=== PATIENT | male | born 1950 | race Caucasian/White ===

== ENCOUNTER 2018-04-23 13:46 | Inpatient (IN) | payer MEDICARE, OTHER ==
[~2018-04-23] VITALS: Ht 175.3 cm; Wt 72.6 kg
[2018-04-23 14:10] VITALS: BP 112/76
--- NOTE | 2018-04-23 14:21 | Emergency Room Report ---
History of Present Illness General Chief Complaint: Generalized Weakness Source: Patient Present Illness HPI Patient is a 68-year-old male who presented after increased difficulty breathing and generalized weakness. Patient gradual onset of symptoms. He reports having prior history of COPD. Patient reports recently stopping smoking. But he states he been smoking up until a few days ago. He reports having increased cough. Reports having increased generalized weakness. He states he has some unknown type of cardiac arrhythmia. He's had previous cardiac catheterization. Allergies: Coded Allergies: AMPICILLIN (Verified Allergy, Unknown, 04/23/18) Uncoded Allergies: PENICILLIN (Allergy, Unknown, 04/23/18) Patient History Past Medical History: COPD Reviewed Nursing Documentation: PMH: Agreed; PSxH: Agreed Nursing Documentation-PMH Past Medical History: No History, Except For Hx Cardiac Problems: Yes - arrhythmia Hx Hypertension: No Hx Pacemaker: No Hx Asthma: Yes Hx COPD: Yes Hx Diabetes: No Hx Cancer: No Hx Gastrointestinal Problems: No Hx Dialysis: No History Of Psychiatric Problem: No Hx Neurological Problems: No Hx Cerebrovascular Accident: No Hx Seizures: No Review of Systems All Other Systems: negative except mentioned in HPI Physical Exam Vital Signs Date Time Temp Pulse Resp B/P (MAP) Pulse Ox O2 Delivery O2 Flow Rate FiO2 04/23/18 13:53 96.0 127 22 133/66 86 Room Air 96.1 Sp02 EP Interpretation: reviewed, normal General Appearance: normal inspection, alert, GCS 15, moderate distress, thin, Chronically Ill Head: atraumatic ENT: normal ENT inspection, hearing grossly normal, normal voice Neck: normal inspection, supple, no bony tend, limited range of motion Respiratory: respiratory distress, accessory muscle use, wheezing Cardiovascular #1: no edema, irregularly irregular Gastrointestinal: normal inspection, normal bowel sounds, non tender, soft, no guarding, no hernia Genitourinary: no CVA tenderness Musculoskeletal: normal inspection, back normal, normal range of motion Neurologic: normal inspection, alert, oriented x3, responsive, speech normal Psychiatric: normal inspection, judgement/insight normal, mood/affect normal Skin: normal inspection, normal color, no rash Medical Decision Making Diagnostic Impression: Primary Impression: Episode of generalized weakness Additional Impressions: COPD (chronic obstructive pulmonary disease) CHF (congestive heart failure) Atrial fibrillation ER Course Patient is a for generalized weakness and shortness of breath. Differential included but was not limited to anemia, pneumonia, pneumothorax, myocardial infarction, pericardial effusion, congestive heart failure, acidosis. Because of complexity of patient's case laboratory testing and imaging studies were ordered.Patient was given IV Lasix as well as oral antibiotics the patient was given breathing treatments as well as IV magnesium. Patient was discussed with Dr. Jarrett Fitch for Dr. Tavares for inpatient management Labs Test 04/23/18 14:22 04/23/18 16:00 04/23/18 19:45 White Blood Count 4.9 K/UL (4.8-10.8) Red Blood Count 5.33 M/UL (4.70-6.10) Hemoglobin 14.7 G/DL (14.2-18.0) Hematocrit 44.2 % (42.0-52.0) Mean Corpuscular Volume 83 FL (80-99) Mean Corpuscular Hemoglobin 27.5 PG (27.0-31.0) Mean Corpuscular Hemoglobin Concent 33.2 G/DL (32.0-36.0) Red Cell Distribution Width 11.8 % (11.6-14.8) Platelet Count 101 K/UL (150-450) Mean Platelet Volume 8.9 FL (6.5-10.1) Neutrophils (%) (Auto) 81.2 % (45.0-75.0) Lymphocytes (%) (Auto) 9.4 % (20.0-45.0) Monocytes (%) (Auto) 8.7 % (1.0-10.0) Eosinophils (%) (Auto) 0.0 % (0.0-3.0) Basophils (%) (Auto) 0.7 % (0.0-2.0) Prothrombin Time 11.0 SEC (9.30-11.50) Prothromb Time International Ratio 1.0 (0.9-1.1) Activated Partial Thromboplast Time 32 SEC (23-33) Sodium Level 136 MMOL/L (136-145) Potassium Level 3.8 MMOL/L (3.5-5.1) Chloride Level 97 MMOL/L (98-107) Carbon Dioxide Level 32 MMOL/L (21-32) Anion Gap 7 mmol/L (5-15) Blood Urea Nitrogen 30 mg/dL (7-18) Creatinine 1.3 MG/DL (0.55-1.30) Estimat Glomerular Filtration Rate 55.2 mL/min (>60) Glucose Level 121 MG/DL (74-106) Calcium Level 8.9 MG/DL (8.5-10.1) Total Bilirubin 3.1 MG/DL (0.2-1.0) Direct Bilirubin 2.2 MG/DL (0.0-0.3) Aspartate Amino Transf (AST/SGOT) 68 U/L (15-37) Alanine Aminotransferase (ALT/SGPT) 112 U/L (12-78) Alkaline Phosphatase 179 U/L (46-116) Troponin I 0.035 ng/mL (0.000-0.056) C-Reactive Protein, Quantitative 18.0 mg/dL (0.00-0.90) Pro-B-Type Natriuretic Peptide 2106 pg/mL (0-125) Total Protein 7.2 G/DL (6.4-8.2) Albumin 3.1 G/DL (3.4-5.0) Globulin 4.1 g/dL Albumin/Globulin Ratio 0.8 (1.0-2.7) Thyroid Stimulating Hormone (TSH) 2.071 uiU/mL (0.358-3.740) Urine RBC 0 /HPF (0 - 0) Urine WBC 0-2 /HPF (0 - 0) Urine Squamous Epithelial Cells None /LPF (NONE/OCC) Urine Bacteria None /HPF (NONE) Urine Opiates Screen Negative (NEGATIVE) Urine Barbiturates Screen Negative (NEGATIVE) Phencyclidine (PCP) Screen Negative (NEGATIVE) Urine Amphetamines Screen Negative (NEGATIVE) Urine Benzodiazepines Screen Negative (NEGATIVE) Urine Cocaine Screen Negative (NEGATIVE) Urine Marijuana (THC) Screen Positive (NEGATIVE) Urine Color Pale yellow Urine Appearance Clear Urine pH 6.5 (4.5-8.0) Urine Specific [place] 1.005 (1.005-1.035) Urine Protein Negative (NEGATIVE) Urine Glucose (UA) 2+ (NEGATIVE) Urine Ketones Negative (NEGATIVE) Urine Occult Blood Negative (NEGATIVE) Urine Nitrite Negative (NEGATIVE) Urine Bilirubin Negative (NEGATIVE) Urine Urobilinogen Normal MG/DL (0.0-1.0) Urine Leukocyte Esterase Negative (NEGATIVE) EKG Diagnostic Results Rate: other - atrial fibrillation Last Vital Signs Date Time Temp Pulse Resp B/P (MAP) Pulse Ox O2 Delivery O2 Flow Rate FiO2 04/23/18 13:53 96.0 127 22 133/66 86 Room Air 96.1 Status: unchanged Disposition: ELOPED Condition: Stable Daniel Carvalho MD Apr 23, 2018 14:21
[2018-04-23] MEDS ORDERED: Solu-MEDROL 125mg Inj IVP ONE (14:30)
[2018-04-23] MEDS ORDERED: Albuterol/Ipratropium 3ml neb HHN SCH (14:30)
[2018-04-23 14:39] LABS: BASOPHILS % (AUTO) 0.7 % (0.0-2.0); HEMATOCRIT 44.2 % (42.0-52.0); HEMOGLOBIN 14.7 G/DL (14.2-18.0); LYMPHOCYTES % (AUTO) 9.4 % (20.0-45.0); MEAN CORPUSCULAR VOLUME 83 FL (80-99); MONOCYTES % (AUTO) 8.7 % (1.0-10.0); NEUTROPHILS % (AUTO) 81.2 % (45.0-75.0); PLATELET COUNT 101 K/UL (150-450); RED BLOOD COUNT 5.33 M/UL (4.70-6.10); RED CELL DISTRIBUTION WIDTH 11.8 % (11.6-14.8); WHITE BLOOD COUNT 4.9 K/UL (4.8-10.8)
[2018-04-23 14:50] LABS: ANION GAP 7 mmol/L (5-15); BLOOD UREA NITROGEN 30 mg/dL (7-18); CALCIUM 8.9 MG/DL (8.5-10.1); CARBON DIOXIDE 32 MMOL/L (21-32); CHLORIDE 97 MMOL/L (98-107); CREATININE 1.3 MG/DL (0.55-1.30); POTASSIUM 3.8 MMOL/L (3.5-5.1); SODIUM 136 MMOL/L (136-145)
[2018-04-23 15:11] LABS: ALANINE AMINOTRANSFERASE 112 U/L (12-78); ALBUMIN 3.1 G/DL (3.4-5.0); ALBUMIN/GLOBULIN RATIO 0.8 (1.0-2.7); ALKALINE PHOSPHATASE 179 U/L (46-116); ASPARTATE AMINO TRANSFERASE 68 U/L (15-37); BILIRUBIN,TOTAL 3.1 MG/DL (0.2-1.0)
[2018-04-23 15:16] LABS: BILIRUBIN,DIRECT 2.2 MG/DL (0.0-0.3)
--- NOTE | 2018-04-23 15:28 | Diagnostic Imaging Report ---
Indication: Shortness of breath Technique: One view of the chest Comparison: none Findings: Lungs and pleural spaces are clear. Heart size is normal Impression: No acute process
[2018-04-23] MEDS ORDERED: FUROSEMIDE10 MG/1 M2 PO (15:49)
[2018-04-23] MEDS ORDERED: COREG3.125 MG ORAL (15:49)
[2018-04-23] MEDS ORDERED: CRESTOR10 M2 ORAL (15:49)
[2018-04-23] MEDS ORDERED: Morphine Sulfate 2mg/ml Inj(IV/IM USE ONLY) IVP PRN (16:00)
[2018-04-23] MEDS ORDERED: Morphine Sulfate 4mg/ml Inj (IV USE ONLY) IVP PRN (16:00)
--- NOTE | 2018-04-23 16:15 | History and Physical ---
History of Present Illness General Date patient seen: Apr 23, 2018 Reason for Hospitalization: Generalized Weakness Present Illness HPI 68 yo M w/ Hx MMP including COPD, CHF who presents to the ED w/ 1 mo of worsening Generalized weakness and one week of increased shortness of breath and KABA. Pt has been living in a board and [facility] and reports limited access to healthy food. Food provided at the facility is not c/w recommendations he has been given for a cardiac/low na diet. Over the past 2 days he has had little po intake due to anorexia and general malaise. At baseline he is able to walk for > 1 block on flat ground, but now is limited to 20-30 feet. He also reports Orthopnea. Pt felt like today his overall health had signifigantly declined prompting him to present to the ED. In the ED pt was found to be in decompensated CHF w/ elevated BNP and COPD exacerbation w/ exp wheeze. He was started on lasix IV, Steroids and nebs with some improvement in sob. Social Hx: Lives in board and care Denies ETOH use Active smoker, 1 PPD, > 40 pack yr Hx (has not smoked in 3 days) Allergies: Coded Allergies: AMPICILLIN (Verified Allergy, Unknown, 04/23/18) Uncoded Allergies: PENICILLIN (Allergy, Unknown, 04/23/18) Medication History Scheduled Carvedilol (Coreg), 12.5 MG ORAL EVERY 12 HOURS, (Reported) Furosemide (Furosemide), 40 MG PO DAILY, (Reported) Rosuvastatin Calcium* (Crestor*), 5 MG ORAL DAILY, (Reported) Patient History Healthcare decision maker N Resuscitation status Advanced Directive on File Past Medical/Surgical History Past Medical/Surgical History: (1) COPD (chronic obstructive pulmonary disease) (2) Atrial fibrillation (3) CHF (congestive heart failure) (4) Episode of generalized weakness Review of Systems Constitutional: Reports: malaise, weakness; Denies: no symptoms, see HPI, chills, sweats, fever, other Eye: Denies: no symptoms, see HPI, eye pain, blurred vision, tearing, double vision, nose pain, nose congestion, acuity changes, discharge, other Respiratory: Reports: see HPI, cough, orthopnea, shortness of breath, wheezing , sputum; Denies: no symptoms, stridor, KABA, other Cardiovascular: Reports: see HPI, PND; Denies: no symptoms, chest pain, edema, palpitations, syncope, other Gastrointestinal: Reports: nausea; Denies: no symptoms, see HPI, abdominal pain , constipation, diarrhea, vomiting, melena, hematemesis, other Genitourinary: Denies: no symptoms, see HPI, discharge, dysuria, frequency, hematuria, pain, retention, incontinence, urgency, vag bleed/dc, other Musculoskeletal: Denies: no symptoms, see HPI, back pain, gout, joint pain, joint swelling, muscle pain, muscle stiffness, other Skin: Denies: no symptoms, see HPI, rash, change in color, change in hair/nails , dryness, lesions, other Psychiatric: Denies: no symptoms, see HPI, prior hx, anxiety, depressed feelings, emotional problems, SI, HI, hallucinations, other Neurological: Denies: no symptoms, see HPI, headache, numbness, paresthesia, seizure, tingling, tremors, focal weakness, syncope, dizziness, other Endocrine: Denies: no symptoms, see HPI, excessive sweating, flushing, intolerance to temperature, increased thirst, increased urine, unexplained weight loss, other Hematologic/Lymphatic: Denies: no symptoms, see HPI, anemia, blood clots, easy bleeding, easy bruising, swollen glands, diathesis, other Physical Exam General Appearance: thin HEENT: normocephalic, atraumatic, anicteric, mucous membranes moist, PERRL Neck: non-tender, supple Respiratory/Chest: chest wall non-tender, lungs clear, no respiratory distress , no accessory muscle use, expiratory wheezing Cardiovascular/Chest: normal rate, regular rhythm, regularly irregular, no gallop/murmur, JVD Abdomen: normal bowel sounds, non tender, soft, no organomegaly, no mass Extremities: normal range of motion, normal inspection, normal capillary refill 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, no motor/sensory deficits, abnormal gait , alert, oriented x 3, normal mood/affect Last 24 Hour Vital Signs Date Time Temp Pulse Resp B/P (MAP) Pulse Ox O2 Delivery O2 Flow Rate FiO2 04/23/18 14:10 96.1 89 29 112/76 97 Room Air 96.1 04/23/18 13:53 96.0 127 22 133/66 86 Room Air 96.1 Laboratory Tests Test 04/23/18 14:22 White Blood Count 4.9 K/UL (4.8-10.8) Red Blood Count 5.33 M/UL (4.70-6.10) Hemoglobin 14.7 G/DL (14.2-18.0) Hematocrit 44.2 % (42.0-52.0) Mean Corpuscular Volume 83 FL (80-99) Mean Corpuscular Hemoglobin 27.5 PG (27.0-31.0) Mean Corpuscular Hemoglobin Concent 33.2 G/DL (32.0-36.0) Red Cell Distribution Width 11.8 % (11.6-14.8) Platelet Count 101 K/UL (150-450) L Mean Platelet Volume 8.9 FL (6.5-10.1) Neutrophils (%) (Auto) 81.2 % (45.0-75.0) H Lymphocytes (%) (Auto) 9.4 % (20.0-45.0) L Monocytes (%) (Auto) 8.7 % (1.0-10.0) Eosinophils (%) (Auto) 0.0 % (0.0-3.0) Basophils (%) (Auto) 0.7 % (0.0-2.0) Prothrombin Time 11.0 SEC (9.30-11.50) Prothromb Time International Ratio 1.0 (0.9-1.1) Activated Partial Thromboplast Time 32 SEC (23-33) Sodium Level 136 MMOL/L (136-145) Potassium Level 3.8 MMOL/L (3.5-5.1) Chloride Level 97 MMOL/L (98-107) L Carbon Dioxide Level 32 MMOL/L (21-32) Anion Gap 7 mmol/L (5-15) Blood Urea Nitrogen 30 mg/dL (7-18) H Creatinine 1.3 MG/DL (0.55-1.30) Estimat Glomerular Filtration Rate 55.2 mL/min (>60) Glucose Level 121 MG/DL (74-106) H Calcium Level 8.9 MG/DL (8.5-10.1) Total Bilirubin 3.1 MG/DL (0.2-1.0) H Direct Bilirubin 2.2 MG/DL (0.0-0.3) H Aspartate Amino Transf (AST/SGOT) 68 U/L (15-37) H Alanine Aminotransferase (ALT/SGPT) 112 U/L (12-78) H Alkaline Phosphatase 179 U/L (46-116) H Troponin I 0.035 ng/mL (0.000-0.056) C-Reactive Protein, Quantitative 18.0 mg/dL (0.00-0.90) H Pro-B-Type Natriuretic Peptide 2106 pg/mL (0-125) H Total Protein 7.2 G/DL (6.4-8.2) Albumin 3.1 G/DL (3.4-5.0) L Globulin 4.1 g/dL Albumin/Globulin Ratio 0.8 (1.0-2.7) L Thyroid Stimulating Hormone (TSH) 2.071 uiU/mL (0.358-3.740) Height (Feet): 5 Height (Inches): 9.00 Weight (Pounds): 160 Medications Current Medications Medications (Trade) Dose Ordered Sig/Nova Route PRN Reason Start Time Stop Time Status Last Admin Dose Admin Albuterol/ Ipratropium (Albuterol/ Ipratropium) 3 ml Q15M HHN 04/23/18 14:30 04/28/18 14:29 04/23/18 14:41 Assessment/Plan Assessment/Plan #Acute decompensated CHF #COPD exacerbation #Transaminitis (? hepatic congestion) #HTN #HLD - place in observation - cardiology consult - athletic monitor - trend tn/ekg - lasix 40 IV BID, goal neg 1L / 24 hrs - strict i/o's - CHEM BID - replace lytes as needed - UA - asa, coreg, statin - abd us - Pulm consult - nebs q4h atc - prednisone 40 po daily x 5 days - defer abx at this time - repeat CXR in am - supplemental 02 - supportive care - dvt ppx: HSQ BID - full code anticipate pt will require 1-2 days in house anticipate dc home w/ HH vs SNF once medically stable I spent 68 min on this case, 48 min was dedicated to counseling and care coordination time of note may not reflect time of clinical encounter Ab Fitch MD Apr 23, 2018 16:15
[2018-04-23 16:18] LABS: APPEARANCE,URINE CLEAR; BILIRUBIN, URINE NEGATIVE (NEGATIVE); GLUCOSE, URINE (UA) NEGATIVE (NEGATIVE); KETONES,URINE NEGATIVE (NEGATIVE); LEUKOCYTE ESTERASE ,URINE NEGATIVE (NEGATIVE); NITRITE,URINE NEGATIVE (NEGATIVE); PH,URINE 6.5 (4.5-8.0); PROTEIN,URINE NEGATIVE (NEGATIVE); UROBILINOGEN,URINE 4 MG/DL (0.0-1.0)
[2018-04-23 16:22] LABS: COLOR,URINE YELLOW
[2018-04-23] MEDS: Albuterol/Ipratropium 3ml neb HHN SCH ×2 (17:42→20:00)
--- NOTE | 2018-04-23 18:41 | Pulmonology Progress Note ---
Assessment/Plan Assessment/Plan HPI HPI Patient is a 68-year-old male who presented after increased difficulty breathing and generalized weakness. Patient gradual onset of symptoms. He reports having prior history of COPD. Patient reports recently stopping smoking. But he states he been smoking up until a few days ago. He reports having increased cough. Reports having increased generalized weakness. He states he has some unknown type of cardiac arrhythmia. He's had previous cardiac catheterization. Allergies: Coded Allergies: AMPICILLIN (Verified Allergy, Unknown, 04/23/18) Uncoded Allergies: PENICILLIN (Allergy, Unknown, 04/23/18) Patient History Past Medical History: COPD Reviewed Nursing Documentation: PMH: Agreed; PSxH: Agreed Nursing Documentation-PMH Past Medical History: No History, Except For Hx Cardiac Problems: Yes - arrhythmia Hx Hypertension: No Hx Pacemaker: No Hx Asthma: Yes Hx COPD: Yes Hx Diabetes: No Hx Cancer: No Hx Gastrointestinal Problems: No Hx Dialysis: No History Of Psychiatric Problem: No Hx Neurological Problems: No Hx Cerebrovascular Accident: No Hx Seizures: No Review of Systems All Other Systems: negative except mentioned in HPI Physical Exam Vital Signs Date Time Temp Pulse Resp B/P (MAP) Pulse Ox O2 Delivery O2 Flow Rate FiO2 04/23/18 13:53 96.0 127 22 133/66 86 Room Air 96.1 Sp02 EP Interpretation: reviewed, normal General Appearance: normal inspection, alert, GCS 15, moderate distress, thin, Chronically Ill Head: atraumatic ENT: normal ENT inspection, hearing grossly normal, normal voice Neck: normal inspection, supple, no bony tend, limited range of motion Respiratory: respiratory distress, accessory muscle use, wheezing Cardiovascular #1: no edema, irregularly irregular Gastrointestinal: normal inspection, normal bowel sounds, non tender, soft, no guarding, no hernia Genitourinary: no CVA tenderness Musculoskeletal: normal inspection, back normal, normal range of motion Neurologic: normal inspection, alert, oriented x3, responsive, speech normal Psychiatric: normal inspection, judgement/insight normal, mood/affect normal Skin: normal inspection, normal color, no rash Medical Decision Making ER Course Patient is a for generalized weakness and shortness of breath. Differential included but was not limited to anemia, pneumonia, pneumothorax, myocardial infarction, pericardial effusion, congestive heart failure, acidosis. Because of complexity of patient's case laboratory testing and imaging studies were ordered. Last Vital Signs Date Time Temp Pulse Resp B/P (MAP) Pulse Ox O2 Delivery O2 Flow Rate FiO2 04/23/18 13:53 96.0 127 22 133/66 86 Room Air 96.1 Assessment/Plan #Acute decompensated CHF #COPD exacerbation #Possible Viral URI #Transaminitis (? 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 - nebs q4h atc - prednisone 40 po daily x 5 days - supplemental 02 sats 90-94% - supportive care - dvt ppx: SQ Heparin 5000 BID - full code I spent 75 min on this case, 43 min was dedicated to counseling and care coordination Subjective ROS Limited/Unobtainable: No Respiratory: Reports: shortness of breath Allergies: Coded Allergies: AMPICILLIN (Verified Allergy, Unknown, 04/23/18) Uncoded Allergies: PENICILLIN (Allergy, Unknown, 04/23/18) Objective Last 24 Hour Vital Signs Date Time Temp Pulse Resp B/P (MAP) Pulse Ox O2 Delivery O2 Flow Rate FiO2 04/23/18 17:57 96.1 04/23/18 16:35 96.1 79 21 112/65 96 Room Air 96.1 04/23/18 14:51 86 20 98 Room Air 04/23/18 14:41 84 22 92 Room Air 04/23/18 14:40 84 22 Room Air 04/23/18 14:10 96.1 89 29 112/76 97 Room Air 96.1 04/23/18 13:53 96.0 127 22 133/66 86 Room Air 96.1 Laboratory Tests 04/23/18 14:22: White Blood Count 4.9, Red Blood Count 5.33, Hemoglobin 14.7, Hematocrit 44.2, Mean Corpuscular Volume 83, Mean Corpuscular Hemoglobin 27.5, Mean Corpuscular Hemoglobin Concent 33.2, Red Cell Distribution Width 11.8, Platelet Count 101L, Mean Platelet Volume 8.9, Neutrophils (%) (Auto) 81.2H, Lymphocytes (%) (Auto) 9.4L, Monocytes (%) (Auto) 8.7, Eosinophils (%) (Auto) 0.0, Basophils (%) (Auto ) 0.7, Prothrombin Time 11.0, Prothromb Time International Ratio 1.0, Activated Partial Thromboplast Time 32, Sodium Level 136, Potassium Level 3.8, Chloride Level 97L, Carbon Dioxide Level 32, Anion Gap 7, Blood Urea Nitrogen 30H, Creatinine 1.3, Estimat Glomerular Filtration Rate 55.2, Glucose Level 121H, Calcium Level 8.9, Total Bilirubin 3.1H, Direct Bilirubin 2.2H, Aspartate Amino Transf (AST/SGOT) 68H, Alanine Aminotransferase (ALT/SGPT) 112H, Alkaline Phosphatase 179H, Troponin I 0.035, C-Reactive Protein, Quantitative 18.0H, Pro- B-Type Natriuretic Peptide 2106H, Total Protein 7.2, Albumin 3.1L, Globulin 4.1 , Albumin/Globulin Ratio 0.8L, Thyroid Stimulating Hormone (TSH) 2.071 04/23/18 16:00: Urine Color Yellow, Urine Appearance Clear, Urine pH 6.5, Urine Specific [place] 1.010, Urine Protein Negative, Urine Glucose (UA) Negative, Urine Ketones Negative, Urine Occult Blood Negative, Urine Nitrite Negative, Urine Bilirubin Negative, Urine Urobilinogen 4H, Urine Leukocyte Esterase Negative, Urine RBC 0, Urine WBC 0-2, Urine Squamous Epithelial Cells None, Urine Bacteria None, Urine Opiates Screen Negative, Urine Barbiturates Screen Negative , Phencyclidine (PCP) Screen Negative, Urine Amphetamines Screen Negative, Urine Benzodiazepines Screen Negative, Urine Cocaine Screen Negative, Urine Marijuana (THC) Screen PositiveH Current Medications Medications (Trade) Dose Ordered Sig/Nova Route PRN Reason Start Time Stop Time Status Last Admin Dose Admin Acetaminophen (Tylenol) 650 mg Q4H PRN ORAL Mild Pain (Pain Scale 1-3) 04/23/18 16:00 05/23/18 15:59 04/23/18 17:57 Acetaminophen (Tylenol) 650 mg Q4H PRN ORAL fever 04/23/18 16:00 05/23/18 15:59 Albuterol/ Ipratropium (Albuterol/ Ipratropium) 3 ml Q4HRT HHN 04/23/18 16:15 04/28/18 16:14 Aspirin (ASA) 81 mg DAILY ORAL 04/24/18 09:00 05/24/18 08:59 Atorvastatin Calcium (Lipitor) 80 mg BEDTIME ORAL 04/23/18 21:00 05/23/18 20:59 Carvedilol (Coreg) 12.5 mg EVERY 12 HOURS ORAL 04/23/18 21:00 05/23/18 20:59 Dextrose (Dextrose 50%) 25 ml STAT PRN IV Hypoglycemia 04/23/18 16:00 05/23/18 15:59 Dextrose (Dextrose 50%) 50 ml STAT PRN IV Hypoglycemia 04/23/18 16:00 05/23/18 15:59 Docusate Sodium (Colace) 100 mg EVERY 12 HOURS ORAL 04/23/18 21:00 05/23/18 20:59 Famotidine (Pepcid) 20 mg BID ORAL 04/23/18 18:00 05/23/18 17:59 04/23/18 17:49 Heparin Sodium (Porcine) (Heparin 5000 units/ml) 5,000 units EVERY 12 HOURS SUBQ 04/23/18 21:00 05/23/18 20:59 Morphine Sulfate (Morphine Sulfate) 2 mg Q4H PRN IVP Moderate Pain (Pain Scale 4-6) 04/23/18 16:00 04/30/18 15:59 Morphine Sulfate (Morphine Sulfate) 4 mg Q4H PRN IVP Severe Pain (Pain Scale 7-10) 04/23/18 16:00 04/30/18 15:59 Ondansetron HCl (Zofran) 4 mg Q6H PRN IVP Nausea & Vomiting 04/23/18 16:00 05/23/18 15:59 Prednisone (predniSONE) 40 mg DAILY ORAL 04/24/18 09:00 04/28/18 09:01 Estuardo Pratt MD Apr 23, 2018 18:41
[2018-04-23 20:00] VITALS: BP 99/57
[2018-04-23 20:46] LABS: APPEARANCE,URINE CLEAR; BILIRUBIN, URINE NEGATIVE (NEGATIVE); COLOR,URINE PALE YELLOW; GLUCOSE, URINE (UA) 2+ (NEGATIVE); KETONES,URINE NEGATIVE (NEGATIVE); LEUKOCYTE ESTERASE ,URINE NEGATIVE (NEGATIVE); NITRITE,URINE NEGATIVE (NEGATIVE); PH,URINE 6.5 (4.5-8.0); PROTEIN,URINE NEGATIVE (NEGATIVE); UROBILINOGEN,URINE NORMAL MG/DL (0.0-1.0)
[2018-04-23] MEDS: Atorvastatin 80mg tab ORAL SCH (20:52)
[2018-04-23] MEDS: Docusate 100mg cap ORAL SCH (20:52)
[2018-04-23] MEDS ORDERED: Carvedilol 12.5mg tab ORAL SCH (21:00)
[2018-04-23] MEDS: Heparin 5000 units/ml inj SUBQ SCH (21:00)
[2018-04-23] MEDS ORDERED: Sodium Chloride 500ML 500 ML IV ONE (21:30)
[2018-04-23] MEDS: Solu-MEDROL 40mg Inj IVP SCH (21:33)
[2018-04-24] MEDS: Albuterol/Ipratropium 3ml neb HHN SCH ×7 (00:07→22:56)
[2018-04-24 00:08] VITALS: BP 126/56
[2018-04-24 04:00] VITALS: BP 121/52
[2018-04-24] MEDS: Solu-MEDROL 40mg Inj IVP SCH ×3 (06:38→21:38)
[2018-04-24 06:50] LABS: HEMATOCRIT 40.9 % (42.0-52.0); HEMOGLOBIN 14.3 G/DL (14.2-18.0); MEAN CORPUSCULAR VOLUME 83 FL (80-99); PLATELET COUNT 89 K/UL (150-450); RED BLOOD COUNT 4.95 M/UL (4.70-6.10); RED CELL DISTRIBUTION WIDTH 11.7 % (11.6-14.8)
[2018-04-24 07:46] LABS: ALANINE AMINOTRANSFERASE 90 U/L (12-78); ALBUMIN 2.8 G/DL (3.4-5.0); ALBUMIN/GLOBULIN RATIO 0.7 (1.0-2.7); ALKALINE PHOSPHATASE 164 U/L (46-116); ANION GAP 9 mmol/L (5-15); ASPARTATE AMINO TRANSFERASE 46 U/L (15-37); BILIRUBIN,TOTAL 1.9 MG/DL (0.2-1.0); BLOOD UREA NITROGEN 39 mg/dL (7-18); CARBON DIOXIDE 30 MMOL/L (21-32); CHLORIDE 98 MMOL/L (98-107); CREATININE 1.2 MG/DL (0.55-1.30); POTASSIUM 3.7 MMOL/L (3.5-5.1); SODIUM 137 MMOL/L (136-145)
[2018-04-24 07:51] LABS: BILIRUBIN,DIRECT 1.3 MG/DL (0.0-0.3)
[2018-04-24] MEDS: Aspirin Baby 81mg ORAL SCH (07:51)
[2018-04-24] MEDS: Heparin 5000 units/ml inj SUBQ SCH (07:51)
[2018-04-24 08:00] VITALS: BP 125/55
[2018-04-24] MEDS: Docusate 100mg cap ORAL SCH ×2 (08:02→20:44)
--- NOTE | 2018-04-24 10:52 | Diagnostic Imaging Report ---
EXAM: US Abdomen Complete CLINICAL HISTORY: COPD TECHNIQUE: Real-time ultrasound of the abdomen (complete) with image documentation. COMPARISON: No relevant prior studies available. FINDINGS: Liver: No discrete mass demonstrated. Heterogeneous echo texture. Gallbladder: Cholelithiasis and gallbladder sludge. No gallbladder wall thickening. Negative sonographic Espinosa sign. Common bile duct: Mildly distended common bile duct measuring 8.2 mm. Pancreas: Pancreas is obscured. Kidneys: No hydronephrosis. Spleen: No splenomegaly. Aorta: Unremarkable. Inferior vena cava: Unremarkable. IMPRESSION: 1. Cholelithiasis and gallbladder sludge. 2. Mildly distended common bile duct measuring 8.2 mm.
--- NOTE | 2018-04-24 11:08 | Cardiology Progress Note ---
Assessment/Plan Assessment/Plan perm afib kam with hs of bifasicualr block hs of cm with subsequent resolution copd abn lft new thrombocytopna new cad s/p pci chronic chf MR chf sx seem to be mild he has noted to have resolution of his cm in 02/2018[facility] will confirm with echo if ef has indeed improved then he will nto be a candidate of icd implantation his kam is nto severe however he may have tachy kam and may need back up pacing in form of a lead less pacemaker implantation if indeed he has sig MR should be considered for zeke clip as well awiat echo woudl consider switch to po lasix with in the next 24 hours he dislike his persent facility which is one of the main reasons he came to er thank you [id number] Objective Last 24 Hour Vital Signs Date Time Temp Pulse Resp B/P (MAP) Pulse Ox O2 Delivery O2 Flow Rate FiO2 04/24/18 10:46 95 18 98 Room Air 21 04/24/18 08:59 Room Air 04/24/18 08:00 97.8 54 18 125/55 (78) 97 97.8 04/24/18 07:59 Room Air 04/24/18 07:59 Room Air 04/24/18 04:00 52 04/24/18 04:00 97.6 54 18 121/52 (75) 98 97.6 04/24/18 03:39 54 16 99 Room Air 04/24/18 03:29 52 16 98 Room Air 21 04/24/18 00:08 97.0 54 18 126/56 (79) 97 97.0 04/24/18 00:00 49 18 98 Room Air 04/24/18 00:00 43 04/23/18 23:49 47 18 97 Room Air 21 04/23/18 21:00 54 99/57 04/23/18 21:00 Room Air 04/23/18 20:10 61 18 99 Room Air 04/23/18 20:00 63 18 97 Room Air 21 04/23/18 20:00 96.3 54 18 99/57 (71) 97 96.3 04/23/18 20:00 55 04/23/18 18:56 96.1 04/23/18 17:57 96.1 04/23/18 17:00 Room Air 04/23/18 16:50 85 04/23/18 16:35 96.1 79 21 112/65 96 Room Air 96.1 04/23/18 14:51 86 20 98 Room Air 04/23/18 14:41 84 22 92 Room Air 04/23/18 14:40 84 22 Room Air 04/23/18 14:10 96.1 89 29 112/76 97 Room Air 96.1 04/23/18 13:53 96.0 127 22 133/66 86 Room Air 96.1 Intake and Output 04/23/18 04/24/18 19:00 07:00 Intake Total 440 ml 150 ml Balance 440 ml 150 ml Intake Oral 440 ml 150 ml # Voids 2 Laboratory Tests Test 04/23/18 14:22 04/23/18 16:00 04/23/18 19:45 04/23/18 22:36 White Blood Count 4.9 K/UL (4.8-10.8) Red Blood Count 5.33 M/UL (4.70-6.10) Hemoglobin 14.7 G/DL (14.2-18.0) Hematocrit 44.2 % (42.0-52.0) Mean Corpuscular Volume 83 FL (80-99) Mean Corpuscular Hemoglobin 27.5 PG (27.0-31.0) Mean Corpuscular Hemoglobin Concent 33.2 G/DL (32.0-36.0) Red Cell Distribution Width 11.8 % (11.6-14.8) Platelet Count 101 K/UL (150-450) L Mean Platelet Volume 8.9 FL (6.5-10.1) Neutrophils (%) (Auto) 81.2 % (45.0-75.0) H Lymphocytes (%) (Auto) 9.4 % (20.0-45.0) L Monocytes (%) (Auto) 8.7 % (1.0-10.0) Eosinophils (%) (Auto) 0.0 % (0.0-3.0) Basophils (%) (Auto) 0.7 % (0.0-2.0) Prothrombin Time 11.0 SEC (9.30-11.50) Prothromb Time International Ratio 1.0 (0.9-1.1) Activated Partial Thromboplast Time 32 SEC (23-33) Sodium Level 136 MMOL/L (136-145) Potassium Level 3.8 MMOL/L (3.5-5.1) Chloride Level 97 MMOL/L (98-107) L Carbon Dioxide Level 32 MMOL/L (21-32) Anion Gap 7 mmol/L (5-15) Blood Urea Nitrogen 30 mg/dL (7-18) H Creatinine 1.3 MG/DL (0.55-1.30) Estimat Glomerular Filtration Rate 55.2 mL/min (>60) Glucose Level 121 MG/DL (74-106) H Calcium Level 8.9 MG/DL (8.5-10.1) Total Bilirubin 3.1 MG/DL (0.2-1.0) H Direct Bilirubin 2.2 MG/DL (0.0-0.3) H Aspartate Amino Transf (AST/SGOT) 68 U/L (15-37) H Alanine Aminotransferase (ALT/SGPT) 112 U/L (12-78) H Alkaline Phosphatase 179 U/L (46-116) H Troponin I 0.035 ng/mL (0.000-0.056) 0.013 ng/mL (0.000-0.056) C-Reactive Protein, Quantitative 18.0 mg/dL (0.00-0.90) H Pro-B-Type Natriuretic Peptide 2106 pg/mL (0-125) H Total Protein 7.2 G/DL (6.4-8.2) Albumin 3.1 G/DL (3.4-5.0) L Globulin 4.1 g/dL Albumin/Globulin Ratio 0.8 (1.0-2.7) L Thyroid Stimulating Hormone (TSH) 2.071 uiU/mL (0.358-3.740) Urine Color Yellow Pale yellow Urine Appearance Clear Clear Urine pH 6.5 (4.5-8.0) 6.5 (4.5-8.0) Urine Specific [place] 1.010 (1.005-1.035) 1.005 (1.005-1.035) Urine Protein Negative (NEGATIVE) Negative (NEGATIVE) Urine Glucose (UA) Negative (NEGATIVE) 2+ (NEGATIVE) H Urine Ketones Negative (NEGATIVE) Negative (NEGATIVE) Urine Occult Blood Negative (NEGATIVE) Negative (NEGATIVE) Urine Nitrite Negative (NEGATIVE) Negative (NEGATIVE) Urine Bilirubin Negative (NEGATIVE) Negative (NEGATIVE) Urine Urobilinogen 4 MG/DL (0.0-1.0) H Normal MG/DL (0.0-1.0) Urine Leukocyte Esterase Negative (NEGATIVE) Negative (NEGATIVE) Urine RBC 0 /HPF (0 - 0) Urine WBC 0-2 /HPF (0 - 0) Urine Squamous Epithelial Cells None /LPF (NONE/OCC) Urine Bacteria None /HPF (NONE) Urine Opiates Screen Negative (NEGATIVE) Urine Barbiturates Screen Negative (NEGATIVE) Phencyclidine (PCP) Screen Negative (NEGATIVE) Urine Amphetamines Screen Negative (NEGATIVE) Urine Benzodiazepines Screen Negative (NEGATIVE) Urine Cocaine Screen Negative (NEGATIVE) Urine Marijuana (THC) Screen Positive (NEGATIVE) H Test 04/24/18 06:10 White Blood Count 3.0 K/UL (4.8-10.8) L Red Blood Count 4.95 M/UL (4.70-6.10) Hemoglobin 14.3 G/DL (14.2-18.0) Hematocrit 40.9 % (42.0-52.0) L Mean Corpuscular Volume 83 FL (80-99) Mean Corpuscular Hemoglobin 28.9 PG (27.0-31.0) Mean Corpuscular Hemoglobin Concent 34.9 G/DL (32.0-36.0) Red Cell Distribution Width 11.7 % (11.6-14.8) Platelet Count 89 K/UL (150-450) L Mean Platelet Volume 9.3 FL (6.5-10.1) Neutrophils (%) (Auto) % (45.0-75.0) Lymphocytes (%) (Auto) % (20.0-45.0) Monocytes (%) (Auto) % (1.0-10.0) Eosinophils (%) (Auto) % (0.0-3.0) Basophils (%) (Auto) % (0.0-2.0) Differential Total Cells Counted 100 Neutrophils % (Manual) 76 % (45-75) H Lymphocytes % (Manual) 15 % (20-45) L Monocytes % (Manual) 9 % (1-10) Eosinophils % (Manual) 0 % (0-3) Basophils % (Manual) 0 % (0-2) Band Neutrophils 0 % (0-8) Platelet Estimate Decreased L Platelet Morphology Normal Red Blood Cell Morphology Normal Sodium Level 137 MMOL/L (136-145) Potassium Level 3.7 MMOL/L (3.5-5.1) Chloride Level 98 MMOL/L (98-107) Carbon Dioxide Level 30 MMOL/L (21-32) Anion Gap 9 mmol/L (5-15) Blood Urea Nitrogen 39 mg/dL (7-18) H Creatinine 1.2 MG/DL (0.55-1.30) Estimat Glomerular Filtration Rate > 60 mL/min (>60) Glucose Level 271 MG/DL (74-106) #H Calcium Level 9.0 MG/DL (8.5-10.1) Total Bilirubin 1.9 MG/DL (0.2-1.0) H Direct Bilirubin 1.3 MG/DL (0.0-0.3) H Aspartate Amino Transf (AST/SGOT) 46 U/L (15-37) H Alanine Aminotransferase (ALT/SGPT) 90 U/L (12-78) H Alkaline Phosphatase 164 U/L (46-116) H Troponin I 0.000 ng/mL (0.000-0.056) Total Protein 7.0 G/DL (6.4-8.2) Albumin 2.8 G/DL (3.4-5.0) L Globulin 4.2 g/dL Albumin/Globulin Ratio 0.7 (1.0-2.7) L Luis Alfredo Gonzalez MD Apr 24, 2018 11:08
[2018-04-24 11:37] VITALS: BP 121/57
--- NOTE | 2018-04-24 13:26 | General Progress Note ---
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 - diuresis per cards - strict i/o's - trend chem - replace lytes as needed - UA non infectious - apixaban BID - plavix, coreg, statin - Pulm consult - doxy BID - nebs q4h atc - steroids per pulm - supplemental 02 - trend LFTs - GI consult - trend CBC (plt) - supportive care - dvt ppx: HSQ BID - full code anticipate pt will require 2-3 days in house anticipate dc home w/ HH vs SNF once medically stable I spent 41 min on this case, 25 min was dedicated to counseling and care coordination time of note may not reflect time of clinical encounter Subjective Date patient seen: Apr 24, 2018 Allergies: Coded Allergies: AMPICILLIN (Verified Allergy, Unknown, 04/23/18) Uncoded Allergies: PENICILLIN (Allergy, Unknown, 04/23/18) All Systems: reviewed and negative except above - sob, general malaise Subjective no acute events afeb and hds evaluated by cards and pulm serial tn neg LFTs improved ABD us done Objective Last 24 Hour Vital Signs Date Time Temp Pulse Resp B/P (MAP) Pulse Ox O2 Delivery O2 Flow Rate FiO2 04/24/18 11:37 96.3 86 19 121/57 (78) 99 96.3 04/24/18 10:56 59 18 99 Room Air 04/24/18 10:46 95 18 98 Room Air 21 04/24/18 08:59 Room Air 04/24/18 08:00 97.8 54 18 125/55 (78) 97 97.8 04/24/18 07:59 Room Air 04/24/18 07:59 Room Air 04/24/18 04:00 52 04/24/18 04:00 97.6 54 18 121/52 (75) 98 97.6 04/24/18 03:39 54 16 99 Room Air 04/24/18 03:29 52 16 98 Room Air 21 04/24/18 00:08 97.0 54 18 126/56 (79) 97 97.0 8/4/18 00:00 49 18 98 Room Air 04/24/18 00:00 43 04/23/18 23:49 47 18 97 Room Air 21 04/23/18 21:00 54 99/57 04/23/18 21:00 Room Air 04/23/18 20:10 61 18 99 Room Air 04/23/18 20:00 63 18 97 Room Air 21 04/23/18 20:00 96.3 54 18 99/57 (71) 97 96.3 04/23/18 20:00 55 04/23/18 18:56 96.1 04/23/18 17:57 96.1 04/23/18 17:00 Room Air 04/23/18 16:50 85 04/23/18 16:35 96.1 79 21 112/65 96 Room Air 96.1 04/23/18 14:51 86 20 98 Room Air 04/23/18 14:41 84 22 92 Room Air 04/23/18 14:40 84 22 Room Air 04/23/18 14:10 96.1 89 29 112/76 97 Room Air 96.1 04/23/18 13:53 96.0 127 22 133/66 86 Room Air 96.1 Intake and Output 04/23/18 04/24/18 19:00 07:00 Intake Total 440 ml 150 ml Balance 440 ml 150 ml Intake Oral 440 ml 150 ml # Voids 2 Laboratory Tests 04/23/18 14:22: White Blood Count 4.9, Red Blood Count 5.33, Hemoglobin 14.7, Hematocrit 44.2, Mean Corpuscular Volume 83, Mean Corpuscular Hemoglobin 27.5, Mean Corpuscular Hemoglobin Concent 33.2, Red Cell Distribution Width 11.8, Platelet Count 101L, Mean Platelet Volume 8.9, Neutrophils (%) (Auto) 81.2H, Lymphocytes (%) (Auto) 9.4L, Monocytes (%) (Auto) 8.7, Eosinophils (%) (Auto) 0.0, Basophils (%) (Auto ) 0.7, Prothrombin Time 11.0, Prothromb Time International Ratio 1.0, Activated Partial Thromboplast Time 32, Sodium Level 136, Potassium Level 3.8, Chloride Level 97L, Carbon Dioxide Level 32, Anion Gap 7, Blood Urea Nitrogen 30H, Creatinine 1.3, Estimat Glomerular Filtration Rate 55.2, Glucose Level 121H, Calcium Level 8.9, Total Bilirubin 3.1H, Direct Bilirubin 2.2H, Aspartate Amino Transf (AST/SGOT) 68H, Alanine Aminotransferase (ALT/SGPT) 112H, Alkaline Phosphatase 179H, Troponin I 0.035, C-Reactive Protein, Quantitative 18.0H, Pro- B-Type Natriuretic Peptide 2106H, Total Protein 7.2, Albumin 3.1L, Globulin 4.1 , Albumin/Globulin Ratio 0.8L, Thyroid Stimulating Hormone (TSH) 2.071 04/23/18 16:00: Urine Color Yellow, Urine Appearance Clear, Urine pH 6.5, Urine Specific [place] 1.010, Urine Protein Negative, Urine Glucose (UA) Negative, Urine Ketones Negative, Urine Occult Blood Negative, Urine Nitrite Negative, Urine Bilirubin Negative, Urine Urobilinogen 4H, Urine Leukocyte Esterase Negative, Urine RBC 0, Urine WBC 0-2, Urine Squamous Epithelial Cells None, Urine Bacteria None, Urine Opiates Screen Negative, Urine Barbiturates Screen Negative , Phencyclidine (PCP) Screen Negative, Urine Amphetamines Screen Negative, Urine Benzodiazepines Screen Negative, Urine Cocaine Screen Negative, Urine Marijuana (THC) Screen PositiveH 04/23/18 19:45: Urine Color Pale yellow, Urine Appearance Clear, Urine pH 6.5, Urine Specific [place] 1.005, Urine Protein Negative, Urine Glucose (UA) 2+H, Urine Ketones Negative, Urine Occult Blood Negative, Urine Nitrite Negative, Urine Bilirubin Negative, Urine Urobilinogen Normal, Urine Leukocyte Esterase Negative 04/23/18 22:36: Troponin I 0.013 04/24/18 06:10: White Blood Count 3.0L, Red Blood Count 4.95, Hemoglobin 14.3, Hematocrit 40.9L , Mean Corpuscular Volume 83, Mean Corpuscular Hemoglobin 28.9, Mean Corpuscular Hemoglobin Concent 34.9, Red Cell Distribution Width 11.7, Platelet Count 89L, Mean Platelet Volume 9.3, Neutrophils (%) (Auto) , Lymphocytes (%) ( Auto) , Monocytes (%) (Auto) , Eosinophils (%) (Auto) , Basophils (%) (Auto) , Differential Total Cells Counted 100, Neutrophils % (Manual) 76H, Lymphocytes % (Manual) 15L, Monocytes % (Manual) 9, Eosinophils % (Manual) 0, Basophils % ( Manual) 0, Band Neutrophils 0, Platelet Estimate DecreasedL, Platelet Morphology Normal, Red Blood Cell Morphology Normal, Sodium Level 137, Potassium Level 3.7, Chloride Level 98, Carbon Dioxide Level 30, Anion Gap 9, Blood Urea Nitrogen 39H, Creatinine 1.2, Estimat Glomerular Filtration Rate > 60 , Glucose Level 271#H, Calcium Level 9.0, Total Bilirubin 1.9H, Direct Bilirubin 1.3H, Aspartate Amino Transf (AST/SGOT) 46H, Alanine Aminotransferase (ALT/SGPT) 90H, Alkaline Phosphatase 164H, Troponin I 0.000, Total Protein 7.0, Albumin 2.8L, Globulin 4.2, Albumin/Globulin Ratio 0.7L Height (Feet): 5 Height (Inches): 9.00 Weight (Pounds): 160 General Appearance: WD/WN, no apparent distress, alert EENT: PERRL/EOMI Neck: non-tender, supple Cardiovascular: normal peripheral pulses, normal rate, regularly irregular, no gallop/murmur, JVD Respiratory/Chest: lungs clear, normal breath sounds, no respiratory distress, no accessory muscle use Abdomen: non tender, soft 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
--- NOTE | 2018-04-24 15:23 | Pulmonology Progress Note ---
Assessment/Plan Assessment/Plan HPI HPI Patient is a 68-year-old male who presented after increased difficulty breathing and generalized weakness. Patient gradual onset of symptoms. He reports having prior history of COPD. Patient reports recently stopping smoking. But he states he been smoking up until a few days ago. He reports having increased cough. Reports having increased generalized weakness. He states he has some unknown type of cardiac arrhythmia. He's had previous cardiac catheterization. Allergies: Coded Allergies: AMPICILLIN (Verified Allergy, Unknown, 04/23/18) Uncoded Allergies: PENICILLIN (Allergy, Unknown, 04/23/18) Patient History Past Medical History: COPD Reviewed Nursing Documentation: PMH: Agreed; PSxH: Agreed Nursing Documentation-PMH Past Medical History: No History, Except For Hx Cardiac Problems: Yes - arrhythmia Hx Hypertension: No Hx Pacemaker: No Hx Asthma: Yes Hx COPD: Yes Hx Diabetes: No Hx Cancer: No Hx Gastrointestinal Problems: No Hx Dialysis: No History Of Psychiatric Problem: No Hx Neurological Problems: No Hx Cerebrovascular Accident: No Hx Seizures: No Review of Systems All Other Systems: negative except mentioned in HPI Physical Exam Vital Signs Date Time Temp Pulse Resp B/P (MAP) Pulse Ox O2 Delivery O2 Flow Rate FiO2 04/23/18 13:53 96.0 127 22 133/66 86 Room Air 96.1 Sp02 EP Interpretation: reviewed, normal General Appearance: normal inspection, alert, GCS 15, moderate distress, thin, Chronically Ill Head: atraumatic ENT: normal ENT inspection, hearing grossly normal, normal voice Neck: normal inspection, supple, no bony tend, limited range of motion Respiratory: respiratory distress, accessory muscle use, wheezing Cardiovascular #1: no edema, irregularly irregular Gastrointestinal: normal inspection, normal bowel sounds, non tender, soft, no guarding, no hernia Genitourinary: no CVA tenderness Musculoskeletal: normal inspection, back normal, normal range of motion Neurologic: normal inspection, alert, oriented x3, responsive, speech normal Psychiatric: normal inspection, judgement/insight normal, mood/affect normal Skin: normal inspection, normal color, no rash Medical Decision Making ER Course Patient is a for generalized weakness and shortness of breath. Differential included but was not limited to anemia, pneumonia, pneumothorax, myocardial infarction, pericardial effusion, congestive heart failure, acidosis. Because of complexity of patient's case laboratory testing and imaging studies were ordered. Last Vital Signs Date Time Temp Pulse Resp B/P (MAP) Pulse Ox O2 Delivery O2 Flow Rate FiO2 04/23/18 13:53 96.0 127 22 133/66 86 Room Air 96.1 Assessment/Plan #Acute decompensated CHF #COPD exacerbation #Possible Viral URI #Transaminitis (? hepatic congestion) #HTN #HLD - diuresis PRN - monitor labs - [employer] meds - nebs q4h atc -Continue current steroids - supplemental 02 sats 90-94% - supportive care - dvt ppx: SQ Heparin 5000 BID - full code I spent 45 min on this case, 23 min was dedicated to counseling and care coordination Subjective ROS Limited/Unobtainable: No Allergies: Coded Allergies: AMPICILLIN (Verified Allergy, Unknown, 04/23/18) Uncoded Allergies: PENICILLIN (Allergy, Unknown, 04/23/18) Objective Last 24 Hour Vital Signs Date Time Temp Pulse Resp B/P (MAP) Pulse Ox O2 Delivery O2 Flow Rate FiO2 04/24/18 15:21 56 18 100 Room Air 04/24/18 15:09 58 18 98 Room Air 04/24/18 12:00 65 04/24/18 11:37 96.3 86 19 121/57 (78) 99 96.3 04/24/18 10:56 59 18 99 Room Air 04/24/18 10:46 95 18 98 Room Air 04/24/18 08:59 Room Air 04/24/18 08:00 97.8 54 18 125/55 (78) 97 97.8 04/24/18 08:00 51 04/24/18 07:59 Room Air 04/24/18 07:59 Room Air 04/24/18 04:00 52 04/24/18 04:00 97.6 54 18 121/52 (75) 98 97.6 04/24/18 03:39 54 16 99 Room Air 04/24/18 03:29 52 16 98 Room Air 04/24/18 00:08 97.0 54 18 126/56 (79) 97 97.0 04/24/18 00:00 49 18 98 Room Air 04/24/18 00:00 43 04/23/18 23:49 47 18 97 Room Air 21 04/23/18 21:00 54 99/57 04/23/18 21:00 Room Air 04/23/18 20:10 61 18 99 Room Air 04/23/18 20:00 63 18 97 Room Air 21 04/23/18 20:00 96.3 54 18 99/57 (71) 97 96.3 04/23/18 20:00 55 04/23/18 18:56 96.1 04/23/18 17:57 96.1 04/23/18 17:00 Room Air 04/23/18 16:50 85 04/23/18 16:35 96.1 79 21 112/65 96 Room Air 96.1 Intake and Output 04/23/18 04/24/18 19:00 07:00 Intake Total 440 ml 150 ml Balance 440 ml 150 ml Intake Oral 440 ml 150 ml # Voids 2 Laboratory Tests 04/23/18 16:00: Urine Color Yellow, Urine Appearance Clear, Urine pH 6.5, Urine Specific [place] 1.010, Urine Protein Negative, Urine Glucose (UA) Negative, Urine Ketones Negative, Urine Occult Blood Negative, Urine Nitrite Negative, Urine Bilirubin Negative, Urine Urobilinogen 4H, Urine Leukocyte Esterase Negative, Urine RBC 0, Urine WBC 0-2, Urine Squamous Epithelial Cells None, Urine Bacteria None, Urine Opiates Screen Negative, Urine Barbiturates Screen Negative , Phencyclidine (PCP) Screen Negative, Urine Amphetamines Screen Negative, Urine Benzodiazepines Screen Negative, Urine Cocaine Screen Negative, Urine Marijuana (THC) Screen PositiveH 04/23/18 19:45: Urine Color Pale yellow, Urine Appearance Clear, Urine pH 6.5, Urine Specific [place] 1.005, Urine Protein Negative, Urine Glucose (UA) 2+H, Urine Ketones Negative, Urine Occult Blood Negative, Urine Nitrite Negative, Urine Bilirubin Negative, Urine Urobilinogen Normal, Urine Leukocyte Esterase Negative 04/23/18 22:36: Troponin I 0.013 04/24/18 06:10: Troponin I 0.000, White Blood Count 3.0L, Red Blood Count 4.95, Hemoglobin 14.3 , Hematocrit 40.9L, Mean Corpuscular Volume 83, Mean Corpuscular Hemoglobin 28.9 , Mean Corpuscular Hemoglobin Concent 34.9, Red Cell Distribution Width 11.7, Platelet Count 89L, Mean Platelet Volume 9.3, Neutrophils (%) (Auto) , Lymphocytes (%) (Auto) , Monocytes (%) (Auto) , Eosinophils (%) (Auto) , Basophils (%) (Auto) , Differential Total Cells Counted 100, Neutrophils % ( Manual) 76H, Lymphocytes % (Manual) 15L, Monocytes % (Manual) 9, Eosinophils % ( Manual) 0, Basophils % (Manual) 0, Band Neutrophils 0, Platelet Estimate DecreasedL, Platelet Morphology Normal, Red Blood Cell Morphology Normal, Sodium Level 137, Potassium Level 3.7, Chloride Level 98, Carbon Dioxide Level 30, Anion Gap 9, Blood Urea Nitrogen 39H, Creatinine 1.2, Estimat Glomerular Filtration Rate > 60, Glucose Level 271#H, Calcium Level 9.0, Total Bilirubin 1.9H, Direct Bilirubin 1.3H, Aspartate Amino Transf (AST/SGOT) 46H, Alanine Aminotransferase (ALT/SGPT) 90H, Alkaline Phosphatase 164H, Total Protein 7.0, Albumin 2.8L, Globulin 4.2, Albumin/Globulin Ratio 0.7L Current Medications Medications (Trade) Dose Ordered Sig/Nova Route PRN Reason Start Time Stop Time Status Last Admin Dose Admin Acetaminophen (Tylenol) 650 mg Q4H PRN ORAL Mild Pain (Pain Scale 1-3) 04/23/18 16:00 05/23/18 15:59 04/23/18 17:57 Acetaminophen (Tylenol) 650 mg Q4H PRN ORAL fever 04/23/18 16:00 05/23/18 15:59 Albuterol/ Ipratropium (Albuterol/ Ipratropium) 3 ml Q4HRT HHN 04/23/18 16:15 04/28/18 16:14 04/24/18 15:09 Apixaban (Eliquis) 5 mg BID ORAL 04/24/18 18:00 05/24/18 17:59 Aspirin (ASA) 81 mg DAILY ORAL 04/24/18 09:00 05/24/18 08:59 Atorvastatin Calcium (Lipitor) 80 mg BEDTIME ORAL 04/23/18 21:00 05/23/18 20:59 04/23/18 20:52 Clopidogrel Bisulfate (Plavix) 75 mg DAILY ORAL 04/25/18 09:00 05/25/18 08:59 Dextrose (Dextrose 50%) 25 ml STAT PRN IV Hypoglycemia 04/23/18 16:00 05/23/18 15:59 Dextrose (Dextrose 50%) 50 ml STAT PRN IV Hypoglycemia 04/23/18 16:00 05/23/18 15:59 Docusate Sodium (Colace) 100 mg EVERY 12 HOURS ORAL 04/23/18 21:00 05/23/18 20:59 04/24/18 08:02 Doxycycline Monohydrate (Vibramycin) 100 mg EVERY 12 HOURS ORAL 04/23/18 21:00 04/30/18 20:59 04/24/18 08:03 Famotidine (Pepcid) 20 mg BID ORAL 04/23/18 18:00 05/23/18 17:59 04/24/18 08:02 Furosemide (Lasix) 40 mg DAILY ORAL 04/25/18 09:00 05/25/18 08:59 Methylprednisolone Sodium Succinate (Solu-MEDROL) 40 mg EVERY 8 HOURS IVP 04/23/18 22:00 05/23/18 21:59 04/24/18 14:21 Morphine Sulfate (Morphine Sulfate) 2 mg Q4H PRN IVP Moderate Pain (Pain Scale 4-6) 04/23/18 16:00 04/30/18 15:59 Morphine Sulfate (Morphine Sulfate) 4 mg Q4H PRN IVP Severe Pain (Pain Scale 7-10) 04/23/18 16:00 04/30/18 15:59 Ondansetron HCl (Zofran) 4 mg Q6H PRN IVP Nausea & Vomiting 04/23/18 16:00 05/23/18 15:59 Estuardo Pratt MD Apr 24, 2018 15:23
[2018-04-24 16:00] VITALS: BP 131/78
--- NOTE | 2018-04-24 16:15 | Diagnostic Imaging Report ---
EXAM: XR Chest, 2 Views CLINICAL HISTORY: SOB TECHNIQUE: Frontal and lateral views of the chest. COMPARISON: Chest x-ray 04-23-18 FINDINGS: Lungs: Hyperinflated lungs of COPD.. Lungs are clear. Pleural space: Unremarkable. No pneumothorax. Heart: Unremarkable. No cardiomegaly. Mediastinum: Unremarkable. Bones/joints: Degenerative changes of the spine. IMPRESSION: 1. Hyperinflated lungs of COPD. 2. No acute process.
[2018-04-24] MEDS: Eliquis 2.5mg tablet ORAL SCH (17:38)
[2018-04-24] MEDS ORDERED: Eliquis 2.5mg tablet ORAL SCH (18:00)
--- NOTE | 2018-04-24 19:15 | Consultation ---
DATE OF CONSULTATION: 04/24/2018 CARDIOLOGY CONSULTATION CONSULTING PHYSICIAN: Luis Alfredo Gonzalez M.D. REFERRING PHYSICIAN: Dr. Ab Fitch. REASON FOR REFERRAL: Congestive heart failure and bradycardia. HISTORY OF PRESENT ILLNESS: This is an elderly gentleman, who is usually followed at [facility] whose records I have had a chance to review. The patient's usual potato loader, Dr. Rey, recommended previously for the patient to undergo electrophysiology evaluation for possibly an intracardiac defibrillator implantation. The patient has not really gotten to that stage. Apparently at his board and care facility, the food that they serve him is he describes as terrible and he has had problem with that. He finally decided to come to the hospital because he was feeling ill. He really has a hard time indicating that the symptom that he has been having specifically being admitted to the hospital is that he does have some chronic shortness of breath, nothing acute. He feels that since he stopped smoking, the shortness of breath has gotten better. He uses one pillow at night. He has no PND episodes. He does limit his activity. When he does limit his activity, he denies having had any pain in the chest with tightness, heaviness, or discomfort in the chest nor having shortness of breath that limits his activities. PAST MEDICAL HISTORY: Extensive. He has as mentioned history of atrial fibrillation, chronic compensated congestive heart failure with ejection fraction of 15% that reportedly improved to subsequently 60%. He has history of [id number] myocardial infarction, history of coronary artery disease, status post PCI to LAD and right coronary artery in November 2017, hypertension systemic as well as pulmonary hypertension, history of right ventricular systolic dysfunction, [id number] mitral regurgitation, and tobacco use disorder as well as COPD, history of syncope and fatty liver. Reported history of HCV as well. Macular degeneration. ALLERGIES: He does have allergies to penicillin. SOCIAL HISTORY: He smoked until recently and denies alcohol or drugs according to his records. REVIEW OF SYSTEMS: GASTROINTESTINAL: He has had some problems with color in the stools, otherwise no black or tarry stools. GENITOURINARY: He denies. PULMONARY: He does have some coughing symptoms and some wheezing. CONSTITUTIONAL: He feels cold at times, but no fevers and no night sweats. NEUROLOGIC: He has some macular degeneration. PHYSICAL EXAMINATION: GENERAL: Shows to be an elderly gentleman, who is really lying down at approximately 10 degrees of head-of-bed elevation in right lateral decubitus position. He does not appear to be in any kind of respiratory distress. NECK: Supple. LUNGS: There are some decreased breath sounds, but no wheezes and no crackles noted. CARDIAC: Distant heart sounds, somewhat irregular. No heaves or thrills noted. ABDOMEN: Soft and nontender. Positive bowel sounds. EXTREMITIES: There is no clubbing or cyanosis nor is there any edema. NEUROLOGICAL: He is awake, alert, responsive, and in no apparent respiratory distress. LABORATORY AND DIAGNOSTIC DATA: White count is down to 3 with hemoglobin 14.3 and platelet count of 89,000 down from 101,000. Sodium 137, potassium 3.7, chloride 98, bicarbonate 30, BUN of 39, creatinine 1.2, and glucose of 271 with bilirubin of 1.9, alkaline phosphatase of 164 with AST and ALT in the 40s and 90s respectively. All troponins 0.035, 0.013, and 0.00. Subsequently, C-reactive protein was 18 with proBNP of 2100 only with albumin of 2.8. TSH of 2.071. Coags, INR 1.0 and PTT of 32. Urinalysis appears fairly unremarkable and tox screen performed at time of admission, positive for marijuana. A chest x-ray was performed in the emergency room and indicates no acute processes. Her [facility] data was reviewed. Creatinine between 1 to 1.3, most recently in March. Three sets of cardiac enzymes at that time were negative in March as well and his platelet count was 167,000 at that time. An echocardiogram was performed on March 08 that showed ejection fraction to be 60%, hypokinesis of the basal inferior wall with otherwise normal function. It is to be noted that ejection fraction has significantly improved from 20% previously down up to about 60%. The patient's electrocardiogram on telemetry data shows atrial fibrillation with rapid ventricular response with some episodes of bradycardia in the middle of the night, right bundle-branch conduction defect was noted on his EKG with secondary T-wave abnormalities. ASSESSMENT AND PLAN: 1. Permanent atrial fibrillation. 2. Bradycardia. 3. Coronary artery disease, status post multiple PCIs, last one in November 2017. 4. History of cardiomyopathy that subsequently seems to have resolved. 5. COPD. 6. History of tobacco use disorder. 7. Thrombocytopenia. 8. Abnormal liver function tests. 9. Right bundle-branch block and left anterior fascicular block, chronic. 10. Chronic CHF. 11. Mitral regurgitation noted on echocardiogram. Dr. Fitch, this patient was seen in cardiac consultation. His CHF symptoms seem to be mild at the present time. He was noted to have resolution of his cardiomyopathy back in February 2018 at [facility]. I will confirm that with an echocardiogram repeated. If his ejection fraction is indeed improving, he will not be a candidate for ICD implantation. His bradycardia is not severe, however, he may have a component of tachybradycardia and may need to have some pacemaker to allow him to take medications for the tachycardic episodes. If indeed, he has significant mitral regurgitation on his echocardiogram, he should be considered for placement of a mitral clip to help with his CHF symptoms. Await echocardiogram. We will consider switching to p.o. Lasix within the next 24 hours. In addition, it should be noted that he dislikes the present facility in which he is staying at and that was one of the main reasons that he came to the emergency room as well. Dr. Fitch, thank you for allowing me to participate in the care of this patient. Luis Alfredo Gonzalez M.D. : Danitza JOB#: [id number] CC:
[2018-04-24 20:00] VITALS: BP 155/75
[2018-04-24] MEDS: Atorvastatin 80mg tab ORAL SCH (20:44)
[2018-04-25] VITALS: BP 132/79
[2018-04-25] MEDS: Zolpidem 5mg tab ORAL PRN (02:10)
[2018-04-25] MEDS: Albuterol/Ipratropium 3ml neb HHN SCH ×6 (03:01→23:36)
[2018-04-25 04:00] VITALS: BP 128/53
[2018-04-25] MEDS: Solu-MEDROL 40mg Inj IVP SCH ×2 (06:11→14:17)
[2018-04-25 07:13] LABS: HEMATOCRIT 38.8 % (42.0-52.0); HEMOGLOBIN 13.2 G/DL (14.2-18.0); MEAN CORPUSCULAR VOLUME 83 FL (80-99); PLATELET COUNT 119 K/UL (150-450); RED BLOOD COUNT 4.69 M/UL (4.70-6.10); RED CELL DISTRIBUTION WIDTH 11.8 % (11.6-14.8); WHITE BLOOD COUNT 10.9 K/UL (4.8-10.8)
[2018-04-25 07:27] LABS: ALANINE AMINOTRANSFERASE 95 U/L (12-78); ALBUMIN 3.3 G/DL (3.4-5.0); ALBUMIN/GLOBULIN RATIO 0.8 (1.0-2.7); ALKALINE PHOSPHATASE 161 U/L (46-116); ANION GAP 6 mmol/L (5-15); ASPARTATE AMINO TRANSFERASE 43 U/L (15-37); BILIRUBIN,TOTAL 1.3 MG/DL (0.2-1.0); BLOOD UREA NITROGEN 39 mg/dL (7-18); CALCIUM 9.4 MG/DL (8.5-10.1); CARBON DIOXIDE 34 MMOL/L (21-32); CHLORIDE 97 MMOL/L (98-107); CREATININE 1.3 MG/DL (0.55-1.30); POTASSIUM 3.6 MMOL/L (3.5-5.1); SODIUM 137 MMOL/L (136-145)
[2018-04-25 07:31] LABS: BILIRUBIN,DIRECT 0.9 MG/DL (0.0-0.3)
[2018-04-25 08:00] VITALS: BP 144/71
[2018-04-25] MEDS: Docusate 100mg cap ORAL SCH ×2 (08:54→20:42)
[2018-04-25] MEDS: Aspirin Baby 81mg ORAL SCH (08:55)
[2018-04-25] MEDS: Eliquis 2.5mg tablet ORAL SCH ×2 (08:55→17:02)
[2018-04-25] MEDS ORDERED: Furosemide 40mg tab ORAL SCH (09:00)
[2018-04-25 12:00] VITALS: BP 91/65
--- NOTE | 2018-04-25 13:26 | Cardiology Report ---
APPROVED REPORT EXAM: Two-dimensional and M-mode echocardiogram with Doppler and color Doppler. INDICATION Cardiomyopathy M-Mode DIMENSIONS IVSd1.1 (0.7-1.1cm)Left Atrium (MM)3.5 (1.6-4.0cm) LVDd4.2 (3.5-5.6cm)Aortic Root2.5 (2.0-3.7cm) PWd1.2 (0.7-1.1cm)Aortic Cusp Exc.1.6 (1.5-2.0cm) LVDs1.6 (2.5-4.0cm) PWs1.7 cm Normal left ventricular chamber size, systolic function and wall motion. Left ventricular ejection fraction estimated to be 60-65 %. Borderline left ventricular hypertrophy. Anterior Echo-free space, may be due to pericardial fat or effusion. All other cardiac chamber sizes are within normal limits. Mild focal aortic valve sclerosis with adequate cusp excursion. Mildly thickened mitral valve leaflets with normal excursion. Mild mitral annulus and aortic root calcification. Normal pulmonic valve structure. Normal tricuspid valve structure. IVC is normal in size with physiological collapse. A color flow and spectral Doppler study was performed and revealed: No aortic insufficiency. Mild mitral regurgitation. Left ventricular diastolic function could not be determined due to A-Fib. Trace tricuspid regurgitation. Tricuspid systolic velocities suggests peak right ventricular systolic pressure of 11 mmHg. No pulmonic regurgitation present.
--- NOTE | 2018-04-25 13:30 | Cardiology Progress Note ---
Assessment/Plan Assessment/Plan perm afib kam with hs of bifasicualr block hs of cm with subsequent resolution copd abn lft new thrombocytopna new cad s/p pci chronic chf MR chf sx seem to be mild he has noted to have resolution of his cm in 02/2018at [facility] confirmed on echo here to day off bb but now heart rate mildy increasedsd tele reviewed will restirt coreg but at 1/2 prioor dsoe if remain sig tacy or wooten may need pacing MR not confirmed on echo today swtich to low dose po laix he dislike his persent facility which is one of the main reasons he came to er Subjective Cardiovascular: Reports: lightheadedness; Denies: chest pain, palpitations Respiratory: Denies: shortness of breath Gastrointestinal/Abdominal: Denies: abdominal pain Genitourinary: Denies: burning Objective Last 24 Hour Vital Signs Date Time Temp Pulse Resp B/P (MAP) Pulse Ox O2 Delivery O2 Flow Rate FiO2 04/25/18 11:14 68 18 98 Room Air 04/25/18 11:05 80 18 99 Room Air 04/25/18 09:14 Room Air 04/25/18 08:00 75 04/25/18 08:00 97.3 88 18 144/71 (95) 99 97.3 04/25/18 07:56 67 18 98 Room Air 04/25/18 07:49 74 18 99 Room Air 04/25/18 04:00 97.7 98 18 128/53 (78) 98 97.7 04/25/18 04:00 87 04/25/18 03:08 64 18 100 Room Air 04/25/18 03:01 71 18 98 Room Air 04/25/18 00:00 97.0 91 20 132/79 (96) 98 97.0 04/25/18 00:00 91 04/24/18 23:06 59 18 100 Room Air 04/24/18 22:56 64 18 98 Room Air 04/24/18 21:00 Room Air 04/24/18 20:02 61 18 100 Room Air 04/24/18 20:00 77 04/24/18 20:00 95.7 71 20 155/75 (101) 99 95.7 04/24/18 19:46 55 18 97 Room Air 04/24/18 16:00 77 04/24/18 16:00 96.1 87 19 131/78 (95) 97 96.1 04/24/18 15:21 56 18 100 Room Air 21 04/24/18 15:09 58 18 98 Room Air 21 General Appearance: no apparent distress, alert Cardiovascular: irregularly irregular Respiratory/Chest: lungs clear Abdomen: normal bowel sounds, non tender, soft Extremities: no swelling Intake and Output 04/24/18 04/25/18 19:00 07:00 Intake Total 580 ml Balance 580 ml Intake Oral 580 ml # Voids 3 4 # Bowel Movements 1 Laboratory Tests Test 04/25/18 06:00 White Blood Count 10.9 K/UL (4.8-10.8) #H Red Blood Count 4.69 M/UL (4.70-6.10) L Hemoglobin 13.2 G/DL (14.2-18.0) L Hematocrit 38.8 % (42.0-52.0) L Mean Corpuscular Volume 83 FL (80-99) Mean Corpuscular Hemoglobin 28.2 PG (27.0-31.0) Mean Corpuscular Hemoglobin Concent 34.1 G/DL (32.0-36.0) Red Cell Distribution Width 11.8 % (11.6-14.8) Platelet Count 119 K/UL (150-450) L Mean Platelet Volume 10.0 FL (6.5-10.1) Neutrophils (%) (Auto) % (45.0-75.0) Lymphocytes (%) (Auto) % (20.0-45.0) Monocytes (%) (Auto) % (1.0-10.0) Eosinophils (%) (Auto) % (0.0-3.0) Basophils (%) (Auto) % (0.0-2.0) Differential Total Cells Counted 100 Neutrophils % (Manual) 91 % (45-75) H Lymphocytes % (Manual) 6 % (20-45) L Monocytes % (Manual) 3 % (1-10) Eosinophils % (Manual) 0 % (0-3) Basophils % (Manual) 0 % (0-2) Band Neutrophils 0 % (0-8) Platelet Estimate Decreased L Platelet Morphology Normal Red Blood Cell Morphology Normal Sodium Level 137 MMOL/L (136-145) Potassium Level 3.6 MMOL/L (3.5-5.1) Chloride Level 97 MMOL/L (98-107) L Carbon Dioxide Level 34 MMOL/L (21-32) H Anion Gap 6 mmol/L (5-15) Blood Urea Nitrogen 39 mg/dL (7-18) H Creatinine 1.3 MG/DL (0.55-1.30) Estimat Glomerular Filtration Rate 55.2 mL/min (>60) Glucose Level 242 MG/DL (74-106) H Calcium Level 9.4 MG/DL (8.5-10.1) Total Bilirubin 1.3 MG/DL (0.2-1.0) H Direct Bilirubin 0.9 MG/DL (0.0-0.3) H Aspartate Amino Transf (AST/SGOT) 43 U/L (15-37) H Alanine Aminotransferase (ALT/SGPT) 95 U/L (12-78) H Alkaline Phosphatase 161 U/L (46-116) H Total Protein 7.2 G/DL (6.4-8.2) Albumin 3.3 G/DL (3.4-5.0) L Globulin 3.9 g/dL Albumin/Globulin Ratio 0.8 (1.0-2.7) L Luis Alfredo Gonzalez MD Apr 25, 2018 13:30
--- NOTE | 2018-04-25 14:20 | Cardiology Report ---
APPROVED REPORT EKG Measurement Heart [id number] Atrial fibrillation with slow ventricular response Right bundle branch block Abnormal ECG
--- NOTE | 2018-04-25 15:25 | General Progress Note ---
Assessment/Plan Assessment/Plan #Acute decompensated CHF - improved on tx #COPD exacerbation - improved on tx #Leukocytosis - suspect volume contraction #Transaminitis - improved, distended CBD on abd us #Thrombocytopenia - new, no cirrhosis on US #A fib #HTN #HLD - cardiology consult, appreciate recs - wirer - serial tn neg - diuresis per cards, now po lasix - strict i/o's - trend chem - replace lytes as needed - UA non infectious - apixaban BID - plavix, coreg, statin - Pulm consult, appreciate recs - doxy BID - nebs q4h atc - steroids per pulm - supplemental 02 - trend LFTs - GI consult, awaiting eval - gen surg consult - trend CBC - supportive care - dvt ppx: HSQ BID - full code anticipate pt will require 2-3 days in house anticipate dc home w/ HH vs SNF once medically stable I spent 41 min on this case, 25 min was dedicated to counseling and care coordination time of note may not reflect time of clinical encounter Subjective Date patient seen: Apr 25, 2018 Constitutional: Reports: weakness Respiratory: Reports: shortness of breath Allergies: Coded Allergies: AMPICILLIN (Verified Allergy, Unknown, 04/23/18) Uncoded Allergies: PENICILLIN (Allergy, Unknown, 04/23/18) All Systems: reviewed and negative except above Subjective no acute events afeb SBP 90 Lasix now PO New leukocytosis, however all lines inc, ? contraction w/ overdiuresis US w/ stones and dilated CBD Objective Last 24 Hour Vital Signs Date Time Temp Pulse Resp B/P (MAP) Pulse Ox O2 Delivery O2 Flow Rate FiO2 04/25/18 15:04 65 16 98 Room Air 21 04/25/18 14:57 82 18 98 Room Air 21 04/25/18 13:55 83 68 70 04/25/18 12:00 97.2 83 18 91/65 (74) 98 97.2 04/25/18 11:14 68 18 98 Room Air 21 04/25/18 11:05 80 18 99 Room Air 21 04/25/18 09:14 Room Air 04/25/18 08:00 75 04/25/18 08:00 97.3 88 18 144/71 (95) 99 97.3 04/25/18 07:56 67 18 98 Room Air 21 8/5/18 07:49 74 18 99 Room Air 21 04/25/18 04:00 97.7 98 18 128/53 (78) 98 97.7 04/25/18 04:00 87 04/25/18 03:08 64 18 100 Room Air 21 04/25/18 03:01 71 18 98 Room Air 21 04/25/18 00:00 97.0 91 20 132/79 (96) 98 97.0 04/25/18 00:00 91 04/24/18 23:06 59 18 100 Room Air 21 04/24/18 22:56 64 18 98 Room Air 21 04/24/18 21:00 Room Air 04/24/18 20:02 61 18 100 Room Air 21 04/24/18 20:00 77 04/24/18 20:00 95.7 71 20 155/75 (101) 99 95.7 04/24/18 19:46 55 18 97 Room Air 21 04/24/18 16:00 77 04/24/18 16:00 96.1 87 19 131/78 (95) 97 96.1 04/24/18 15:21 56 18 100 Room Air 21 Intake and Output 04/24/18 04/25/18 19:00 07:00 Intake Total 580 ml Balance 580 ml Intake Oral 580 ml # Voids 3 4 # Bowel Movements 1 Laboratory Tests 04/25/18 06:00: White Blood Count 10.9#H, Red Blood Count 4.69L, Hemoglobin 13.2L, Hematocrit 38.8L, Mean Corpuscular Volume 83, Mean Corpuscular Hemoglobin 28.2, Mean Corpuscular Hemoglobin Concent 34.1, Red Cell Distribution Width 11.8, Platelet Count 119L, Mean Platelet Volume 10.0, Neutrophils (%) (Auto) , Lymphocytes (%) (Auto) , Monocytes (%) (Auto) , Eosinophils (%) (Auto) , Basophils (%) (Auto) , Differential Total Cells Counted 100, Neutrophils % (Manual) 91H, Lymphocytes % (Manual) 6L, Monocytes % (Manual) 3, Eosinophils % (Manual) 0, Basophils % ( Manual) 0, Band Neutrophils 0, Platelet Estimate DecreasedL, Platelet Morphology Normal, Red Blood Cell Morphology Normal, Sodium Level 137, Potassium Level 3.6, Chloride Level 97L, Carbon Dioxide Level 34H, Anion Gap 6, Blood Urea Nitrogen 39H, Creatinine 1.3, Estimat Glomerular Filtration Rate 55.2 , Glucose Level 242H, Calcium Level 9.4, Total Bilirubin 1.3H, Direct Bilirubin 0.9H, Aspartate Amino Transf (AST/SGOT) 43H, Alanine Aminotransferase (ALT/SGPT ) 95H, Alkaline Phosphatase 161H, Total Protein 7.2, Albumin 3.3L, Globulin 3.9 , Albumin/Globulin Ratio 0.8L Height (Feet): 5 Height (Inches): 9.00 Weight (Pounds): 160 Objective General Appearance: WD/WN, no apparent distress, alert EENT: PERRL/EOMI Neck: non-tender, supple Cardiovascular: normal peripheral pulses, normal rate, regularly irregular, no gallop/murmur, JVD Respiratory/Chest: lungs clear, normal breath sounds, no respiratory distress, no accessory muscle use Abdomen: non tender, soft 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
[2018-04-25 16:00] VITALS: BP 152/76
[2018-04-25 20:00] VITALS: BP 142/77
[2018-04-25] MEDS ORDERED: Miralax 17gm pkt ORAL PRN (20:30)
[2018-04-25] MEDS: Atorvastatin 80mg tab ORAL SCH (20:42)
[2018-04-26] VITALS: BP 123/56
[2018-04-26] MEDS: Zolpidem 5mg tab ORAL PRN (00:14)
[2018-04-26] MEDS: Albuterol/Ipratropium 3ml neb HHN SCH ×5 (03:28→20:18)
[2018-04-26 04:00] VITALS: BP 152/88
[2018-04-26 07:26] LABS: HEMATOCRIT 32.3 % (42.0-52.0); HEMOGLOBIN 11.1 G/DL (14.2-18.0); MEAN CORPUSCULAR VOLUME 83 FL (80-99); PLATELET COUNT 86 K/UL (150-450); RED BLOOD COUNT 3.91 M/UL (4.70-6.10); RED CELL DISTRIBUTION WIDTH 11.9 % (11.6-14.8); WHITE BLOOD COUNT 7.5 K/UL (4.8-10.8)
[2018-04-26 07:49] LABS: ALANINE AMINOTRANSFERASE 76 U/L (12-78); ALBUMIN 2.7 G/DL (3.4-5.0); ALBUMIN/GLOBULIN RATIO 0.8 (1.0-2.7); ALKALINE PHOSPHATASE 124 U/L (46-116); ANION GAP 4 mmol/L (5-15); ASPARTATE AMINO TRANSFERASE 32 U/L (15-37); BILIRUBIN,TOTAL 0.8 MG/DL (0.2-1.0); BLOOD UREA NITROGEN 33 mg/dL (7-18); CALCIUM 8.8 MG/DL (8.5-10.1); CARBON DIOXIDE 33 MMOL/L (21-32); CHLORIDE 102 MMOL/L (98-107); POTASSIUM 3.5 MMOL/L (3.5-5.1); SODIUM 139 MMOL/L (136-145)
[2018-04-26 08:00] VITALS: BP 148/68
[2018-04-26] MEDS: Eliquis 2.5mg tablet ORAL SCH ×2 (09:08→17:35)
[2018-04-26] MEDS: Aspirin Baby 81mg ORAL SCH (09:08)
[2018-04-26] MEDS: Docusate 100mg cap ORAL SCH ×2 (09:09→20:28)
[2018-04-26 12:00] VITALS: BP 143/56
--- NOTE | 2018-04-26 15:12 | Pulmonology Progress Note ---
Assessment/Plan Assessment/Plan HPI HPI Patient is a 68-year-old male who presented after increased difficulty breathing and generalized weakness. Patient gradual onset of symptoms. He reports having prior history of COPD. Patient reports recently stopping smoking. But he states he been smoking up until a few days ago. He reports having increased cough. No new complaints. He states he has some unknown type of cardiac arrhythmia. He's had previous cardiac catheterization. Allergies: Coded Allergies: AMPICILLIN (Verified Allergy, Unknown, 04/23/18) Uncoded Allergies: PENICILLIN (Allergy, Unknown, 04/23/18) Patient History Past Medical History: COPD Reviewed Nursing Documentation: PMH: Agreed; PSxH: Agreed Nursing Documentation-PMH Past Medical History: No History, Except For Hx Cardiac Problems: Yes - arrhythmia Hx Hypertension: No Hx Pacemaker: No Hx Asthma: Yes Hx COPD: Yes Hx Diabetes: No Hx Cancer: No Hx Gastrointestinal Problems: No Hx Dialysis: No History Of Psychiatric Problem: No Hx Neurological Problems: No Hx Cerebrovascular Accident: No Hx Seizures: No Review of Systems All Other Systems: negative except mentioned in HPI Physical Exam Vital Signs Date Time Temp Pulse Resp B/P (MAP) Pulse Ox O2 Delivery O2 Flow Rate FiO2 04/23/18 13:53 96.0 127 22 133/66 86 Room Air 96.1 Sp02 EP Interpretation: reviewed, normal General Appearance: normal inspection, alert, GCS 15, moderate distress, thin, Chronically Ill Head: atraumatic ENT: normal ENT inspection, hearing grossly normal, normal voice Neck: normal inspection, supple, no bony tend, limited range of motion Respiratory: respiratory distress, accessory muscle use, wheezing Cardiovascular #1: no edema, irregularly irregular Gastrointestinal: normal inspection, normal bowel sounds, non tender, soft, no guarding, no hernia Genitourinary: no CVA tenderness Musculoskeletal: normal inspection, back normal, normal range of motion Neurologic: normal inspection, alert, oriented x3, responsive, speech normal Psychiatric: normal inspection, judgement/insight normal, mood/affect normal Skin: normal inspection, normal color, no rash Medical Decision Making ER Course Patient is a for generalized weakness and shortness of breath. Differential included but was not limited to anemia, pneumonia, pneumothorax, myocardial infarction, pericardial effusion, congestive heart failure, acidosis. Because of complexity of patient's case laboratory testing and imaging studies were ordered. Last Vital Signs Date Time Temp Pulse Resp B/P (MAP) Pulse Ox O2 Delivery O2 Flow Rate FiO2 04/23/18 13:53 96.0 127 22 133/66 86 Room Air 96.1 Assessment/Plan #Acute decompensated CHF #COPD exacerbation #Possible Viral URI #Transaminitis (? 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 - nebs q4h atc -Continue current steroids - supplemental 02 sats 90-94% - supportive care - dvt ppx: SQ Heparin 5000 BID - full code I spent 45 min on this case, 23 min was dedicated to counseling and care coordination Subjective ROS Limited/Unobtainable: No Allergies: Coded Allergies: AMPICILLIN (Verified Allergy, Unknown, 04/23/18) Uncoded Allergies: PENICILLIN (Allergy, Unknown, 04/23/18) Objective Last 24 Hour Vital Signs Date Time Temp Pulse Resp B/P (MAP) Pulse Ox O2 Delivery O2 Flow Rate FiO2 04/26/18 15:03 72 16 98 Room Air 21 04/26/18 12:00 97.3 63 20 143/56 (85) 100 97.3 04/26/18 12:00 64 04/26/18 11:20 89 16 98 Room Air 21 04/26/18 11:15 87 16 99 Room Air 21 04/26/18 11:05 89 16 98 Room Air 21 04/26/18 09:00 Room Air 04/26/18 09:00 62 65 53 04/26/18 08:32 68 18 100 Room Air 21 04/26/18 08:21 69 16 98 Room Air 21 04/26/18 08:00 96.3 63 20 148/68 (94) 99 96.3 04/26/18 08:00 45 04/26/18 04:00 65 04/26/18 04:00 97.0 68 20 152/88 (109) 100 97.0 04/26/18 03:37 64 18 99 Room Air 04/26/18 03:28 60 18 98 Room Air 04/26/18 00:00 97.5 68 20 123/56 (78) 98 97.5 04/26/18 00:00 78 04/25/18 23:45 68 18 99 Room Air 04/25/18 23:37 60 18 99 Room Air 21 04/25/18 21:00 Room Air 04/25/18 20:00 80 04/25/18 20:00 97.0 71 20 142/77 (98) 98 97.0 04/25/18 19:42 69 18 99 Room Air 21 04/25/18 19:33 61 18 98 Room Air 21 04/25/18 16:00 97.3 78 22 152/76 (101) 94 97.3 04/25/18 16:00 71 Intake and Output 04/25/18 04/26/18 19:00 07:00 Intake Total 300 ml 240 ml Balance 300 ml 240 ml Intake Oral 300 ml 240 ml # Voids 2 Laboratory Tests 04/26/18 06:40: White Blood Count 7.5, Red Blood Count 3.91L, Hemoglobin 11.1L, Hematocrit 32.3L , Mean Corpuscular Volume 83, Mean Corpuscular Hemoglobin 28.3, Mean Corpuscular Hemoglobin Concent 34.2, Red Cell Distribution Width 11.9, Platelet Count 86L, Mean Platelet Volume 9.9, Neutrophils (%) (Auto) , Lymphocytes (%) ( Auto) , Monocytes (%) (Auto) , Eosinophils (%) (Auto) , Basophils (%) (Auto) , Differential Total Cells Counted 100, Neutrophils % (Manual) 84H, Lymphocytes % (Manual) 12L, Monocytes % (Manual) 4, Eosinophils % (Manual) 0, Basophils % ( Manual) 0, Band Neutrophils 0, Platelet Estimate DecreasedL, Platelet Morphology Normal, Hypochromasia 1+, Anisocytosis 1+, Sodium Level 139, Potassium Level 3.5, Chloride Level 102, Carbon Dioxide Level 33H, Anion Gap 4L , Blood Urea Nitrogen 33H, Creatinine 1.0, Estimat Glomerular Filtration Rate > 60, Glucose Level 176H, Calcium Level 8.8, Total Bilirubin 0.8, Aspartate Amino Transf (AST/SGOT) 32, Alanine Aminotransferase (ALT/SGPT) 76, Alkaline Phosphatase 124H, Total Protein 5.9L, Albumin 2.7L, Globulin 3.2, Albumin/ Globulin Ratio 0.8L Current Medications Medications (Trade) Dose Ordered Sig/Nova Route PRN Reason Start Time Stop Time Status Last Admin Dose Admin Acetaminophen (Tylenol) 650 mg Q4H PRN ORAL Mild Pain (Pain Scale 1-3) 04/23/18 16:00 05/23/18 15:59 04/23/18 17:57 Acetaminophen (Tylenol) 650 mg Q4H PRN ORAL fever 04/23/18 16:00 05/23/18 15:59 Albuterol/ Ipratropium (Albuterol/ Ipratropium) 3 ml Q4HRT HHN 04/23/18 16:15 04/28/18 16:14 04/26/18 15:03 Apixaban (Eliquis) 5 mg BID ORAL 04/24/18 18:00 05/24/18 17:59 04/26/18 09:08 Aspirin (ASA) 81 mg DAILY ORAL 04/26/18 09:00 05/24/18 08:59 04/26/18 09:08 Atorvastatin Calcium (Lipitor) 80 mg BEDTIME ORAL 04/23/18 21:00 05/23/18 20:59 04/25/18 20:42 Clopidogrel Bisulfate (Plavix) 75 mg DAILY ORAL 04/26/18 09:00 05/25/18 08:59 04/26/18 09:08 Dextrose (Dextrose 50%) 25 ml STAT PRN IV Hypoglycemia 04/23/18 16:00 05/23/18 15:59 Dextrose (Dextrose 50%) 50 ml STAT PRN IV Hypoglycemia 04/23/18 16:00 05/23/18 15:59 Docusate Sodium (Colace) 100 mg EVERY 12 HOURS ORAL 04/23/18 21:00 05/23/18 20:59 04/26/18 09:09 Doxycycline Monohydrate (Vibramycin) 100 mg EVERY 12 HOURS ORAL 04/23/18 21:00 04/30/18 20:59 04/26/18 09:08 Famotidine (Pepcid) 20 mg BID ORAL 04/23/18 18:00 05/23/18 17:59 04/26/18 09:08 Morphine Sulfate (Morphine Sulfate) 2 mg Q4H PRN IVP Moderate Pain (Pain Scale 4-6) 04/23/18 16:00 04/30/18 15:59 Morphine Sulfate (Morphine Sulfate) 4 mg Q4H PRN IVP Severe Pain (Pain Scale 7-10) 04/23/18 16:00 04/30/18 15:59 Ondansetron HCl (Zofran) 4 mg Q6H PRN IVP Nausea & Vomiting 04/23/18 16:00 05/23/18 15:59 Polyethylene Glycol (Miralax) 17 gm Q12H PRN ORAL Constipation 04/25/18 20:30 05/25/18 20:29 04/25/18 20:42 Prednisone (predniSONE) 40 mg DAILY ORAL 04/26/18 09:00 05/26/18 08:59 04/26/18 09:08 Zolpidem Tartrate (Ambien) 5 mg HSPRN PRN ORAL Insomnia 04/25/18 02:00 05/02/18 01:59 04/26/18 00:14 Estuardo Pratt MD Apr 26, 2018 15:12
--- NOTE | 2018-04-26 15:49 | Pulmonology Progress Note ---
Assessment/Plan Assessment/Plan [facility] HPI DOS 04/25/2018 Patient is a 68-year-old male who presented after increased difficulty breathing and generalized weakness. Patient gradual onset of symptoms. He reports having prior history of COPD. Patient reports recently stopping smoking. But he states he been smoking up until a few days ago. He reports having increased cough. No new complaints. He states he has some unknown type of cardiac arrhythmia. He's had previous cardiac catheterization. Allergies: Coded Allergies: AMPICILLIN (Verified Allergy, Unknown, 04/23/18) Uncoded Allergies: PENICILLIN (Allergy, Unknown, 04/23/18) Patient History Past Medical History: COPD Reviewed Nursing Documentation: PMH: Agreed; PSxH: Agreed Nursing Documentation-PMH Past Medical History: No History, Except For Hx Cardiac Problems: Yes - arrhythmia Hx Hypertension: No Hx Pacemaker: No Hx Asthma: Yes Hx COPD: Yes Hx Diabetes: No Hx Cancer: No Hx Gastrointestinal Problems: No Hx Dialysis: No History Of Psychiatric Problem: No Hx Neurological Problems: No Hx Cerebrovascular Accident: No Hx Seizures: No Review of Systems All Other Systems: negative except mentioned in HPI Physical Exam Vital Signs Date Time Temp Pulse Resp B/P (MAP) Pulse Ox O2 Delivery O2 Flow Rate FiO2 04/23/18 13:53 96.0 127 22 133/66 86 Room Air 96.1 Sp02 EP Interpretation: reviewed, normal General Appearance: normal inspection, alert, GCS 15, moderate distress, thin, Chronically Ill Head: atraumatic ENT: normal ENT inspection, hearing grossly normal, normal voice Neck: normal inspection, supple, no bony tend, limited range of motion Respiratory: respiratory distress, accessory muscle use, wheezing Cardiovascular #1: no edema, irregularly irregular Gastrointestinal: normal inspection, normal bowel sounds, non tender, soft, no guarding, no hernia Genitourinary: no CVA tenderness Musculoskeletal: normal inspection, back normal, normal range of motion Neurologic: normal inspection, alert, oriented x3, responsive, speech normal Psychiatric: normal inspection, judgement/insight normal, mood/affect normal Skin: normal inspection, normal color, no rash Medical Decision Making ER Course Patient is a for generalized weakness and shortness of breath. Differential included but was not limited to anemia, pneumonia, pneumothorax, myocardial infarction, pericardial effusion, congestive heart failure, acidosis. Because of complexity of patient's case laboratory testing and imaging studies were ordered. Last Vital Signs Date Time Temp Pulse Resp B/P (MAP) Pulse Ox O2 Delivery O2 Flow Rate FiO2 04/23/18 13:53 96.0 127 22 133/66 86 Room Air 96.1 Assessment/Plan #Acute decompensated CHF #COPD exacerbation #Possible Viral URI #Transaminitis (? hepatic congestion) #HTN #HLD - diuresis PRN -Wean steroids - monitor labs - [facility]FOUNDER meds - nebs q4h atc -Continue current steroids - supplemental 02 sats 90-94% - supportive care - dvt ppx: SQ Heparin 5000 BID - full code NOTE DOS 04/25/2018 I spent 45 min on this case, 23 min was dedicated to counseling and care coordination Subjective Allergies: Coded Allergies: AMPICILLIN (Verified Allergy, Unknown, 04/23/18) Uncoded Allergies: PENICILLIN (Allergy, Unknown, 04/23/18) Objective Last 24 Hour Vital Signs Date Time Temp Pulse Resp B/P (MAP) Pulse Ox O2 Delivery O2 Flow Rate FiO2 04/26/18 15:03 72 16 98 Room Air 04/26/18 12:00 97.3 63 20 143/56 (85) 100 97.3 04/26/18 12:00 64 04/26/18 11:20 89 16 98 Room Air 21 04/26/18 11:15 87 16 99 Room Air 21 04/26/18 11:05 89 16 98 Room Air 21 04/26/18 09:00 Room Air 04/26/18 09:00 62 65 53 04/26/18 08:32 68 18 100 Room Air 04/26/18 08:21 69 16 98 Room Air 21 04/26/18 08:00 96.3 63 20 148/68 (94) 99 96.3 04/26/18 08:00 45 04/26/18 04:00 65 04/26/18 04:00 97.0 68 20 152/88 (109) 100 97.0 04/26/18 03:37 64 18 99 Room Air 04/26/18 03:28 60 18 98 Room Air 04/26/18 00:00 97.5 68 20 123/56 (78) 98 97.5 04/26/18 00:00 78 04/25/18 23:45 68 18 99 Room Air 04/25/18 23:37 60 18 99 Room Air 04/25/18 21:00 Room Air 04/25/18 20:00 80 04/25/18 20:00 97.0 71 20 142/77 (98) 98 97.0 04/25/18 19:42 69 18 99 Room Air 21 04/25/18 19:33 61 18 98 Room Air 21 04/25/18 16:00 97.3 78 22 152/76 (101) 94 97.3 04/25/18 16:00 71 Intake and Output 04/25/18 04/26/18 19:00 07:00 Intake Total 300 ml 240 ml Balance 300 ml 240 ml Intake Oral 300 ml 240 ml # Voids 2 Laboratory Tests 04/26/18 06:40: White Blood Count 7.5, Red Blood Count 3.91L, Hemoglobin 11.1L, Hematocrit 32.3L , Mean Corpuscular Volume 83, Mean Corpuscular Hemoglobin 28.3, Mean Corpuscular Hemoglobin Concent 34.2, Red Cell Distribution Width 11.9, Platelet Count 86L, Mean Platelet Volume 9.9, Neutrophils (%) (Auto) , Lymphocytes (%) ( Auto) , Monocytes (%) (Auto) , Eosinophils (%) (Auto) , Basophils (%) (Auto) , Differential Total Cells Counted 100, Neutrophils % (Manual) 84H, Lymphocytes % (Manual) 12L, Monocytes % (Manual) 4, Eosinophils % (Manual) 0, Basophils % ( Manual) 0, Band Neutrophils 0, Platelet Estimate DecreasedL, Platelet Morphology Normal, Hypochromasia 1+, Anisocytosis 1+, Sodium Level 139, Potassium Level 3.5, Chloride Level 102, Carbon Dioxide Level 33H, Anion Gap 4L , Blood Urea Nitrogen 33H, Creatinine 1.0, Estimat Glomerular Filtration Rate > 60, Glucose Level 176H, Calcium Level 8.8, Total Bilirubin 0.8, Aspartate Amino Transf (AST/SGOT) 32, Alanine Aminotransferase (ALT/SGPT) 76, Alkaline Phosphatase 124H, Total Protein 5.9L, Albumin 2.7L, Globulin 3.2, Albumin/ Globulin Ratio 0.8L Current Medications Medications (Trade) Dose Ordered Sig/Nova Route PRN Reason Start Time Stop Time Status Last Admin Dose Admin Acetaminophen (Tylenol) 650 mg Q4H PRN ORAL Mild Pain (Pain Scale 1-3) 04/23/18 16:00 05/23/18 15:59 04/23/18 17:57 Acetaminophen (Tylenol) 650 mg Q4H PRN ORAL fever 04/23/18 16:00 05/23/18 15:59 Albuterol/ Ipratropium (Albuterol/ Ipratropium) 3 ml Q4HRT HHN 04/23/18 16:15 04/28/18 16:14 04/26/18 15:03 Apixaban (Eliquis) 5 mg BID ORAL 04/24/18 18:00 05/24/18 17:59 04/26/18 09:08 Aspirin (ASA) 81 mg DAILY ORAL 04/26/18 09:00 05/24/18 08:59 04/26/18 09:08 Atorvastatin Calcium (Lipitor) 80 mg BEDTIME ORAL 04/23/18 21:00 05/23/18 20:59 04/25/18 20:42 Clopidogrel Bisulfate (Plavix) 75 mg DAILY ORAL 04/26/18 09:00 05/25/18 08:59 04/26/18 09:08 Dextrose (Dextrose 50%) 25 ml STAT PRN IV Hypoglycemia 04/23/18 16:00 05/23/18 15:59 Dextrose (Dextrose 50%) 50 ml STAT PRN IV Hypoglycemia 04/23/18 16:00 05/23/18 15:59 Docusate Sodium (Colace) 100 mg EVERY 12 HOURS ORAL 04/23/18 21:00 05/23/18 20:59 04/26/18 09:09 Doxycycline Monohydrate (Vibramycin) 100 mg EVERY 12 HOURS ORAL 04/23/18 21:00 04/30/18 20:59 04/26/18 09:08 Famotidine (Pepcid) 20 mg BID ORAL 04/23/18 18:00 05/23/18 17:59 04/26/18 09:08 Morphine Sulfate (Morphine Sulfate) 2 mg Q4H PRN IVP Moderate Pain (Pain Scale 4-6) 04/23/18 16:00 04/30/18 15:59 Morphine Sulfate (Morphine Sulfate) 4 mg Q4H PRN IVP Severe Pain (Pain Scale 7-10) 04/23/18 16:00 04/30/18 15:59 Ondansetron HCl (Zofran) 4 mg Q6H PRN IVP Nausea & Vomiting 04/23/18 16:00 05/23/18 15:59 Polyethylene Glycol (Miralax) 17 gm Q12H PRN ORAL Constipation 04/25/18 20:30 05/25/18 20:29 04/25/18 20:42 Prednisone (predniSONE) 40 mg DAILY ORAL 04/26/18 09:00 05/26/18 08:59 04/26/18 09:08 Zolpidem Tartrate (Ambien) 5 mg HSPRN PRN ORAL Insomnia 04/25/18 02:00 05/02/18 01:59 04/26/18 00:14 Estuardo Pratt MD Apr 26, 2018 15:49
[2018-04-26 16:00] VITALS: BP 129/85
[2018-04-26 20:00] VITALS: BP 120/80
[2018-04-26 20:21] LABS: FERRITIN 316 NG/ML (8-388)
--- NOTE | 2018-04-26 20:21 | Consultation ---
History of Present Illness General Chief Complaint: Generalized Weakness Present Illness HPI 68 year old male with multiple medical comorbidities including COPD and CHF, who presented to the ED with complaints of worsening generalized weakness and one week of increased shortness of breath. Pt has been living in a board and care facility and reports limited access to healthy food. recently has had little po intake due to anorexia and general malaise. At baseline he is able to walk for > 1 block on flat ground, but now is limited to 20-30 feet. He also reports Orthopnea. As he was declining he came to ED for evaluation. Upon admission and work up noted to have elevated LFT's, T bili elevation with elevated Direct bilirubin >2:1 ratio with possible biliary obstruction. Surgery called to evaluate for possible cholecystitis, choledocholithiasis. Patient seen, chart reviewed, patient examined. On exam patient states he has RUQ tenderness but believes it is related to his constipation. states he has been having pain in RUQ for a few days. mild nausea intermittent. no emesis currently. Allergies: Coded Allergies: AMPICILLIN (Verified Allergy, Unknown, 04/23/18) Uncoded Allergies: PENICILLIN (Allergy, Unknown, 04/23/18) Medication History Scheduled Carvedilol (Coreg), 12.5 MG ORAL EVERY 12 HOURS, (Reported) Furosemide (Furosemide), 40 MG PO DAILY, (Reported) Rosuvastatin Calcium* (Crestor*), 5 MG ORAL DAILY, (Reported) Patient History History Provided By: Patient, Medical Record, PMD Healthcare decision maker PATIENT Resuscitation status Advanced Directive on File Past Medical/Surgical History Past Medical/Surgical History: (1) Cholecystitis (2) Choledocholithiasis (3) COPD (chronic obstructive pulmonary disease) (4) Atrial fibrillation (5) CHF (congestive heart failure) (6) Episode of generalized weakness Review of Systems Constitutional: Reports: malaise, weakness Eye: Denies: no symptoms, see HPI, eye pain, blurred vision, tearing, double vision, nose pain, nose congestion, acuity changes, discharge, other ENT: Denies: no symptoms, see HPI, ear pain, ear discharge, nose pain, nose congestion, throat pain, throat swelling, mouth pain, hearing loss, nasal discharge, other Respiratory: Reports: orthopnea, shortness of breath Cardiovascular: Reports: edema Gastrointestinal: Reports: abdominal pain, constipation, nausea Genitourinary: Denies: no symptoms, see HPI, discharge, dysuria, frequency, hematuria, pain, retention, incontinence, urgency, vag bleed/dc, other Musculoskeletal: Reports: back pain Skin: Denies: no symptoms, see HPI, rash, change in color, change in hair/nails , dryness, lesions, other Psychiatric: Denies: no symptoms, see HPI, prior hx, anxiety, depressed feelings, emotional problems, SI, HI, hallucinations, other Neurological: Reports: headache Endocrine: Denies: no symptoms, see HPI, excessive sweating, flushing, intolerance to temperature, increased thirst, increased urine, unexplained weight loss, other Hematologic/Lymphatic: Denies: no symptoms, see HPI, anemia, blood clots, easy bleeding, easy bruising, swollen glands, diathesis, other Physical Exam General Appearance: no apparent distress, alert Lines, tubes and drains: peripheral HEENT: normocephalic, atraumatic, mucous membranes moist Neck: normal alignment Respiratory/Chest: normal breath sounds, no respiratory distress, no accessory muscle use Cardiovascular/Chest: normal rate, regular rhythm Abdomen: soft, no organomegaly, no mass, guarding, rebound, tender - RUQ, other - +[place] Extremities: non-tender, normal inspection, trace edema Skin Exam: warm/dry 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, responsive Last 24 Hour Vital Signs Date Time Temp Pulse Resp B/P (MAP) Pulse Ox O2 Delivery O2 Flow Rate FiO2 04/26/18 16:00 97.0 89 20 129/85 (100) 100 97.0 04/26/18 16:00 86 04/26/18 15:17 86 16 99 Room Air 04/26/18 15:03 72 16 98 Room Air 04/26/18 12:00 97.3 63 20 143/56 (85) 100 97.3 04/26/18 12:00 64 04/26/18 11:20 89 16 98 Room Air 04/26/18 11:15 87 16 99 Room Air 04/26/18 11:05 89 16 98 Room Air 04/26/18 09:00 Room Air 04/26/18 09:00 62 65 53 04/26/18 08:32 68 18 100 Room Air 04/26/18 08:21 69 16 98 Room Air 04/26/18 08:00 96.3 63 20 148/68 (94) 99 96.3 04/26/18 08:00 45 04/26/18 04:00 65 04/26/18 04:00 97.0 68 20 152/88 (109) 100 97.0 04/26/18 03:37 64 18 99 Room Air 21 04/26/18 03:28 60 18 98 Room Air 21 04/26/18 00:00 97.5 68 20 123/56 (78) 98 97.5 04/26/18 00:00 78 04/25/18 23:45 68 18 99 Room Air 21 04/25/18 23:37 60 18 99 Room Air 21 04/25/18 21:00 Room Air Intake and Output 04/25/18 04/26/18 19:00 07:00 Intake Total 300 ml 240 ml Balance 300 ml 240 ml Intake Oral 300 ml 240 ml # Voids 2 Laboratory Tests Test 04/26/18 06:40 04/26/18 19:18 04/26/18 19:35 White Blood Count 7.5 K/UL (4.8-10.8) Red Blood Count 3.91 M/UL (4.70-6.10) L Hemoglobin 11.1 G/DL (14.2-18.0) L Hematocrit 32.3 % (42.0-52.0) L Mean Corpuscular Volume 83 FL (80-99) Mean Corpuscular Hemoglobin 28.3 PG (27.0-31.0) Mean Corpuscular Hemoglobin Concent 34.2 G/DL (32.0-36.0) Red Cell Distribution Width 11.9 % (11.6-14.8) Platelet Count 86 K/UL (150-450) L Mean Platelet Volume 9.9 FL (6.5-10.1) Neutrophils (%) (Auto) % (45.0-75.0) Lymphocytes (%) (Auto) % (20.0-45.0) Monocytes (%) (Auto) % (1.0-10.0) Eosinophils (%) (Auto) % (0.0-3.0) Basophils (%) (Auto) % (0.0-2.0) Differential Total Cells Counted 100 Neutrophils % (Manual) 84 % (45-75) H Lymphocytes % (Manual) 12 % (20-45) L Monocytes % (Manual) 4 % (1-10) Eosinophils % (Manual) 0 % (0-3) Basophils % (Manual) 0 % (0-2) Band Neutrophils 0 % (0-8) Platelet Estimate Decreased L Platelet Morphology Normal Hypochromasia 1+ Anisocytosis 1+ Sodium Level 139 MMOL/L (136-145) Potassium Level 3.5 MMOL/L (3.5-5.1) Chloride Level 102 MMOL/L (98-107) Carbon Dioxide Level 33 MMOL/L (21-32) H Anion Gap 4 mmol/L (5-15) L Blood Urea Nitrogen 33 mg/dL (7-18) H Creatinine 1.0 MG/DL (0.55-1.30) Estimat Glomerular Filtration Rate > 60 mL/min (>60) Glucose Level 176 MG/DL (74-106) H Calcium Level 8.8 MG/DL (8.5-10.1) Total Bilirubin 0.8 MG/DL (0.2-1.0) Aspartate Amino Transf (AST/SGOT) 32 U/L (15-37) Alanine Aminotransferase (ALT/SGPT) 76 U/L (12-78) Alkaline Phosphatase 124 U/L (46-116) H Total Protein 5.9 G/DL (6.4-8.2) L Albumin 2.7 G/DL (3.4-5.0) L Globulin 3.2 g/dL Albumin/Globulin Ratio 0.8 (1.0-2.7) L Reticulocyte Count Pending Fibrinogen Pending Iron Level Pending Unsaturated Iron Binding Pending Ferritin Pending Folate Pending Thyroid Stimulating Hormone (TSH) Pending Hepatitis A IgM Antibody Pending Hepatitis B Surface Antigen Pending Hepatitis B Core IgM Antibody Pending Hepatitis C Antibody Pending HIV (1&2) Antibody Rapid Pending Height (Feet): 5 Height (Inches): 9.00 Weight (Pounds): 160 Medications Current Medications Medications (Trade) Dose Ordered Sig/Nova Route PRN Reason Start Time Stop Time Status Last Admin Dose Admin Acetaminophen (Tylenol) 650 mg Q4H PRN ORAL Mild Pain (Pain Scale 1-3) 04/23/18 16:00 05/23/18 15:59 04/23/18 17:57 Acetaminophen (Tylenol) 650 mg Q4H PRN ORAL fever 04/23/18 16:00 05/23/18 15:59 Albuterol/ Ipratropium (Albuterol/ Ipratropium) 3 ml Q4HRT HHN 04/23/18 16:15 04/28/18 16:14 04/26/18 15:03 Apixaban (Eliquis) 5 mg BID ORAL 04/24/18 18:00 05/24/18 17:59 04/26/18 17:35 Aspirin (ASA) 81 mg DAILY ORAL 04/26/18 09:00 05/24/18 08:59 04/26/18 09:08 Atorvastatin Calcium (Lipitor) 80 mg BEDTIME ORAL 04/23/18 21:00 05/23/18 20:59 04/25/18 20:42 Carvedilol (Coreg) 6.25 mg EVERY 12 HOURS ORAL 04/26/18 21:00 05/26/18 20:59 Clopidogrel Bisulfate (Plavix) 75 mg DAILY ORAL 04/26/18 09:00 05/25/18 08:59 04/26/18 09:08 Dextrose (Dextrose 50%) 25 ml STAT PRN IV Hypoglycemia 04/23/18 16:00 05/23/18 15:59 Dextrose (Dextrose 50%) 50 ml STAT PRN IV Hypoglycemia 04/23/18 16:00 05/23/18 15:59 Docusate Sodium (Colace) 100 mg EVERY 12 HOURS ORAL 04/23/18 21:00 05/23/18 20:59 04/26/18 09:09 Doxycycline Monohydrate (Vibramycin) 100 mg EVERY 12 HOURS ORAL 04/23/18 21:00 04/30/18 20:59 04/26/18 09:08 Famotidine (Pepcid) 20 mg BID ORAL 04/23/18 18:00 05/23/18 17:59 04/26/18 17:35 Morphine Sulfate (Morphine Sulfate) 2 mg Q4H PRN IVP Moderate Pain (Pain Scale 4-6) 04/23/18 16:00 04/30/18 15:59 Morphine Sulfate (Morphine Sulfate) 4 mg Q4H PRN IVP Severe Pain (Pain Scale 7-10) 04/23/18 16:00 04/30/18 15:59 Ondansetron HCl (Zofran) 4 mg Q6H PRN IVP Nausea & Vomiting 04/23/18 16:00 05/23/18 15:59 Polyethylene Glycol (Miralax) 17 gm Q12H PRN ORAL Constipation 04/25/18 20:30 05/25/18 20:29 04/25/18 20:42 Prednisone (predniSONE) 30 mg DAILY ORAL 04/27/18 09:00 05/27/18 08:59 Zolpidem Tartrate (Ambien) 5 mg HSPRN PRN ORAL Insomnia 04/25/18 02:00 05/02/18 01:59 04/26/18 00:14 Assessment/Plan Problem List: (1) Choledocholithiasis Assessment & Plan: ultrasound with stones and mildly dilated CBD. LFT's, alk phos, bili elevated but trending down now. MRCP ordered but patient unable to tolerate MRI machine will order HIDA scan trend labs will follow with recs. thank you for this consultation. ICD Codes: K80.50 - Calculus of bile duct without cholangitis or cholecystitis without obstruction SNOMED: 374565245 (2) Cholecystitis ICD Codes: K81.9 - Cholecystitis, unspecified SNOMED: 70421952 Cristobal Shepherd Apr 26, 2018 20:21
[2018-04-26 20:24] LABS: % IRON SATURATION 28 % (15-50); IRON 58 ug/dL (50-175); TOTAL IRON BINDING CAPACITY 206 ug/dL (250-450)
[2018-04-26] MEDS: Atorvastatin 80mg tab ORAL SCH (20:28)
[2018-04-26] MEDS: Carvedilol 6.25mg Tab ORAL SCH (20:32)
--- NOTE | 2018-04-26 20:52 | Cardiology Progress Note ---
Assessment/Plan Assessment/Plan perm afib kam with hs of bifasicualr block hs of cm with subsequent resolution copd abn lft new thrombocytopna new cad s/p pci chronic chf MR chf sx seem to be mild he has noted to have resolution of his cm in 02/2018at [facility] confirmed on echo here to day off bb but now heart rate mildy increasedsd tele reviewed MR not confirmed on echo today swtich to low dose po laix he dislike his persent facility which is one of the main reasons he came to er coreg stat 6.25 bid to see if able to control heart rate mid level Subjective Cardiovascular: Denies: chest pain, lightheadedness, palpitations Respiratory: Denies: shortness of breath Gastrointestinal/Abdominal: Denies: abdominal pain Genitourinary: Denies: burning Objective Last 24 Hour Vital Signs Date Time Temp Pulse Resp B/P (MAP) Pulse Ox O2 Delivery O2 Flow Rate FiO2 04/26/18 20:32 78 120/80 04/26/18 20:00 76 04/26/18 18:40 88 16 99 Room Air 04/26/18 18:30 83 16 98 Room Air 04/26/18 16:00 97.0 89 20 129/85 (100) 100 97.0 04/26/18 16:00 86 04/26/18 15:17 86 16 99 Room Air 04/26/18 15:03 72 16 98 Room Air 04/26/18 12:00 97.3 63 20 143/56 (85) 100 97.3 04/26/18 12:00 64 04/26/18 11:20 89 16 98 Room Air 04/26/18 11:15 87 16 99 Room Air 21 04/26/18 11:05 89 16 98 Room Air 04/26/18 09:00 Room Air 04/26/18 09:00 62 65 53 04/26/18 08:32 68 18 100 Room Air 04/26/18 08:21 69 16 98 Room Air 21 04/26/18 08:00 96.3 63 20 148/68 (94) 99 96.3 04/26/18 08:00 45 04/26/18 04:00 65 04/26/18 04:00 97.0 68 20 152/88 (109) 100 97.0 8/6/18 03:37 64 18 99 Room Air 21 04/26/18 03:28 60 18 98 Room Air 21 04/26/18 00:00 97.5 68 20 123/56 (78) 98 97.5 04/26/18 00:00 78 04/25/18 23:45 68 18 99 Room Air 21 04/25/18 23:37 60 18 99 Room Air 21 04/25/18 21:00 Room Air General Appearance: alert Neck: supple Cardiovascular: irregularly irregular Respiratory/Chest: decreased breath sounds Abdomen: normal bowel sounds, non tender, soft Extremities: no swelling Intake and Output 04/25/18 04/26/18 19:00 07:00 Intake Total 300 ml 240 ml Balance 300 ml 240 ml Intake Oral 300 ml 240 ml # Voids 2 Laboratory Tests Test 04/26/18 06:40 04/26/18 19:18 04/26/18 19:35 White Blood Count 7.5 K/UL (4.8-10.8) Red Blood Count 3.91 M/UL (4.70-6.10) L Hemoglobin 11.1 G/DL (14.2-18.0) L Hematocrit 32.3 % (42.0-52.0) L Mean Corpuscular Volume 83 FL (80-99) Mean Corpuscular Hemoglobin 28.3 PG (27.0-31.0) Mean Corpuscular Hemoglobin Concent 34.2 G/DL (32.0-36.0) Red Cell Distribution Width 11.9 % (11.6-14.8) Platelet Count 86 K/UL (150-450) L Mean Platelet Volume 9.9 FL (6.5-10.1) Neutrophils (%) (Auto) % (45.0-75.0) Lymphocytes (%) (Auto) % (20.0-45.0) Monocytes (%) (Auto) % (1.0-10.0) Eosinophils (%) (Auto) % (0.0-3.0) Basophils (%) (Auto) % (0.0-2.0) Differential Total Cells Counted 100 Neutrophils % (Manual) 84 % (45-75) H Lymphocytes % (Manual) 12 % (20-45) L Monocytes % (Manual) 4 % (1-10) Eosinophils % (Manual) 0 % (0-3) Basophils % (Manual) 0 % (0-2) Band Neutrophils 0 % (0-8) Platelet Estimate Decreased L Platelet Morphology Normal Hypochromasia 1+ Anisocytosis 1+ Sodium Level 139 MMOL/L (136-145) Potassium Level 3.5 MMOL/L (3.5-5.1) Chloride Level 102 MMOL/L (98-107) Carbon Dioxide Level 33 MMOL/L (21-32) H Anion Gap 4 mmol/L (5-15) L Blood Urea Nitrogen 33 mg/dL (7-18) H Creatinine 1.0 MG/DL (0.55-1.30) Estimat Glomerular Filtration Rate > 60 mL/min (>60) Glucose Level 176 MG/DL (74-106) H Calcium Level 8.8 MG/DL (8.5-10.1) Total Bilirubin 0.8 MG/DL (0.2-1.0) Aspartate Amino Transf (AST/SGOT) 32 U/L (15-37) Alanine Aminotransferase (ALT/SGPT) 76 U/L (12-78) Alkaline Phosphatase 124 U/L (46-116) H Total Protein 5.9 G/DL (6.4-8.2) L Albumin 2.7 G/DL (3.4-5.0) L Globulin 3.2 g/dL Albumin/Globulin Ratio 0.8 (1.0-2.7) L Reticulocyte Count Pending Fibrinogen 288 mg/dL (200-400) Iron Level 58 ug/dL (50-175) Total Iron Binding Capacity 206 ug/dL (250-450) L Percent Iron Saturation 28 % (15-50) Unsaturated Iron Binding 148 ug/dL (112-346) Ferritin 316 NG/ML (8-388) Folate 18.6 NG/ML (8.6-58.9) Thyroid Stimulating Hormone (TSH) 0.546 uiU/mL (0.358-3.740) Hepatitis A IgM Antibody Pending Hepatitis B Surface Antigen Pending Hepatitis B Core IgM Antibody Pending Hepatitis C Antibody Pending HIV (1&2) Antibody Rapid Negative (NEGATIVE) Luis Alfredo Gonzalez MD Apr 26, 2018 20:52
--- NOTE | 2018-04-26 21:01 | General Progress Note ---
Assessment/Plan Status: progressing Assessment/Plan #Acute decompensated CHF - improved on tx #COPD exacerbation - improved on tx #Leukocytosis - suspect volume contraction #Transaminitis - improved, distended CBD on abd us #Thrombocytopenia - new, no cirrhosis on US #A fib #HTN #HLD - cardiology consulted, appreciate recs - telemetry monitoring reviewed by me - serial tn neg - diuresis per cards, now on po lasix - strict i/o's - trend chem - replace lytes as needed - UA non infectious - apixaban BID - plavix, coreg, statin - Pulm consult, appreciate recs - doxy BID - nebs q4h atc - steroids per pulm - supplemental 02 - trend LFTs - GI consulted - gen surg consult - trend CBC - supportive care - dvt ppx: HSQ BID - full code anticipate pt will require 2-3 days in house anticipate dc home w/ HH vs SNF once medically stable I spent 45 min on this case, 25 min was dedicated to counseling and care coordination time of note may not reflect time of clinical encounter Subjective Date patient seen: Apr 26, 2018 Time patient seen: 12:45 ROS Limited/Unobtainable: No Constitutional: Reports: malaise HEENT: Reports: no symptoms Cardiovascular: Reports: no symptoms Respiratory: Reports: cough, shortness of breath, wheezing Gastrointestinal/Abdominal: Reports: no symptoms Genitourinary: Reports: no symptoms Neurologic/Psychiatric: Reports: no symptoms Endocrine: Reports: no symptoms Hematologic/Lymphatic: Reports: no symptoms Allergies: Coded Allergies: AMPICILLIN (Verified Allergy, Unknown, 04/23/18) Uncoded Allergies: PENICILLIN (Allergy, Unknown, 04/23/18) Subjective No acute events overnight Patient feels improved dyspnea today No chest pain Objective Last 24 Hour Vital Signs Date Time Temp Pulse Resp B/P (MAP) Pulse Ox O2 Delivery O2 Flow Rate FiO2 04/26/18 20:32 78 120/80 04/26/18 20:00 76 04/26/18 18:40 88 16 99 Room Air 21 04/26/18 18:30 83 16 98 Room Air 21 04/26/18 16:00 97.0 89 20 129/85 (100) 100 97.0 04/26/18 16:00 86 04/26/18 15:17 86 16 99 Room Air 21 04/26/18 15:03 72 16 98 Room Air 21 04/26/18 12:00 97.3 63 20 143/56 (85) 100 97.3 04/26/18 12:00 64 04/26/18 11:20 89 16 98 Room Air 21 04/26/18 11:15 87 16 99 Room Air 21 04/26/18 11:05 89 16 98 Room Air 21 04/26/18 09:00 Room Air 04/26/18 09:00 62 65 53 04/26/18 08:32 68 18 100 Room Air 21 04/26/18 08:21 69 16 98 Room Air 21 04/26/18 08:00 96.3 63 20 148/68 (94) 99 96.3 04/26/18 08:00 45 04/26/18 04:00 65 04/26/18 04:00 97.0 68 20 152/88 (109) 100 97.0 04/26/18 03:37 64 18 99 Room Air 04/26/18 03:28 60 18 98 Room Air 04/26/18 00:00 97.5 68 20 123/56 (78) 98 97.5 04/26/18 00:00 78 04/25/18 23:45 68 18 99 Room Air 04/25/18 23:37 60 18 99 Room Air 04/25/18 21:00 Room Air Intake and Output 04/25/18 04/26/18 19:00 07:00 Intake Total 300 ml 240 ml Balance 300 ml 240 ml Intake Oral 300 ml 240 ml # Voids 2 Laboratory Tests 04/26/18 06:40: White Blood Count 7.5, Red Blood Count 3.91L, Hemoglobin 11.1L, Hematocrit 32.3L , Mean Corpuscular Volume 83, Mean Corpuscular Hemoglobin 28.3, Mean Corpuscular Hemoglobin Concent 34.2, Red Cell Distribution Width 11.9, Platelet Count 86L, Mean Platelet Volume 9.9, Neutrophils (%) (Auto) , Lymphocytes (%) ( Auto) , Monocytes (%) (Auto) , Eosinophils (%) (Auto) , Basophils (%) (Auto) , Differential Total Cells Counted 100, Neutrophils % (Manual) 84H, Lymphocytes % (Manual) 12L, Monocytes % (Manual) 4, Eosinophils % (Manual) 0, Basophils % ( Manual) 0, Band Neutrophils 0, Platelet Estimate DecreasedL, Platelet Morphology Normal, Hypochromasia 1+, Anisocytosis 1+, Sodium Level 139, Potassium Level 3.5, Chloride Level 102, Carbon Dioxide Level 33H, Anion Gap 4L , Blood Urea Nitrogen 33H, Creatinine 1.0, Estimat Glomerular Filtration Rate > 60, Glucose Level 176H, Calcium Level 8.8, Total Bilirubin 0.8, Aspartate Amino Transf (AST/SGOT) 32, Alanine Aminotransferase (ALT/SGPT) 76, Alkaline Phosphatase 124H, Total Protein 5.9L, Albumin 2.7L, Globulin 3.2, Albumin/ Globulin Ratio 0.8L 04/26/18 19:18: Reticulocyte Count [Pending] 04/26/18 19:35: Fibrinogen 288, Iron Level 58, Total Iron Binding Capacity 206L, Percent Iron Saturation 28, Unsaturated Iron Binding 148, Ferritin 316, Folate 18.6, Thyroid Stimulating Hormone (TSH) 0.546, Hepatitis A IgM Antibody [Pending], Hepatitis B Surface Antigen [Pending], Hepatitis B Core IgM Antibody [Pending], Hepatitis C Antibody [Pending], HIV (1&2) Antibody Rapid Negative Height (Feet): 5 Height (Inches): 9.00 Weight (Pounds): 160 General Appearance: no apparent distress EENT: PERRL/EOMI, TMs normal, pharynx normal, pale conjunctivae Neck: non-tender, supple Cardiovascular: irregularly irregular Respiratory/Chest: decreased breath sounds, expiratory wheezing Abdomen: normal bowel sounds, soft Pelvis: normal external exam Extremities: normal range of motion, non-tender Edema: no edema noted Arm (L), no edema noted Arm (R), no edema noted Leg (L), no edema noted Leg (R) 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 Apr 26, 2018 21:01
[2018-04-27] VITALS: BP 103/65
[2018-04-27] MEDS: Albuterol/Ipratropium 3ml neb HHN SCH ×5 (00:27→19:00)
[2018-04-27 04:00] VITALS: BP 125/60
--- NOTE | 2018-04-27 04:15 | Consultation ---
DATE OF CONSULTATION: 04/26/2018 HEMATOLOGY/ONCOLOGY CONSULTATION CONSULTING PHYSICIAN: Maykel Coronel M.D. REQUESTING PHYSICIAN: Chico Hewitt M.D. REASON FOR CONSULTATION: Evaluation of pancytopenia. IDENTIFYING DATA: Dear Dr. Hewitt and Shira Donna, Thank you for this consultation. The patient is a pleasant 68-year-old male. He has a past medical history, which is significant for bradycardia, history of CHF, history of non-STEMI, and atrial fibrillation, at this time presents to the hospital. He has been seen by Cardiology, presents with CHF exacerbation. He is a [facility] patient. He has been admitted under the care of Dr. Hewitt, seen by Dr. Fitch, presents with generalized weakness, shortness of breath, increased orthopnea, noted to have pancytopenia. Hematology/Oncology Service was consulted for further evaluation and treatment. PAST MEDICAL HISTORY: CHF and COPD. ALLERGIES: Ampicillin. MEDICATIONS: Coreg, Lasix, Crestor. SOCIAL HISTORY: Lives in [facility] and [facility]. He is an active smoker. REVIEW OF SYSTEMS: Otherwise negative besides as noted in the history of present illness. The patient does have PND, cough, orthopnea, and weakness. PHYSICAL EXAMINATION: VITAL SIGNS: Reviewed. GENERAL: No acute distress. PULMONARY: Decreased breath sounds. CARDIOVASCULAR: Regular rate and rhythm. No M/G/R. ABDOMEN: Soft, nontender, and nondistended. EXTREMITIES: No cyanosis, swelling, or edema. LABORATORY AND DIAGNOSTIC DATA: WBC of 3, hemoglobin 11, and platelet count 86,000. ASSESSMENT AND RECOMMENDATIONS: 1. Pancytopenia, potentially secondary to liver disease, bilirubin elevated on admission. The patient had transaminitis on admission as well. MCV is elevated. At this time, obtain hepatitis panel and HIV. Ultrasound of the abdomen reviewed. No evidence of cirrhosis. We will continue to closely monitor. Hemoglobin goal is above 7. Monitor platelet count closely. 2. Anemia of chronic disease. Obtain iron panel, folic acid, fibrinogen, uric acid, TSH, and reticulocyte count. 3. Anemia due to underlying congestive heart failure, decompensated state. 4. Chronic obstructive pulmonary disease exacerbation. 5. Possible viral urinary tract infection. 6. Transaminitis, hepatic congestion questionable. 7. Deep venous thrombosis prophylaxis, heparin subcutaneous. I appreciate the consultation. Maykel Coronel M.D. DR: FELICIA JOB#: [id number] CC:
[2018-04-27] MEDS: Eliquis 2.5mg tablet ORAL SCH ×2 (08:09→17:09)
[2018-04-27] MEDS: Aspirin Baby 81mg ORAL SCH (08:09)
[2018-04-27] MEDS: Docusate 100mg cap ORAL SCH (08:09)
[2018-04-27] MEDS: Carvedilol 6.25mg Tab ORAL SCH (08:10)
[2018-04-27 08:25] VITALS: BP 130/60
--- NOTE | 2018-04-27 08:44 | Physician Query ---
--------- THIS DOCUMENT IS A PERMANENT PART OF THE MEDICAL RECORD --------- PLEASE COMPLETE THE DOCUMENT BEFORE SIGNING Dear Dr. Fitch Date: 03/2018 Waste Treatment Operator/CDS Name: Carmen Soto Waste Treatment Operator / CDS Phone # [phone] Exercise your independent professional judgment when responding to query. Question asked do not imply a particular answer is desired/expected Clinical Documentation States: "Acute decompensated CHF" documented in H&P and progress notes. Clinical Findings Show: BNP: 2106 Diuretic: IV Furosemide Echocardiogram: EF - 60-65%, Diastolic dysfunction could not be determined A- Fib. Other Meds: Aspirin, Carvidelol Can you Please Clarify the type of CHF: Type [] Systolic [x] Diastolic [] Systolic & Diastolic (Combined) [] Other: [] Clinically undeterminable Please also document in your Progress Notes and/or Discharge Summary and indicate if the condition was present on admission. RAULD
[2018-04-27] MEDS ORDERED: 1/2 NS 1000ml IV ONE (11:09)
--- NOTE | 2018-04-27 11:26 | General Surgery Progress Note ---
General Surgery-Progress Note Subjective Additional Comments abdominal pain improved. labs okay. was unable to tolerate MRI Objective Last 24 Hour Vital Signs Date Time Temp Pulse Resp B/P (MAP) Pulse Ox O2 Delivery O2 Flow Rate FiO2 04/27/18 11:17 61 15 94 Room Air 21 04/27/18 09:21 65 04/27/18 09:16 68 04/27/18 09:11 60 04/27/18 08:45 Room Air 04/27/18 08:25 97.3 75 18 130/60 (83) 96 97.3 04/27/18 08:10 79 130/66 04/27/18 07:55 57 04/27/18 07:40 62 17 98 Room Air 04/27/18 07:27 58 16 95 Room Air 04/27/18 04:00 66 04/27/18 04:00 97.0 75 18 125/60 (81) 96 97.0 04/27/18 03:01 Room Air 04/27/18 02:59 Room Air 04/27/18 00:00 97.8 84 18 103/65 (78) 96 97.8 04/27/18 00:00 81 04/26/18 23:20 82 16 99 Room Air 04/26/18 23:15 79 16 97 Room Air 21 04/26/18 21:00 Room Air 04/26/18 20:32 78 120/80 04/26/18 20:00 97.2 76 20 120/80 (93) 98 97.2 04/26/18 20:00 76 04/26/18 18:40 88 16 99 Room Air 04/26/18 18:30 83 16 98 Room Air 04/26/18 16:00 97.0 89 20 129/85 (100) 100 97.0 04/26/18 16:00 86 04/26/18 15:17 86 16 99 Room Air 04/26/18 15:03 72 16 98 Room Air 04/26/18 12:00 97.3 63 20 143/56 (85) 100 97.3 04/26/18 12:00 64 I&O Intake and Output 04/26/18 04/27/18 19:00 07:00 Intake Total 500 ml 870 ml Output Total 1000 ml Balance 500 ml -130 ml Intake Oral 500 ml 360 ml IV Total 510 ml Output Urine Total 1000 ml # Voids 5 # Bowel Movements 1 Drains: none Cardiovascular: RSR Respiratory: clear Abdomen: soft, flat, non-tender, present bowel sounds Extremities: no cyanosis Laboratory Tests Test 04/26/18 19:35 04/27/18 06:40 Reticulocyte Count 0.6 % (0.0-2.0) Fibrinogen 288 mg/dL (200-400) Iron Level 58 ug/dL (50-175) Total Iron Binding Capacity 206 ug/dL (250-450) L Percent Iron Saturation 28 % (15-50) Unsaturated Iron Binding 148 ug/dL (112-346) Ferritin 316 NG/ML (8-388) Folate 18.6 NG/ML (8.6-58.9) Thyroid Stimulating Hormone (TSH) 0.546 uiU/mL (0.358-3.740) Hepatitis A IgM Antibody Negative (Negative) Hepatitis B Surface Antigen Negative (Negative) Hepatitis B Core IgM Antibody Negative (Negative) Hepatitis C Antibody >11.0 s/co ratio HIV (1&2) Antibody Rapid Negative (NEGATIVE) Lipase 165 U/L (73-393) Plan Problems: (1) Choledocholithiasis Assessment & Plan: ultrasound with stones and mildly dilated CBD. LFT's, alk phos, bili elevated but trending down now. MRCP ordered but patient unable to tolerate MRI machine pending HIDA scan trend labs will follow with recs. thank you for this consultation. (2) Cholecystitis Cristobal Shepherd Apr 27, 2018 11:26
[2018-04-27 12:00] VITALS: BP 120/50
--- NOTE | 2018-04-27 13:43 | Cardiology Progress Note ---
Assessment/Plan Assessment/Plan perm afib kam with hs of bifasicualr block hs of cm with subsequent resolution copd abn lft new thrombocytopna new cad s/p pci chronic chf MR chf sx seem to be mild he has noted to have resolution of his cm in 02/2018at [facility] confirmed on echo here to day off bb but now heart rate mildy increasedsd tele reviewed MR not confirmed on echo today swtich to low dose po lasix he dislike his persent facility which is one of the main reasons he came to er coreg stat 6.25 bid seems better hr control no sig pauses or kam likely ok to dc form cv point of view needs outpt cardiology fu Subjective Cardiovascular: Denies: chest pain, irregular heart rate, lightheadedness Respiratory: Denies: shortness of breath Gastrointestinal/Abdominal: Denies: abdominal pain Genitourinary: Denies: burning Objective Last 24 Hour Vital Signs Date Time Temp Pulse Resp B/P (MAP) Pulse Ox O2 Delivery O2 Flow Rate FiO2 04/27/18 11:34 71 04/27/18 11:30 64 16 97 Room Air 04/27/18 11:17 61 15 94 Room Air 04/27/18 09:21 65 04/27/18 09:16 68 04/27/18 09:11 60 04/27/18 08:45 Room Air 04/27/18 08:25 97.3 75 18 130/60 (83) 96 97.3 04/27/18 08:10 79 130/66 04/27/18 07:55 57 04/27/18 07:40 62 17 98 Room Air 04/27/18 07:27 58 16 95 Room Air 04/27/18 04:00 66 04/27/18 04:00 97.0 75 18 125/60 (81) 96 97.0 04/27/18 03:01 Room Air 04/27/18 02:59 Room Air 04/27/18 00:00 97.8 84 18 103/65 (78) 96 97.8 04/27/18 00:00 81 04/26/18 23:20 82 16 99 Room Air 04/26/18 23:15 79 16 97 Room Air 04/26/18 21:00 Room Air 04/26/18 20:32 78 120/80 04/26/18 20:00 97.2 76 20 120/80 (93) 98 97.2 04/26/18 20:00 76 04/26/18 18:40 88 16 99 Room Air 21 04/26/18 18:30 83 16 98 Room Air 21 04/26/18 16:00 97.0 89 20 129/85 (100) 100 97.0 04/26/18 16:00 86 04/26/18 15:17 86 16 99 Room Air 21 04/26/18 15:03 72 16 98 Room Air 21 General Appearance: no apparent distress, alert Neck: supple Cardiovascular: irregularly irregular Respiratory/Chest: decreased breath sounds Abdomen: normal bowel sounds, non tender, soft Extremities: no swelling Intake and Output 04/26/18 04/27/18 19:00 07:00 Intake Total 500 ml 870 ml Output Total 1000 ml Balance 500 ml -130 ml Intake Oral 500 ml 360 ml IV Total 510 ml Output Urine Total 1000 ml # Voids 5 # Bowel Movements 1 Laboratory Tests Test 04/26/18 19:35 04/27/18 06:40 Reticulocyte Count 0.6 % (0.0-2.0) Fibrinogen 288 mg/dL (200-400) Iron Level 58 ug/dL (50-175) Total Iron Binding Capacity 206 ug/dL (250-450) L Percent Iron Saturation 28 % (15-50) Unsaturated Iron Binding 148 ug/dL (112-346) Ferritin 316 NG/ML (8-388) Folate 18.6 NG/ML (8.6-58.9) Thyroid Stimulating Hormone (TSH) 0.546 uiU/mL (0.358-3.740) Hepatitis A IgM Antibody Negative (Negative) Hepatitis B Surface Antigen Negative (Negative) Hepatitis B Core IgM Antibody Negative (Negative) Hepatitis C Antibody >11.0 s/co ratio HIV (1&2) Antibody Rapid Negative (NEGATIVE) Lipase 165 U/L (73-393) Luis Alfredo Gonzalez MD Apr 27, 2018 13:43
[2018-04-27] MEDS ORDERED: ASPIRIN EC81 MG ORAL (14:00)
[2018-04-27] MEDS ORDERED: ELIQUIS5 MG PO (14:01)
[2018-04-27] MEDS ORDERED: PLAVIX75 MG ORAL (14:01)
[2018-04-27] MEDS ORDERED: ATORVASTATIN CA40 MG ORAL (14:01)
[2018-04-27] MEDS ORDERED: ACETAMINOPHEN325 M1 ORAL (14:01)
[2018-04-27] MEDS ORDERED: VIBRAMYCIN100 MG ORAL (14:02)
[2018-04-27] MEDS ORDERED: DOCUSATE SODIU100 MG ORAL (14:02)
[2018-04-27] MEDS ORDERED: DUONEB 0.5-3(2.53 ML HHN (14:02)
[2018-04-27] MEDS ORDERED: FAMOTIDINE20 MG ORAL (14:03)
[2018-04-27] MEDS ORDERED: AMBIEN5 MG ORAL (14:03)
[2018-04-27] MEDS ORDERED: MIRALAX17 G2 ORAL (14:03)
[2018-04-27] MEDS ORDERED: PREDNISONE10 MG ORAL ×2 (14:04→14:08)
--- NOTE | 2018-04-27 14:04 | Discharge Summary ---
Discharge Summary Hospital Course Date of Admission Apr 23, 2018 at 14:35 Date of Discharge 04/27/2018 Admitting Diagnosis GENERALIZED WEAKNESS HPI Casey Lazo is a 68 year old male who was admitted on Apr 23, 2018 at 14:35 for Generalized Weakness He has a history of multiple medical problems including COPD, CHF who presented to the ED w/ 1 mo of worsening Generalized weakness and one week of increased shortness of breath and KABA. Pt had been living in a board and care and reports limited access to healthy food. Food provided at the facility is not c/w recommendations he has been given for a cardiac/low na diet. Over the 2 days prior to admission he had little po intake due to anorexia and general malaise. At baseline he is able to walk for > 1 block on flat ground, but was limited to 20-30 feet. He also reported Orthopnea. Pt felt his overall health had significantly declined prompting him to present to the ED. In the ED pt was found to be in decompensated CHF w/ elevated BNP and COPD exacerbation w/ expiratory wheeze. He was started on lasix IV, Steroids and nebs with some improvement in sob. Consultations Pulmonary Cardiology Gastroenterology Psychiatry Procedures Echocardiogram [facility] Hospital Course Patient admitted and found to have pneumonia on CXR requiring IV antibiotics He improved with steroids, nebs and O2 support He was continued on IV diuresis and was able to be discharged to SNF in stable codition Discharge Medications Continued Medications: Acetaminophen* (Acetaminophen 325MG Tablet*) 325 Mg Tablet 650 MG ORAL Q4H PRN for Mild Pain/Temp > 100.5, TAB (This prescription has been renewed) Apixaban (Eliquis) 5 Mg Tablet 5 MG PO TWICE A DAY, TAB (This prescription has been renewed) Aspirin Ec* (Aspirin Ec*) 81 Mg Tablet.dr 81 MG ORAL DAILY, TAB (This prescription has been renewed) Atorvastatin Calcium* (Atorvastatin Calcium*) 40 Mg Tablet 80 MG ORAL BEDTIME, TAB (This prescription has been renewed) Carvedilol (Coreg) 3.125 Mg Tablet 12.5 MG ORAL EVERY 12 HOURS, TAB (This prescription has been renewed) Clopidogrel Bisulfate* (Plavix*) 75 Mg Tablet 75 MG ORAL DAILY, TAB (This prescription has been renewed) Docusate Sodium* (Docusate Sodium*) 100 Mg Capsule 100 MG ORAL Q12HR, CAP (This prescription has been renewed) Doxycycline Hyclate* (Vibramycin*) 100 Mg Capsule 100 MG ORAL EVERY 12 HOURS PRN for x3 days for 3 Days, #3 CAP 0 Refills (This prescription has been renewed) Famotidine (Famotidine) 20 Mg Tablet 20 MG ORAL TWICE A DAY, #60 TAB 0 Refills (This prescription has been renewed) Furosemide (Furosemide) 10 Mg/1 Ml Solution 40 MG PO DAILY (This prescription has been renewed) Ipratropium/Albuterol Sulfate (DuoNeb 0.5-3(2.5)mg/3ml) 3 Ml Ampul.neb 3 ML HHN Q4HR, EA (This prescription has been renewed) Polyethylene Glycol 3350* (Miralax*) 17 Gm Powd.pack 17 GM ORAL Q12HR PRN for Constipation, PACKET (This prescription has been renewed) Prednisone* (Prednisone*) 10 Mg Tablet 30 MG ORAL DAILY, #10 TAB 0 Refills (This prescription has been renewed) Prednisone* (Prednisone*) 10 Mg Tablet 30 MG ORAL DAILY for x1 day for 1 Day, TAB 0 Refills (This prescription has been renewed) Zolpidem Tartrate* (Ambien*) 5 Mg Tablet 5 MG ORAL BEDTIME PRN for Insomnia, TAB (This prescription has been renewed) Discontinued Medications: Rosuvastatin Calcium* (Crestor*) 10 Mg Tablet 5 MG ORAL DAILY, TAB Discharge Condition Upon Discharge: improving, stable Discharge Disposition Patient was discharged to SNF Discharge Diagnoses: (1) Pneumonia (2) COPD (chronic obstructive pulmonary disease) (3) Episode of generalized weakness (4) Choledocholithiasis (5) Acute systolic CHF (congestive heart failure) Jason Monte M.D. Apr 27, 2018 14:04
--- NOTE | 2018-04-27 14:56 | General Progress Note ---
Assessment/Plan Status: stable Assessment/Plan 1. Pancytopenia, potentially secondary to liver disease, bilirubin elevated on admission. The patient had transaminitis on admission as well. MCV is elevated. --> Hepatitis A and B are negative, Hep-C is positive, HIV negative. --> Ultrasound of the abdomen reviewed. No evidence of cirrhosis. --> We will continue to closely monitor. --> Monitor platelet count closely. 2. Anemia of chronic disease. Anemia panel has been reviewed. Will trend CBC daily. --> Hemoglobin goal is above 7. 3. Anemia due to underlying congestive heart failure, decompensated state. 4. Chronic obstructive pulmonary disease exacerbation. 5. Possible viral urinary tract infection. 6. Transaminitis, hepatic congestion questionable. 7. Deep venous thrombosis prophylaxis, heparin subcutaneous. The time the note was entered does not necessarily correspond to the time the patient was seen. Subjective Date patient seen: Apr 27, 2018 ROS Limited/Unobtainable: Yes Allergies: Coded Allergies: AMPICILLIN (Verified Allergy, Unknown, 04/23/18) Uncoded Allergies: PENICILLIN (Allergy, Unknown, 04/23/18) All Systems: reviewed and negative except above Subjective Pt awake and alert. No acute events. HIDA scan pending. DC planning. Objective Last 24 Hour Vital Signs Date Time Temp Pulse Resp B/P (MAP) Pulse Ox O2 Delivery O2 Flow Rate FiO2 04/27/18 11:34 71 04/27/18 11:30 64 16 97 Room Air 04/27/18 11:17 61 15 94 Room Air 04/27/18 09:21 65 04/27/18 09:16 68 04/27/18 09:11 60 04/27/18 08:45 Room Air 04/27/18 08:25 97.3 75 18 130/60 (83) 96 97.3 04/27/18 08:10 79 130/66 04/27/18 07:55 57 04/27/18 07:40 62 17 98 Room Air 04/27/18 07:27 58 16 95 Room Air 04/27/18 04:00 66 04/27/18 04:00 97.0 75 18 125/60 (81) 96 97.0 04/27/18 03:01 Room Air 04/27/18 02:59 Room Air 04/27/18 00:00 97.8 84 18 103/65 (78) 96 97.8 04/27/18 00:00 81 04/26/18 23:20 82 16 99 Room Air 21 04/26/18 23:15 79 16 97 Room Air 21 04/26/18 21:00 Room Air 04/26/18 20:32 78 120/80 04/26/18 20:00 97.2 76 20 120/80 (93) 98 97.2 04/26/18 20:00 76 04/26/18 18:40 88 16 99 Room Air 21 04/26/18 18:30 83 16 98 Room Air 21 04/26/18 16:00 97.0 89 20 129/85 (100) 100 97.0 04/26/18 16:00 86 04/26/18 15:17 86 16 99 Room Air 21 04/26/18 15:03 72 16 98 Room Air 21 Intake and Output 04/26/18 04/27/18 19:00 07:00 Intake Total 500 ml 870 ml Output Total 1000 ml Balance 500 ml -130 ml Intake Oral 500 ml 360 ml IV Total 510 ml Output Urine Total 1000 ml # Voids 5 # Bowel Movements 1 Laboratory Tests 04/26/18 19:35: Reticulocyte Count 0.6, Fibrinogen 288, Iron Level 58, Total Iron Binding Capacity 206L, Percent Iron Saturation 28, Unsaturated Iron Binding 148, Ferritin 316, Folate 18.6, Thyroid Stimulating Hormone (TSH) 0.546, Hepatitis A IgM Antibody Negative, Hepatitis B Surface Antigen Negative, Hepatitis B Core IgM Antibody Negative, Hepatitis C Antibody >11.0H, HIV (1&2) Antibody Rapid Negative 04/27/18 06:40: Lipase 165 Height (Feet): 5 Height (Inches): 9.00 Weight (Pounds): 160 General Appearance: no apparent distress, alert EENT: PERRL/EOMI Neck: normal alignment Cardiovascular: normal peripheral pulses Respiratory/Chest: normal breath sounds, no respiratory distress Abdomen: soft Maykel Coronel MD Apr 27, 2018 14:56
--- NOTE | 2018-04-27 15:01 | Consultation ---
History of Present Illness General Date patient seen: Apr 26, 2018 Chief Complaint: Generalized Weakness Present Illness HPI 68 year old male with multiple medical comorbidities including COPD and CHF, who presented to the ED with complaints of worsening generalized weakness and one week of increased shortness of breath. The pt has hx of insomnia and anxiety. the pt was given Ambien. the pt pw anxiety and worried about his medical condition. Allergies: Coded Allergies: AMPICILLIN (Verified Allergy, Unknown, 04/23/18) Uncoded Allergies: PENICILLIN (Allergy, Unknown, 04/23/18) Medication History Scheduled Apixaban (Eliquis), 5 MG PO TWICE A DAY, (Reported) Aspirin Ec* (Aspirin Ec*), 81 MG ORAL DAILY, (Reported) Atorvastatin Calcium* (Atorvastatin Calcium*), 80 MG ORAL BEDTIME, (Reported) Carvedilol (Coreg), 12.5 MG ORAL EVERY 12 HOURS, (Reported) Clopidogrel Bisulfate* (Plavix*), 75 MG ORAL DAILY, (Reported) Docusate Sodium* (Docusate Sodium*), 100 MG ORAL Q12HR, (Reported) Famotidine (Famotidine), 20 MG ORAL TWICE A DAY, (Reported) Furosemide (Furosemide), 40 MG PO DAILY, (Reported) Ipratropium/Albuterol Sulfate (DuoNeb 0.5-3(2.5)mg/3ml), 3 ML HHN Q4HR, ( Reported) Prednisone* (Prednisone*), 30 MG ORAL DAILY, (Reported) Prednisone* (Prednisone*), 30 MG ORAL DAILY, (Reported) Scheduled PRN Acetaminophen* (Acetaminophen 325MG Tablet*), 650 MG ORAL Q4H PRN for Mild Pain/ Temp > 100.5, (Reported) Doxycycline Hyclate* (Vibramycin*), 100 MG ORAL EVERY 12 HOURS PRN for x3 days, (Reported) Polyethylene Glycol 3350* (Miralax*), 17 GM ORAL Q12HR PRN for Constipation, ( Reported) Zolpidem Tartrate* (Ambien*), 5 MG ORAL BEDTIME PRN for Insomnia, (Reported) Discontinued Medications Rosuvastatin Calcium* (Crestor*), 5 MG ORAL DAILY, (Reported) Discontinued Reason: Therapy completed Patient History Limited by: medical condition History Provided By: Patient, Medical Record, PMD Healthcare decision maker PATIENT Resuscitation status Advanced Directive on File Past Medical/Surgical History Past Medical/Surgical History: (1) COPD (chronic obstructive pulmonary disease) (2) Atrial fibrillation (3) CHF (congestive heart failure) (4) Episode of generalized weakness (5) Choledocholithiasis (6) Cholecystitis Review of Systems Psychiatric: Reports: prior hx, anxiety, emotional problems Physical Exam General Appearance: no apparent distress, alert Neurologic: oriented x 3, responsive, depressed affect Last 24 Hour Vital Signs Date Time Temp Pulse Resp B/P (MAP) Pulse Ox O2 Delivery O2 Flow Rate FiO2 04/27/18 11:34 71 04/27/18 11:30 64 16 97 Room Air 04/27/18 11:17 61 15 94 Room Air 04/27/18 09:21 65 04/27/18 09:16 68 04/27/18 09:11 60 04/27/18 08:45 Room Air 04/27/18 08:25 97.3 75 18 130/60 (83) 96 97.3 04/27/18 08:10 79 130/66 04/27/18 07:55 57 04/27/18 07:40 62 17 98 Room Air 04/27/18 07:27 58 16 95 Room Air 04/27/18 04:00 66 04/27/18 04:00 97.0 75 18 125/60 (81) 96 97.0 04/27/18 03:01 Room Air 04/27/18 02:59 Room Air 04/27/18 00:00 97.8 84 18 103/65 (78) 96 97.8 04/27/18 00:00 81 04/26/18 23:20 82 16 99 Room Air 04/26/18 23:15 79 16 97 Room Air 04/26/18 21:00 Room Air 04/26/18 20:32 78 120/80 04/26/18 20:00 97.2 76 20 120/80 (93) 98 97.2 04/26/18 20:00 76 04/26/18 18:40 88 16 99 Room Air 04/26/18 18:30 83 16 98 Room Air 04/26/18 16:00 97.0 89 20 129/85 (100) 100 97.0 04/26/18 16:00 86 04/26/18 15:17 86 16 99 Room Air 21 04/26/18 15:03 72 16 98 Room Air 21 Intake and Output 04/26/18 04/27/18 19:00 07:00 Intake Total 500 ml 870 ml Output Total 1000 ml Balance 500 ml -130 ml Intake Oral 500 ml 360 ml IV Total 510 ml Output Urine Total 1000 ml # Voids 5 # Bowel Movements 1 Laboratory Tests Test 04/26/18 19:35 04/27/18 06:40 Reticulocyte Count 0.6 % (0.0-2.0) Fibrinogen 288 mg/dL (200-400) Iron Level 58 ug/dL (50-175) Total Iron Binding Capacity 206 ug/dL (250-450) L Percent Iron Saturation 28 % (15-50) Unsaturated Iron Binding 148 ug/dL (112-346) Ferritin 316 NG/ML (8-388) Folate 18.6 NG/ML (8.6-58.9) Thyroid Stimulating Hormone (TSH) 0.546 uiU/mL (0.358-3.740) Hepatitis A IgM Antibody Negative (Negative) Hepatitis B Surface Antigen Negative (Negative) Hepatitis B Core IgM Antibody Negative (Negative) Hepatitis C Antibody >11.0 s/co ratio HIV (1&2) Antibody Rapid Negative (NEGATIVE) Lipase 165 U/L (73-393) Height (Feet): 5 Height (Inches): 9.00 Weight (Pounds): 160 Medications Current Medications Medications (Trade) Dose Ordered Sig/Nova Route PRN Reason Start Time Stop Time Status Last Admin Dose Admin Acetaminophen (Tylenol) 650 mg Q4H PRN ORAL Mild Pain (Pain Scale 1-3) 04/23/18 16:00 05/23/18 15:59 04/23/18 17:57 Acetaminophen (Tylenol) 650 mg Q4H PRN ORAL fever 04/23/18 16:00 05/23/18 15:59 Albuterol/ Ipratropium (Albuterol/ Ipratropium) 3 ml Q4HRT HHN 04/23/18 16:15 04/28/18 16:14 04/27/18 11:17 Apixaban (Eliquis) 5 mg BID ORAL 04/24/18 18:00 05/24/18 17:59 04/27/18 08:09 Aspirin (ASA) 81 mg DAILY ORAL 04/26/18 09:00 05/24/18 08:59 04/27/18 08:09 Atorvastatin Calcium (Lipitor) 80 mg BEDTIME ORAL 04/23/18 21:00 05/23/18 20:59 04/26/18 20:28 Carvedilol (Coreg) 6.25 mg EVERY 12 HOURS ORAL 04/26/18 21:00 05/26/18 20:59 04/27/18 08:10 Clopidogrel Bisulfate (Plavix) 75 mg DAILY ORAL 04/26/18 09:00 05/25/18 08:59 04/27/18 08:09 Dextrose (Dextrose 50%) 25 ml STAT PRN IV Hypoglycemia 04/23/18 16:00 05/23/18 15:59 Dextrose (Dextrose 50%) 50 ml STAT PRN IV Hypoglycemia 04/23/18 16:00 05/23/18 15:59 Docusate Sodium (Colace) 100 mg EVERY 12 HOURS ORAL 04/23/18 21:00 05/23/18 20:59 04/27/18 08:09 Doxycycline Monohydrate (Vibramycin) 100 mg EVERY 12 HOURS ORAL 04/23/18 21:00 04/30/18 20:59 04/27/18 08:10 Famotidine (Pepcid) 20 mg BID ORAL 04/23/18 18:00 05/23/18 17:59 04/27/18 08:09 Morphine Sulfate (Morphine Sulfate) 2 mg Q4H PRN IVP Moderate Pain (Pain Scale 4-6) 04/23/18 16:00 04/30/18 15:59 Morphine Sulfate (Morphine Sulfate) 4 mg Q4H PRN IVP Severe Pain (Pain Scale 7-10) 04/23/18 16:00 04/30/18 15:59 Ondansetron HCl (Zofran) 4 mg Q6H PRN IVP Nausea & Vomiting 04/23/18 16:00 05/23/18 15:59 Polyethylene Glycol (Miralax) 17 gm Q12H PRN ORAL Constipation 04/25/18 20:30 05/25/18 20:29 04/25/18 20:42 Prednisone (predniSONE) 30 mg DAILY ORAL 04/27/18 09:00 05/27/18 08:59 04/27/18 08:13 Sodium Chloride 1,000 ml @ 50 mls/hr Q20H IV 04/26/18 20:30 05/26/18 20:29 04/26/18 20:48 Zolpidem Tartrate (Ambien) 5 mg HSPRN PRN ORAL Insomnia 04/25/18 02:00 05/02/18 01:59 04/26/18 00:14 Assessment/Plan Status: stable Assessment/Plan Anxiety d/o cognitive impairment -Ambien prn -Ativan prn -Provided ro/Payal Lopez MD Apr 27, 2018 15:01
[2018-04-27 16:00] VITALS: BP 114/59
--- NOTE | 2018-04-27 17:17 | Diagnostic Imaging Report ---
Indication: Abdominal Pain Technique: 5.4 mCi of technetium 99 m-Choletec was injected intravenously. Planar imaging of the abdomen was then performed every 3 minutes up to 60 minutes. Oblique views were also obtained. Findings: There is prompt uptake within the liver with subsequent washout of radiotracer from the liver on subsequent imaging. There is excretion into the biliary ducts. Gallbladder activity is present by 30 minutes indicating patency of the cystic duct. Some bowel activity is noted although less than expected. The common bile duct appears mildly dilated. IMPRESSION: * No evidence of acute cholecystitis. Gallbladder activity is noted indicating patency of the cystic duct. * Some radiotracer noted in the small bowel however less than expected. There is apparent mild dilatation of the common bile duct. Potential considerations include a degree distal common bile duct obstruction or sphincter of Oddi dysfunction. Correlate clinically. Consider ERCP or MRCP.
== END 2018-04-27 19:30 | DRG 291 ==
LOC: EMR 14:30 → 2E 14:35 → EDBEDREQ 14:58
DX: I11.0 Hypertensive heart disease with heart failure (principal); J18.9 Pneumonia, unspecified organism; J44.1 Chronic obstructive pulmonary disease with (acute) exacerbation; I45.2 Bifascicular block; K80.40 Calculus of bile duct with cholecystitis, unspecified, without obstruction; D61.818 Other pancytopenia; I50.33 Acute on chronic diastolic (congestive) heart failure; E78.5 Hyperlipidemia, unspecified; I25.2 Old myocardial infarction; I25.10 Atherosclerotic heart disease of native coronary artery without angina pectoris; Z95.5 Presence of coronary angioplasty implant and graft; I27.20 Pulmonary hypertension, unspecified; I34.0 Nonrheumatic mitral (valve) insufficiency; Z88.0 Allergy status to penicillin; F17.200 Nicotine dependence, unspecified, uncomplicated; H35.30 Unspecified macular degeneration; I48.2 Chronic atrial fibrillation; D69.6 Thrombocytopenia, unspecified; D63.8 Anemia in other chronic diseases classified elsewhere; R00.1 Bradycardia, unspecified; K80.50 Calculus of bile duct without cholangitis or cholecystitis without obstruction; Z79.01 Long term (current) use of anticoagulants; Z79.82 Long term (current) use of aspirin
CPT/HCPCS: 36415; 71045; 71046; 76700; 78266; 80053; 80307; 81001; 81003; 82248; 82728; 82746; 83540; 83550; 83690; 83880; 84443; 84484; 85007; 85025; 85044; 85384; 85610; 85730; 86140; 86703; 86705; 86709; 86803; 86850; 86900; 86901; 87340; 93005; 93306; 94640; 94664; J7620

== ENCOUNTER 2018-05-17 03:18 | Emergency (ER) | payer MEDICARE, OTHER ==
[~2018-05-17] VITALS: Ht 175.3 cm; Wt 64.4 kg
[~2018-05-17 03:18] MED LIST: ACETAMINOPHEN325 M1 ORAL; AMBIEN5 MG ORAL; ASPIRIN EC81 MG ORAL; ATORVASTATIN CA40 MG ORAL; COREG3.125 MG ORAL; CRESTOR10 M2 ORAL; DOCUSATE SODIU100 MG ORAL; DUONEB 0.5-3(2.53 ML HHN; ELIQUIS5 MG PO; FAMOTIDINE20 MG ORAL; FUROSEMIDE10 MG/1 M2 PO; MIRALAX17 G2 ORAL; PLAVIX75 MG ORAL; PREDNISONE10 MG ORAL; VIBRAMYCIN100 MG ORAL
[2018-05-17] MEDS ORDERED: COREG12.5 MG ORAL (03:27)
[2018-05-17 03:29] VITALS: BP 128/74
[2018-05-17] MEDS ORDERED: Morphine Sulfate 4mg/ml Inj (IV USE ONLY) IVP ONE (03:30)
[2018-05-17] MEDS ORDERED: Isovue-300 100ml vial INJ PRN (03:30)
[2018-05-17] MEDS ORDERED: Ketorolac 30mg Inj IV ONE (03:30)
--- NOTE | 2018-05-17 03:36 | Emergency Room Report ---
History of Present Illness General Chief Complaint: Abdominal Pain Source: Patient, Medical Record, EMS Present Illness HPI Patient presents with 2-1/2 days of intermittent right lower quadrant and flank pain. He says it woke him up from sleep that when it first happened. It was severe at that time. It went away on its own. The next day it returned. He feels like someone stabbing a knife in his lower abdomen. He status the pain is 6/10 at this time. He denies any change in his bowels, dysuria, hematuria. He's had no nausea or vomiting. No RUQ or back pain. No dysuria or hematuria. No prior h/o stones. The patient was admitted April 23 for pneumonia and weaknes. He states he stopped smoking at that time. He denies having productive cough at this time. He's been able [facility] and feels stronger. Discharge dx 04/27: (1) Pneumonia (2) COPD (chronic obstructive pulmonary disease) (3) Episode of generalized weakness (4) Choledocholithiasis (5) Acute systolic CHF (congestive heart failure) HIDA scan done 04/27: IMPRESSION: * No evidence of acute cholecystitis. Gallbladder activity is noted indicating patency of the cystic duct. * Some radiotracer noted in the small bowel however less than expected. There is apparent mild dilatation of the common bile duct. Potential considerations include a degree distal common bile duct obstruction or sphincter of Oddi dysfunction. Correlate clinically. Consider ERCP or MRCP. Allergies: Coded Allergies: AMPICILLIN (Verified Allergy, Unknown, 04/23/18) Uncoded Allergies: PENICILLIN (Allergy, Unknown, 04/23/18) Patient History Past Medical History: see triage record Social History: Denies: smoking - former Social History Narrative SNF Born [place] - worked for [employer] and played with [employer] Reviewed Nursing Documentation: PMH: Agreed; PSxH: Agreed Nursing Documentation-PMH Hx Cardiac Problems: Yes - arrhythmia Hx Hypertension: No Hx Pacemaker: No Hx Asthma: Yes Hx COPD: Yes Hx Diabetes: No Hx Cancer: No Hx Gastrointestinal Problems: No Hx Dialysis: No Hx Neurological Problems: No Hx Cerebrovascular Accident: No Hx Seizures: No Physical Exam Vital Signs Date Time Temp Pulse Resp B/P (MAP) Pulse Ox O2 Delivery O2 Flow Rate FiO2 05/17/18 03:16 95.0 80 12 128/74 98 Room Air 95.0 Gastrointestinal: normal inspection, normal bowel sounds, no mass, no rebound, tenderness - RLQ with gurading, rest of abdomen is soft Musculoskeletal: other - Dupuytren's contractures both hands Medical Decision Making Diagnostic Impression: Primary Impression: Abdominal pain Qualified Codes: R10.31 - Right lower quadrant pain Additional Impression: COPD (chronic obstructive pulmonary disease) Qualified Codes: J43.9 - Emphysema, unspecified ER Course Patient presents with 2-3 days of right lower quadrant pain. Differential includes appendicitis, diverticulitis, renal stone, constipation, UTI, cholecystitis amongst others. Duration of symptoms is against appendicitis. However this needs to be excluded. Evaluation will be with labs, EKG, chest x- ray and CT the abdomen. Laboratory tests will be performed. The patient will receive IV hydration and analgesia. Pain pattern and location against gall bladder as cause. EKG no injury. CXR COPD. Labs with normal CBC, CMP, lipase. Pain pattern not consistent with CT findings (no RUQ pain). No evidence of cholecystitis clinically. Patient sleeping in ED. Pain resolved. Discussed outpatient observation. No evidence of surgical pathology. Discussed with Dr. Valdes who agrees. (Review of chart after discharge: I was not told that urine was not obtained. If persists, UA needs to be checked.) Laboratory Tests Test 05/17/18 03:35 White Blood Count 7.2 K/UL (4.8-10.8) Red Blood Count 5.08 M/UL (4.70-6.10) Hemoglobin 14.3 G/DL (14.2-18.0) Hematocrit 42.8 % (42.0-52.0) Mean Corpuscular Volume 84 FL (80-99) Mean Corpuscular Hemoglobin 28.2 PG (27.0-31.0) Mean Corpuscular Hemoglobin Concent 33.5 G/DL (32.0-36.0) Red Cell Distribution Width 12.9 % (11.6-14.8) Platelet Count 167 K/UL (150-450) Mean Platelet Volume 7.0 FL (6.5-10.1) Neutrophils (%) (Auto) 78.1 % (45.0-75.0) H Lymphocytes (%) (Auto) 10.2 % (20.0-45.0) L Monocytes (%) (Auto) 9.7 % (1.0-10.0) Eosinophils (%) (Auto) 1.3 % (0.0-3.0) Basophils (%) (Auto) 0.7 % (0.0-2.0) Prothrombin Time 10.2 SEC (9.30-11.50) Prothrombin Time INR 1.0 (0.9-1.1) PTT 32 SEC (23-33) Sodium Level 140 MMOL/L (136-145) Potassium Level 4.0 MMOL/L (3.5-5.1) Chloride Level 102 MMOL/L (98-107) Carbon Dioxide Level 34 MMOL/L (21-32) H Anion Gap 4 mmol/L (5-15) L Blood Urea Nitrogen 17 mg/dL (7-18) Creatinine 0.9 MG/DL (0.55-1.30) Estimate Glomerular Filtration Rate > 60 mL/min (>60) Glucose Level 163 MG/DL (74-106) H Calcium Level 9.6 MG/DL (8.5-10.1) Total Bilirubin 0.9 MG/DL (0.2-1.0) Aspartate Amino Transferase (AST) 38 U/L (15-37) H Alanine Aminotransferase (ALT) 65 U/L (12-78) Alkaline Phosphatase 122 U/L (46-116) H Total Creatine Kinase 39 U/L (26-308) Troponin I 0.000 ng/mL (0.000-0.056) Total Protein 7.6 G/DL (6.4-8.2) Albumin 3.5 G/DL (3.4-5.0) Globulin 4.1 g/dL Albumin/Globulin Ratio 0.9 (1.0-2.7) L Lipase 96 U/L (73-393) EKG Diagnostic Results Rate: normal Rhythm: NSR - with PACs read as a fib Rhythm Strip Diag. Results EP Interpretation: yes Rhythm: no PVC's, no ectopy, other - NSR with PACs Chest X-Ray Diagnostic Results Chest X-Ray Diagnostic Results : Chest X-Ray Ordered: Yes # of Views/Limited/Complete: 1 View Indication: Other Interpretation: no consolidation, no effusion, no pneumothorax, other - copd Impression: Other Electronically Signed by: Estuardo Nowak MD CT/MRI/US Diagnostic Results CT/MRI/US Diagnostic Results : Imaging Test Ordered: abd/pelvis Impression IMPRESSION: Choledocholithiasis with mild biliary ductal dilatation. Evaluation with ERCP is recommended. Cholelithiasis with mild ill-defined gallbladder wall and enhancement suggestive of cholecystitis. Please correlate clinically. Other incidental findings as above Last Vital Signs Date Time Temp Pulse Resp B/P (MAP) Pulse Ox O2 Delivery O2 Flow Rate FiO2 05/17/18 09:15 97.0 76 18 112/72 99 Room Air 97.0 Status: improved Disposition: XFER SNF Condition: Improved Scripts Tramadol Hcl* (ULTRAM*) 50 Mg Tablet 50 MG ORAL Q6H PRN for For Pain, #14 TAB 0 Refills Prov: Estuardo Nowak M.D. 05/17/18 Estuardo Nowak M.D. May 17, 2018 03:36
[2018-05-17 03:48] LABS: BASOPHILS % (AUTO) 0.7 % (0.0-2.0); EOSINOPHILS % (AUTO) 1.3 % (0.0-3.0); HEMATOCRIT 42.8 % (42.0-52.0); HEMOGLOBIN 14.3 G/DL (14.2-18.0); LYMPHOCYTES % (AUTO) 10.2 % (20.0-45.0); MEAN CORPUSCULAR VOLUME 84 FL (80-99); MONOCYTES % (AUTO) 9.7 % (1.0-10.0); NEUTROPHILS % (AUTO) 78.1 % (45.0-75.0); PLATELET COUNT 167 K/UL (150-450); RED BLOOD COUNT 5.08 M/UL (4.70-6.10); RED CELL DISTRIBUTION WIDTH 12.9 % (11.6-14.8); WHITE BLOOD COUNT 7.2 K/UL (4.8-10.8)
[2018-05-17 04:04] LABS: ALANINE AMINOTRANSFERASE 65 U/L (12-78); ALBUMIN 3.5 G/DL (3.4-5.0); ALBUMIN/GLOBULIN RATIO 0.9 (1.0-2.7); ALKALINE PHOSPHATASE 122 U/L (46-116); ANION GAP 4 mmol/L (5-15); ASPARTATE AMINO TRANSFERASE 38 U/L (15-37); BILIRUBIN,TOTAL 0.9 MG/DL (0.2-1.0); BLOOD UREA NITROGEN 17 mg/dL (7-18); CALCIUM 9.6 MG/DL (8.5-10.1); CARBON DIOXIDE 34 MMOL/L (21-32); CHLORIDE 102 MMOL/L (98-107); CREATINE KINASE 39 U/L (26-308); CREATININE 0.9 MG/DL (0.55-1.30); SODIUM 140 MMOL/L (136-145)
[2018-05-17 06:37] VITALS: BP 106/67
[2018-05-17] MEDS ORDERED: TRAMADOL HCL50 MG ORAL (07:33)
[2018-05-17 08:55] VITALS: BP 112/72
--- NOTE | 2018-05-17 09:11 | Diagnostic Imaging Report ---
Indication: Abdominal pain Technique: Continuous helical transaxial imaging of the abdomen and pelvis was obtained from the lung bases to the pubic symphysis during intravenous contrast administration. Coronal 2-D reformats were also obtained. Study obtained in a Siemens sensation [address] Automatic Exposure Control was utilized. Total Dose length Product (DLP): 589.[address] Dose Index Volume (CTDIvol): 11.8 mGy Comparison: None Findings: The lung bases are clear. Small hiatal hernia is present. There are multiple gallstones gallbladder wall thickening and wall ill-definition. Cholecystitis suspected. The CBD is dilated and there is evidence of choledocholithiasis in the distal part of the CBD. Aorta iliac calcifications are present. Appendix is retrocecal and appears normal. There is no free fluid. No evidence of bowel obstruction. No hydronephrosis seen. Left renal hypodensity, nonspecific, but probably cystic. The sacroiliac joints are fused. IMPRESSION: Choledocholithiasis with mild biliary ductal dilatation. Evaluation with ERCP is recommended. Cholelithiasis with mild ill-defined gallbladder wall and enhancement suggestive of cholecystitis. Please correlate clinically. Other incidental findings as above [facility] has communicated the preliminary results to the Emergency Department. Their findings are largely concordant with this report. The CT scanner at [facility] is accredited by the [employer] and the scans are performed using dose optimization techniques as appropriate to a performed exam including Automatic Exposure control.
[2018-05-17 09:15] VITALS: BP 112/72
--- NOTE | 2018-05-17 11:05 | Diagnostic Imaging Report ---
Indication: Dyspnea Comparison: 04/24/2018 A single view chest radiograph was obtained. Findings: Cardiomediastinal appearance is within normal limits for age. Pulmonary vascularity is appropriate. The diaphragmatic contour is smooth and costophrenic angles are sharp. No pleural effusions are identified. The bones are osteopenic. Impression: No acute findings
== END 2018-05-17 09:17 ==
LOC: EDBD 03:18 → EMR 03:29
DX: K80.50 Calculus of bile duct without cholangitis or cholecystitis without obstruction (principal); R10.31 Right lower quadrant pain; J44.9 Chronic obstructive pulmonary disease, unspecified; Z88.0 Allergy status to penicillin; Z88.1 Allergy status to other antibiotic agents
CPT/HCPCS: 71045; 74177; 80053; 82550; 83690; 84484; 85025; 85610; 85730; 93005; 96361; 96374; 96375; 99285; J1885; J2270; J2405; Q9967

== ENCOUNTER 2018-05-19 13:27 | Inpatient (IN) | payer MEDICARE, OTHER ==
[~2018-05-19] VITALS: Ht 175.3 cm; Wt 67.8 kg
[~2018-05-19 13:27] MED LIST changes: +COREG12.5 MG ORAL; +TRAMADOL HCL50 MG ORAL
[2018-05-19 13:30] VITALS: BP 110/70
--- NOTE | 2018-05-19 14:10 | Emergency Room Report ---
History of Present Illness General Chief Complaint: Abdominal Pain Source: Patient, EMS Present Illness HPI Patient presents to the emergency room with abdominal pain. His evaluated by me several days ago with different abdominal pain. He had right lower quadrant intermittent pain with no right upper quadrant pain. Right now the pain is moved up into the right upper quadrant. A CT scan revealed that he had choledocholithiasis without cholecystitis. His other labs at that time were normal including white count and LFTs and lipase. He denies vomiting or diarrhea at this time. The pain is at times severe and is still intermittent but has a constant component. It radiates slightly to his back. No chest pain, dyspnea, wheezing, rashes, headache, joint pain, back pain, dysuria, hematuria. He has been gaining weight at the SNF. Recent admission and discharge dx: (1) Pneumonia (2) COPD (chronic obstructive pulmonary disease) (3) Episode of generalized weakness (4) Choledocholithiasis (5) Acute systolic CHF (congestive heart failure) HIDA scan done 04/27: IMPRESSION: * No evidence of acute cholecystitis. Gallbladder activity is noted indicating patency of the cystic duct. * Some radiotracer noted in the small bowel however less than expected. There is apparent mild dilatation of the common bile duct. Potential considerations include a degree distal common bile duct obstruction or sphincter of Oddi dysfunction. Correlate clinically. Consider ERCP or MRCP. 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 Reviewed Nursing Documentation: PMH: Agreed; PSxH: Agreed Nursing Documentation-PMH Hx Hypertension: Yes Hx Pacemaker: No Hx Asthma: Yes Hx COPD: Yes Hx Diabetes: No Hx Cancer: No Hx Gastrointestinal Problems: No Hx Dialysis: No Hx Neurological Problems: No Hx Cerebrovascular Accident: No Hx Seizures: No Review of Systems All Other Systems: negative except mentioned in HPI Physical Exam Vital Signs Date Time Temp Pulse Resp B/P (MAP) Pulse Ox O2 Delivery O2 Flow Rate FiO2 05/19/18 13:21 97.4 86 110/70 96 Room Air 97.3 05/19/18 13:30 16 Sp02 EP Interpretation: reviewed, normal General Appearance: well appearing, no apparent distress, GCS 15, non-toxic Head: normocephalic Eyes: bilateral eye normal inspection, bilateral eye PERRL ENT: moist mucus membranes Neck: supple Respiratory: lungs clear, normal breath sounds Cardiovascular #1: tachycardia, irregularly irregular Cardiovascular #2: 2+ radial (R) Gastrointestinal: normal inspection, normal bowel sounds, no mass, non- distended, no rebound, guarding - RUQ, tenderness Musculoskeletal: back normal, gait/station normal, normal range of motion, other - Depuytren's contractures bilat 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, oriented x3, grossly normal Psychiatric: mood/affect normal Skin: normal inspection, warm/dry Medical Decision Making Diagnostic Impression: Primary Impression: Cholecystitis Additional Impressions: Acute renal failure Qualified Codes: N17.9 - Acute kidney failure, unspecified Atrial fibrillation with RVR Choledocholithiasis ER Course Patient presents now with different pain than when he presented 2 days ago. Now in the right upper quadrant. Based on the CT cholecystitis is high on the list. He will be evaluated with labs and ultrasound. Patient will be treated with mild IV hydration and analgesia. Other possibilities are PUD, pyelo, stone amongst others. EKG shows atrial fibrillation with rapid ventricular response. Ultrasound shows gallstones and also some thickening of the gallbladder wall. Labs significant for mildly elevated white count. LFTs are elevated. He also has elevated BUN/creatinine from prior (received IV contrast). Bili 2.8. Patient is given diltiazem to control his rate and also increased fluids. In addition antibiotics are ordered. Dr. Hewitt was contacted (requested Dr. Monte) as well as Dr. Shepherd. Rate better with fluids and post diltiazem. Patient improved with treatment. Consider ERCP. Condition is serious and needing admission to telemetry due to rapid a fib. Laboratory Tests Test 05/19/18 14:30 White Blood Count 11.1 K/UL (4.8-10.8) H Red Blood Count 4.76 M/UL (4.70-6.10) Hemoglobin 13.2 G/DL (14.2-18.0) L Hematocrit 40.1 % (42.0-52.0) L Mean Corpuscular Volume 84 FL (80-99) Mean Corpuscular Hemoglobin 27.7 PG (27.0-31.0) Mean Corpuscular Hemoglobin Concent 32.9 G/DL (32.0-36.0) Red Cell Distribution Width 12.4 % (11.6-14.8) Platelet Count 149 K/UL (150-450) L Mean Platelet Volume 8.1 FL (6.5-10.1) Neutrophils (%) (Auto) 82.6 % (45.0-75.0) H Lymphocytes (%) (Auto) 5.7 % (20.0-45.0) L Monocytes (%) (Auto) 11.1 % (1.0-10.0) H Eosinophils (%) (Auto) 0.0 % (0.0-3.0) Basophils (%) (Auto) 0.6 % (0.0-2.0) Prothrombin Time 12.6 SEC (9.30-11.50) H Prothrombin Time INR 1.2 (0.9-1.1) H PTT 39 SEC (23-33) H Sodium Level 131 MMOL/L (136-145) L Potassium Level 5.1 MMOL/L (3.5-5.1) Chloride Level 95 MMOL/L (98-107) L Carbon Dioxide Level 30 MMOL/L (21-32) Anion Gap 6 mmol/L (5-15) Blood Urea Nitrogen 36 mg/dL (7-18) H Creatinine 2.0 MG/DL (0.55-1.30) H Estimate Glomerular Filtration Rate 33.6 mL/min (>60) Glucose Level 185 MG/DL (74-106) H Calcium Level 9.2 MG/DL (8.5-10.1) Total Bilirubin 2.8 MG/DL (0.2-1.0) H Direct Bilirubin 1.4 MG/DL (0.0-0.3) H Aspartate Amino Transferase (AST) 37 U/L (15-37) Alanine Aminotransferase (ALT) 68 U/L (12-78) Alkaline Phosphatase 165 U/L (46-116) H Total Creatine Kinase 20 U/L (26-308) L Troponin I 0.000 ng/mL (0.000-0.056) Total Protein 7.0 G/DL (6.4-8.2) Albumin 2.7 G/DL (3.4-5.0) L Globulin 4.3 g/dL Albumin/Globulin Ratio 0.6 (1.0-2.7) L Lipase 65 U/L (73-393) L EKG Diagnostic Results Rate: tachycardiac Rhythm: other - a fib ST Segments: no acute changes Rhythm Strip Diag. Results EP Interpretation: yes Rhythm: no PVC's, no ectopy, other - a fib with RVR Chest X-Ray Diagnostic Results Chest X-Ray Diagnostic Results : Chest X-Ray Ordered: Yes # of Views/Limited/Complete: 1 View Indication: Other EP Interpretation: Yes Interpretation: no consolidation, no effusion, no pneumothorax, other - COPD Impression: Other CT/MRI/US Diagnostic Results CT/MRI/US Diagnostic Results : Imaging Test Ordered: US abd Impression gall stones with duct dilatation and some wall thickening Last Vital Signs Date Time Temp Pulse Resp B/P (MAP) Pulse Ox O2 Delivery O2 Flow Rate FiO2 05/20/18 00:00 99.0 97 18 107/56 (73) 93 99.0 05/19/18 22:15 Room Air Status: improved Disposition: ADMITTED INPATIENT Condition: Serious Estuardo Nowak M.D. May 19, 2018 14:10
[2018-05-19] MEDS ORDERED: Morphine Sulfate 4mg/ml Inj (IV USE ONLY) IVP ONE (14:15)
[2018-05-19 14:55] LABS: BASOPHILS % (AUTO) 0.6 % (0.0-2.0); HEMATOCRIT 40.1 % (42.0-52.0); HEMOGLOBIN 13.2 G/DL (14.2-18.0); LYMPHOCYTES % (AUTO) 5.7 % (20.0-45.0); MEAN CORPUSCULAR VOLUME 84 FL (80-99); MONOCYTES % (AUTO) 11.1 % (1.0-10.0); NEUTROPHILS % (AUTO) 82.6 % (45.0-75.0); PLATELET COUNT 149 K/UL (150-450); RED BLOOD COUNT 4.76 M/UL (4.70-6.10); RED CELL DISTRIBUTION WIDTH 12.4 % (11.6-14.8); WHITE BLOOD COUNT 11.1 K/UL (4.8-10.8)
[2018-05-19 15:00] VITALS: BP 98/56
[2018-05-19 15:06] LABS: ANION GAP 6 mmol/L (5-15); BLOOD UREA NITROGEN 36 mg/dL (7-18); CALCIUM 9.2 MG/DL (8.5-10.1); CARBON DIOXIDE 30 MMOL/L (21-32); CHLORIDE 95 MMOL/L (98-107); POTASSIUM 5.1 MMOL/L (3.5-5.1); SODIUM 131 MMOL/L (136-145)
[2018-05-19 15:07] LABS: INR 1.2 (0.9-1.1)
--- NOTE | 2018-05-19 15:15 | Diagnostic Imaging Report ---
Indication: Chest pain Comparison: 05/17/2018 A single view chest radiograph was obtained. Findings: Cardiomediastinal appearance is within normal limits for age. Pulmonary vascularity is appropriate. The diaphragmatic contour is smooth and costophrenic angles are sharp. No pleural effusions are identified. The bones are unremarkable. Impression: No acute findings
[2018-05-19 15:16] LABS: ALANINE AMINOTRANSFERASE 68 U/L (12-78); ALBUMIN 2.7 G/DL (3.4-5.0); ALBUMIN/GLOBULIN RATIO 0.6 (1.0-2.7); ALKALINE PHOSPHATASE 165 U/L (46-116); ASPARTATE AMINO TRANSFERASE 37 U/L (15-37); BILIRUBIN,TOTAL 2.8 MG/DL (0.2-1.0); CREATINE KINASE 20 U/L (26-308)
[2018-05-19 15:17] LABS: BILIRUBIN,DIRECT 1.4 MG/DL (0.0-0.3)
[2018-05-19] MEDS ORDERED: dilTIAZem HCl 25mg/5ml Inj IVP ONE (15:30)
[2018-05-19] MEDS ORDERED: Cefepime HCl 1 GM in D5W 55 ML IVPB ONE (15:30)
--- NOTE | 2018-05-19 15:54 | Diagnostic Imaging Report ---
Indication:Abdominal pain Technique: Grayscale and duplex Doppler imaging of the abdomen performed. Comparison: None Findings: There are gallstones present. Thickening of the gallbladder wall and positive sonographic Espinosa's sign per technologist suggestive of acute cholecystitis. Please correlate clinically. CBD is dilated measuring approximately [address] demonstrated CBD stones which are not appreciated on the current exam. Pancreas and aorta are obscured not well seen. There is no hydronephrosis. The liver is unremarkable. The spleen is enlarged measuring 13 to 14 cm. There is no ascites. The main portal vein is patent by Doppler examination. There is a small cyst noted in the right kidney. IMPRESSION: Suspected acute cholecystitis as discussed above. Correlate clinically. Biliary ductal dilatation with known recent demonstration of choledocholithiasis. ERCP recommended. Right renal cyst Splenomegaly
[2018-05-19 17:20] VITALS: BP 94/73
[2018-05-19 18:10] VITALS: BP 108/61
[2018-05-19 20:00] VITALS: BP 109/67
[2018-05-19] MEDS: Carvedilol 12.5mg tab ORAL SCH (20:54)
[2018-05-19] MEDS: Docusate 100mg cap ORAL SCH (20:57)
[2018-05-19] MEDS: Atorvastatin 20mg tab ORAL SCH (20:58)
[2018-05-19] MEDS ORDERED: Carvedilol 12.5mg tab ORAL SCH (21:00)
[2018-05-19] MEDS ORDERED: Zolpidem 5mg tab ORAL PRN (22:45)
--- NOTE | 2018-05-19 23:18 | History and Physical ---
History of Present Illness General Date patient seen: May 19, 2018 Time patient seen: 23:30 Reason for Hospitalization: Abdominal Pain Present Illness HPI 68 yo man well-known to me from recent admission to [facility] 04/23 to 04/27 for CHF excacerbation returns c/o RUQ abdominal pain. He was seen in the ED 2 times this week for abdominal pain- today it was noted that the character and location of his pain had changed and further workup revealed acute cholecystitis. He was started on IV antibiotics and admitted. He was also noted to be in atrial fibrillation with RVR and diltiazem given (has chonric afib) with good results Currently he complains of RUQ pain, improved with pain meds No nausea, chest pain or dyspnea Past Medical/Surgical History: (1) COPD (chronic obstructive pulmonary disease) (2) Atrial fibrillation (3) CHF (congestive heart failure) FHx: Reviewed; not pertinenet for this encounter SHx: No tobacco/EtOH Allergies: Coded Allergies: AMPICILLIN (Verified Allergy, Unknown, 04/23/18) Uncoded Allergies: PENICILLIN (Allergy, Unknown, 04/23/18) Medication History Scheduled Apixaban (Eliquis), 5 MG PO TWICE A DAY, (Reported) Aspirin Ec* (Aspirin Ec*), 81 MG ORAL DAILY, (Reported) Atorvastatin Calcium* (Atorvastatin Calcium*), 40 MG ORAL BEDTIME, (Reported) Carvedilol (Coreg), 12.5 MG ORAL EVERY 12 HOURS, (Reported) Carvedilol (Coreg), 12.5 MG ORAL EVERY 12 HOURS, (Reported) Clopidogrel Bisulfate* (Plavix*), 75 MG ORAL DAILY, (Reported) Docusate Sodium* (Docusate Sodium*), 100 MG ORAL Q12HR, (Reported) Famotidine (Famotidine), 20 MG ORAL TWICE A DAY, (Reported) Furosemide (Furosemide), 40 MG PO DAILY, (Reported) Ipratropium/Albuterol Sulfate (DuoNeb 0.5-3(2.5)mg/3ml), 3 ML HHN Q4HR, ( Reported) Prednisone* (Prednisone*), 30 MG ORAL DAILY, (Reported) Prednisone* (Prednisone*), 30 MG ORAL DAILY, (Reported) Scheduled PRN Acetaminophen* (Acetaminophen 325MG Tablet*), 650 MG ORAL Q4H PRN for Mild Pain/ Temp > 100.5, (Reported) Doxycycline Hyclate* (Vibramycin*), 100 MG ORAL EVERY 12 HOURS PRN for x3 days, (Reported) Polyethylene Glycol 3350* (Miralax*), 17 GM ORAL Q12HR PRN for Constipation, ( Reported) Tramadol Hcl* (Ultram*), 50 MG ORAL Q6H PRN for For Pain Zolpidem Tartrate* (Ambien*), 5 MG ORAL BEDTIME PRN for Insomnia, (Reported) Patient History History Provided By: Patient, Medical Record Healthcare decision maker N Resuscitation status Full Code Advanced Directive on File Review of Systems Constitutional: Reports: weakness Eye: Reports: no symptoms ENT: Reports: no symptoms Respiratory: Reports: no symptoms Cardiovascular: Reports: palpitations Gastrointestinal: Reports: abdominal pain, nausea Genitourinary: Reports: no symptoms Musculoskeletal: Reports: no symptoms Skin: Reports: no symptoms Psychiatric: Reports: no symptoms Neurological: Reports: no symptoms Endocrine: Reports: no symptoms Hematologic/Lymphatic: Reports: no symptoms All Other Systems: negative except mentioned in HPI Physical Exam General Appearance: alert, mild distress, thin Lines, tubes and drains: peripheral HEENT: normocephalic, atraumatic, anicteric, EOMI, supple Neck: non-tender, supple Respiratory/Chest: chest wall non-tender, no respiratory distress, decreased breath sounds Breasts: no masses Cardiovascular/Chest: normal rate, regularly irregular Abdomen: normal bowel sounds, decreased bowel sounds, tender Skin Exam: normal pigmentation, warm/dry 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 normal Lymphatic: anterior cervical Musculoskeletal: atrophy Last 24 Hour Vital Signs Date Time Temp Pulse Resp B/P (MAP) Pulse Ox O2 Delivery O2 Flow Rate FiO2 05/19/18 22:15 Room Air 05/19/18 20:54 97 109/67 05/19/18 20:00 98.1 97 18 109/67 (81) 93 98.1 05/19/18 20:00 92 05/19/18 18:10 97.0 91 20 108/61 (77) 94 97.0 05/19/18 18:06 97.8 97 21 94/73 96 Room Air 97.8 05/19/18 17:20 97.8 97 21 94/73 96 Room Air 97.8 05/19/18 15:26 135 110/70 8/29/18 15:08 97.8 05/19/18 15:00 98.3 123 22 98/56 98 Room Air 98.3 05/19/18 14:38 97.3 05/19/18 13:30 97.3 86 16 110/70 96 Room Air 97.3 05/19/18 13:21 97.4 86 110/70 96 Room Air 97.3 Laboratory Tests Test 05/19/18 14:30 White Blood Count 11.1 K/UL (4.8-10.8) H Red Blood Count 4.76 M/UL (4.70-6.10) Hemoglobin 13.2 G/DL (14.2-18.0) L Hematocrit 40.1 % (42.0-52.0) L Mean Corpuscular Volume 84 FL (80-99) Mean Corpuscular Hemoglobin 27.7 PG (27.0-31.0) Mean Corpuscular Hemoglobin Concent 32.9 G/DL (32.0-36.0) Red Cell Distribution Width 12.4 % (11.6-14.8) Platelet Count 149 K/UL (150-450) L Mean Platelet Volume 8.1 FL (6.5-10.1) Neutrophils (%) (Auto) 82.6 % (45.0-75.0) H Lymphocytes (%) (Auto) 5.7 % (20.0-45.0) L Monocytes (%) (Auto) 11.1 % (1.0-10.0) H Eosinophils (%) (Auto) 0.0 % (0.0-3.0) Basophils (%) (Auto) 0.6 % (0.0-2.0) Prothrombin Time 12.6 SEC (9.30-11.50) H Prothromb Time International Ratio 1.2 (0.9-1.1) H Activated Partial Thromboplast Time 39 SEC (23-33) H Sodium Level 131 MMOL/L (136-145) L Potassium Level 5.1 MMOL/L (3.5-5.1) Chloride Level 95 MMOL/L (98-107) L Carbon Dioxide Level 30 MMOL/L (21-32) Anion Gap 6 mmol/L (5-15) Blood Urea Nitrogen 36 mg/dL (7-18) H Creatinine 2.0 MG/DL (0.55-1.30) H Estimat Glomerular Filtration Rate 33.6 mL/min (>60) Glucose Level 185 MG/DL (74-106) H Calcium Level 9.2 MG/DL (8.5-10.1) Total Bilirubin 2.8 MG/DL (0.2-1.0) H Direct Bilirubin 1.4 MG/DL (0.0-0.3) H Aspartate Amino Transf (AST/SGOT) 37 U/L (15-37) Alanine Aminotransferase (ALT/SGPT) 68 U/L (12-78) Alkaline Phosphatase 165 U/L (46-116) H Total Creatine Kinase 20 U/L (26-308) L Troponin I 0.000 ng/mL (0.000-0.056) Total Protein 7.0 G/DL (6.4-8.2) Albumin 2.7 G/DL (3.4-5.0) L Globulin 4.3 g/dL Albumin/Globulin Ratio 0.6 (1.0-2.7) L Lipase 65 U/L (73-393) L Height (Feet): 5 Height (Inches): 9.00 Weight (Pounds): 150 Medications Current Medications Medications (Trade) Dose Ordered Sig/Nova Route PRN Reason Start Time Stop Time Status Last Admin Dose Admin Apixaban (Eliquis) 5 mg Q12HR ORAL 05/20/18 09:00 06/19/18 08:59 Atorvastatin Calcium (Lipitor) 40 mg BEDTIME ORAL 05/19/18 21:00 06/18/18 20:59 05/19/18 20:58 Carvedilol (Coreg) 12.5 mg EVERY 12 HOURS ORAL 05/19/18 21:00 06/18/18 20:59 Ciprofloxacin 200 ml @ 200 mls/hr Q12HR IV 05/19/18 21:00 05/26/18 20:59 05/19/18 20:58 Docusate Sodium (Colace) 100 mg Q12HR ORAL 05/19/18 21:00 06/18/18 20:59 05/19/18 20:57 Famotidine (Pepcid) 20 mg TWICE A DAY ORAL 05/20/18 09:00 06/19/18 08:59 Hydralazine HCl (Apresoline) 10 mg Q6H PRN IV For High Blood Pressure 05/19/18 20:00 06/18/18 19:59 Metronidazole 100 ml @ 100 mls/hr Q8HR IVPB 05/19/18 22:00 05/26/18 21:59 05/19/18 22:36 Morphine Sulfate (Morphine Sulfate) 2 mg Q4H PRN IVP Moderate Pain (Pain Scale 4-6) 05/19/18 20:00 05/26/18 19:59 Morphine Sulfate (Morphine Sulfate) 4 mg Q4H PRN IVP Severe Pain (Pain Scale 7-10) 05/19/18 20:00 05/26/18 19:59 Sodium Chloride 1,000 ml @ 100 mls/hr Q10H IV 05/19/18 20:18 06/18/18 20:17 05/19/18 20:58 Zolpidem Tartrate (Ambien) 5 mg BEDTIME PRN ORAL Insomnia 05/19/18 22:45 05/26/18 22:44 05/19/18 22:47 Assessment/Plan Status: deteriorating Status Narrative 68 yo man with h/o chronic systolic and diastolic heart failure, atrial fibrillation admitted for RUQ pain and clinical picture and imaging consistent with acute cholecystitis Assessment/Plan 1) Acute cholecystitis Choledocholithiasis r/o Sepsis from a biliary source -Surgery consult -elevated bilirubin/transaminitis- will obtain GI consult -continue IV antibiotics- ciprofloxacin, metronidazole -check cultures- blood, urine, lactic acid -NPO for possible procedure 2) Chronic systolic and diastolic heart failure 3) Atrial fibrillation with rapid ventricular response -Telemetry monitorin -continue carvedilol, hydralazine, statin -hold apixaban given surgery 4) MARY -IVF's; likely hypovolemic; doubt sepsis -avoid nephorotoxins/renally dose meds -will follow closely DVT Prophylaxis: SCD's Code Status: Full Hospital Classification declaration: Based on this initial evaluation and depending on the patient's clinical course I anticipate that this patient will require hospitalization for at least 2-3 days Disposition: Once the patient is stable to leave the hospital I anticipate the patient will likely be discharged to the following environment: SNF I spent 70 minutes on this patients car and 36 minutes was dedicated to counseling and care coordination Time of note may not reflect time of encounter Jason Monte MD May 19, 2018 23:18
[2018-05-20] VITALS: BP 107/56
[2018-05-20 04:00] VITALS: BP 103/63
[2018-05-20] MEDS: dilTIAZem HCl 25mg/5ml Inj IV PRN (04:27)
[2018-05-20 06:33] LABS: BASOPHILS % (AUTO) 0.6 % (0.0-2.0); EOSINOPHILS % (AUTO) 0.1 % (0.0-3.0); HEMATOCRIT 32.2 % (42.0-52.0); HEMOGLOBIN 10.8 G/DL (14.2-18.0); LYMPHOCYTES % (AUTO) 8.1 % (20.0-45.0); MEAN CORPUSCULAR VOLUME 84 FL (80-99); MONOCYTES % (AUTO) 14.2 % (1.0-10.0); PLATELET COUNT 117 K/UL (150-450); RED BLOOD COUNT 3.82 M/UL (4.70-6.10); RED CELL DISTRIBUTION WIDTH 12.6 % (11.6-14.8); WHITE BLOOD COUNT 8.2 K/UL (4.8-10.8)
[2018-05-20 07:17] LABS: ALANINE AMINOTRANSFERASE 51 U/L (12-78); ALBUMIN 2.3 G/DL (3.4-5.0); ALBUMIN/GLOBULIN RATIO 0.6 (1.0-2.7); ALKALINE PHOSPHATASE 127 U/L (46-116); ANION GAP 9 mmol/L (5-15); ASPARTATE AMINO TRANSFERASE 29 U/L (15-37); BILIRUBIN,TOTAL 1.6 MG/DL (0.2-1.0); BLOOD UREA NITROGEN 33 mg/dL (7-18); CALCIUM 8.6 MG/DL (8.5-10.1); CARBON DIOXIDE 28 MMOL/L (21-32); CHLORIDE 99 MMOL/L (98-107); CREATININE 1.4 MG/DL (0.55-1.30); POTASSIUM 4.1 MMOL/L (3.5-5.1); SODIUM 135 MMOL/L (136-145)
[2018-05-20 07:20] LABS: BILIRUBIN,DIRECT 0.8 MG/DL (0.0-0.3)
[2018-05-20 08:00] VITALS: BP 107/62
--- NOTE | 2018-05-20 08:05 | General Progress Note ---
Assessment/Plan Assessment/Plan GI Consult Dictated Assessment - cholecystitis - choledocholithiasis - anemia - patient hesitant to accept surgery/lap ame Recommendations - NPO - IVF - Abx - follow LFT - Will schedule for EGD / ERCP - patient agreeable - Rec surgical consult - colonoscopy at later date, if patient agreeable Subjective Allergies: Coded Allergies: AMPICILLIN (Verified Allergy, Unknown, 04/23/18) Uncoded Allergies: PENICILLIN (Allergy, Unknown, 04/23/18) Objective Last 24 Hour Vital Signs Date Time Temp Pulse Resp B/P (MAP) Pulse Ox O2 Delivery O2 Flow Rate FiO2 05/20/18 04:27 133 103/63 05/20/18 04:00 98.4 120 18 103/63 (76) 95 98.4 05/20/18 04:00 118 05/20/18 00:00 99.0 97 18 107/56 (73) 93 99.0 05/20/18 00:00 117 05/19/18 22:15 Room Air 05/19/18 20:54 97 109/67 05/19/18 20:00 98.1 97 18 109/67 (81) 93 98.1 05/19/18 20:00 92 05/19/18 18:10 97.0 91 20 108/61 (77) 94 97.0 05/19/18 18:06 97.8 97 21 94/73 96 Room Air 97.8 05/19/18 17:20 97.8 97 21 94/73 96 Room Air 97.8 05/19/18 15:26 135 110/70 05/19/18 15:08 97.8 05/19/18 15:00 98.3 123 22 98/56 98 Room Air 98.3 05/19/18 14:38 97.3 05/19/18 13:30 97.3 86 16 110/70 96 Room Air 97.3 05/19/18 13:21 97.4 86 110/70 96 Room Air 97.3 Intake and Output 05/19/18 05/20/18 19:00 07:00 Intake Total 2055 ml 30 ml Output Total 0 ml 350 ml Balance 2055 ml -320 ml Intake Oral 30 ml IV Total 2055 ml Output Urine Total 0 ml 350 ml # Voids 3 Laboratory Tests 05/19/18 14:30: White Blood Count 11.1H, Red Blood Count 4.76, Hemoglobin 13.2L, Hematocrit 40.1L, Mean Corpuscular Volume 84, Mean Corpuscular Hemoglobin 27.7, Mean Corpuscular Hemoglobin Concent 32.9, Red Cell Distribution Width 12.4, Platelet Count 149L, Mean Platelet Volume 8.1, Neutrophils (%) (Auto) 82.6H, Lymphocytes (%) (Auto) 5.7L, Monocytes (%) (Auto) 11.1H, Eosinophils (%) (Auto) 0.0, Basophils (%) (Auto) 0.6, Prothrombin Time 12.6H, Prothromb Time International Ratio 1.2H, Activated Partial Thromboplast Time 39H, Sodium Level 131L, Potassium Level 5.1, Chloride Level 95L, Carbon Dioxide Level 30, Anion Gap 6, Blood Urea Nitrogen 36H, Creatinine 2.0H, Estimat Glomerular Filtration Rate 33.6, Glucose Level 185H, Calcium Level 9.2, Total Bilirubin 2.8H, Direct Bilirubin 1.4H, Aspartate Amino Transf (AST/SGOT) 37, Alanine Aminotransferase ( ALT/SGPT) 68, Alkaline Phosphatase 165H, Total Creatine Kinase 20L, Troponin I 0.000, Total Protein 7.0, Albumin 2.7L, Globulin 4.3, Albumin/Globulin Ratio 0.6L, Lipase 65L 05/20/18 05:10: White Blood Count 8.2, Red Blood Count 3.82L, Hemoglobin 10.8L, Hematocrit 32.2L , Mean Corpuscular Volume 84, Mean Corpuscular Hemoglobin 28.2, Mean Corpuscular Hemoglobin Concent 33.4, Red Cell Distribution Width 12.6, Platelet Count 117L, Mean Platelet Volume 7.9, Neutrophils (%) (Auto) 77.0H, Lymphocytes (%) (Auto) 8.1L, Monocytes (%) (Auto) 14.2H, Eosinophils (%) (Auto) 0.1, Basophils (%) (Auto) 0.6, Sodium Level 135L, Potassium Level 4.1, Chloride Level 99, Carbon Dioxide Level 28, Anion Gap 9, Blood Urea Nitrogen 33H, Creatinine 1.4H, Estimat Glomerular Filtration Rate 50.7, Glucose Level 88, Calcium Level 8.6, Total Bilirubin 1.6H, Direct Bilirubin 0.8H, Aspartate Amino Transf (AST/SGOT) 29, Alanine Aminotransferase (ALT/SGPT) 51, Alkaline Phosphatase 127H, Total Protein 6.2L, Albumin 2.3L, Globulin 3.9, Albumin/ Globulin Ratio 0.6L Height (Feet): 5 Height (Inches): 9.00 Weight (Pounds): 150 Alissa Bueno MD May 20, 2018 08:05
[2018-05-20] MEDS ORDERED: Eliquis 2.5mg tablet ORAL SCH (09:00)
[2018-05-20] MEDS: Carvedilol 12.5mg tab ORAL SCH ×2 (09:00→21:26)
[2018-05-20] MEDS: Docusate 100mg cap ORAL SCH ×2 (09:23→21:26)
[2018-05-20] MEDS: Morphine Sulfate 4mg/ml Inj (IV USE ONLY) IVP PRN ×3 (09:23→18:45)
[2018-05-20 12:00] VITALS: BP 95/72
--- NOTE | 2018-05-20 13:05 | Consultation ---
History of Present Illness General Date patient seen: May 20, 2018 Chief Complaint: Abdominal Pain Reason for Consultation: cholecystitis Present Illness HPI 68 year old male with multiple medical comorbidities including COPD and CHF, who presented with abdominal pain. was recently seen for right lower pain and discharged but then returned with right upper quadrant pain. Upon admission and work up noted to have elevated LFT's, T bili elevation with elevated Direct bilirubin with possible biliary obstruction. Surgery called to evaluate for possible cholecystitis, choledocholithiasis. Patient seen, chart reviewed, patient examined. On exam patient states he has RUQ tenderness. states he has been having pain in RUQ for a few days. mild nausea intermittent. no emesis currently. Allergies: Coded Allergies: AMPICILLIN (Verified Allergy, Unknown, 04/23/18) Uncoded Allergies: PENICILLIN (Allergy, Unknown, 04/23/18) Medication History Scheduled Apixaban (Eliquis), 5 MG PO TWICE A DAY, (Reported) Aspirin Ec* (Aspirin Ec*), 81 MG ORAL DAILY, (Reported) Atorvastatin Calcium* (Atorvastatin Calcium*), 40 MG ORAL BEDTIME, (Reported) Carvedilol (Coreg), 12.5 MG ORAL EVERY 12 HOURS, (Reported) Carvedilol (Coreg), 12.5 MG ORAL EVERY 12 HOURS, (Reported) Clopidogrel Bisulfate* (Plavix*), 75 MG ORAL DAILY, (Reported) Docusate Sodium* (Docusate Sodium*), 100 MG ORAL Q12HR, (Reported) Famotidine (Famotidine), 20 MG ORAL TWICE A DAY, (Reported) Furosemide (Furosemide), 40 MG PO DAILY, (Reported) Ipratropium/Albuterol Sulfate (DuoNeb 0.5-3(2.5)mg/3ml), 3 ML HHN Q4HR, ( Reported) Prednisone* (Prednisone*), 30 MG ORAL DAILY, (Reported) Prednisone* (Prednisone*), 30 MG ORAL DAILY, (Reported) Scheduled PRN Acetaminophen* (Acetaminophen 325MG Tablet*), 650 MG ORAL Q4H PRN for Mild Pain/ Temp > 100.5, (Reported) Doxycycline Hyclate* (Vibramycin*), 100 MG ORAL EVERY 12 HOURS PRN for x3 days, (Reported) Polyethylene Glycol 3350* (Miralax*), 17 GM ORAL Q12HR PRN for Constipation, ( Reported) Tramadol Hcl* (Ultram*), 50 MG ORAL Q6H PRN for For Pain Zolpidem Tartrate* (Ambien*), 5 MG ORAL BEDTIME PRN for Insomnia, (Reported) Patient History Limited by: medical condition History Provided By: Patient, Medical Record, PMD Healthcare decision maker N Resuscitation status Full Code Advanced Directive on File Past Medical/Surgical History Past Medical/Surgical History: (1) Episode of generalized weakness (2) Pneumonia (3) Acute systolic CHF (congestive heart failure) (4) COPD (chronic obstructive pulmonary disease) (5) Abdominal pain (6) Choledocholithiasis (7) Acute renal failure (8) Cholecystitis (9) Atrial fibrillation with RVR Review of Systems All Other Systems: negative except mentioned in HPI Physical Exam General Appearance: no apparent distress Lines, tubes and drains: peripheral HEENT: normocephalic, atraumatic, mucous membranes moist Neck: normal inspection Respiratory/Chest: lungs clear, normal breath sounds, no respiratory distress, no accessory muscle use Cardiovascular/Chest: normal peripheral pulses, normal rate Abdomen: normal bowel sounds, soft, no organomegaly, no mass, tender Extremities: normal inspection Skin Exam: normal pigmentation 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, responsive Last 24 Hour Vital Signs Date Time Temp Pulse Resp B/P (MAP) Pulse Ox O2 Delivery O2 Flow Rate FiO2 05/20/18 09:53 98.4 05/20/18 09:23 98.4 05/20/18 09:00 100 107/62 05/20/18 09:00 Room Air 05/20/18 08:00 99.3 127 20 107/62 (77) 95 99.3 05/20/18 04:27 133 103/63 05/20/18 04:00 98.4 120 18 103/63 (76) 95 98.4 05/20/18 04:00 118 05/20/18 00:00 99.0 97 18 107/56 (73) 93 99.0 05/20/18 00:00 117 05/19/18 22:15 Room Air 05/19/18 20:54 97 109/67 05/19/18 20:00 98.1 97 18 109/67 (81) 93 98.1 05/19/18 20:00 92 05/19/18 18:10 97.0 91 20 108/61 (77) 94 97.0 05/19/18 18:06 97.8 97 21 94/73 96 Room Air 97.8 05/19/18 17:20 97.8 97 21 94/73 96 Room Air 97.8 05/19/18 15:26 135 110/70 05/19/18 15:08 97.8 05/19/18 15:00 98.3 123 22 98/56 98 Room Air 98.3 05/19/18 14:38 97.3 05/19/18 13:30 97.3 86 16 110/70 96 Room Air 97.3 05/19/18 13:21 97.4 86 110/70 96 Room Air 97.3 Intake and Output 05/19/18 05/20/18 19:00 07:00 Intake Total 2055 ml 30 ml Output Total 0 ml 350 ml Balance 2055 ml -320 ml Intake Oral 30 ml IV Total 2055 ml Output Urine Total 0 ml 350 ml # Voids 3 Laboratory Tests Test 05/19/18 14:30 05/20/18 05:10 White Blood Count 11.1 K/UL (4.8-10.8) H 8.2 K/UL (4.8-10.8) Red Blood Count 4.76 M/UL (4.70-6.10) 3.82 M/UL (4.70-6.10) L Hemoglobin 13.2 G/DL (14.2-18.0) L 10.8 G/DL (14.2-18.0) L Hematocrit 40.1 % (42.0-52.0) L 32.2 % (42.0-52.0) L Mean Corpuscular Volume 84 FL (80-99) 84 FL (80-99) Mean Corpuscular Hemoglobin 27.7 PG (27.0-31.0) 28.2 PG (27.0-31.0) Mean Corpuscular Hemoglobin Concent 32.9 G/DL (32.0-36.0) 33.4 G/DL (32.0-36.0) Red Cell Distribution Width 12.4 % (11.6-14.8) 12.6 % (11.6-14.8) Platelet Count 149 K/UL (150-450) L 117 K/UL (150-450) L Mean Platelet Volume 8.1 FL (6.5-10.1) 7.9 FL (6.5-10.1) Neutrophils (%) (Auto) 82.6 % (45.0-75.0) H 77.0 % (45.0-75.0) H Lymphocytes (%) (Auto) 5.7 % (20.0-45.0) L 8.1 % (20.0-45.0) L Monocytes (%) (Auto) 11.1 % (1.0-10.0) H 14.2 % (1.0-10.0) H Eosinophils (%) (Auto) 0.0 % (0.0-3.0) 0.1 % (0.0-3.0) Basophils (%) (Auto) 0.6 % (0.0-2.0) 0.6 % (0.0-2.0) Prothrombin Time 12.6 SEC (9.30-11.50) H Prothromb Time International Ratio 1.2 (0.9-1.1) H Activated Partial Thromboplast Time 39 SEC (23-33) H Sodium Level 131 MMOL/L (136-145) L 135 MMOL/L (136-145) L Potassium Level 5.1 MMOL/L (3.5-5.1) 4.1 MMOL/L (3.5-5.1) Chloride Level 95 MMOL/L (98-107) L 99 MMOL/L (98-107) Carbon Dioxide Level 30 MMOL/L (21-32) 28 MMOL/L (21-32) Anion Gap 6 mmol/L (5-15) 9 mmol/L (5-15) Blood Urea Nitrogen 36 mg/dL (7-18) H 33 mg/dL (7-18) H Creatinine 2.0 MG/DL (0.55-1.30) H 1.4 MG/DL (0.55-1.30) H Estimat Glomerular Filtration Rate 33.6 mL/min (>60) 50.7 mL/min (>60) Glucose Level 185 MG/DL (74-106) H 88 MG/DL (74-106) Calcium Level 9.2 MG/DL (8.5-10.1) 8.6 MG/DL (8.5-10.1) Total Bilirubin 2.8 MG/DL (0.2-1.0) H 1.6 MG/DL (0.2-1.0) H Direct Bilirubin 1.4 MG/DL (0.0-0.3) H 0.8 MG/DL (0.0-0.3) H Aspartate Amino Transf (AST/SGOT) 37 U/L (15-37) 29 U/L (15-37) Alanine Aminotransferase (ALT/SGPT) 68 U/L (12-78) 51 U/L (12-78) Alkaline Phosphatase 165 U/L (46-116) H 127 U/L (46-116) H Total Creatine Kinase 20 U/L (26-308) L Troponin I 0.000 ng/mL (0.000-0.056) Total Protein 7.0 G/DL (6.4-8.2) 6.2 G/DL (6.4-8.2) L Albumin 2.7 G/DL (3.4-5.0) L 2.3 G/DL (3.4-5.0) L Globulin 4.3 g/dL 3.9 g/dL Albumin/Globulin Ratio 0.6 (1.0-2.7) L 0.6 (1.0-2.7) L Lipase 65 U/L (73-393) L Ferritin 475 NG/ML (8-388) H Height (Feet): 5 Height (Inches): 9.00 Weight (Pounds): 150 Medications Current Medications Medications (Trade) Dose Ordered Sig/Nova Route PRN Reason Start Time Stop Time Status Last Admin Dose Admin Atorvastatin Calcium (Lipitor) 40 mg BEDTIME ORAL 05/19/18 21:00 06/18/18 20:59 05/19/18 20:58 Carvedilol (Coreg) 12.5 mg EVERY 12 HOURS ORAL 05/19/18 21:00 06/18/18 20:59 Ciprofloxacin 200 ml @ 200 mls/hr Q12HR IV 05/19/18 21:00 05/26/18 20:59 05/20/18 09:23 Diltiazem HCl (Cardizem) 10 mg Q3H PRN IV HR>130 05/20/18 00:45 06/19/18 00:44 05/20/18 04:27 Docusate Sodium (Colace) 100 mg Q12HR ORAL 05/19/18 21:00 06/18/18 20:59 05/20/18 09:23 Famotidine (Pepcid) 20 mg TWICE A DAY ORAL 05/20/18 09:00 06/19/18 08:59 05/20/18 09:23 Hydralazine HCl (Apresoline) 10 mg Q6H PRN IV For High Blood Pressure 05/19/18 20:00 06/18/18 19:59 Metronidazole 100 ml @ 100 mls/hr Q8HR IVPB 05/19/18 22:00 05/26/18 21:59 05/20/18 05:14 Morphine Sulfate (Morphine Sulfate) 2 mg Q4H PRN IVP Moderate Pain (Pain Scale 4-6) 05/19/18 20:00 05/26/18 19:59 Morphine Sulfate (Morphine Sulfate) 4 mg Q4H PRN IVP Severe Pain (Pain Scale 7-10) 05/19/18 20:00 05/26/18 19:59 05/20/18 09:23 Sodium Chloride 1,000 ml @ 100 mls/hr Q10H IV 05/19/18 20:18 06/18/18 20:17 05/20/18 05:15 Zolpidem Tartrate (Ambien) 5 mg BEDTIME PRN ORAL Insomnia 05/19/18 22:45 05/26/18 22:44 05/19/18 22:47 Assessment/Plan Problem List: (1) Choledocholithiasis Assessment & Plan: labs trending down. GI input appreciated defer to GI for ERCP ICD Codes: K80.50 - Calculus of bile duct without cholangitis or cholecystitis without obstruction SNOMED: 700394264 (2) Abdominal pain ICD Codes: R10.9 - Unspecified abdominal pain SNOMED: 97617074 Qualifiers: Qualified Codes: R10.11 - Right upper quadrant pain (3) Cholecystitis Assessment & Plan: will discuss lap ame with patient will need to first clear CBD okay for diet from surgical standpoint defer to GI for ERCP will follow with recs. thank you for this consultation. ICD Codes: K81.9 - Cholecystitis, unspecified SNOMED: 82193541 Status: stable Cristobal Shepherd May 20, 2018 13:05
[2018-05-20 16:00] VITALS: BP 92/53
[2018-05-20 20:00] VITALS: BP 121/72
--- NOTE | 2018-05-20 21:00 | Consultation ---
DATE OF CONSULTATION: 05/20/2018 GASTROLOGY CONSULTATION CHIEF COMPLAINT: I was asked to see this patient by Dr. Chico Hewitt for evaluation of abdominal pain and abnormal liver tests and common bile duct stones. HISTORY OF PRESENT ILLNESS: The patient is a 68-year-old white man from [facility], who comes in to the hospital with right upper quadrant abdominal pain. He is somewhat of a poor historian and does not give much details of his pain. However, the imaging studies with an ultrasound and a CT scan on this admission were positively identified evidence of common bile duct stone, gallstones, and radiographic evidence of likely cholecystitis. The patient complains of severe right upper quadrant abdominal pain and he has been kept NPO. He had other medical problems including atrial fibrillation for which, he is on Eliquis. His last dose of Eliquis was yesterday morning. I explained to him the indications, risks, alternatives, and possible complications of the ERCP examination including the pancreatitis and all questions were answered. He agreed to proceed. I also explained to him that he will need a definitive laparoscopic cholecystectomy to remove the gallbladder, but he states he does not want to have that surgery done. I have advised him to think about that issue and discuss the matter with his surgeon further. I advised him that his imaging evaluation shows cholecystitis and he has severe right upper quadrant abdominal tenderness, which is also consistent with the same. I advised him that without definitive cholecystectomy, his cholecystitis may progress, worsen, and he may become severely ill. PAST MEDICAL HISTORY: History of atrial fibrillation, history of hypercholesterolemia, chronic obstructive pulmonary disease, past history of smoking, and insomnia. MEDICATIONS: See the chart list for details. ALLERGIES: Noted. FAMILY HISTORY: Noncontributory. SOCIAL HISTORY: The patient is single. He has no children. He previously smoked but he quit smoking sometime ago. He does not drink alcohol. REVIEW OF SYSTEMS: Otherwise negative. PHYSICAL EXAMINATION: GENERAL: A well-developed, well-nourished, white man, seen in his room. HEENT: Normocephalic and atraumatic. Sclerae were minimally icteric. Oropharynx clear. NECK: Supple. CHEST: Coarse breath sounds. CARDIOVASCULAR: Revealed a regular rate. ABDOMEN: Soft with right upper quadrant tenderness to palpation. There is some voluntary guarding, but no rebound. EXTREMITIES: Revealed no edema. NEUROLOGIC: Grossly nonfocal. LABORATORY DATA: Noted. ASSESSMENT: This patient presents with choledocholithiasis, which is seen on imaging study then cholecystitis based both on the imaging results as well as the physical examination. The patient was already on antibiotics as an outpatient. The patient should be kept NPO and be placed on broad-spectrum antibiotics. I will arrange for an ERCP examination for tomorrow, which will be 48 hours since the last Eliquis dose. The patient should also be seen by a certified surgical technician and he should undergo a definitive cholecystectomy after the endoscopic retrograde cholangiopancreatography examination is complete. The indications, risks, alternatives, and possible complications of the endoscopic retrograde cholangiopancreatography examination were explained to the patient and informed consent was obtained. RECOMMENDATIONS: 1. Keep the patient NPO. 2. Antibiotics. 3. Follow laboratory parameters and exam. 4. ERCP tomorrow. 5. Surgical consultation for cholecystectomy. Thank you for asking me to participate in the care of this patient. Alissa Bueno M.D. DR: NAVDEEP JOB#: [id number] CC: ADONIS
[2018-05-20] MEDS: Atorvastatin 20mg tab ORAL SCH (21:24)
--- NOTE | 2018-05-20 22:25 | General Progress Note ---
Assessment/Plan Status: not improved, unchanged Status Narrative 68 yo man with h/o chronic systolic and diastolic heart failure, atrial fibrillation admitted for RUQ pain and clinical picture and imaging consistent with acute cholecystitis Assessment/Plan 1) Acute cholecystitis Choledocholithiasis r/o Sepsis from a biliary source -Surgery consulted- recs appreciated -elevated bilirubin/transaminitis- GI consulted- recs appreciated -continue IV antibiotics- ciprofloxacin, metronidazole -check cultures- blood, urine, lactic acid -For EGD/ERCP tomorrow 2) Chronic systolic and diastolic heart failure 3) Atrial fibrillation with rapid ventricular response -Telemetry monitoring -continue carvedilol, hydralazine, statin -hold apixaban given surgery -Cardiology consult 4) MARY- improving near baseline -IVF's; likely hypovolemic; doubt sepsis -avoid nephorotoxins/renally dose meds -will follow closely DVT Prophylaxis: scd's Code status: full Hospital Classification declaration: Based on this initial evaluation, and depending on the patient's clinical course, I anticipate that this patient will require hospitalization for 2-3 days. Disposition: Once the patient is stable to leave the hospital, I anticipate the patient will likely be discharged to the following environment: I spent 45 minutes on this patient's case, and 23 minutes was dedicated to counseling and/or care coordination. Time of note may not reflect time of encounter. Subjective Date patient seen: May 20, 2018 Time patient seen: 14:10 ROS Limited/Unobtainable: No Constitutional: Reports: weakness HEENT: Reports: no symptoms Cardiovascular: Reports: no symptoms Respiratory: Reports: no symptoms Gastrointestinal/Abdominal: Reports: abdominal pain, nausea, poor appetite Genitourinary: Reports: no symptoms Neurologic/Psychiatric: Reports: no symptoms Endocrine: Reports: no symptoms Hematologic/Lymphatic: Reports: no symptoms Allergies: Coded Allergies: AMPICILLIN (Verified Allergy, Unknown, 04/23/18) Uncoded Allergies: PENICILLIN (Allergy, Unknown, 04/23/18) All Systems: reviewed and negative except above Subjective Events of overnight reviewed Chart reviewed HR improved Abdominal pain persists- somewhat controlled with pain meds +nausea no vomiting Objective Last 24 Hour Vital Signs Date Time Temp Pulse Resp B/P (MAP) Pulse Ox O2 Delivery O2 Flow Rate FiO2 05/20/18 21:26 120 121/72 05/20/18 19:15 98.1 05/20/18 18:45 98.1 05/20/18 16:00 98.1 109 18 92/53 (66) 94 98.1 05/20/18 16:00 102 05/20/18 14:51 98.4 05/20/18 12:00 98.4 124 18 95/72 (80) 95 98.4 05/20/18 12:00 121 05/20/18 09:23 98.4 05/20/18 09:00 100 107/62 05/20/18 09:00 Room Air 05/20/18 08:00 99.3 127 20 107/62 (77) 95 99.3 05/20/18 08:00 121 05/20/18 04:27 133 103/63 05/20/18 04:00 98.4 120 18 103/63 (76) 95 98.4 05/20/18 04:00 118 05/20/18 00:00 99.0 97 18 107/56 (73) 93 99.0 05/20/18 00:00 117 Intake and Output 05/19/18 05/20/18 19:00 07:00 Intake Total 2055 ml 30 ml Output Total 0 ml 350 ml Balance 2055 ml -320 ml Intake Oral 30 ml IV Total 2055 ml Output Urine Total 0 ml 350 ml # Voids 3 Laboratory Tests 05/20/18 05:10: White Blood Count 8.2, Red Blood Count 3.82L, Hemoglobin 10.8L, Hematocrit 32.2L , Mean Corpuscular Volume 84, Mean Corpuscular Hemoglobin 28.2, Mean Corpuscular Hemoglobin Concent 33.4, Red Cell Distribution Width 12.6, Platelet Count 117L, Mean Platelet Volume 7.9, Neutrophils (%) (Auto) 77.0H, Lymphocytes (%) (Auto) 8.1L, Monocytes (%) (Auto) 14.2H, Eosinophils (%) (Auto) 0.1, Basophils (%) (Auto) 0.6, Sodium Level 135L, Potassium Level 4.1, Chloride Level 99, Carbon Dioxide Level 28, Anion Gap 9, Blood Urea Nitrogen 33H, Creatinine 1.4H, Estimat Glomerular Filtration Rate 50.7, Glucose Level 88, Calcium Level 8.6, Ferritin 475H, Total Bilirubin 1.6H, Direct Bilirubin 0.8H, Aspartate Amino Transf (AST/SGOT) 29, Alanine Aminotransferase (ALT/SGPT) 51, Alkaline Phosphatase 127H, Total Protein 6.2L, Albumin 2.3L, Globulin 3.9, Albumin/Globulin Ratio 0.6L Height (Feet): 5 Height (Inches): 9.00 Weight (Pounds): 150 General Appearance: alert, mild distress EENT: PERRL/EOMI, normal ENT inspection, TMs normal, scleral icterus Neck: non-tender, supple Cardiovascular: normal peripheral pulses, normal rate, regularly irregular, no JVD Respiratory/Chest: chest wall non-tender, lungs clear Abdomen: non tender, decreased bowel sounds, distended, tender Pelvis: normal external exam Extremities: normal range of motion Edema: no edema noted Arm (L), no edema noted Arm (R) Edema: trace edema 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
[2018-05-20] MEDS: Morphine Sulfate 2mg/ml Inj IVP PRN (23:21)
[2018-05-21] VITALS: BP 106/61
[2018-05-21 04:00] VITALS: BP 134/83
[2018-05-21 08:00] VITALS: BP 112/61
[2018-05-21] MEDS: Docusate 100mg cap ORAL SCH ×2 (08:58→21:20)
[2018-05-21] MEDS: Carvedilol 12.5mg tab ORAL SCH ×2 (08:58→21:21)
--- NOTE | 2018-05-21 09:09 | Consultation ---
Consult Note Consult Note DATE OF CONSULTATION: 05/20/181916 HEMATOLOGY/ONCOLOGY CONSULTATION CONSULTING PHYSICIAN: Maykel Coronel M.D. REQUESTING PHYSICIAN: Chico Hewitt M.D. Mell AC REASON FOR CONSULTATION: Evaluation of pancytopenia. IDENTIFYING DATA: Dear Dr. Hewitt, Thank you for this consultation. The patient is a pleasant 68-year-old male i saw on prior admission. He has a past medical history, which is significant for bradycardia, history of CHF, history of non-STEMI, and atrial fibrillation, at this time presents to the hospital. He has been seen by Cardiology, presents with CHF exacerbation. He is a [facility] patient. He has been admitted under the care of Dr. Hewitt, seen by Dr. Fitch, presents with generalized weakness, shortness of breath, increased orthopnea, noted to have pancytopenia. Hematology/Oncology Service was consulted for further evaluation and treatment. Also noted to have coagulopathy and here for cholecytitis PAST MEDICAL HISTORY: CHF and COPD. ALLERGIES: Ampicillin. MEDICATIONS: Coreg, Lasix, Crestor. SOCIAL HISTORY: Lives in [employer] [facility]. He is an active smoker. REVIEW OF SYSTEMS: Otherwise negative besides as noted in the history of present illness. The patient does have PND, cough, orthopnea,or weakness. PHYSICAL EXAMINATION: VITAL SIGNS: Reviewed. GENERAL: No acute distress. PULMONARY: Decreased breath sounds. CARDIOVASCULAR: Regular rate and rhythm. No M/G/R. ABDOMEN: Soft, nontender, and nondistended. EXTREMITIES: No cyanosis, swelling, or edema. Current Medications Medications (Trade) Dose Ordered Sig/Nova Route PRN Reason Start Time Stop Time Status Last Admin Dose Admin Atorvastatin Calcium (Lipitor) 40 mg BEDTIME ORAL 05/19/18 21:00 06/18/18 20:59 05/20/18 21:24 Carvedilol (Coreg) 12.5 mg EVERY 12 HOURS ORAL 05/19/18 21:00 06/18/18 20:59 05/20/18 21:26 Ciprofloxacin 200 ml @ 200 mls/hr Q12HR IV 05/19/18 21:00 05/26/18 20:59 05/21/18 08:58 Diltiazem HCl (Cardizem) 10 mg Q3H PRN IV HR>130 8/30/18 00:45 06/19/18 00:44 05/20/18 04:27 Docusate Sodium (Colace) 100 mg Q12HR ORAL 05/19/18 21:00 06/18/18 20:59 05/21/18 08:58 Famotidine (Pepcid) 20 mg TWICE A DAY ORAL 05/20/18 09:00 06/19/18 08:59 05/21/18 08:58 Hydralazine HCl (Apresoline) 10 mg Q6H PRN IV For High Blood Pressure 05/19/18 20:00 06/18/18 19:59 Metronidazole 100 ml @ 100 mls/hr Q8HR IVPB 05/19/18 22:00 05/26/18 21:59 05/21/18 05:54 Morphine Sulfate (Morphine Sulfate) 2 mg Q4H PRN IVP Moderate Pain (Pain Scale 4-6) 05/19/18 20:00 05/26/18 19:59 05/20/18 23:21 Morphine Sulfate (Morphine Sulfate) 4 mg Q4H PRN IVP Severe Pain (Pain Scale 7-10) 05/19/18 20:00 05/26/18 19:59 05/20/18 18:45 Sodium Chloride 1,000 ml @ 100 mls/hr Q10H IV 05/19/18 20:18 06/18/18 20:17 05/20/18 17:07 Zolpidem Tartrate (Ambien) 5 mg BEDTIME PRN ORAL Insomnia 05/19/18 22:45 05/26/18 22:44 05/19/18 22:47 Assessment/Plan 1. Pancytopenia, potentially secondary to liver disease, bilirubin elevated on admission. The patient had transaminitis on admission as well. MCV is elevated. --> Hepatitis A and B are negative, Hep-C is positive, HIV negative. --> Ultrasound of the abdomen reviewed. No evidence of cirrhosis. --> We will continue to closely monitor. --> Monitor platelet count closely. --> obtain a bone marrow biopsy if in future counts are worse 2. Anemia of chronic disease. Anemia panel has been reviewed. Will trend CBC daily. --> Hemoglobin goal is above 7. 3. Anemia due to underlying congestive heart failure, decompensated state. 4. Cholecytitits to have ercp performed --> to see surgery as well as gi team 5. Possible viral urinary tract infection. 6. Transaminitis, hepatic congestion questionable. 7. Deep venous thrombosis prophylaxis, heparin subcutaneous. Greatly appreciate consult! The time the note was entered does not necessarily correspond to the time the patient was seen. Maykel Coronel MD May 21, 2018 09:09
[2018-05-21 10:32] LABS: INR 1.1 (0.9-1.1)
--- NOTE | 2018-05-21 11:31 | General Surgery Progress Note ---
General Surgery-Progress Note Subjective Additional Comments no acute events. still with RUQ abdominal pain. no n/v/f/c. Objective Last 24 Hour Vital Signs Date Time Temp Pulse Resp B/P (MAP) Pulse Ox O2 Delivery O2 Flow Rate FiO2 05/21/18 09:00 Room Air 05/21/18 08:58 110 110/60 05/21/18 08:00 98.2 132 18 112/61 (78) 95 98.2 05/21/18 04:00 102 05/21/18 04:00 97.6 115 20 134/83 (100) 93 97.6 05/21/18 00:00 98.2 120 20 106/61 (76) 94 98.2 05/21/18 00:00 165 05/20/18 21:26 120 121/72 05/20/18 21:00 Room Air 05/20/18 20:00 98.4 87 18 121/72 (88) 92 98.4 05/20/18 20:00 115 05/20/18 19:15 98.1 05/20/18 18:45 98.1 05/20/18 16:00 98.1 109 18 92/53 (66) 94 98.1 05/20/18 16:00 102 05/20/18 14:51 98.4 05/20/18 12:00 98.4 124 18 95/72 (80) 95 98.4 05/20/18 12:00 121 I&O Intake and Output 05/20/18 05/21/18 19:00 07:00 Intake Total 100 ml Output Total 400 ml 275 ml Balance -400 ml -175 ml Intake Oral 100 ml Output Urine Total 400 ml 275 ml # Bowel Movements 1 Cardiovascular: RSR Respiratory: clear Abdomen: soft, tenderness, present bowel sounds Extremities: no cyanosis Laboratory Tests Test 05/21/18 09:50 Prothrombin Time 12.0 SEC (9.30-11.50) H Prothromb Time International Ratio 1.1 (0.9-1.1) Sodium Level Pending Potassium Level Pending Chloride Level Pending Carbon Dioxide Level Pending Blood Urea Nitrogen Pending Creatinine Pending Estimat Glomerular Filtration Rate Pending Glucose Level Pending Calcium Level Pending Total Bilirubin Pending Aspartate Amino Transf (AST/SGOT) Pending Alanine Aminotransferase (ALT/SGPT) Pending Alkaline Phosphatase Pending Total Protein Pending Albumin Pending Globulin Pending Plan Problems: (1) Choledocholithiasis Assessment & Plan: labs trending down. GI input appreciated defer to GI for ERCP (2) Abdominal pain (3) Cholecystitis Assessment & Plan: will discuss lap ame with patient will need to first clear CBD okay for diet from surgical standpoint defer to GI for ERCP vs MRCP will follow with recs. thank you for this consultation. Cristobal Shepherd May 21, 2018 11:31
[2018-05-21 11:36] LABS: ALANINE AMINOTRANSFERASE 41 U/L (12-78); ALBUMIN 2.2 G/DL (3.4-5.0); ALBUMIN/GLOBULIN RATIO 0.6 (1.0-2.7); ALKALINE PHOSPHATASE 131 U/L (46-116); ANION GAP 6 mmol/L (5-15); ASPARTATE AMINO TRANSFERASE 33 U/L (15-37); BILIRUBIN,TOTAL 1.1 MG/DL (0.2-1.0); BLOOD UREA NITROGEN 23 mg/dL (7-18); CALCIUM 8.7 MG/DL (8.5-10.1); CARBON DIOXIDE 28 MMOL/L (21-32); CHLORIDE 103 MMOL/L (98-107); CREATININE 0.9 MG/DL (0.55-1.30); POTASSIUM 4.1 MMOL/L (3.5-5.1); SODIUM 136 MMOL/L (136-145)
[2018-05-21 11:38] LABS: BILIRUBIN,DIRECT 0.7 MG/DL (0.0-0.3)
--- NOTE | 2018-05-21 11:39 | General Progress Note ---
Assessment/Plan Problem List: (1) Choledocholithiasis ICD Codes: K80.50 - Calculus of bile duct without cholangitis or cholecystitis without obstruction SNOMED: 605676806 (2) Cholecystitis ICD Codes: K81.9 - Cholecystitis, unspecified SNOMED: 13528701 (3) Atrial fibrillation with RVR ICD Codes: I48.91 - Unspecified atrial fibrillation SNOMED: 135450135544394 (4) COPD (chronic obstructive pulmonary disease) ICD Codes: J44.9 - Chronic obstructive pulmonary disease, unspecified SNOMED: 34844362 (5) Episode of generalized weakness ICD Codes: R53.1 - Weakness SNOMED: 81578249 (6) Abdominal pain ICD Codes: R10.9 - Unspecified abdominal pain SNOMED: 04898680 Qualifiers: Qualified Codes: R10.11 - Right upper quadrant pain Assessment/Plan Needs ERCP scope not available until Thursday patient stable abx advance diet fu labs fu surg recs Subjective ROS Limited/Unobtainable: Yes Allergies: Coded Allergies: AMPICILLIN (Verified Allergy, Unknown, 04/23/18) Uncoded Allergies: PENICILLIN (Allergy, Unknown, 04/23/18) Objective Last 24 Hour Vital Signs Date Time Temp Pulse Resp B/P (MAP) Pulse Ox O2 Delivery O2 Flow Rate FiO2 05/21/18 09:00 Room Air 05/21/18 08:58 110 110/60 05/21/18 08:00 98.2 132 18 112/61 (78) 95 98.2 05/21/18 04:00 102 05/21/18 04:00 97.6 115 20 134/83 (100) 93 97.6 05/21/18 00:00 98.2 120 20 106/61 (76) 94 98.2 05/21/18 00:00 165 05/20/18 21:26 120 121/72 05/20/18 21:00 Room Air 05/20/18 20:00 98.4 87 18 121/72 (88) 92 98.4 05/20/18 20:00 115 05/20/18 19:15 98.1 05/20/18 18:45 98.1 05/20/18 16:00 98.1 109 18 92/53 (66) 94 98.1 05/20/18 16:00 102 8/30/18 14:51 98.4 05/20/18 12:00 98.4 124 18 95/72 (80) 95 98.4 05/20/18 12:00 121 Intake and Output 05/20/18 05/21/18 19:00 07:00 Intake Total 100 ml Output Total 400 ml 275 ml Balance -400 ml -175 ml Intake Oral 100 ml Output Urine Total 400 ml 275 ml # Bowel Movements 1 Laboratory Tests 05/21/18 09:50: Prothrombin Time 12.0H, Prothromb Time International Ratio 1.1, Sodium Level [ Pending], Potassium Level [Pending], Chloride Level [Pending], Carbon Dioxide Level [Pending], Blood Urea Nitrogen [Pending], Creatinine [Pending], Estimat Glomerular Filtration Rate [Pending], Glucose Level [Pending], Calcium Level [ Pending], Total Bilirubin [Pending], Aspartate Amino Transf (AST/SGOT) [Pending] , Alanine Aminotransferase (ALT/SGPT) [Pending], Alkaline Phosphatase [Pending] , Total Protein [Pending], Albumin [Pending], Globulin [Pending] Height (Feet): 5 Height (Inches): 9.00 Weight (Pounds): 150 General Appearance: alert EENT: normal ENT inspection Neck: supple Cardiovascular: normal rate Respiratory/Chest: decreased breath sounds Abdomen: soft, hypoactive bowel sounds, tender Extremities: non-tender Omero Reyna MD May 21, 2018 11:39
[2018-05-21 12:00] VITALS: BP 117/71
[2018-05-21] MEDS ORDERED: dilTIAZem HCl 30mg tab ORAL SCH ×2 (13:19→18:00)
--- NOTE | 2018-05-21 13:23 | Cardiology Progress Note ---
Assessment/Plan Assessment/Plan perm afib now with rvr acute ame kam with hs of bifasicualr block hs of cm with subsequent resolution copd thrombocytopna cad s/p pci lad rca cedrs 11/2017 chronic chf MR not confiormed on echo here 04/2018 no chf sx he has noted to have resolution of his cm in 02/2018[facility] confirmed on echo here sara;marieithis month hr is nwo rapid despite ecoreg 12.5 bid hwe had recieved iv dilt in er to which he reportedly responded MR not confirmed on echo here [facility] in april he had no sx with his tachy will add Cardizem po no sx o acs will repeat trop in light of tachy needs to be on ecotrin and plavix since his stents are almost 6mon ago additionally need anticoagulation for stroke prevention in afib however risk of bleeding with triple therapy will need to be on Ecotrin adn anticoagulation [id number] Objective Last 24 Hour Vital Signs Date Time Temp Pulse Resp B/P (MAP) Pulse Ox O2 Delivery O2 Flow Rate FiO2 05/21/18 09:00 Room Air 05/21/18 08:58 110 110/60 05/21/18 08:00 98.2 132 18 112/61 (78) 95 98.2 05/21/18 04:00 102 05/21/18 04:00 97.6 115 20 134/83 (100) 93 97.6 05/21/18 00:00 98.2 120 20 106/61 (76) 94 98.2 05/21/18 00:00 165 05/20/18 21:26 120 121/72 05/20/18 21:00 Room Air 05/20/18 20:00 98.4 87 18 121/72 (88) 92 98.4 05/20/18 20:00 115 05/20/18 19:15 98.1 05/20/18 18:45 98.1 05/20/18 16:00 98.1 109 18 92/53 (66) 94 98.1 05/20/18 16:00 102 05/20/18 14:51 98.4 Intake and Output 05/20/18 05/21/18 19:00 07:00 Intake Total 100 ml Output Total 400 ml 275 ml Balance -400 ml -175 ml Intake Oral 100 ml Output Urine Total 400 ml 275 ml # Bowel Movements 1 Laboratory Tests Test 05/21/18 09:50 Prothrombin Time 12.0 SEC (9.30-11.50) H Prothromb Time International Ratio 1.1 (0.9-1.1) Sodium Level 136 MMOL/L (136-145) Potassium Level 4.1 MMOL/L (3.5-5.1) Chloride Level 103 MMOL/L (98-107) Carbon Dioxide Level 28 MMOL/L (21-32) Anion Gap 6 mmol/L (5-15) Blood Urea Nitrogen 23 mg/dL (7-18) H Creatinine 0.9 MG/DL (0.55-1.30) Estimat Glomerular Filtration Rate > 60 mL/min (>60) Glucose Level 123 MG/DL (74-106) H Calcium Level 8.7 MG/DL (8.5-10.1) Total Bilirubin 1.1 MG/DL (0.2-1.0) H Direct Bilirubin 0.7 MG/DL (0.0-0.3) H Aspartate Amino Transf (AST/SGOT) 33 U/L (15-37) Alanine Aminotransferase (ALT/SGPT) 41 U/L (12-78) Alkaline Phosphatase 131 U/L (46-116) H Total Protein 5.9 G/DL (6.4-8.2) L Albumin 2.2 G/DL (3.4-5.0) L Globulin 3.7 g/dL Albumin/Globulin Ratio 0.6 (1.0-2.7) L Microbiology Date/Time Source Procedure Growth Status 05/19/18 17:40 Nasal Nares MRSA Culture - Final NO METHICILLIN RESISTANT STAPH AUREUS... Complete 05/19/18 17:40 Rectum VRE Culture - Final NO VANCOMYCIN RESISTANT ENTEROCOCCUS ... Complete 05/19/18 17:40 Rectum - Final NO CARBAPENEM-RESISTANT ENTEROBACTERI... Complete Luis Alfredo Gonzalez MD May 21, 2018 13:23
[2018-05-21] MEDS ORDERED: Heparin 25,000u/D5W 500ml 500 ML IV SCH (14:14)
[2018-05-21] MEDS ORDERED: Heparin 5000 units/ml inj IV SCH (14:14)
--- NOTE | 2018-05-21 14:54 | Anethesia Preoperative Eval ---
Anesthesia Pre-op PMH/ROS General Date of Evaluation: May 21, 2018 Time of Evaluation: 14:28 Anesthesiologist: Suzanne ASA Score: ASA 3 Mallampati Score Class I : Soft palate, uvula, fauces, pillars visible Class II: Soft palate, uvula, fauces visible Class III: Soft palate, base of uvula visible Class IV: Only hard plate visible Mallampati Classification: Class II Surgeon: Joao Diagnosis: Abd Pain Surgical Procedure: Laparoscopic Cholecystectomy Anesthesia History: none Family History: no anesthesia problems Allergies: Coded Allergies: AMPICILLIN (Verified Allergy, Unknown, 04/23/18) Uncoded Allergies: PENICILLIN (Allergy, Unknown, 04/23/18) Medications: see eMAR Past Medical History Cardiovascular: Reports: HTN, arrhythmia - Bradycardia, AFib, other - HL, CHF Pulmonary: Reports: asthma Gastrointestinal/Genitourinary: Reports: GERD Anesthesia Pre-op Phys. Exam Physician Exam Last Vital Signs Date Time Temp Pulse Resp B/P (MAP) Pulse Ox O2 Delivery O2 Flow Rate FiO2 05/21/18 13:29 128 117/71 05/21/18 09:00 Room Air 05/21/18 08:00 98.2 18 95 98.2 Constitutional: NAD Neurologic: CN 2-12 intact Cardiovascular: RRR Respiratory: CTA Gastrointestinal: S/NT/ND Airway Exam Mallampati Score: Class II MO: full ROM: limited Teeth: missing, intact Anesthesia Pre-op A/P Labs Coagulation Test 05/21/18 09:50 05/21/18 09:55 Prothrombin Time 12.0 SEC (9.30-11.50) H Prothromb Time International Ratio 1.1 (0.9-1.1) Activated Partial Thromboplast Time 36 SEC (23-33) H Chemistry Test 05/21/18 09:50 Sodium Level 136 MMOL/L (136-145) Potassium Level 4.1 MMOL/L (3.5-5.1) Chloride Level 103 MMOL/L (98-107) Carbon Dioxide Level 28 MMOL/L (21-32) Anion Gap 6 mmol/L (5-15) Blood Urea Nitrogen 23 mg/dL (7-18) H Creatinine 0.9 MG/DL (0.55-1.30) Estimat Glomerular Filtration Rate > 60 mL/min (>60) Glucose Level 123 MG/DL (74-106) H Calcium Level 8.7 MG/DL (8.5-10.1) Total Bilirubin 1.1 MG/DL (0.2-1.0) H Direct Bilirubin 0.7 MG/DL (0.0-0.3) H Aspartate Amino Transf (AST/SGOT) 33 U/L (15-37) Alanine Aminotransferase (ALT/SGPT) 41 U/L (12-78) Alkaline Phosphatase 131 U/L (46-116) H Total Protein 5.9 G/DL (6.4-8.2) L Albumin 2.2 G/DL (3.4-5.0) L Globulin 3.7 g/dL Albumin/Globulin Ratio 0.6 (1.0-2.7) L Risk Assessment & Plan Assessment: ASA 3 Plan: GA Status Change Before Surgery: No Pre-Antibiotics Drug: Marcus Erickson MD May 21, 2018 14:54
[2018-05-21 16:00] VITALS: BP 129/71
--- NOTE | 2018-05-21 16:24 | General Progress Note ---
Assessment/Plan Status: unchanged Assessment/Plan 1. Pancytopenia, potentially secondary to liver disease, bilirubin elevated on admission. The patient had transaminitis on admission as well. MCV is elevated. --> Hepatitis A and B are negative, Hep-C is positive, HIV negative. --> Ultrasound of the abdomen reviewed. No evidence of cirrhosis. --> We will continue to closely monitor. --> Monitor platelet count closely. --> obtain a bone marrow biopsy if in future counts are worse 2. Anemia of chronic disease. Anemia panel has been reviewed. Will trend CBC daily. --> Hemoglobin goal is above 7. --> Current Hgb at 10.8, stable 3. Anemia due to underlying congestive heart failure, decompensated state. 4. Cholecystitis to have ercp performed 05/21 --> to see surgery as well as gi team 5. Possible viral urinary tract infection. 6. Transaminitis, hepatic congestion questionable. 7. Deep venous thrombosis prophylaxis, heparin subcutaneous. The time the note was entered does not necessarily correspond to the time the patient was seen. Subjective Date patient seen: May 21, 2018 ROS Limited/Unobtainable: Yes Gastrointestinal/Abdominal: Reports: abdominal pain Hematologic/Lymphatic: Reports: anemia Allergies: Coded Allergies: AMPICILLIN (Verified Allergy, Unknown, 04/23/18) Uncoded Allergies: PENICILLIN (Allergy, Unknown, 04/23/18) All Systems: reviewed and negative except above Subjective Pt c/o RUQ abd pain. Scheduled for ECRP today. Objective Last 24 Hour Vital Signs Date Time Temp Pulse Resp B/P (MAP) Pulse Ox O2 Delivery O2 Flow Rate FiO2 05/21/18 13:29 128 117/71 05/21/18 09:00 Room Air 05/21/18 08:58 110 110/60 05/21/18 08:00 98.2 132 18 112/61 (78) 95 98.2 05/21/18 04:00 102 05/21/18 04:00 97.6 115 20 134/83 (100) 93 97.6 05/21/18 00:00 98.2 120 20 106/61 (76) 94 98.2 05/21/18 00:00 165 05/20/18 21:26 120 121/72 05/20/18 21:00 Room Air 05/20/18 20:00 98.4 87 18 121/72 (88) 92 98.4 05/20/18 20:00 115 05/20/18 19:15 98.1 05/20/18 18:45 98.1 Intake and Output 05/20/18 05/21/18 19:00 07:00 Intake Total 100 ml Output Total 400 ml 275 ml Balance -400 ml -175 ml Intake Oral 100 ml Output Urine Total 400 ml 275 ml # Bowel Movements 1 Laboratory Tests 05/21/18 09:50: Prothrombin Time 12.0H, Prothromb Time International Ratio 1.1, Sodium Level 136 , Potassium Level 4.1, Chloride Level 103, Carbon Dioxide Level 28, Anion Gap 6 , Blood Urea Nitrogen 23H, Creatinine 0.9, Estimat Glomerular Filtration Rate > 60, Glucose Level 123H, Calcium Level 8.7, Total Bilirubin 1.1H, Direct Bilirubin 0.7H, Aspartate Amino Transf (AST/SGOT) 33, Alanine Aminotransferase ( ALT/SGPT) 41, Alkaline Phosphatase 131H, Total Protein 5.9L, Albumin 2.2L, Globulin 3.7, Albumin/Globulin Ratio 0.6L 05/21/18 09:55: Activated Partial Thromboplast Time 36H Height (Feet): 5 Height (Inches): 9.00 Weight (Pounds): 150 General Appearance: no apparent distress EENT: PERRL/EOMI Neck: normal alignment Cardiovascular: tachycardia Respiratory/Chest: no respiratory distress Abdomen: tender Maykel Coronel MD May 21, 2018 16:24
--- NOTE | 2018-05-21 19:54 | General Progress Note ---
Assessment/Plan Status: stable, not improved Assessment/Plan 1) Acute cholecystitis Choledocholithiasis r/o Sepsis from a biliary source -Surgery consulted- recs appreciated -elevated bilirubin/transaminitis- GI consulted- recs appreciated -continue IV antibiotics- ciprofloxacin, metronidazole -check cultures- blood, urine, lactic acid- negative to date - EGD/ERCP delayed- will attempt Thursday 2) Chronic systolic and diastolic heart failure 3) Atrial fibrillation with rapid ventricular response 4) CAD s/p PTCA/stent 6 months ago -Telemetry monitoring -continue carvedilol, hydralazine, statin -hold apixaban given surgery -Cardiology consulted- recs appreciated- start diltiazem Start heparin drip, ASA given recent stent and atrial fibrillation 5) MARY- improving near baseline -IVF's; likely hypovolemic; doubt sepsis -avoid nephrotoxins/renally dose meds -will follow closely 5) Pancytopenia -Hematology recs appreciated -monitor for now DVT Prophylaxis: scd's, IV heparin Code status: full Hospital Classification declaration: Based on this initial evaluation, and depending on the patient's clinical course, I anticipate that this patient will require hospitalization for 2-3 days. Disposition: Once the patient is stable to leave the hospital, I anticipate the patient will likely be discharged to the following environment:SNF- comes from [facility] I spent 45 minutes on this patient's case, and 23 minutes was dedicated to counseling and/or care coordination. Time of note may not reflect time of encounter. Subjective Date patient seen: May 21, 2018 Time patient seen: 15:59 ROS Limited/Unobtainable: No Constitutional: Reports: malaise, weakness HEENT: Reports: no symptoms Cardiovascular: Reports: no symptoms Respiratory: Reports: no symptoms Gastrointestinal/Abdominal: Reports: abdominal pain, nausea, poor appetite Genitourinary: Reports: no symptoms Neurologic/Psychiatric: Reports: no symptoms Endocrine: Reports: no symptoms Hematologic/Lymphatic: Reports: no symptoms Allergies: Coded Allergies: AMPICILLIN (Verified Allergy, Unknown, 04/23/18) Uncoded Allergies: PENICILLIN (Allergy, Unknown, 04/23/18) All Systems: reviewed and negative except above Subjective Events of overnight reviewed Chart reviewed HR improving Abdominal pain persists- somewhat controlled with pain meds +nausea no vomiting No ERCP today secondary to equipment unavailability- will attempt for Thursday Patient upset- wants to "go back to [place]" Objective Last 24 Hour Vital Signs Date Time Temp Pulse Resp B/P (MAP) Pulse Ox O2 Delivery O2 Flow Rate FiO2 05/21/18 18:20 98.2 05/21/18 17:21 98.2 05/21/18 17:20 128 117/71 05/21/18 16:00 98.0 86 18 129/71 (90) 96 98.0 05/21/18 16:00 90 05/21/18 13:29 128 117/71 05/21/18 12:00 98.1 128 18 117/71 (86) 95 98.1 05/21/18 12:00 126 05/21/18 09:00 Room Air 05/21/18 08:58 110 110/60 05/21/18 08:00 113 05/21/18 08:00 98.2 132 18 112/61 (78) 95 98.2 05/21/18 04:00 102 05/21/18 04:00 97.6 115 20 134/83 (100) 93 97.6 05/21/18 00:00 98.2 120 20 106/61 (76) 94 98.2 05/21/18 00:00 165 05/20/18 21:26 120 121/72 05/20/18 21:00 Room Air 05/20/18 20:00 98.4 87 18 121/72 (88) 92 98.4 05/20/18 20:00 115 Intake and Output 05/20/18 05/21/18 19:00 07:00 Intake Total 100 ml Output Total 400 ml 275 ml Balance -400 ml -175 ml Intake Oral 100 ml Output Urine Total 400 ml 275 ml # Bowel Movements 1 Laboratory Tests 05/21/18 09:50: Prothrombin Time 12.0H, Prothromb Time International Ratio 1.1, Sodium Level 136 , Potassium Level 4.1, Chloride Level 103, Carbon Dioxide Level 28, Anion Gap 6 , Blood Urea Nitrogen 23H, Creatinine 0.9, Estimat Glomerular Filtration Rate > 60, Glucose Level 123H, Calcium Level 8.7, Total Bilirubin 1.1H, Direct Bilirubin 0.7H, Aspartate Amino Transf (AST/SGOT) 33, Alanine Aminotransferase ( ALT/SGPT) 41, Alkaline Phosphatase 131H, Total Protein 5.9L, Albumin 2.2L, Globulin 3.7, Albumin/Globulin Ratio 0.6L 05/21/18 09:55: Activated Partial Thromboplast Time 36H Height (Feet): 5 Height (Inches): 9.00 Weight (Pounds): 150 General Appearance: no apparent distress, alert EENT: PERRL/EOMI, normal ENT inspection, TMs normal, scleral icterus Neck: non-tender, supple Cardiovascular: normal peripheral pulses, regularly irregular, no JVD Respiratory/Chest: chest wall non-tender, no respiratory distress, decreased breath sounds Abdomen: normal bowel sounds, decreased bowel sounds, tender Pelvis: normal external exam Genitourinary/Rectal: normal genital exam Extremities: normal range of motion, non-tender Edema: no edema noted Arm (L), no edema noted Arm (R) Edema: trace edema Neurologic: training engineer II-XII grossly normal, alert Skin: normal pigmentation, warm/dry Lymphatic: normal anterior cervical (L), normal anterior cervical (R) Jason Monte MD May 21, 2018 19:54
[2018-05-21 20:00] VITALS: BP 128/71
[2018-05-21] MEDS: Atorvastatin 20mg tab ORAL SCH (21:20)
[2018-05-22] VITALS: BP 128/71
--- NOTE | 2018-05-22 00:30 | Consultation ---
DATE OF CONSULTATION: 05/21/2018 NOTE: POOR AUDIO CARDIOLOGY CONSULTATION CONSULTING PHYSICIAN: Luis Alfredo Gonzalez M.D. REFERRING PHYSICIAN: Dr. Monte. REASON FOR REFERRAL: Tachycardia. HISTORY OF PRESENT ILLNESS: This is an elderly gentleman, who is known to me from prior evaluation and hospitalization not too long ago, in fact, he has had an issue with atrial fibrillation that is permanent. The patient was hospitalized here and was subsequently discharged now, admitted because of abdominal pain and been diagnosed with cholecystitis requiring surgery, however, he has had atrial fibrillation with rapid ventricular response. He received some diltiazem with some beta-blockers, which he has received some beta-blockers previously and in the emergency room, he received some diltiazem with good response, but he has got rapid tachycardia. This consultation is requested. The patient requires ERCP Thursday. He does not have any chest pain or shortness of breath. There is no PND or orthopnea. Denies any palpitations. Denies any dizziness or lightheadedness on standing. PAST MEDICAL HISTORY: Positive for most of the issues. He usually gets treated at [facility], but he has apparently had a history of atrial fibrillation, chronic compensated chronic congestive heart failure, previously ejection fraction down to 15%, reportedly improved to 60% even at last hospitalization here. Echocardiogram was repeated and he has had systolic function. He has had history of non-ST elevation myocardial infarction, history of coronary artery disease, status post PCI to the LAD and right coronary artery in November 2017, systemic hypertension, pulmonary hypertension, history of biventricular systolic dysfunction, [id number] mitral regurgitation, although that was not confirmed on his echocardiogram that was done here. He has had history of tobacco use disorder as well as COPD, history of syncope, fatty liver, and also hepatitis C as well as macular degeneration. ALLERGIES: He is allergic to penicillin. SOCIAL HISTORY: He smoked until recently. Denies alcohol or drug use. REVIEW OF SYSTEMS: GASTROINTESTINAL: He had some abdominal pain, although at the present time he denies any. No nausea, vomiting, or diarrhea. He does have some constipation. GENITOURINARY: Negative. PULMONARY: Negative. CONSTITUTIONAL: Negative. NEUROLOGIC: Negative. PHYSICAL EXAMINATION: GENERAL: Shows to be elderly gentleman, in no respiratory distress. He is actually actively sitting up in the bed and eating his lunch. He looks quite normal. NECK: Supple. No jugular venous distention. LUNGS: Clear to auscultation and percussion. CARDIAC: S1 is normal. S2 is normal. Irregularly irregular. Tachycardic. No heaves or thrills noted. ABDOMEN: Soft and nontender. Positive bowel sounds. EXTREMITIES: There is no clubbing, cyanosis, or edema. NEUROLOGICAL: He is awake, alert, responsive, and in no apparent respiratory distress. LABORATORY AND DIAGNOSTIC DATA: White count of 8.2 down from 11.1, hemoglobin 10.8 down from 13.2, and a platelet count of 117,000. His sodium is 136, potassium 4.1, chloride 103, bicarb 28, BUN of 23, creatinine 0.9, down from 2.0, and a glucose of 123. Ferritin 475. Bilirubin of 1.1. Alkaline phosphatase 131 down from 165. First set of cardiac enzymes 2 days ago was negative at 0.00, subsequently that was not repeated. Albumin of 5.9 and globulin is 0.02. Coags, INR is 1.1. A chest x-ray performed in the emergency room shows no acute findings. He did have a CT scan of his chest, abdomen, and pelvis in the emergency room that showed cholelithiasis with mild ductal dilatation. Evaluation with ERCP is recommended. Cholelithiasis with mild ill-defined gallbladder wall and enhancement suggestive of cholecystitis. He has had abdominal ultrasound that showed acute cholecystitis suspected. He had a HIDA scan that was performed back in early April. ASSESSMENT: 1. Permanent atrial fibrillation now with rapid ventricular response. 2. Acute cholecystitis with bradycardia with history of bifascicular block. 3. History of cardiomyopathy with subsequent resolution. 4. Chronic obstructive pulmonary disease. 5. History of thrombocytopenia. 6. Coronary artery disease, status post PCI to the LAD and RCA in November 2017. 7. Chronic congestive heart failure. 8. History of mitral regurgitation, not confirmed on echo here in April 2018. PLAN: Dr. Monte, this patient was seen in cardiac consultation. The patient has no signs of congestive heart failure. No symptoms of coronary syndrome despite having rapid heart rate. He was noted to have resolution of his cardiomyopathy back in February 2018 at [facility]' echo and confirmed on his echocardiogram earlier this month. His heart rate is now rapid despite Coreg at 12.5 b.i.d. He had received some IV diltiazem in the emergency room, to which he did respond. In light of the fact that he is having tachycardia despite the Coreg at a higher dose, I would consider adding Cardizem mg 4 times a day to see if it responds. His cardiac enzymes will be checked as a matter of routine. His aspirin, Plavix, placed approximately six months ago; however, he also needs anticoagulation for stroke prevention and atrial fibrillation. In this situation because of risk of bleeding with triple therapy, double therapy will be recommended with a combination of aspirin and anticoagulation. So, he should be started on that if okay. Luis Alfredo Gonzalez M.D. DR: NELI JOB#: [id number] CC:
[2018-05-22 03:53] LABS: BASOPHILS % (AUTO) 0.5 % (0.0-2.0); EOSINOPHILS % (AUTO) 1.6 % (0.0-3.0); HEMATOCRIT 32.9 % (42.0-52.0); HEMOGLOBIN 11.2 G/DL (14.2-18.0); LYMPHOCYTES % (AUTO) 9.7 % (20.0-45.0); MEAN CORPUSCULAR VOLUME 84 FL (80-99); MONOCYTES % (AUTO) 13.3 % (1.0-10.0); NEUTROPHILS % (AUTO) 74.9 % (45.0-75.0); PLATELET COUNT 169 K/UL (150-450); RED BLOOD COUNT 3.92 M/UL (4.70-6.10); RED CELL DISTRIBUTION WIDTH 12.9 % (11.6-14.8); WHITE BLOOD COUNT 7.1 K/UL (4.8-10.8)
[2018-05-22 04:00] VITALS: BP 148/76
[2018-05-22 04:15] LABS: ALANINE AMINOTRANSFERASE 38 U/L (12-78); ALBUMIN 2.3 G/DL (3.4-5.0); ALBUMIN/GLOBULIN RATIO 0.6 (1.0-2.7); ALKALINE PHOSPHATASE 186 U/L (46-116); ANION GAP 7 mmol/L (5-15); ASPARTATE AMINO TRANSFERASE 37 U/L (15-37); BILIRUBIN,TOTAL 0.8 MG/DL (0.2-1.0); BLOOD UREA NITROGEN 17 mg/dL (7-18); CALCIUM 8.7 MG/DL (8.5-10.1); CARBON DIOXIDE 28 MMOL/L (21-32); CHLORIDE 104 MMOL/L (98-107); CREATININE 0.9 MG/DL (0.55-1.30); POTASSIUM 3.6 MMOL/L (3.5-5.1); SODIUM 138 MMOL/L (136-145)
[2018-05-22] MEDS: Heparin 25,000u/D5W 500ml 500 ML IV SCH ×2 (04:43→11:52)
[2018-05-22] MEDS ORDERED: Heparin 5000 units/ml inj IV ONE (04:45)
--- NOTE | 2018-05-22 07:33 | Physician Query ---
--------- THIS DOCUMENT IS A PERMANENT PART OF THE MEDICAL RECORD --------- PLEASE COMPLETE THE DOCUMENT BEFORE SIGNING Dear Dr. Monte Date: Fellmongery Worker/CDS Name: Carmen Soto Fellmongery Worker / CDS Phone # [phone] Exercise your independent professional judgment when responding to query. Question asked do not imply a particular answer is desired/expected Clinical Documentation States: "Acute Kidney Injury" documented in H&P and progress notes. Clinical Findings Show: Creatinine: 05/19/2018: 2.0 05/20/2018: 1.4 Can you please Clarify the type of renal failure below: [ ] ARF w/ Tubular Necrosis [ ] ARF w/ Cortical Necrosis [ ] ARF w/ Medullary Necrosis [ ] Acute Renal Failure (unspecified) [ ] Other: [ ] Clinically undeterminable Please also document in your Progress Notes and/or Discharge Summary and indicate if the condition was present on admission. Emeli LAMB
[2018-05-22 08:00] VITALS: BP 121/6
[2018-05-22] MEDS: Docusate 100mg cap ORAL SCH ×2 (09:12→21:10)
[2018-05-22] MEDS: dilTIAZem HCl 30mg tab ORAL SCH ×2 (09:12→18:17)
[2018-05-22] MEDS: Carvedilol 12.5mg tab ORAL SCH ×2 (09:13→21:11)
[2018-05-22] MEDS: Aspirin Baby 81mg ORAL SCH (09:13)
[2018-05-22] MEDS: Morphine Sulfate 2mg/ml Inj IVP PRN (09:15)
--- NOTE | 2018-05-22 09:26 | General Progress Note ---
Assessment/Plan Status: stable Assessment/Plan 1) Acute cholecystitis Choledocholithiasis r/o Sepsis from a biliary source -Surgery consulted- recs appreciated -elevated bilirubin/transaminitis- GI consulted- recs appreciated -continue IV antibiotics- ciprofloxacin, metronidazole -check cultures- blood, urine, lactic acid- negative to date -cardiac diet as tolerated -serial abd exams -ERCP planned for Friday 05/25 2) Chronic systolic and diastolic heart failure 3) Atrial fibrillation with rapid ventricular response 4) CAD s/p PTCA/stent 6 months ago -Telemetry monitoring -continue carvedilol, hydralazine, statin -hold apixaban given surgery -Cardiology consulted- recs appreciated- start diltiazem -Heparin drip for Afib -ASA given recent stent 5) MARY- improving near baseline -IVF's; likely hypovolemic; doubt sepsis -avoid nephrotoxins/renally dose meds -will follow closely 5) Pancytopenia -Hematology recs appreciated -monitor for now 6) Agitation, confusion - pt asking to leave AMA, questionable capacity -Psych consulted for assistance DVT Prophylaxis: scd's, IV heparin Code status: full Hospital Classification declaration: Based on this initial evaluation, and depending on the patient's clinical course, I anticipate that this patient will require hospitalization for 2-3 days. Disposition: Once the patient is stable to leave the hospital, I anticipate the patient will likely be discharged to the following environment: SNF- comes from [facility] I spent 40 minutes on this patient's case, and 23 minutes was dedicated to counseling and/or care coordination. Time of note may not reflect time of encounter. Subjective Date patient seen: May 22, 2018 Time patient seen: 09:26 ROS Limited/Unobtainable: No Allergies: Coded Allergies: AMPICILLIN (Verified Allergy, Unknown, 04/23/18) Uncoded Allergies: PENICILLIN (Allergy, Unknown, 04/23/18) Subjective No acute o/n events Awaiting ERCP on Pt states abd pain improved. Tolerating diet. Passing flatus. Pt asking to leave hospital and go back to [place] where he is from Per RN, pt noted to be agitated, some confusion noted Objective Last 24 Hour Vital Signs Date Time Temp Pulse Resp B/P (MAP) Pulse Ox O2 Delivery O2 Flow Rate FiO2 05/22/18 09:15 98.3 05/22/18 09:13 135 148/76 05/22/18 09:12 135 05/22/18 04:00 92 05/22/18 04:00 98.3 96 24 148/76 (100) 96 98.3 05/22/18 00:00 98.0 80 21 128/71 (90) 94 98.0 05/22/18 00:00 86 05/21/18 21:21 87 128/71 05/21/18 21:00 Room Air 05/21/18 20:00 98.1 87 20 128/71 (90) 97 98.1 05/21/18 20:00 84 05/21/18 18:20 98.2 05/21/18 17:21 98.2 05/21/18 17:20 128 117/71 05/21/18 16:00 98.0 86 18 129/71 (90) 96 98.0 05/21/18 16:00 90 05/21/18 13:29 128 117/71 05/21/18 12:00 98.1 128 18 117/71 (86) 95 98.1 05/21/18 12:00 126 Intake and Output 05/21/18 05/22/18 19:00 07:00 Intake Total 240 ml 120 ml Balance 240 ml 120 ml Intake Oral 240 ml 120 ml # Voids 3 5 # Bowel Movements 1 Laboratory Tests 05/21/18 09:50: Prothrombin Time 12.0H, Prothromb Time International Ratio 1.1, Sodium Level 136 , Potassium Level 4.1, Chloride Level 103, Carbon Dioxide Level 28, Anion Gap 6 , Blood Urea Nitrogen 23H, Creatinine 0.9, Estimat Glomerular Filtration Rate > 60, Glucose Level 123H, Calcium Level 8.7, Total Bilirubin 1.1H, Direct Bilirubin 0.7H, Aspartate Amino Transf (AST/SGOT) 33, Alanine Aminotransferase ( ALT/SGPT) 41, Alkaline Phosphatase 131H, Total Protein 5.9L, Albumin 2.2L, Globulin 3.7, Albumin/Globulin Ratio 0.6L 05/21/18 09:55: Activated Partial Thromboplast Time 36H 05/21/18 20:50: Activated Partial Thromboplast Time 37H 05/22/18 03:45: Sodium Level 138, Potassium Level 3.6, Chloride Level 104, Carbon Dioxide Level 28, Anion Gap 7, Blood Urea Nitrogen 17, Creatinine 0.9, Estimat Glomerular Filtration Rate > 60, Glucose Level 124H, Calcium Level 8.7, Total Bilirubin 0.8 , Aspartate Amino Transf (AST/SGOT) 37, Alanine Aminotransferase (ALT/SGPT) 38, Alkaline Phosphatase 186H, Total Protein 6.3L, Albumin 2.3L, Globulin 4.0, Albumin/Globulin Ratio 0.6L, Activated Partial Thromboplast Time 52H, White Blood Count 7.1, Red Blood Count 3.92L, Hemoglobin 11.2L, Hematocrit 32.9L, Mean Corpuscular Volume 84, Mean Corpuscular Hemoglobin 28.5, Mean Corpuscular Hemoglobin Concent 34.0, Red Cell Distribution Width 12.9, Platelet Count 169, Mean Platelet Volume 7.0, Neutrophils (%) (Auto) 74.9, Lymphocytes (%) (Auto) 9.7L, Monocytes (%) (Auto) 13.3H, Eosinophils (%) (Auto) 1.6, Basophils (%) ( Auto) 0.5 Height (Feet): 5 Height (Inches): 9.00 Weight (Pounds): 150 Objective General: alert, cooperative, no distress, appears stated age Head: normocephalic, without obvious abnormality, atraumatic Eyes: conjunctivae/corneas clear. PERRL, EOM's intact Throat: lips, mucosa, and tongue normal. MMM Neck: supple, symmetrical, trachea midline, and no JVD Lungs: clear to auscultation bilaterally Heart: regular rate and rhythm, S1, S2 normal, no murmur, click, rub or gallop Abdomen: soft, non-tender, non-distended, bowel sounds normal; no masses or organomegaly Extremities: extremities normal, atraumatic, no cyanosis or edema Pulses: 2+ and symmetric Skin: skin color, texture, turgor normal; no rashes or lesions Neurologic: grossly normal, no focal deficits Lucio Tristan M.D. May 22, 2018 09:26
--- NOTE | 2018-05-22 11:07 | General Progress Note ---
Assessment/Plan Problem List: (1) Choledocholithiasis ICD Codes: K80.50 - Calculus of bile duct without cholangitis or cholecystitis without obstruction SNOMED: 910315635 (2) Cholecystitis ICD Codes: K81.9 - Cholecystitis, unspecified SNOMED: 15356377 (3) Atrial fibrillation with RVR ICD Codes: I48.91 - Unspecified atrial fibrillation SNOMED: 570465833141972 (4) COPD (chronic obstructive pulmonary disease) ICD Codes: J44.9 - Chronic obstructive pulmonary disease, unspecified SNOMED: 83165868 (5) Episode of generalized weakness ICD Codes: R53.1 - Weakness SNOMED: 02074507 (6) Abdominal pain ICD Codes: R10.9 - Unspecified abdominal pain SNOMED: 28610180 Qualifiers: Qualified Codes: R10.11 - Right upper quadrant pain Assessment/Plan Needs ERCP scope not available until Thursday patient stable abx advance diet>>on cardiac diet fu labs fu surg recs Subjective ROS Limited/Unobtainable: Yes Allergies: Coded Allergies: AMPICILLIN (Verified Allergy, Unknown, 04/23/18) Uncoded Allergies: PENICILLIN (Allergy, Unknown, 04/23/18) Objective Last 24 Hour Vital Signs Date Time Temp Pulse Resp B/P (MAP) Pulse Ox O2 Delivery O2 Flow Rate FiO2 05/22/18 09:45 98.3 05/22/18 09:15 98.3 05/22/18 09:13 135 148/76 05/22/18 09:12 135 05/22/18 08:00 97.6 112 20 121/6 (44) 98 97.6 05/22/18 04:00 92 05/22/18 04:00 98.3 96 24 148/76 (100) 96 98.3 05/22/18 00:00 98.0 80 21 128/71 (90) 94 98.0 05/22/18 00:00 86 05/21/18 21:21 87 128/71 05/21/18 21:00 Room Air 05/21/18 20:00 98.1 87 20 128/71 (90) 97 98.1 05/21/18 20:00 84 05/21/18 18:20 98.2 05/21/18 17:21 98.2 05/21/18 17:20 128 117/71 05/21/18 16:00 98.0 86 18 129/71 (90) 96 98.0 05/21/18 16:00 90 05/21/18 13:29 128 117/71 05/21/18 12:00 98.1 128 18 117/71 (86) 95 98.1 05/21/18 12:00 126 Intake and Output 05/21/18 05/22/18 19:00 07:00 Intake Total 240 ml 120 ml Balance 240 ml 120 ml Intake Oral 240 ml 120 ml # Voids 3 5 # Bowel Movements 1 Laboratory Tests 05/21/18 20:50: Activated Partial Thromboplast Time 37H 05/22/18 03:45: Activated Partial Thromboplast Time 52H, White Blood Count 7.1, Red Blood Count 3.92L, Hemoglobin 11.2L, Hematocrit 32.9L, Mean Corpuscular Volume 84, Mean Corpuscular Hemoglobin 28.5, Mean Corpuscular Hemoglobin Concent 34.0, Red Cell Distribution Width 12.9, Platelet Count 169, Mean Platelet Volume 7.0, Neutrophils (%) (Auto) 74.9, Lymphocytes (%) (Auto) 9.7L, Monocytes (%) (Auto) 13.3H, Eosinophils (%) (Auto) 1.6, Basophils (%) (Auto) 0.5, Sodium Level 138, Potassium Level 3.6, Chloride Level 104, Carbon Dioxide Level 28, Anion Gap 7, Blood Urea Nitrogen 17, Creatinine 0.9, Estimat Glomerular Filtration Rate > 60 , Glucose Level 124H, Calcium Level 8.7, Total Bilirubin 0.8, Aspartate Amino Transf (AST/SGOT) 37, Alanine Aminotransferase (ALT/SGPT) 38, Alkaline Phosphatase 186H, Total Protein 6.3L, Albumin 2.3L, Globulin 4.0, Albumin/ Globulin Ratio 0.6L 05/22/18 10:45: Activated Partial Thromboplast Time [Pending] Height (Feet): 5 Height (Inches): 9.00 Weight (Pounds): 150 General Appearance: no apparent distress EENT: normal ENT inspection Neck: supple Cardiovascular: normal rate Respiratory/Chest: decreased breath sounds Abdomen: normal bowel sounds, non tender, soft Extremities: non-tender Omero Reyna MD May 22, 2018 11:06
[2018-05-22] MEDS ORDERED: Heparin 5000 units/ml inj IV SCH (11:30)
[2018-05-22 12:00] VITALS: BP 120/63
--- NOTE | 2018-05-22 15:36 | Cardiology Progress Note ---
Assessment/Plan Assessment/Plan atrial fibrillation, rate is better controlled and at rest it is 70. He is on IV Heparin, k was replaced and we need to follow results the patient is agitated and wants to go home d/w nurse and nurse in [facility] will call PCP Subjective Subjective The patient is sitting on his bed, reports feeling OK and wants to go home Objective Last 24 Hour Vital Signs Date Time Temp Pulse Resp B/P (MAP) Pulse Ox O2 Delivery O2 Flow Rate FiO2 05/22/18 12:00 96 05/22/18 12:00 97.6 105 22 120/63 (82) 98 97.6 05/22/18 09:45 98.3 05/22/18 09:15 98.3 05/22/18 09:13 135 148/76 05/22/18 09:12 135 05/22/18 09:00 Room Air 05/22/18 08:00 97.6 112 20 121/6 (44) 98 97.6 05/22/18 08:00 142 05/22/18 04:00 92 05/22/18 04:00 98.3 96 24 148/76 (100) 96 98.3 05/22/18 00:00 98.0 80 21 128/71 (90) 94 98.0 05/22/18 00:00 86 05/21/18 21:21 87 128/71 05/21/18 21:00 Room Air 05/21/18 20:00 98.1 87 20 128/71 (90) 97 98.1 05/21/18 20:00 84 05/21/18 18:20 98.2 05/21/18 17:21 98.2 05/21/18 17:20 128 117/71 05/21/18 16:00 98.0 86 18 129/71 (90) 96 98.0 05/21/18 16:00 90 General Appearance: agitated EENT: PERRL/EOMI Neck: non-tender Rhythm: Afib Cardiovascular: tachycardia Respiratory/Chest: crackles/rales Abdomen: normal bowel sounds Extremities: trace edema Neurologic: abnormal CN Intake and Output 05/21/18 05/22/18 19:00 07:00 Intake Total 240 ml 120 ml Balance 240 ml 120 ml Intake Oral 240 ml 120 ml # Voids 3 5 # Bowel Movements 1 Laboratory Tests Test 05/21/18 20:50 9/1/18 03:45 05/22/18 10:45 Activated Partial Thromboplast Time 37 SEC (23-33) H 52 SEC (23-33) H 51 SEC (23-33) H White Blood Count 7.1 K/UL (4.8-10.8) Red Blood Count 3.92 M/UL (4.70-6.10) L Hemoglobin 11.2 G/DL (14.2-18.0) L Hematocrit 32.9 % (42.0-52.0) L Mean Corpuscular Volume 84 FL (80-99) Mean Corpuscular Hemoglobin 28.5 PG (27.0-31.0) Mean Corpuscular Hemoglobin Concent 34.0 G/DL (32.0-36.0) Red Cell Distribution Width 12.9 % (11.6-14.8) Platelet Count 169 K/UL (150-450) Mean Platelet Volume 7.0 FL (6.5-10.1) Neutrophils (%) (Auto) 74.9 % (45.0-75.0) Lymphocytes (%) (Auto) 9.7 % (20.0-45.0) L Monocytes (%) (Auto) 13.3 % (1.0-10.0) H Eosinophils (%) (Auto) 1.6 % (0.0-3.0) Basophils (%) (Auto) 0.5 % (0.0-2.0) Sodium Level 138 MMOL/L (136-145) Potassium Level 3.6 MMOL/L (3.5-5.1) Chloride Level 104 MMOL/L (98-107) Carbon Dioxide Level 28 MMOL/L (21-32) Anion Gap 7 mmol/L (5-15) Blood Urea Nitrogen 17 mg/dL (7-18) Creatinine 0.9 MG/DL (0.55-1.30) Estimat Glomerular Filtration Rate > 60 mL/min (>60) Glucose Level 124 MG/DL (74-106) H Calcium Level 8.7 MG/DL (8.5-10.1) Total Bilirubin 0.8 MG/DL (0.2-1.0) Aspartate Amino Transf (AST/SGOT) 37 U/L (15-37) Alanine Aminotransferase (ALT/SGPT) 38 U/L (12-78) Alkaline Phosphatase 186 U/L (46-116) H Total Protein 6.3 G/DL (6.4-8.2) L Albumin 2.3 G/DL (3.4-5.0) L Globulin 4.0 g/dL Albumin/Globulin Ratio 0.6 (1.0-2.7) L Microbiology Date/Time Source Procedure Growth Status 05/19/18 17:40 Nasal Nares MRSA Culture - Final NO METHICILLIN RESISTANT STAPH AUREUS... Complete 05/19/18 17:40 Rectum VRE Culture - Final NO VANCOMYCIN RESISTANT ENTEROCOCCUS ... Complete 05/19/18 17:40 Rectum - Final NO CARBAPENEM-RESISTANT ENTEROBACTERI... Complete Johanne Richards MD May 22, 2018 15:36
[2018-05-22 16:17] VITALS: BP 120/63
--- NOTE | 2018-05-22 16:49 | General Surgery Progress Note ---
General Surgery-Progress Note Subjective Symptoms: improved, tolerating diet, passing flatus Additional Comments a bit agitated today. sitting up in bed Objective Last 24 Hour Vital Signs Date Time Temp Pulse Resp B/P (MAP) Pulse Ox O2 Delivery O2 Flow Rate FiO2 05/22/18 16:17 97.6 105 22 120/63 (82) 98 97.6 05/22/18 12:00 96 05/22/18 12:00 97.6 105 22 120/63 (82) 98 97.6 05/22/18 09:45 98.3 05/22/18 09:15 98.3 05/22/18 09:13 135 148/76 05/22/18 09:12 135 05/22/18 09:00 Room Air 05/22/18 08:00 97.6 112 20 121/6 (44) 98 97.6 05/22/18 08:00 142 05/22/18 04:00 92 05/22/18 04:00 98.3 96 24 148/76 (100) 96 98.3 05/22/18 00:00 98.0 80 21 128/71 (90) 94 98.0 05/22/18 00:00 86 05/21/18 21:21 87 128/71 05/21/18 21:00 Room Air 05/21/18 20:00 98.1 87 20 128/71 (90) 97 98.1 05/21/18 20:00 84 05/21/18 18:20 98.2 05/21/18 17:21 98.2 05/21/18 17:20 128 117/71 I&O Intake and Output 05/21/18 05/22/18 19:00 07:00 Intake Total 240 ml 120 ml Balance 240 ml 120 ml Intake Oral 240 ml 120 ml # Voids 3 5 # Bowel Movements 1 Cardiovascular: RSR Respiratory: clear Abdomen: soft, tenderness, present bowel sounds Extremities: no cyanosis Laboratory Tests Test 05/21/18 20:50 05/22/18 03:45 05/22/18 10:45 Activated Partial Thromboplast Time 37 SEC (23-33) H 52 SEC (23-33) H 51 SEC (23-33) H White Blood Count 7.1 K/UL (4.8-10.8) Red Blood Count 3.92 M/UL (4.70-6.10) L Hemoglobin 11.2 G/DL (14.2-18.0) L Hematocrit 32.9 % (42.0-52.0) L Mean Corpuscular Volume 84 FL (80-99) Mean Corpuscular Hemoglobin 28.5 PG (27.0-31.0) Mean Corpuscular Hemoglobin Concent 34.0 G/DL (32.0-36.0) Red Cell Distribution Width 12.9 % (11.6-14.8) Platelet Count 169 K/UL (150-450) Mean Platelet Volume 7.0 FL (6.5-10.1) Neutrophils (%) (Auto) 74.9 % (45.0-75.0) Lymphocytes (%) (Auto) 9.7 % (20.0-45.0) L Monocytes (%) (Auto) 13.3 % (1.0-10.0) H Eosinophils (%) (Auto) 1.6 % (0.0-3.0) Basophils (%) (Auto) 0.5 % (0.0-2.0) Sodium Level 138 MMOL/L (136-145) Potassium Level 3.6 MMOL/L (3.5-5.1) Chloride Level 104 MMOL/L (98-107) Carbon Dioxide Level 28 MMOL/L (21-32) Anion Gap 7 mmol/L (5-15) Blood Urea Nitrogen 17 mg/dL (7-18) Creatinine 0.9 MG/DL (0.55-1.30) Estimat Glomerular Filtration Rate > 60 mL/min (>60) Glucose Level 124 MG/DL (74-106) H Calcium Level 8.7 MG/DL (8.5-10.1) Total Bilirubin 0.8 MG/DL (0.2-1.0) Aspartate Amino Transf (AST/SGOT) 37 U/L (15-37) Alanine Aminotransferase (ALT/SGPT) 38 U/L (12-78) Alkaline Phosphatase 186 U/L (46-116) H Total Protein 6.3 G/DL (6.4-8.2) L Albumin 2.3 G/DL (3.4-5.0) L Globulin 4.0 g/dL Albumin/Globulin Ratio 0.6 (1.0-2.7) L Plan Problems: (1) Choledocholithiasis Assessment & Plan: labs trending down. GI input appreciated defer to GI for ERCP (2) Abdominal pain (3) Cholecystitis Assessment & Plan: will discuss lap ame with patient will need to first clear CBD okay for diet from surgical standpoint defer to GI for ERCP vs MRCP ERCP Thursday possible cholecystectomy after will follow with recs. thank you for this consultation. Cristobal Shepherd May 22, 2018 16:49
[2018-05-22] MEDS: LORazepam Inj 2mg/ml 1ml IV PRN ×2 (17:17→23:36)
--- NOTE | 2018-05-22 17:43 | General Progress Note ---
Assessment/Plan Status: stable Assessment/Plan 1. Pancytopenia, potentially secondary to liver disease, bilirubin elevated on admission. The patient had transaminitis on admission as well. MCV is elevated. --> Hepatitis A and B are negative, Hep-C is positive, HIV negative. --> Ultrasound of the abdomen reviewed. No evidence of cirrhosis. --> We will continue to closely monitor. --> Monitor platelet count closely. --> obtain a bone marrow biopsy if in future counts are worse 2. Anemia of chronic disease. Anemia panel has been reviewed. Will trend CBC daily. --> Hemoglobin goal is above 7. --> Current Hgb at 11.2, stable 3. Anemia due to underlying congestive heart failure, decompensated state. 4. Cholecystitis to have ercp performed 05/21 --> to see surgery as well as gi team 5. Possible viral urinary tract infection. 6. Transaminitis, hepatic congestion questionable. 7. Deep venous thrombosis prophylaxis, heparin subcutaneous. The time the note was entered does not necessarily correspond to the time the patient was seen. Subjective Date patient seen: May 22, 2018 ROS Limited/Unobtainable: Yes Hematologic/Lymphatic: Reports: anemia Allergies: Coded Allergies: AMPICILLIN (Verified Allergy, Unknown, 04/23/18) Uncoded Allergies: PENICILLIN (Allergy, Unknown, 04/23/18) All Systems: reviewed and negative except above Subjective Pt agitated and wants to go home. No acute events. Objective Last 24 Hour Vital Signs Date Time Temp Pulse Resp B/P (MAP) Pulse Ox O2 Delivery O2 Flow Rate FiO2 05/22/18 16:17 97.6 105 22 120/63 (82) 98 97.6 05/22/18 16:00 92 05/22/18 12:00 96 05/22/18 12:00 97.6 105 22 120/63 (82) 98 97.6 05/22/18 09:45 98.3 05/22/18 09:15 98.3 05/22/18 09:13 135 148/76 05/22/18 09:12 135 05/22/18 09:00 Room Air 05/22/18 08:00 97.6 112 20 121/6 (44) 98 97.6 05/22/18 08:00 142 05/22/18 04:00 92 05/22/18 04:00 98.3 96 24 148/76 (100) 96 98.3 05/22/18 00:00 98.0 80 21 128/71 (90) 94 98.0 05/22/18 00:00 86 05/21/18 21:21 87 128/71 05/21/18 21:00 Room Air 05/21/18 20:00 98.1 87 20 128/71 (90) 97 98.1 05/21/18 20:00 84 05/21/18 18:20 98.2 Intake and Output 05/21/18 05/22/18 19:00 07:00 Intake Total 240 ml 120 ml Balance 240 ml 120 ml Intake Oral 240 ml 120 ml # Voids 3 5 # Bowel Movements 1 Laboratory Tests 05/21/18 20:50: Activated Partial Thromboplast Time 37H 05/22/18 03:45: Activated Partial Thromboplast Time 52H, White Blood Count 7.1, Red Blood Count 3.92L, Hemoglobin 11.2L, Hematocrit 32.9L, Mean Corpuscular Volume 84, Mean Corpuscular Hemoglobin 28.5, Mean Corpuscular Hemoglobin Concent 34.0, Red Cell Distribution Width 12.9, Platelet Count 169, Mean Platelet Volume 7.0, Neutrophils (%) (Auto) 74.9, Lymphocytes (%) (Auto) 9.7L, Monocytes (%) (Auto) 13.3H, Eosinophils (%) (Auto) 1.6, Basophils (%) (Auto) 0.5, Sodium Level 138, Potassium Level 3.6, Chloride Level 104, Carbon Dioxide Level 28, Anion Gap 7, Blood Urea Nitrogen 17, Creatinine 0.9, Estimat Glomerular Filtration Rate > 60 , Glucose Level 124H, Calcium Level 8.7, Total Bilirubin 0.8, Aspartate Amino Transf (AST/SGOT) 37, Alanine Aminotransferase (ALT/SGPT) 38, Alkaline Phosphatase 186H, Total Protein 6.3L, Albumin 2.3L, Globulin 4.0, Albumin/ Globulin Ratio 0.6L 05/22/18 10:45: Activated Partial Thromboplast Time 51H Height (Feet): 5 Height (Inches): 9.00 Weight (Pounds): 150 General Appearance: no apparent distress, alert EENT: PERRL/EOMI Neck: normal alignment Cardiovascular: tachycardia Respiratory/Chest: no respiratory distress Abdomen: soft Maykel Coronel MD May 22, 2018 17:43
[2018-05-22 20:00] VITALS: BP 138/89
[2018-05-22] MEDS: Atorvastatin 20mg tab ORAL SCH (21:10)
--- NOTE | 2018-05-22 23:37 | Consultation ---
History of Present Illness General Date patient seen: May 22, 2018 Chief Complaint: Abdominal Pain Reason for Consultation: cholecystitis Present Illness HPI 68 year old male with multiple medical comorbidities including COPD and CHF, who presented with abdominal pain. the pt has been agitated and yelling and is unable to be engaged and answer the questions appropriately Allergies: Coded Allergies: AMPICILLIN (Verified Allergy, Unknown, 04/23/18) Uncoded Allergies: PENICILLIN (Allergy, Unknown, 04/23/18) Medication History Scheduled Apixaban (Eliquis), 5 MG PO TWICE A DAY, (Reported) Aspirin Ec* (Aspirin Ec*), 81 MG ORAL DAILY, (Reported) Atorvastatin Calcium* (Atorvastatin Calcium*), 40 MG ORAL BEDTIME, (Reported) Carvedilol (Coreg), 12.5 MG ORAL EVERY 12 HOURS, (Reported) Carvedilol (Coreg), 12.5 MG ORAL EVERY 12 HOURS, (Reported) Clopidogrel Bisulfate* (Plavix*), 75 MG ORAL DAILY, (Reported) Docusate Sodium* (Docusate Sodium*), 100 MG ORAL Q12HR, (Reported) Famotidine (Famotidine), 20 MG ORAL TWICE A DAY, (Reported) Furosemide (Furosemide), 40 MG PO DAILY, (Reported) Ipratropium/Albuterol Sulfate (DuoNeb 0.5-3(2.5)mg/3ml), 3 ML HHN Q4HR, ( Reported) Prednisone* (Prednisone*), 30 MG ORAL DAILY, (Reported) Prednisone* (Prednisone*), 30 MG ORAL DAILY, (Reported) Scheduled PRN Acetaminophen* (Acetaminophen 325MG Tablet*), 650 MG ORAL Q4H PRN for Mild Pain/ Temp > 100.5, (Reported) Doxycycline Hyclate* (Vibramycin*), 100 MG ORAL EVERY 12 HOURS PRN for x3 days, (Reported) Polyethylene Glycol 3350* (Miralax*), 17 GM ORAL Q12HR PRN for Constipation, ( Reported) Tramadol Hcl* (Ultram*), 50 MG ORAL Q6H PRN for For Pain Zolpidem Tartrate* (Ambien*), 5 MG ORAL BEDTIME PRN for Insomnia, (Reported) Patient History Limited by: medical condition History Provided By: Patient, Medical Record, PMD Healthcare decision maker N Resuscitation status Full Code Advanced Directive on File Past Medical/Surgical History Past Medical/Surgical History: (1) Choledocholithiasis (2) Acute renal failure (3) Cholecystitis (4) Atrial fibrillation with RVR (5) COPD (chronic obstructive pulmonary disease) (6) Pneumonia (7) Episode of generalized weakness (8) Acute systolic CHF (congestive heart failure) (9) Abdominal pain Review of Systems Psychiatric: Reports: prior hx, anxiety, depressed feelings, emotional problems , hallucinations Physical Exam General Appearance: no apparent distress, alert, agitated Last 24 Hour Vital Signs Date Time Temp Pulse Resp B/P (MAP) Pulse Ox O2 Delivery O2 Flow Rate FiO2 05/22/18 21:11 94 138/89 05/22/18 21:00 Room Air 05/22/18 20:00 97.7 103 26 138/89 (105) 96 97.7 05/22/18 20:00 118 05/22/18 18:17 105 120/63 05/22/18 16:17 97.6 105 22 120/63 (82) 98 97.6 05/22/18 16:00 92 05/22/18 12:00 96 05/22/18 12:00 97.6 105 22 120/63 (82) 98 97.6 05/22/18 09:45 98.3 05/22/18 09:15 98.3 05/22/18 09:13 135 148/76 05/22/18 09:12 135 05/22/18 09:00 Room Air 05/22/18 08:00 97.6 112 20 121/6 (44) 98 97.6 05/22/18 08:00 142 05/22/18 04:00 92 05/22/18 04:00 98.3 96 24 148/76 (100) 96 98.3 05/22/18 00:00 98.0 80 21 128/71 (90) 94 98.0 05/22/18 00:00 86 Intake and Output 05/21/18 05/22/18 19:00 07:00 Intake Total 240 ml 120 ml Balance 240 ml 120 ml Intake Oral 240 ml 120 ml # Voids 3 5 # Bowel Movements 1 Laboratory Tests Test 05/22/18 03:45 05/22/18 10:45 05/22/18 18:05 White Blood Count 7.1 K/UL (4.8-10.8) Red Blood Count 3.92 M/UL (4.70-6.10) L Hemoglobin 11.2 G/DL (14.2-18.0) L Hematocrit 32.9 % (42.0-52.0) L Mean Corpuscular Volume 84 FL (80-99) Mean Corpuscular Hemoglobin 28.5 PG (27.0-31.0) Mean Corpuscular Hemoglobin Concent 34.0 G/DL (32.0-36.0) Red Cell Distribution Width 12.9 % (11.6-14.8) Platelet Count 169 K/UL (150-450) Mean Platelet Volume 7.0 FL (6.5-10.1) Neutrophils (%) (Auto) 74.9 % (45.0-75.0) Lymphocytes (%) (Auto) 9.7 % (20.0-45.0) L Monocytes (%) (Auto) 13.3 % (1.0-10.0) H Eosinophils (%) (Auto) 1.6 % (0.0-3.0) Basophils (%) (Auto) 0.5 % (0.0-2.0) Activated Partial Thromboplast Time 52 SEC (23-33) H 51 SEC (23-33) H 68 SEC (23-33) H Sodium Level 138 MMOL/L (136-145) Potassium Level 3.6 MMOL/L (3.5-5.1) Chloride Level 104 MMOL/L (98-107) Carbon Dioxide Level 28 MMOL/L (21-32) Anion Gap 7 mmol/L (5-15) Blood Urea Nitrogen 17 mg/dL (7-18) Creatinine 0.9 MG/DL (0.55-1.30) Estimat Glomerular Filtration Rate > 60 mL/min (>60) Glucose Level 124 MG/DL (74-106) H Calcium Level 8.7 MG/DL (8.5-10.1) Total Bilirubin 0.8 MG/DL (0.2-1.0) Aspartate Amino Transf (AST/SGOT) 37 U/L (15-37) Alanine Aminotransferase (ALT/SGPT) 38 U/L (12-78) Alkaline Phosphatase 186 U/L (46-116) H Total Protein 6.3 G/DL (6.4-8.2) L Albumin 2.3 G/DL (3.4-5.0) L Globulin 4.0 g/dL Albumin/Globulin Ratio 0.6 (1.0-2.7) L Height (Feet): 5 Height (Inches): 9.00 Weight (Pounds): 150 Medications Current Medications Medications (Trade) Dose Ordered Sig/Nova Route PRN Reason Start Time Stop Time Status Last Admin Dose Admin Acetaminophen (Tylenol) 650 mg Q6H PRN ORAL Mild Pain/Temp > 100.5 05/21/18 15:15 06/20/18 15:14 05/22/18 22:51 Aspirin (ASA) 81 mg DAILY ORAL 05/22/18 09:00 06/21/18 08:59 05/22/18 09:13 Atorvastatin Calcium (Lipitor) 40 mg BEDTIME ORAL 05/19/18 21:00 06/18/18 20:59 05/22/18 21:10 Carvedilol (Coreg) 12.5 mg EVERY 12 HOURS ORAL 05/19/18 21:00 06/18/18 20:59 05/22/18 21:11 Ciprofloxacin 200 ml @ 200 mls/hr Q12HR IV 05/19/18 21:00 05/26/18 20:59 05/22/18 21:11 Diltiazem HCl (Cardizem) 10 mg Q3H PRN IV HR>130 05/20/18 00:45 06/19/18 00:44 05/20/18 04:27 Diltiazem HCl (Cardizem) 30 mg BID ORAL 05/22/18 09:00 06/21/18 08:59 05/22/18 18:17 Docusate Sodium (Colace) 100 mg Q12HR ORAL 05/19/18 21:00 06/18/18 20:59 05/22/18 21:10 Famotidine (Pepcid) 20 mg TWICE A DAY ORAL 05/20/18 09:00 06/19/18 08:59 05/22/18 18:17 Heparin Sodium/ Dextrose 500 ml @ 29.937 mls/ hr adjust per protocol IV 05/22/18 04:30 06/20/18 14:13 05/22/18 11:52 Hydralazine HCl (Apresoline) 10 mg Q6H PRN IV For High Blood Pressure 05/19/18 20:00 06/18/18 19:59 Lorazepam (Ativan 2mg/ml 1ml) 0.5 mg Q6H PRN IV For Anxiety 05/22/18 11:15 05/29/18 11:14 05/22/18 17:17 Metronidazole 100 ml @ 100 mls/hr Q8HR IVPB 05/19/18 22:00 05/26/18 21:59 05/22/18 22:45 Morphine Sulfate (Morphine Sulfate) 2 mg Q4H PRN IVP Moderate Pain (Pain Scale 4-6) 05/19/18 20:00 05/26/18 19:59 05/22/18 09:15 Morphine Sulfate (Morphine Sulfate) 4 mg Q4H PRN IVP Severe Pain (Pain Scale 7-10) 05/19/18 20:00 05/26/18 19:59 05/20/18 18:45 Sodium Chloride 1,000 ml @ 100 mls/hr Q10H IV 05/19/18 20:18 06/18/18 20:17 05/22/18 18:31 Zolpidem Tartrate (Ambien) 5 mg BEDTIME PRN ORAL Insomnia 05/19/18 22:45 05/26/18 22:44 05/19/18 22:47 Assessment/Plan Status: stable, progressing Assessment/Plan encephalopathy due to [facility] [place] the pt was given seroquel the pt was given a shot. Payal Streeter MD May 22, 2018 23:37
[2018-05-23] VITALS: BP 135/69
[2018-05-23 04:00] VITALS: BP 124/67
[2018-05-23 05:09] LABS: BASOPHILS % (AUTO) 0.8 % (0.0-2.0); EOSINOPHILS % (AUTO) 3.5 % (0.0-3.0); HEMATOCRIT 30.2 % (42.0-52.0); HEMOGLOBIN 10.3 G/DL (14.2-18.0); LYMPHOCYTES % (AUTO) 12.7 % (20.0-45.0); MEAN CORPUSCULAR VOLUME 84 FL (80-99); PLATELET COUNT 155 K/UL (150-450); RED BLOOD COUNT 3.58 M/UL (4.70-6.10); WHITE BLOOD COUNT 6.2 K/UL (4.8-10.8)
[2018-05-23 05:32] LABS: ALANINE AMINOTRANSFERASE 32 U/L (12-78); ALBUMIN 2.3 G/DL (3.4-5.0); ALBUMIN/GLOBULIN RATIO 0.6 (1.0-2.7); ALKALINE PHOSPHATASE 187 U/L (46-116); ANION GAP 7 mmol/L (5-15); ASPARTATE AMINO TRANSFERASE 32 U/L (15-37); BILIRUBIN,TOTAL 0.5 MG/DL (0.2-1.0); BLOOD UREA NITROGEN 12 mg/dL (7-18); CALCIUM 8.6 MG/DL (8.5-10.1); CARBON DIOXIDE 27 MMOL/L (21-32); CHLORIDE 107 MMOL/L (98-107); CREATININE 0.8 MG/DL (0.55-1.30); POTASSIUM 3.4 MMOL/L (3.5-5.1); SODIUM 141 MMOL/L (136-145)
[2018-05-23] MEDS: LORazepam Inj 2mg/ml 1ml IV PRN ×3 (07:08→20:44)
[2018-05-23 08:12] VITALS: BP 112/65
--- NOTE | 2018-05-23 08:33 | General Progress Note ---
Assessment/Plan Problem List: (1) Choledocholithiasis ICD Codes: K80.50 - Calculus of bile duct without cholangitis or cholecystitis without obstruction SNOMED: 605896914 (2) Cholecystitis ICD Codes: K81.9 - Cholecystitis, unspecified SNOMED: 07764213 (3) Atrial fibrillation with RVR ICD Codes: I48.91 - Unspecified atrial fibrillation SNOMED: 394040083928290 (4) COPD (chronic obstructive pulmonary disease) ICD Codes: J44.9 - Chronic obstructive pulmonary disease, unspecified SNOMED: 77391917 (5) Episode of generalized weakness ICD Codes: R53.1 - Weakness SNOMED: 13132152 (6) Abdominal pain ICD Codes: R10.9 - Unspecified abdominal pain SNOMED: 76080323 Qualifiers: Qualified Codes: R10.11 - Right upper quadrant pain Assessment/Plan Needs ERCP scope not available until Thursday patient stable abx advance diet>>on cardiac diet fu labs fu surg recs Subjective ROS Limited/Unobtainable: Yes Allergies: Coded Allergies: AMPICILLIN (Verified Allergy, Unknown, 04/23/18) Uncoded Allergies: PENICILLIN (Allergy, Unknown, 04/23/18) Objective Last 24 Hour Vital Signs Date Time Temp Pulse Resp B/P (MAP) Pulse Ox O2 Delivery O2 Flow Rate FiO2 05/23/18 08:12 97.9 89 20 112/65 (81) 96 97.9 05/23/18 04:00 97.0 99 20 124/67 (86) 94 97.0 05/23/18 04:00 89 05/23/18 00:00 90 05/23/18 00:00 97.9 92 24 135/69 (91) 94 97.9 05/22/18 21:11 94 138/89 05/22/18 21:00 Room Air 05/22/18 20:00 97.7 103 26 138/89 (105) 96 97.7 05/22/18 20:00 118 05/22/18 18:17 105 120/63 05/22/18 16:17 97.6 105 22 120/63 (82) 98 97.6 05/22/18 16:00 92 05/22/18 12:00 96 05/22/18 12:00 97.6 105 22 120/63 (82) 98 97.6 05/22/18 09:45 98.3 05/22/18 09:15 98.3 05/22/18 09:13 135 148/76 05/22/18 09:12 135 05/22/18 09:00 Room Air Intake and Output 05/22/18 05/23/18 19:00 07:00 Intake Total 960 ml 100 ml Output Total 400 ml Balance 960 ml -300 ml Intake Oral 960 ml 100 ml Output Urine Total 400 ml # Voids 6 # Bowel Movements 1 Laboratory Tests 05/22/18 10:45: Activated Partial Thromboplast Time 51H 05/22/18 18:05: Activated Partial Thromboplast Time 68H 05/23/18 04:45: Activated Partial Thromboplast Time 69H, White Blood Count 6.2, Red Blood Count 3.58L, Hemoglobin 10.3L, Hematocrit 30.2L, Mean Corpuscular Volume 84, Mean Corpuscular Hemoglobin 28.9, Mean Corpuscular Hemoglobin Concent 34.3, Red Cell Distribution Width 13.0, Platelet Count 155, Mean Platelet Volume 6.5, Neutrophils (%) (Auto) 68.0, Lymphocytes (%) (Auto) 12.7L, Monocytes (%) (Auto) 15.0H, Eosinophils (%) (Auto) 3.5H, Basophils (%) (Auto) 0.8, Sodium Level 141, Potassium Level 3.4L, Chloride Level 107, Carbon Dioxide Level 27, Anion Gap 7, Blood Urea Nitrogen 12, Creatinine 0.8, Estimat Glomerular Filtration Rate > 60 , Glucose Level 139H, Calcium Level 8.6, Total Bilirubin 0.5, Aspartate Amino Transf (AST/SGOT) 32, Alanine Aminotransferase (ALT/SGPT) 32, Alkaline Phosphatase 187H, Total Protein 6.1L, Albumin 2.3L, Globulin 3.8, Albumin/ Globulin Ratio 0.6L Height (Feet): 5 Height (Inches): 9.00 Weight (Pounds): 150 General Appearance: alert EENT: normal ENT inspection Neck: supple Cardiovascular: normal rate Respiratory/Chest: decreased breath sounds Abdomen: normal bowel sounds, non tender, soft Extremities: non-tender Omero Reyna MD May 23, 2018 08:33
[2018-05-23] MEDS ORDERED: Tubing IV Secondary IV ONE (08:46)
[2018-05-23] MEDS: Aspirin Baby 81mg ORAL SCH ×2 (08:56→09:00)
[2018-05-23] MEDS: Docusate 100mg cap ORAL SCH ×3 (08:56→20:44)
[2018-05-23] MEDS: dilTIAZem HCl 30mg tab ORAL SCH ×3 (08:57→16:43)
[2018-05-23] MEDS: Carvedilol 12.5mg tab ORAL SCH ×3 (08:57→20:45)
[2018-05-23] MEDS: Heparin 25,000u/D5W 500ml 500 ML IV SCH (09:36)
--- NOTE | 2018-05-23 10:58 | Cardiology Progress Note ---
Assessment/Plan Assessment/Plan atrial fibrillation, rate is better controlled and at rest it is 70. He is on IV Heparin, noted K level, will give more potassium Subjective Subjective the patient is resting comfortably, sleepy, denies palpitations or dyspnea Objective Last 24 Hour Vital Signs Date Time Temp Pulse Resp B/P (MAP) Pulse Ox O2 Delivery O2 Flow Rate FiO2 05/23/18 09:17 Room Air 05/23/18 08:12 97.9 89 20 112/65 (81) 96 97.9 05/23/18 04:00 97.0 99 20 124/67 (86) 94 97.0 05/23/18 04:00 89 05/23/18 00:00 90 05/23/18 00:00 97.9 92 24 135/69 (91) 94 97.9 05/22/18 21:11 94 138/89 05/22/18 21:00 Room Air 05/22/18 20:00 97.7 103 26 138/89 (105) 96 97.7 05/22/18 20:00 118 05/22/18 18:17 105 120/63 05/22/18 16:17 97.6 105 22 120/63 (82) 98 97.6 05/22/18 16:00 92 05/22/18 12:00 96 05/22/18 12:00 97.6 105 22 120/63 (82) 98 97.6 General Appearance: cachetic EENT: PERRL/EOMI Neck: no JVD Rhythm: Afib Cardiovascular: tachycardia, systolic murmur Respiratory/Chest: no respiratory distress Abdomen: non tender Extremities: trace edema Intake and Output 05/22/18 05/23/18 19:00 07:00 Intake Total 960 ml 129.937 ml Output Total 400 ml Balance 960 ml -270.063 ml Intake Oral 960 ml 100 ml IV Total 29.937 ml Output Urine Total 400 ml # Voids 6 # Bowel Movements 1 Laboratory Tests Test 05/22/18 18:05 05/23/18 04:45 Activated Partial Thromboplast Time 68 SEC (23-33) H 69 SEC (23-33) H White Blood Count 6.2 K/UL (4.8-10.8) Red Blood Count 3.58 M/UL (4.70-6.10) L Hemoglobin 10.3 G/DL (14.2-18.0) L Hematocrit 30.2 % (42.0-52.0) L Mean Corpuscular Volume 84 FL (80-99) Mean Corpuscular Hemoglobin 28.9 PG (27.0-31.0) Mean Corpuscular Hemoglobin Concent 34.3 G/DL (32.0-36.0) Red Cell Distribution Width 13.0 % (11.6-14.8) Platelet Count 155 K/UL (150-450) Mean Platelet Volume 6.5 FL (6.5-10.1) Neutrophils (%) (Auto) 68.0 % (45.0-75.0) Lymphocytes (%) (Auto) 12.7 % (20.0-45.0) L Monocytes (%) (Auto) 15.0 % (1.0-10.0) H Eosinophils (%) (Auto) 3.5 % (0.0-3.0) H Basophils (%) (Auto) 0.8 % (0.0-2.0) Sodium Level 141 MMOL/L (136-145) Potassium Level 3.4 MMOL/L (3.5-5.1) L Chloride Level 107 MMOL/L (98-107) Carbon Dioxide Level 27 MMOL/L (21-32) Anion Gap 7 mmol/L (5-15) Blood Urea Nitrogen 12 mg/dL (7-18) Creatinine 0.8 MG/DL (0.55-1.30) Estimat Glomerular Filtration Rate > 60 mL/min (>60) Glucose Level 139 MG/DL (74-106) H Calcium Level 8.6 MG/DL (8.5-10.1) Total Bilirubin 0.5 MG/DL (0.2-1.0) Aspartate Amino Transf (AST/SGOT) 32 U/L (15-37) Alanine Aminotransferase (ALT/SGPT) 32 U/L (12-78) Alkaline Phosphatase 187 U/L (46-116) H Total Protein 6.1 G/DL (6.4-8.2) L Albumin 2.3 G/DL (3.4-5.0) L Globulin 3.8 g/dL Albumin/Globulin Ratio 0.6 (1.0-2.7) L Johanne Richards MD May 23, 2018 10:58
[2018-05-23 12:00] VITALS: BP 115/64
--- NOTE | 2018-05-23 13:53 | General Progress Note ---
Assessment/Plan Status: stable Assessment/Plan 1. Pancytopenia, potentially secondary to liver disease, bilirubin elevated on admission. The patient had transaminitis on admission as well. MCV is elevated. --> Hepatitis A and B are negative, Hep-C is positive, HIV negative. --> Ultrasound of the abdomen reviewed. No evidence of cirrhosis. --> We will continue to closely monitor. --> Monitor platelet count closely. --> obtain a bone marrow biopsy if in future counts are worse 2. Anemia of chronic disease. Anemia panel has been reviewed. Will trend CBC daily. --> Hemoglobin goal is above 7. --> Current Hgb at 10.3, stable 3. Anemia due to underlying congestive heart failure, decompensated state. 4. Cholecystitis. ERCP planned for 05/25 --> to see surgery as well as gi team 5. Possible viral urinary tract infection. 6. Transaminitis, hepatic congestion questionable. 7. Deep venous thrombosis prophylaxis, heparin subcutaneous. The time the note was entered does not necessarily correspond to the time the patient was seen. Subjective Date patient seen: May 23, 2018 ROS Limited/Unobtainable: Yes Hematologic/Lymphatic: Reports: anemia Allergies: Coded Allergies: AMPICILLIN (Verified Allergy, Unknown, 04/23/18) Uncoded Allergies: PENICILLIN (Allergy, Unknown, 04/23/18) All Systems: reviewed and negative except above Subjective Pt awake and agitated. No acute events. Possible ERCP for Thursday. Objective Last 24 Hour Vital Signs Date Time Temp Pulse Resp B/P (MAP) Pulse Ox O2 Delivery O2 Flow Rate FiO2 05/23/18 12:00 98.1 100 24 115/64 (81) 96 98.1 05/23/18 09:17 Room Air 05/23/18 08:12 97.9 89 20 112/65 (81) 96 97.9 05/23/18 04:00 97.0 99 20 124/67 (86) 94 97.0 05/23/18 04:00 89 05/23/18 00:00 90 05/23/18 00:00 97.9 92 24 135/69 (91) 94 97.9 05/22/18 21:11 94 138/89 05/22/18 21:00 Room Air 05/22/18 20:00 97.7 103 26 138/89 (105) 96 97.7 05/22/18 20:00 118 05/22/18 18:17 105 120/63 05/22/18 16:17 97.6 105 22 120/63 (82) 98 97.6 05/22/18 16:00 92 Intake and Output 05/22/18 05/23/18 19:00 07:00 Intake Total 960 ml 129.937 ml Output Total 400 ml Balance 960 ml -270.063 ml Intake Oral 960 ml 100 ml IV Total 29.937 ml Output Urine Total 400 ml # Voids 6 # Bowel Movements 1 Laboratory Tests 05/22/18 18:05: Activated Partial Thromboplast Time 68H 05/23/18 04:45: Activated Partial Thromboplast Time 69H, White Blood Count 6.2, Red Blood Count 3.58L, Hemoglobin 10.3L, Hematocrit 30.2L, Mean Corpuscular Volume 84, Mean Corpuscular Hemoglobin 28.9, Mean Corpuscular Hemoglobin Concent 34.3, Red Cell Distribution Width 13.0, Platelet Count 155, Mean Platelet Volume 6.5, Neutrophils (%) (Auto) 68.0, Lymphocytes (%) (Auto) 12.7L, Monocytes (%) (Auto) 15.0H, Eosinophils (%) (Auto) 3.5H, Basophils (%) (Auto) 0.8, Sodium Level 141, Potassium Level 3.4L, Chloride Level 107, Carbon Dioxide Level 27, Anion Gap 7, Blood Urea Nitrogen 12, Creatinine 0.8, Estimat Glomerular Filtration Rate > 60 , Glucose Level 139H, Calcium Level 8.6, Total Bilirubin 0.5, Aspartate Amino Transf (AST/SGOT) 32, Alanine Aminotransferase (ALT/SGPT) 32, Alkaline Phosphatase 187H, Total Protein 6.1L, Albumin 2.3L, Globulin 3.8, Albumin/ Globulin Ratio 0.6L Height (Feet): 5 Height (Inches): 9.00 Weight (Pounds): 150 General Appearance: no apparent distress EENT: PERRL/EOMI Neck: normal alignment Cardiovascular: tachycardia Respiratory/Chest: no respiratory distress Abdomen: soft Maykel Coronel MD May 23, 2018 13:53
--- NOTE | 2018-05-23 14:10 | General Progress Note ---
Assessment/Plan Status: stable Assessment/Plan 1) Acute cholecystitis Choledocholithiasis r/o Sepsis from a biliary source -Surgery consulted- recs appreciated -elevated bilirubin/transaminitis- GI consulted- recs appreciated -continue IV antibiotics- ciprofloxacin, metronidazole -check cultures- blood, urine, lactic acid- negative to date -cardiac diet as tolerated -serial abd exams -ERCP planned for Friday 05/25 2) Chronic systolic and diastolic heart failure 3) Atrial fibrillation with rapid ventricular response 4) CAD s/p PTCA/stent 6 months ago -Telemetry monitoring -continue carvedilol, hydralazine, statin -hold apixaban given surgery -Cardiology consulted- recs appreciated- start diltiazem -Heparin drip for Afib -ASA given recent stent 5) MARY- improving near baseline -IVF's; likely hypovolemic; doubt sepsis -avoid nephrotoxins/renally dose meds -will follow closely 5) Pancytopenia -Hematology recs appreciated -monitor for now 6) Agitation, confusion - pt asking to leave AMA, questionable capacity -Psych consulted for assistance DVT Prophylaxis: scd's, IV heparin Code status: full Hospital Classification declaration: Based on this initial evaluation, and depending on the patient's clinical course, I anticipate that this patient will require hospitalization for 2-3 days. Disposition: Once the patient is stable to leave the hospital, I anticipate the patient will likely be discharged to the following environment: SNF- comes from [facility] I spent 40 minutes on this patient's case, and 23 minutes was dedicated to counseling and/or care coordination. Time of note may not reflect time of encounter. Subjective Date patient seen: May 23, 2018 Time patient seen: 14:09 ROS Limited/Unobtainable: Yes Constitutional: Reports: no symptoms HEENT: Reports: no symptoms Cardiovascular: Reports: no symptoms Respiratory: Reports: no symptoms Gastrointestinal/Abdominal: Reports: no symptoms Genitourinary: Reports: no symptoms Neurologic/Psychiatric: Reports: no symptoms Endocrine: Reports: no symptoms Hematologic/Lymphatic: Reports: no symptoms Allergies: Coded Allergies: AMPICILLIN (Verified Allergy, Unknown, 04/23/18) Uncoded Allergies: PENICILLIN (Allergy, Unknown, 04/23/18) All Systems: reviewed and negative except above Subjective No acute o/n events Awaiting ERCP on Pt states abd pain improved. Tolerating diet. Passing flatus. Pt asking to leave hospital and go back to [place] where he is from Per RN, pt noted to be agitated, some confusion noted, refusing meds Objective Last 24 Hour Vital Signs Date Time Temp Pulse Resp B/P (MAP) Pulse Ox O2 Delivery O2 Flow Rate FiO2 05/23/18 12:00 98.1 100 24 115/64 (81) 96 98.1 05/23/18 09:17 Room Air 05/23/18 08:12 97.9 89 20 112/65 (81) 96 97.9 05/23/18 04:00 97.0 99 20 124/67 (86) 94 97.0 05/23/18 04:00 89 05/23/18 00:00 90 05/23/18 00:00 97.9 92 24 135/69 (91) 94 97.9 05/22/18 21:11 94 138/89 05/22/18 21:00 Room Air 05/22/18 20:00 97.7 103 26 138/89 (105) 96 97.7 05/22/18 20:00 118 05/22/18 18:17 105 120/63 05/22/18 16:17 97.6 105 22 120/63 (82) 98 97.6 05/22/18 16:00 92 Intake and Output 05/22/18 05/23/18 19:00 07:00 Intake Total 960 ml 129.937 ml Output Total 400 ml Balance 960 ml -270.063 ml Intake Oral 960 ml 100 ml IV Total 29.937 ml Output Urine Total 400 ml # Voids 6 # Bowel Movements 1 Laboratory Tests 05/22/18 18:05: Activated Partial Thromboplast Time 68H 05/23/18 04:45: Activated Partial Thromboplast Time 69H, White Blood Count 6.2, Red Blood Count 3.58L, Hemoglobin 10.3L, Hematocrit 30.2L, Mean Corpuscular Volume 84, Mean Corpuscular Hemoglobin 28.9, Mean Corpuscular Hemoglobin Concent 34.3, Red Cell Distribution Width 13.0, Platelet Count 155, Mean Platelet Volume 6.5, Neutrophils (%) (Auto) 68.0, Lymphocytes (%) (Auto) 12.7L, Monocytes (%) (Auto) 15.0H, Eosinophils (%) (Auto) 3.5H, Basophils (%) (Auto) 0.8, Sodium Level 141, Potassium Level 3.4L, Chloride Level 107, Carbon Dioxide Level 27, Anion Gap 7, Blood Urea Nitrogen 12, Creatinine 0.8, Estimat Glomerular Filtration Rate > 60 , Glucose Level 139H, Calcium Level 8.6, Total Bilirubin 0.5, Aspartate Amino Transf (AST/SGOT) 32, Alanine Aminotransferase (ALT/SGPT) 32, Alkaline Phosphatase 187H, Total Protein 6.1L, Albumin 2.3L, Globulin 3.8, Albumin/ Globulin Ratio 0.6L Height (Feet): 5 Height (Inches): 9.00 Weight (Pounds): 150 Objective General: alert, cooperative, no distress, appears stated age Head: normocephalic, without obvious abnormality, atraumatic Eyes: conjunctivae/corneas clear. PERRL, EOM's intact Throat: lips, mucosa, and tongue normal. MMM Neck: supple, symmetrical, trachea midline, and no JVD Lungs: clear to auscultation bilaterally Heart: regular rate and rhythm, S1, S2 normal, no murmur, click, rub or gallop Abdomen: soft, non-tender, non-distended, bowel sounds normal; no masses or organomegaly Extremities: extremities normal, atraumatic, no cyanosis or edema Pulses: 2+ and symmetric Skin: skin color, texture, turgor normal; no rashes or lesions Neurologic: grossly normal, no focal deficits Lucio Tristan M.D. May 23, 2018 14:09
[2018-05-23] MEDS ORDERED: LORazepam Inj 2mg/ml 1ml IM SCH (17:00)
[2018-05-23] MEDS ORDERED: DiphenhydrAMINE 50mg/ml Inj IM SCH (17:00)
[2018-05-23] MEDS: dilTIAZem HCl 25mg/5ml Inj IV PRN (19:26)
[2018-05-23 20:00] VITALS: BP 125/65
[2018-05-23] MEDS: Atorvastatin 20mg tab ORAL SCH (20:50)
[2018-05-24] VITALS: BP 110/65
[2018-05-24] MEDS: Heparin 25,000u/D5W 500ml 500 ML IV SCH ×3 (02:07→17:12)
[2018-05-24 04:00] VITALS: BP 125/90
[2018-05-24 05:19] LABS: EOSINOPHILS % (AUTO) 3.7 % (0.0-3.0); HEMATOCRIT 31.8 % (42.0-52.0); HEMOGLOBIN 10.4 G/DL (14.2-18.0); LYMPHOCYTES % (AUTO) 13.8 % (20.0-45.0); MEAN CORPUSCULAR VOLUME 84 FL (80-99); MONOCYTES % (AUTO) 16.4 % (1.0-10.0); NEUTROPHILS % (AUTO) 65.1 % (45.0-75.0); PLATELET COUNT 174 K/UL (150-450); RED CELL DISTRIBUTION WIDTH 12.6 % (11.6-14.8); WHITE BLOOD COUNT 7.1 K/UL (4.8-10.8)
[2018-05-24 05:25] LABS: ANION GAP 3 mmol/L (5-15); BLOOD UREA NITROGEN 8 mg/dL (7-18); CALCIUM 8.1 MG/DL (8.5-10.1); CARBON DIOXIDE 29 MMOL/L (21-32); CHLORIDE 108 MMOL/L (98-107); CREATININE 0.7 MG/DL (0.55-1.30); POTASSIUM 3.5 MMOL/L (3.5-5.1); SODIUM 140 MMOL/L (136-145)
[2018-05-24] MEDS ORDERED: Heparin 5000 units/ml inj IV ONE (05:45)
--- NOTE | 2018-05-24 07:39 | General Progress Note ---
Assessment/Plan Problem List: (1) Choledocholithiasis ICD Codes: K80.50 - Calculus of bile duct without cholangitis or cholecystitis without obstruction SNOMED: 914245949 (2) Cholecystitis ICD Codes: K81.9 - Cholecystitis, unspecified SNOMED: 65443476 (3) Atrial fibrillation with RVR ICD Codes: I48.91 - Unspecified atrial fibrillation SNOMED: 713517279739777 (4) COPD (chronic obstructive pulmonary disease) ICD Codes: J44.9 - Chronic obstructive pulmonary disease, unspecified SNOMED: 35287044 (5) Episode of generalized weakness ICD Codes: R53.1 - Weakness SNOMED: 25419690 (6) Abdominal pain ICD Codes: R10.9 - Unspecified abdominal pain SNOMED: 85739547 Qualifiers: Qualified Codes: R10.11 - Right upper quadrant pain Assessment/Plan Needs ERCP plan for AM patient stable abx advance diet>>on cardiac diet fu labs fu surg recs Subjective ROS Limited/Unobtainable: Yes Allergies: Coded Allergies: AMPICILLIN (Verified Allergy, Unknown, 04/23/18) Uncoded Allergies: PENICILLIN (Allergy, Unknown, 04/23/18) Objective Last 24 Hour Vital Signs Date Time Temp Pulse Resp B/P (MAP) Pulse Ox O2 Delivery O2 Flow Rate FiO2 05/24/18 04:00 121 05/24/18 04:00 98.0 110 18 125/90 (102) 96 98.0 05/24/18 00:00 98.2 86 18 110/65 (80) 96 98.2 05/24/18 00:00 98 05/23/18 21:00 Room Air 05/23/18 20:45 110 125/65 05/23/18 20:00 98.4 103 18 125/65 (85) 93 98.4 05/23/18 20:00 126 05/23/18 19:26 145 144/89 05/23/18 16:43 136 115/64 05/23/18 16:00 150 05/23/18 12:00 136 05/23/18 12:00 98.1 100 24 115/64 (81) 96 98.1 05/23/18 09:17 Room Air 05/23/18 08:12 97.9 89 20 112/65 (81) 96 97.9 05/23/18 08:00 95 Intake and Output 05/23/18 05/24/18 19:00 07:00 Intake Total 639.118 ml 2059.292 ml Balance 639.118 ml 2059.292 ml Intake Oral 150 ml 100 ml IV Total 489.118 ml 1959.292 ml # Voids 2 4 # Bowel Movements 1 Laboratory Tests 05/24/18 04:55: White Blood Count 7.1, Red Blood Count 3.80L, Hemoglobin 10.4L, Hematocrit 31.8L , Mean Corpuscular Volume 84, Mean Corpuscular Hemoglobin 27.5, Mean Corpuscular Hemoglobin Concent 32.8, Red Cell Distribution Width 12.6, Platelet Count 174, Mean Platelet Volume 6.6, Neutrophils (%) (Auto) 65.1, Lymphocytes (% ) (Auto) 13.8L, Monocytes (%) (Auto) 16.4H, Eosinophils (%) (Auto) 3.7H, Basophils (%) (Auto) 1.0, Activated Partial Thromboplast Time 56H, Sodium Level 140, Potassium Level 3.5, Chloride Level 108H, Carbon Dioxide Level 29, Anion Gap 3L, Blood Urea Nitrogen 8, Creatinine 0.7, Estimat Glomerular Filtration Rate > 60, Glucose Level 109H, Calcium Level 8.1L Height (Feet): 5 Height (Inches): 9.00 Weight (Pounds): 150 General Appearance: alert EENT: normal ENT inspection Neck: supple Cardiovascular: normal rate Respiratory/Chest: decreased breath sounds Abdomen: normal bowel sounds, non tender, soft Extremities: non-tender Omero Reyna MD May 24, 2018 07:39
[2018-05-24 08:00] VITALS: BP 142/71
[2018-05-24] MEDS: Aspirin Baby 81mg ORAL SCH (09:19)
[2018-05-24] MEDS: dilTIAZem HCl 30mg tab ORAL SCH ×2 (09:20→18:12)
[2018-05-24] MEDS: Docusate 100mg cap ORAL SCH ×2 (09:20→21:24)
[2018-05-24] MEDS: Carvedilol 12.5mg tab ORAL SCH ×2 (09:20→21:00)
--- NOTE | 2018-05-24 10:10 | General Surgery Progress Note ---
General Surgery-Progress Note Subjective Symptoms: improved, tolerating diet, passing flatus, BM Additional Comments no acute events. Objective Last 24 Hour Vital Signs Date Time Temp Pulse Resp B/P (MAP) Pulse Ox O2 Delivery O2 Flow Rate FiO2 05/24/18 09:20 101 142/71 05/24/18 09:20 101 142/71 05/24/18 09:00 Room Air 05/24/18 08:00 98.6 101 24 142/71 (94) 94 98.6 05/24/18 08:00 95 05/24/18 04:00 121 05/24/18 04:00 98.0 110 18 125/90 (102) 96 98.0 05/24/18 00:00 98.2 86 18 110/65 (80) 96 98.2 05/24/18 00:00 98 05/23/18 21:00 Room Air 05/23/18 20:45 110 125/65 05/23/18 20:00 98.4 103 18 125/65 (85) 93 98.4 05/23/18 20:00 126 05/23/18 19:26 145 144/89 05/23/18 16:43 136 115/64 05/23/18 16:00 150 05/23/18 12:00 136 05/23/18 12:00 98.1 100 24 115/64 (81) 96 98.1 I&O Intake and Output 05/23/18 05/24/18 19:00 07:00 Intake Total 639.118 ml 2059.292 ml Balance 639.118 ml 2059.292 ml Intake Oral 150 ml 100 ml IV Total 489.118 ml 1959.292 ml # Voids 2 4 # Bowel Movements 1 Drains: none Cardiovascular: RSR Respiratory: clear Abdomen: soft, flat, tenderness, present bowel sounds Extremities: no edema, no tenderness, no cyanosis Laboratory Tests Test 05/24/18 04:55 White Blood Count 7.1 K/UL (4.8-10.8) Red Blood Count 3.80 M/UL (4.70-6.10) L Hemoglobin 10.4 G/DL (14.2-18.0) L Hematocrit 31.8 % (42.0-52.0) L Mean Corpuscular Volume 84 FL (80-99) Mean Corpuscular Hemoglobin 27.5 PG (27.0-31.0) Mean Corpuscular Hemoglobin Concent 32.8 G/DL (32.0-36.0) Red Cell Distribution Width 12.6 % (11.6-14.8) Platelet Count 174 K/UL (150-450) Mean Platelet Volume 6.6 FL (6.5-10.1) Neutrophils (%) (Auto) 65.1 % (45.0-75.0) Lymphocytes (%) (Auto) 13.8 % (20.0-45.0) L Monocytes (%) (Auto) 16.4 % (1.0-10.0) H Eosinophils (%) (Auto) 3.7 % (0.0-3.0) H Basophils (%) (Auto) 1.0 % (0.0-2.0) Activated Partial Thromboplast Time 56 SEC (23-33) H Sodium Level 140 MMOL/L (136-145) Potassium Level 3.5 MMOL/L (3.5-5.1) Chloride Level 108 MMOL/L (98-107) H Carbon Dioxide Level 29 MMOL/L (21-32) Anion Gap 3 mmol/L (5-15) L Blood Urea Nitrogen 8 mg/dL (7-18) Creatinine 0.7 MG/DL (0.55-1.30) Estimat Glomerular Filtration Rate > 60 mL/min (>60) Glucose Level 109 MG/DL (74-106) H Calcium Level 8.1 MG/DL (8.5-10.1) L Plan Problems: (1) Choledocholithiasis Assessment & Plan: labs trending down. GI input appreciated defer to GI for ERCP (2) Abdominal pain (3) Cholecystitis Assessment & Plan: will discuss lap ame with patient will need to first clear CBD okay for diet from surgical standpoint defer to GI for ERCP vs MRCP ERCP Thursday possible cholecystectomy after will follow with recs. thank you for this consultation. Cristobal Shepherd May 24, 2018 10:10
--- NOTE | 2018-05-24 10:21 | General Progress Note ---
Assessment/Plan Assessment/Plan 1. Pancytopenia, potentially secondary to liver disease, bilirubin elevated on admission. The patient had transaminitis on admission as well. MCV is elevated. --> Hepatitis A and B are negative, Hep-C is positive, HIV negative. --> Ultrasound of the abdomen reviewed. No evidence of cirrhosis. --> We will continue to closely monitor. --> Monitor platelet count closely. --> Obtain a bone marrow biopsy if in future counts are worse 2. Anemia of chronic disease. Anemia panel has been reviewed. Will trend CBC daily. --> Hemoglobin goal is above 7. --> Current Hgb at 10.3, stable 3. Anemia due to underlying congestive heart failure, decompensated state. 4. Cholecystitis. ERCP planned for 05/25 --> results of ercp pending 5. Possible viral urinary tract infection. 6. Transaminitis, hepatic congestion questionable. 7. Deep venous thrombosis prophylaxis, heparin subcutaneous. The time the note was entered does not necessarily correspond to the time the patient was seen. Subjective Constitutional: Reports: no symptoms HEENT: Reports: no symptoms Cardiovascular: Reports: no symptoms Respiratory: Reports: no symptoms Gastrointestinal/Abdominal: Reports: no symptoms Genitourinary: Reports: no symptoms Neurologic/Psychiatric: Reports: no symptoms Endocrine: Reports: no symptoms Hematologic/Lymphatic: Reports: anemia Allergies: Coded Allergies: AMPICILLIN (Verified Allergy, Unknown, 04/23/18) Uncoded Allergies: PENICILLIN (Allergy, Unknown, 04/23/18) Subjective Pt awake and agitated. No acute events. Possible ERCP for Thursday. Objective Last 24 Hour Vital Signs Date Time Temp Pulse Resp B/P (MAP) Pulse Ox O2 Delivery O2 Flow Rate FiO2 05/24/18 09:20 101 142/71 05/24/18 09:20 101 142/71 05/24/18 09:00 Room Air 05/24/18 08:00 98.6 101 24 142/71 (94) 94 98.6 05/24/18 08:00 95 05/24/18 04:00 121 05/24/18 04:00 98.0 110 18 125/90 (102) 96 98.0 05/24/18 00:00 98.2 86 18 110/65 (80) 96 98.2 05/24/18 00:00 98 05/23/18 21:00 Room Air 05/23/18 20:45 110 125/65 05/23/18 20:00 98.4 103 18 125/65 (85) 93 98.4 05/23/18 20:00 126 05/23/18 19:26 145 144/89 05/23/18 16:43 136 115/64 05/23/18 16:00 150 05/23/18 12:00 136 05/23/18 12:00 98.1 100 24 115/64 (81) 96 98.1 Intake and Output 05/23/18 05/24/18 19:00 07:00 Intake Total 639.118 ml 2059.292 ml Balance 639.118 ml 2059.292 ml Intake Oral 150 ml 100 ml IV Total 489.118 ml 1959.292 ml # Voids 2 4 # Bowel Movements 1 Laboratory Tests 05/24/18 04:55: White Blood Count 7.1, Red Blood Count 3.80L, Hemoglobin 10.4L, Hematocrit 31.8L , Mean Corpuscular Volume 84, Mean Corpuscular Hemoglobin 27.5, Mean Corpuscular Hemoglobin Concent 32.8, Red Cell Distribution Width 12.6, Platelet Count 174, Mean Platelet Volume 6.6, Neutrophils (%) (Auto) 65.1, Lymphocytes (% ) (Auto) 13.8L, Monocytes (%) (Auto) 16.4H, Eosinophils (%) (Auto) 3.7H, Basophils (%) (Auto) 1.0, Activated Partial Thromboplast Time 56H, Sodium Level 140, Potassium Level 3.5, Chloride Level 108H, Carbon Dioxide Level 29, Anion Gap 3L, Blood Urea Nitrogen 8, Creatinine 0.7, Estimat Glomerular Filtration Rate > 60, Glucose Level 109H, Calcium Level 8.1L Height (Feet): 5 Height (Inches): 9.00 Weight (Pounds): 150 General Appearance: no apparent distress EENT: normal ENT inspection Neck: supple Cardiovascular: regular rhythm Respiratory/Chest: normal breath sounds Abdomen: no organomegaly Extremities: normal inspection Edema: no edema noted Leg (L), no edema noted Leg (R) Edema: mild edema 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 Skin: warm/dry Maykel Coronel MD May 24, 2018 10:21
--- NOTE | 2018-05-24 11:47 | Cardiology Progress Note ---
Assessment/Plan Assessment/Plan his K is 3.5, needs replacement also will check his Mg level and TSH His heart rate is better controlled now, and only goes up when he is moving and getting agitated, that is no reason to advance heart rate medications d/w nurse Subjective Subjective the patient is resting comfortably, sleepy, denies palpitations or dyspnea intermittently he is getting agitated and his heart rate goes up. Objective Last 24 Hour Vital Signs Date Time Temp Pulse Resp B/P (MAP) Pulse Ox O2 Delivery O2 Flow Rate FiO2 05/24/18 09:20 101 142/71 05/24/18 09:20 101 142/71 05/24/18 09:00 Room Air 05/24/18 08:00 98.6 101 24 142/71 (94) 94 98.6 05/24/18 08:00 95 05/24/18 04:00 121 05/24/18 04:00 98.0 110 18 125/90 (102) 96 98.0 05/24/18 00:00 98.2 86 18 110/65 (80) 96 98.2 05/24/18 00:00 98 05/23/18 21:00 Room Air 05/23/18 20:45 110 125/65 05/23/18 20:00 98.4 103 18 125/65 (85) 93 98.4 05/23/18 20:00 126 05/23/18 19:26 145 144/89 05/23/18 16:43 136 115/64 05/23/18 16:00 150 05/23/18 12:00 136 05/23/18 12:00 98.1 100 24 115/64 (81) 96 98.1 General Appearance: lethargic, other - confused EENT: PERRL/EOMI Neck: no JVD Rhythm: Afib Cardiovascular: tachycardia Respiratory/Chest: rhonchi - bilaterally Abdomen: non tender Extremities: normal capillary refill Intake and Output 05/23/18 05/24/18 19:00 07:00 Intake Total 639.118 ml 2059.292 ml Balance 639.118 ml 2059.292 ml Intake Oral 150 ml 100 ml IV Total 489.118 ml 1959.292 ml # Voids 2 4 # Bowel Movements 1 Laboratory Tests Test 05/24/18 04:55 White Blood Count 7.1 K/UL (4.8-10.8) Red Blood Count 3.80 M/UL (4.70-6.10) L Hemoglobin 10.4 G/DL (14.2-18.0) L Hematocrit 31.8 % (42.0-52.0) L Mean Corpuscular Volume 84 FL (80-99) Mean Corpuscular Hemoglobin 27.5 PG (27.0-31.0) Mean Corpuscular Hemoglobin Concent 32.8 G/DL (32.0-36.0) Red Cell Distribution Width 12.6 % (11.6-14.8) Platelet Count 174 K/UL (150-450) Mean Platelet Volume 6.6 FL (6.5-10.1) Neutrophils (%) (Auto) 65.1 % (45.0-75.0) Lymphocytes (%) (Auto) 13.8 % (20.0-45.0) L Monocytes (%) (Auto) 16.4 % (1.0-10.0) H Eosinophils (%) (Auto) 3.7 % (0.0-3.0) H Basophils (%) (Auto) 1.0 % (0.0-2.0) Activated Partial Thromboplast Time 56 SEC (23-33) H Sodium Level 140 MMOL/L (136-145) Potassium Level 3.5 MMOL/L (3.5-5.1) Chloride Level 108 MMOL/L (98-107) H Carbon Dioxide Level 29 MMOL/L (21-32) Anion Gap 3 mmol/L (5-15) L Blood Urea Nitrogen 8 mg/dL (7-18) Creatinine 0.7 MG/DL (0.55-1.30) Estimat Glomerular Filtration Rate > 60 mL/min (>60) Glucose Level 109 MG/DL (74-106) H Calcium Level 8.1 MG/DL (8.5-10.1) L Johanne Richards MD May 24, 2018 11:47
[2018-05-24 12:00] VITALS: BP 138/63
--- NOTE | 2018-05-24 13:48 | General Progress Note ---
Assessment/Plan Status: progressing Assessment/Plan 1) Acute cholecystitis Choledocholithiasis r/o Sepsis from a biliary source -Surgery consulted- recs appreciated -elevated bilirubin/transaminitis- GI consulted- recs appreciated -continue IV antibiotics- ciprofloxacin, metronidazole -check cultures- blood, urine, lactic acid- negative to date - EGD/ERCP delayed- will attempt tomorrow -NPO after midnight 2) Chronic systolic and diastolic heart failure 3) Atrial fibrillation with rapid ventricular response 4) CAD s/p PTCA/stent 6 months ago -Telemetry monitoring -continue carvedilol, hydralazine, statin -hold apixaban given surgery -Cardiology consulted- recs appreciated- started diltiazem -Continue heparin drip, ASA given recent stent and atrial fibrillation -replete K, Mg 5) MARY- improving near baseline -IVF's; likely hypovolemic; doubt sepsis -avoid nephrotoxins/renally dose meds -will follow closely 6) Pancytopenia -Hematology recs appreciated -monitor for now DVT Prophylaxis: scd's, IV heparin Code status: full Hospital Classification declaration: Based on this initial evaluation, and depending on the patient's clinical course, I anticipate that this patient will require hospitalization for 2-3 days. Disposition: Once the patient is stable to leave the hospital, I anticipate the patient will likely be discharged to the following environment:SNF- comes from [facility] I spent 45 minutes on this patient's case, and 23 minutes was dedicated to counseling and/or care coordination. Time of note may not reflect time of encounter. Subjective Date patient seen: May 24, 2018 Time patient seen: 11:44 ROS Limited/Unobtainable: Yes Constitutional: Reports: no symptoms HEENT: Reports: no symptoms Cardiovascular: Reports: no symptoms Respiratory: Reports: no symptoms Gastrointestinal/Abdominal: Reports: abdominal pain Genitourinary: Reports: no symptoms Neurologic/Psychiatric: Reports: no symptoms Endocrine: Reports: no symptoms Allergies: Coded Allergies: AMPICILLIN (Verified Allergy, Unknown, 04/23/18) Uncoded Allergies: PENICILLIN (Allergy, Unknown, 04/23/18) All Systems: reviewed and negative except above Subjective Events of overnight reviewed Chart reviewed by me Patient without complaints this AM Denies abdominal pain currently NO N/V Objective Last 24 Hour Vital Signs Date Time Temp Pulse Resp B/P (MAP) Pulse Ox O2 Delivery O2 Flow Rate FiO2 9/3/18 12:00 97.7 86 24 138/63 (88) 95 97.7 05/24/18 12:00 154 05/24/18 09:20 101 142/71 05/24/18 09:20 101 142/71 05/24/18 09:00 Room Air 05/24/18 08:00 98.6 101 24 142/71 (94) 94 98.6 05/24/18 08:00 95 05/24/18 04:00 121 05/24/18 04:00 98.0 110 18 125/90 (102) 96 98.0 05/24/18 00:00 98.2 86 18 110/65 (80) 96 98.2 05/24/18 00:00 98 05/23/18 21:00 Room Air 05/23/18 20:45 110 125/65 05/23/18 20:00 98.4 103 18 125/65 (85) 93 98.4 05/23/18 20:00 126 05/23/18 19:26 145 144/89 05/23/18 16:43 136 115/64 05/23/18 16:00 150 Intake and Output 05/23/18 05/24/18 19:00 07:00 Intake Total 639.118 ml 2059.292 ml Balance 639.118 ml 2059.292 ml Intake Oral 150 ml 100 ml IV Total 489.118 ml 1959.292 ml # Voids 2 4 # Bowel Movements 1 Laboratory Tests 05/24/18 04:55: White Blood Count 7.1, Red Blood Count 3.80L, Hemoglobin 10.4L, Hematocrit 31.8L , Mean Corpuscular Volume 84, Mean Corpuscular Hemoglobin 27.5, Mean Corpuscular Hemoglobin Concent 32.8, Red Cell Distribution Width 12.6, Platelet Count 174, Mean Platelet Volume 6.6, Neutrophils (%) (Auto) 65.1, Lymphocytes (% ) (Auto) 13.8L, Monocytes (%) (Auto) 16.4H, Eosinophils (%) (Auto) 3.7H, Basophils (%) (Auto) 1.0, Activated Partial Thromboplast Time 56H, Sodium Level 140, Potassium Level 3.5, Chloride Level 108H, Carbon Dioxide Level 29, Anion Gap 3L, Blood Urea Nitrogen 8, Creatinine 0.7, Estimat Glomerular Filtration Rate > 60, Glucose Level 109H, Calcium Level 8.1L 05/24/18 12:00: Activated Partial Thromboplast Time 90H, Magnesium Level 1.7L, Thyroid Stimulating Hormone (TSH) 1.428 Height (Feet): 5 Height (Inches): 9.00 Weight (Pounds): 150 General Appearance: no apparent distress, alert EENT: PERRL/EOMI, TMs normal, pharynx normal Neck: non-tender, supple Cardiovascular: normal rate, no JVD, irregularly irregular Respiratory/Chest: lungs clear, normal breath sounds Abdomen: normal bowel sounds, non tender, tender Pelvis: normal external exam Extremities: normal range of motion Edema: trace edema 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 Skin: normal pigmentation, warm/dry Lymphatic: normal anterior cervical (L), normal anterior cervical (R) Jason Monte MD May 24, 2018 13:48
[2018-05-24] MEDS ORDERED: Tubing IV Secondary IV ONE (15:26)
[2018-05-24 16:00] VITALS: BP 122/81
[2018-05-24] MEDS: LORazepam Inj 2mg/ml 1ml IV PRN (18:12)
[2018-05-24 20:00] VITALS: BP 100/70
[2018-05-24] MEDS: Atorvastatin 20mg tab ORAL SCH (21:24)
[2018-05-25] VITALS (11 sets, daily range): BP systolic 95–129; BP diastolic 58–76
[2018-05-25] MEDS: Heparin 25,000u/D5W 500ml 500 ML IV SCH (00:15)
[2018-05-25] MEDS: dilTIAZem HCl 25mg/5ml Inj IV PRN ×2 (02:08→17:09)
[2018-05-25 04:14] LABS: BASOPHILS % (AUTO) 1.1 % (0.0-2.0); EOSINOPHILS % (AUTO) 2.8 % (0.0-3.0); HEMATOCRIT 32.3 % (42.0-52.0); HEMOGLOBIN 10.6 G/DL (14.2-18.0); LYMPHOCYTES % (AUTO) 8.5 % (20.0-45.0); MEAN CORPUSCULAR VOLUME 83 FL (80-99); NEUTROPHILS % (AUTO) 72.7 % (45.0-75.0); PLATELET COUNT 203 K/UL (150-450); RED BLOOD COUNT 3.88 M/UL (4.70-6.10); RED CELL DISTRIBUTION WIDTH 12.8 % (11.6-14.8); WHITE BLOOD COUNT 7.8 K/UL (4.8-10.8)
[2018-05-25 04:28] LABS: ALANINE AMINOTRANSFERASE 30 U/L (12-78); ALBUMIN 2.3 G/DL (3.4-5.0); ALBUMIN/GLOBULIN RATIO 0.7 (1.0-2.7); ALKALINE PHOSPHATASE 138 U/L (46-116); ANION GAP 3 mmol/L (5-15); ASPARTATE AMINO TRANSFERASE 35 U/L (15-37); BILIRUBIN,TOTAL 0.6 MG/DL (0.2-1.0); BLOOD UREA NITROGEN 3 mg/dL (7-18); CALCIUM 8.6 MG/DL (8.5-10.1); CARBON DIOXIDE 30 MMOL/L (21-32); CHLORIDE 108 MMOL/L (98-107); CREATININE 0.8 MG/DL (0.55-1.30); SODIUM 141 MMOL/L (136-145)
[2018-05-25 04:41] LABS: INR 1.2 (0.9-1.1)
--- NOTE | 2018-05-25 06:28 | General Progress Note ---
Assessment/Plan Assessment/Plan 1. Pancytopenia, potentially secondary to liver disease, bilirubin elevated on admission. The patient had transaminitis on admission as well. MCV is elevated. --> Hepatitis A and B are negative, Hep-C is positive, HIV negative. --> Ultrasound of the abdomen reviewed. No evidence of cirrhosis or splenomegaly --> We will continue to closely monitor. --> Monitor platelet count closely. --> Counts improved, compared to admission, doesn't need a bone marrow biopsy 2. Anemia of chronic disease. Anemia panel has been reviewed. Will trend CBC daily. --> Hemoglobin goal is above 7. --> Current Hgb at 10.3, stable 3. Anemia due to underlying congestive heart failure, decompensated state. --> monitor fluid status closely, as per cards 4. Cholecystitis. ERCP planned for 05/25 --> results of ercp pending 5. Possible viral urinary tract infection. 6. Transaminitis, hepatic congestion questionable. 7. Deep venous thrombosis prophylaxis with heparin subcutaneous. The time the note was entered does not necessarily correspond to the time the patient was seen. Subjective Constitutional: Denies: no symptoms, chills, diaphoresis, fever, malaise, weakness, other HEENT: Denies: no symptoms, eye pain, blurred vision, tearing, double vision, ear pain, ear discharge, nose pain, nose congestion, throat pain, throat swelling, mouth pain, mouth swelling, other Cardiovascular: Denies: no symptoms, chest pain, edema, irregular heart rate, lightheadedness, palpitations, syncope, other Respiratory: Denies: no symptoms, cough, orthopnea, shortness of breath, SOB with excertion, SOB at rest, sputum, stridor, wheezing, other Gastrointestinal/Abdominal: Denies: no symptoms, abdomen distended, abdominal pain, black stools, tarry stools, blood in stool, constipated, diarrhea, difficulty swallowing, nausea, poor appetite, poor fluid intake, rectal bleeding , vomiting, other Genitourinary: Denies: no symptoms, burning, discharge, frequency, flank pain, hematuria, incontinence, pain, urgency, other Neurologic/Psychiatric: Denies: no symptoms, anxiety, depressed, emotional problems, headache, numbness, paresthesia, pre-existing deficit, seizure, tingling, tremors, weakness, other Endocrine: Denies: no symptoms, excessive sweating, flushing, intolerance to cold, intolerance to heat, increased hunger, increased thirst, increased urine, unexplained weight gain, unexplained weight loss, other Hematologic/Lymphatic: Denies: no symptoms, anemia, easy bleeding, easy bruising, other Allergies: Coded Allergies: AMPICILLIN (Verified Allergy, Unknown, 04/23/18) Uncoded Allergies: PENICILLIN (Allergy, Unknown, 04/23/18) Subjective Pt awake and agitated. No acute events. Hr is up and down. Possible ERCP for today. Objective Last 24 Hour Vital Signs Date Time Temp Pulse Resp B/P (MAP) Pulse Ox O2 Delivery O2 Flow Rate FiO2 05/25/18 04:00 97.2 94 22 129/65 (86) 95 97.2 05/25/18 04:00 106 05/25/18 02:08 143 121/65 05/25/18 00:00 105 05/25/18 00:00 97.5 109 24 112/58 (76) 96 97.5 05/24/18 21:00 Nasal Cannula 2.0 05/24/18 21:00 96 100/70 05/24/18 20:00 97 05/24/18 20:00 97.9 101 24 100/70 (80) 94 97.9 05/24/18 18:12 95 122/81 05/24/18 16:00 98.1 88 24 122/81 (95) 95 98.1 05/24/18 16:00 95 05/24/18 12:00 97.7 86 24 138/63 (88) 95 97.7 05/24/18 12:00 154 05/24/18 09:20 101 142/71 05/24/18 09:20 101 142/71 05/24/18 09:00 Room Air 05/24/18 08:00 98.6 101 24 142/71 (94) 94 98.6 05/24/18 08:00 95 Intake and Output 05/24/18 05/25/18 19:00 07:00 Intake Total 1499.249 ml Output Total 1000 ml Balance 499.249 ml Intake Oral 340 ml IV Total 1159.249 ml Output Urine Total 1000 ml Laboratory Tests 05/24/18 12:00: Activated Partial Thromboplast Time 90H, Magnesium Level 1.7L, Thyroid Stimulating Hormone (TSH) 1.428 05/25/18 04:01: Activated Partial Thromboplast Time 31, White Blood Count 7.8, Red Blood Count 3.88L, Hemoglobin 10.6L, Hematocrit 32.3L, Mean Corpuscular Volume 83, Mean Corpuscular Hemoglobin 27.3, Mean Corpuscular Hemoglobin Concent 32.7, Red Cell Distribution Width 12.8, Platelet Count 203, Mean Platelet Volume 6.0L, Neutrophils (%) (Auto) 72.7, Lymphocytes (%) (Auto) 8.5L, Monocytes (%) (Auto) 15.0H, Eosinophils (%) (Auto) 2.8, Basophils (%) (Auto) 1.1, Prothrombin Time 12.7H, Prothromb Time International Ratio 1.2H, Sodium Level 141, Potassium Level 4.0, Chloride Level 108H, Carbon Dioxide Level 30, Anion Gap 3L, Blood Urea Nitrogen 3L, Creatinine 0.8, Estimat Glomerular Filtration Rate > 60, Glucose Level 107H, Calcium Level 8.6, Total Bilirubin 0.6, Aspartate Amino Transf (AST/SGOT) 35, Alanine Aminotransferase (ALT/SGPT) 30, Alkaline Phosphatase 138H, Total Protein 5.8L, Albumin 2.3L, Globulin 3.5, Albumin/ Globulin Ratio 0.7L Height (Feet): 5 Height (Inches): 9.00 Weight (Pounds): 150 General Appearance: no apparent distress EENT: TMs normal Neck: supple Cardiovascular: regular rhythm Respiratory/Chest: normal breath sounds Abdomen: soft Extremities: non-tender Edema: 1+ Leg (L), 1+ Leg (R) Edema: mild edema 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 Skin: warm/dry Maykel Coronel MD May 25, 2018 06:28
[2018-05-25] MEDS ORDERED: Iothalamate Meglumine 60% 30ML INJ ONE ×3 (07:00→08:37)
[2018-05-25] MEDS ORDERED: fentaNYL 100 mcg/2 mL IV ONE (07:30)
[2018-05-25] MEDS ORDERED: Midazolam 2mg/2ml Inj ONE (07:30)
[2018-05-25] MEDS: dilTIAZem HCl 30mg tab ORAL SCH ×3 (07:50→21:32)
[2018-05-25] MEDS ORDERED: NS 500ML IVPB ONE (08:15)
--- NOTE | 2018-05-25 08:19 | Pre-Procedure Note/Attestation ---
Pre-Procedure Note/Attestation Complete Prior to Procedure Planned Procedure: not applicable Procedure Narrative: ercp Indications for Procedure Pre-Operative Diagnosis: cbd stones Attestation I attest that I discussed the nature of the procedure; its benefits; risks and complications; and alternatives (and the risks and benefits of such alternatives ), prior to the procedure, with the patient (or the patient's legal outside dealer sales representative). I attest that, if there was a reasonable possibility of needing a blood transfusion, the patient (or the patient's legal outside dealer sales representative) was given the [facility] standardized written summary, pursuant to the [employer] Blood Safety Act ([place] Health and Safety Code # 1645, as amended). I attest that I re-evaluated the patient just prior to the surgery and that there has been no change in the patient's H&P, except as documented below: Omero Reyna MD May 25, 2018 08:19
[2018-05-25] MEDS ORDERED: Lidocaine 1% 10mg/ml/EPI 0.01mg/ml 50ml INJ ONE (08:31)
[2018-05-25] MEDS ORDERED: Bupivacaine 0.5% Inj 30 ml vial INJ ONE (08:31)
[2018-05-25] MEDS ORDERED: EPINEPHrine 1mg/1ml Amp ONE (08:31)
[2018-05-25] MEDS: Docusate 100mg cap ORAL SCH ×2 (09:00→21:30)
[2018-05-25] MEDS: Aspirin Baby 81mg ORAL SCH (09:00)
[2018-05-25] MEDS: Carvedilol 12.5mg tab ORAL SCH ×2 (09:00→21:00)
--- NOTE | 2018-05-25 09:06 | Endoscopy Procedure Note ---
Endoscopy Procedure Note General Indication for Procedure: choledocholithiasis Procedures Performed: ERCP Operative Findings/Diagnosis: same Specimen: none Pt Tolerated Procedure Well: Yes Estimated Blood Loss: none Anesthesia Anesthesiologist: dino Anesthesia: MAC Inserted Devices Implant(s) used?: No GI Core Measures 50 yrs or older w/o bx or poly: Not Applicable 10yrs. F/U not recommended: Not Applicable Omero Reyna MD May 25, 2018 09:06
--- NOTE | 2018-05-25 09:15 | Immediate Post-Op Evaluation ---
Immediate Post-Op Evalulation Immediate Post-Op Evalulation Procedure: ERCP Date of Evaluation: May 25, 2018 Time of Evaluation: 09:14 IV Fluids: 250 Blood Products: none Estimated Blood Loss: min Urinary Output: none Blood Pressure Systolic: 95 Blood Pressure Diastolic: 67 Pulse Rate: 98 Respiratory Rate: 22 O2 Sat by Pulse Oximetry: 99 Temperature (Fahrenheit): 97.5 Pain Score (1-10): 2 Nausea: No Vomiting: No Complications none Patient Status: reacts, patent, none Hydration Status: adequate Reagan Mallory MD May 25, 2018 09:15
--- NOTE | 2018-05-25 11:15 | Procedure Note ---
DATE OF PROCEDURE: 05/25/2018 SURGEON: Omero Reyna M.D. ANESTHESIOLOGIST: Dr. Mallory. REFERRING PHYSICIAN: Alissa Bueno M.D. PROCEDURE: ERCP with sphincterotomy and stone removal. ANESTHESIA: Per Dr. Mallory. INSTRUMENT: Olympus ERCP scope. INDICATION: Common bile duct stone. The procedure, risks, benefits, and possible consequences, including hemorrhage, aspiration, perforation and infection, and alternative treatments, were explained to the patient/legal guardian by Dr. Omero Reyna and the patient/legal guardian understood and accepted these risks. DESCRIPTION OF PROCEDURE: After informed consent was obtained and the patient was adequately sedated, Olympus ERCP scope was advanced from the mouth into the second portion of the duodenum. Using a sphincterotome, common bile duct was selectively cannulated. Initial cholangiogram showed 2 stones in the common bile duct. Common bile duct was mildly dilated. Then over a guidewire using a sphincterotome, 95% sphincterotomy was successfully performed. Then over a guidewire, a balloon was introduced through the common bile duct and the duct was swept multiple times. Two stones were removed. One of them was large and measured roughly about maybe 8 mm and the other one was smaller at 5 mm. Both were dark color, black color-looking. After the stones were removed, we performed balloon occlusion cholangiogram. There was no further filling defect in the common bile duct. Cystic duct was not filled. The flow of contrast from common bile duct to the duodenum was excellent, so no stent was placed. The patient tolerated the procedure very well without any complication. SUMMARY OF FINDINGS: 1. Choledocholithiasis. 2. Status post ERCP with sphincterotomy and stone removal. RECOMMENDATIONS: Follow laboratories. Follow surgical recommendation for cholecystectomy. Advanced diet as tolerated. I want to thank Dr. Bueno for this kind referral. Omero Reyna M.D. DR: Cee JOB#: [id number] CC: Alissa Bueno M.D.; Fax#: [phone]
--- NOTE | 2018-05-25 12:02 | Diagnostic Imaging Report ---
Indication: Abdominal pain, intraoperative Technique: Intraoperative images during ERCP, sphincterotomy, stone removal by Dr. Reyna Total fluoroscopy time 1.4 minutes. Total dose area product 303 dGycm2 Number of images: 7 Comparison: none Findings: Intraoperative images demonstrate opacification of mildly dilated extra hepatic bile ducts, containing multiple filling defects. Subsequent images document placement of stone extraction balloon Impression: Intraoperative imaging, as described
--- NOTE | 2018-05-25 13:41 | 48 Hour Post Anesthesia Eval ---
Post Anesthesia Evaluation Procedure: ERCP Date of Evaluation: May 25, 2018 Time of Evaluation: 13:40 Blood Pressure Systolic: 121 0: 68 Pulse Rate: 86 Respiratory Rate: 20 Temperature (Fahrenheit): 97.6 O2 Sat by Pulse Oximetry: 98 Airway: patent Nausea: No Vomiting: No Pain Intensity: 2 Hydration Status: adequate Cardiopulmonary Status: stable Mental Status/LOC: patient returned to baseline Follow-up Care/Observations: n/a Post-Anesthesia Complications: none Follow-up care needed: N/A Reagan Mallory MD May 25, 2018 13:41
--- NOTE | 2018-05-25 13:44 | Cardiology Progress Note ---
Assessment/Plan Assessment/Plan perm afib now with rvr acute ame kam with hs of bifascicular block hs of cm with subsequent resolution copd thrombocytopenia cad s/p pci lad rca cedrs 11/2017 chronic chf MR not confirmed on echo here 04/2018 no chf sx he has noted to have resolution of his cm in 02/2018[facility] confirmed on echo here sara;erithis month at tiem still tachy on bid of coreg and bid of cardizem will increase frequency of po Cardizem MR not confirmed on echo here [facility] in april no sx o acs will repeat trop in light of tachy needs to be on ecotrin and plavix since his stents are almost 6mon ago additionally need anticoagulation for stroke prevention in afib however risk of bleeding with triple therapy will need to be on Ecotrin adn anticoagulation now pro ercp await surgery will try to control hr in the low 100s if possible Subjective Cardiovascular: Denies: chest pain, lightheadedness, palpitations Respiratory: Denies: shortness of breath Gastrointestinal/Abdominal: Denies: abdominal pain Genitourinary: Denies: burning Subjective wants to go home Objective Last 24 Hour Vital Signs Date Time Temp Pulse Resp B/P (MAP) Pulse Ox O2 Delivery O2 Flow Rate FiO2 05/25/18 12:00 97.9 79 20 112/61 (78) 95 97.9 05/25/18 09:26 97 87 16 104/76 100 Nasal Cannula 3 97.0 05/25/18 09:20 90 18 114/74 100 Nasal Cannula 3 05/25/18 09:15 207.5 98 22 99 05/25/18 09:10 94 17 95/69 100 Simple Mask 6 05/25/18 09:05 97 16 97/64 100 Simple Mask 6 05/25/18 09:00 Nasal Cannula 2.0 05/25/18 09:00 93 13 99/66 100 Simple Mask 6 05/25/18 09:00 87 104/76 05/25/18 08:58 97 95 14 96/63 100 Simple Mask 6 97.0 05/25/18 07:50 150 112/74 05/25/18 04:00 97.2 94 22 129/65 (86) 95 97.2 05/25/18 04:00 106 05/25/18 02:08 143 121/65 05/25/18 00:00 105 05/25/18 00:00 97.5 109 24 112/58 (76) 96 97.5 05/24/18 21:00 Nasal Cannula 2.0 05/24/18 21:00 96 100/70 05/24/18 20:00 97 05/24/18 20:00 97.9 101 24 100/70 (80) 94 97.9 05/24/18 18:12 95 122/81 05/24/18 16:00 98.1 88 24 122/81 (95) 95 98.1 05/24/18 16:00 95 General Appearance: alert Neck: supple Cardiovascular: irregularly irregular Respiratory/Chest: lungs clear Abdomen: normal bowel sounds, non tender, soft Extremities: no swelling Intake and Output 05/24/18 05/25/18 19:00 07:00 Intake Total 1499.249 ml Output Total 1000 ml 750 ml Balance 499.249 ml -750 ml Intake Oral 340 ml IV Total 1159.249 ml Output Urine Total 1000 ml 750 ml # Voids 3 Laboratory Tests Test 05/25/18 04:01 White Blood Count 7.8 K/UL (4.8-10.8) Red Blood Count 3.88 M/UL (4.70-6.10) L Hemoglobin 10.6 G/DL (14.2-18.0) L Hematocrit 32.3 % (42.0-52.0) L Mean Corpuscular Volume 83 FL (80-99) Mean Corpuscular Hemoglobin 27.3 PG (27.0-31.0) Mean Corpuscular Hemoglobin Concent 32.7 G/DL (32.0-36.0) Red Cell Distribution Width 12.8 % (11.6-14.8) Platelet Count 203 K/UL (150-450) Mean Platelet Volume 6.0 FL (6.5-10.1) L Neutrophils (%) (Auto) 72.7 % (45.0-75.0) Lymphocytes (%) (Auto) 8.5 % (20.0-45.0) L Monocytes (%) (Auto) 15.0 % (1.0-10.0) H Eosinophils (%) (Auto) 2.8 % (0.0-3.0) Basophils (%) (Auto) 1.1 % (0.0-2.0) Prothrombin Time 12.7 SEC (9.30-11.50) H Prothromb Time International Ratio 1.2 (0.9-1.1) H Activated Partial Thromboplast Time 31 SEC (23-33) Sodium Level 141 MMOL/L (136-145) Potassium Level 4.0 MMOL/L (3.5-5.1) Chloride Level 108 MMOL/L (98-107) H Carbon Dioxide Level 30 MMOL/L (21-32) Anion Gap 3 mmol/L (5-15) L Blood Urea Nitrogen 3 mg/dL (7-18) L Creatinine 0.8 MG/DL (0.55-1.30) Estimat Glomerular Filtration Rate > 60 mL/min (>60) Glucose Level 107 MG/DL (74-106) H Calcium Level 8.6 MG/DL (8.5-10.1) Total Bilirubin 0.6 MG/DL (0.2-1.0) Aspartate Amino Transf (AST/SGOT) 35 U/L (15-37) Alanine Aminotransferase (ALT/SGPT) 30 U/L (12-78) Alkaline Phosphatase 138 U/L (46-116) H Total Protein 5.8 G/DL (6.4-8.2) L Albumin 2.3 G/DL (3.4-5.0) L Globulin 3.5 g/dL Albumin/Globulin Ratio 0.7 (1.0-2.7) L Luis Alfredo Gonzalez MD May 25, 2018 13:44
--- NOTE | 2018-05-25 14:18 | General Progress Note ---
Assessment/Plan Status: stable Assessment/Plan encephalopathy due to [facility] MDD increase seroquel 50 mg tid the pt lacks capacity to make decision about placement. Subjective Date patient seen: May 25, 2018 Neurologic/Psychiatric: Reports: anxiety, depressed, emotional problems Allergies: Coded Allergies: AMPICILLIN (Verified Allergy, Unknown, 04/23/18) Uncoded Allergies: PENICILLIN (Allergy, Unknown, 04/23/18) Objective Last 24 Hour Vital Signs Date Time Temp Pulse Resp B/P (MAP) Pulse Ox O2 Delivery O2 Flow Rate FiO2 05/25/18 13:41 207.7 86 20 98 05/25/18 12:00 97.9 79 20 112/61 (78) 95 97.9 05/25/18 09:26 97 87 16 104/76 100 Nasal Cannula 3 97.0 05/25/18 09:20 90 18 114/74 100 Nasal Cannula 3 05/25/18 09:15 207.5 98 22 99 05/25/18 09:10 94 17 95/69 100 Simple Mask 6 05/25/18 09:05 97 16 97/64 100 Simple Mask 6 05/25/18 09:00 Nasal Cannula 2.0 05/25/18 09:00 93 13 99/66 100 Simple Mask 6 05/25/18 09:00 87 104/76 05/25/18 08:58 97 95 14 96/63 100 Simple Mask 6 97.0 05/25/18 07:50 150 112/74 05/25/18 04:00 97.2 94 22 129/65 (86) 95 97.2 05/25/18 04:00 106 05/25/18 02:08 143 121/65 05/25/18 00:00 105 05/25/18 00:00 97.5 109 24 112/58 (76) 96 97.5 05/24/18 21:00 Nasal Cannula 2.0 05/24/18 21:00 96 100/70 05/24/18 20:00 97 05/24/18 20:00 97.9 101 24 100/70 (80) 94 97.9 05/24/18 18:12 95 122/81 05/24/18 16:00 98.1 88 24 122/81 (95) 95 98.1 05/24/18 16:00 95 Intake and Output 05/24/18 05/25/18 19:00 07:00 Intake Total 1499.249 ml Output Total 1000 ml 750 ml Balance 499.249 ml -750 ml Intake Oral 340 ml IV Total 1159.249 ml Output Urine Total 1000 ml 750 ml # Voids 3 Laboratory Tests 05/25/18 04:01: White Blood Count 7.8, Red Blood Count 3.88L, Hemoglobin 10.6L, Hematocrit 32.3L , Mean Corpuscular Volume 83, Mean Corpuscular Hemoglobin 27.3, Mean Corpuscular Hemoglobin Concent 32.7, Red Cell Distribution Width 12.8, Platelet Count 203, Mean Platelet Volume 6.0L, Neutrophils (%) (Auto) 72.7, Lymphocytes ( %) (Auto) 8.5L, Monocytes (%) (Auto) 15.0H, Eosinophils (%) (Auto) 2.8, Basophils (%) (Auto) 1.1, Prothrombin Time 12.7H, Prothromb Time International Ratio 1.2H, Activated Partial Thromboplast Time 31, Sodium Level 141, Potassium Level 4.0, Chloride Level 108H, Carbon Dioxide Level 30, Anion Gap 3L, Blood Urea Nitrogen 3L, Creatinine 0.8, Estimat Glomerular Filtration Rate > 60, Glucose Level 107H, Calcium Level 8.6, Total Bilirubin 0.6, Aspartate Amino Transf (AST/SGOT) 35, Alanine Aminotransferase (ALT/SGPT) 30, Alkaline Phosphatase 138H, Total Protein 5.8L, Albumin 2.3L, Globulin 3.5, Albumin/ Globulin Ratio 0.7L Height (Feet): 5 Height (Inches): 9.00 Weight (Pounds): 150 General Appearance: no apparent distress, alert, confused, agitated Payal Streeter MD May 25, 2018 14:18
--- NOTE | 2018-05-25 14:30 | General Progress Note ---
Assessment/Plan Status: not improved Assessment/Plan 1) Acute cholecystitis Choledocholithiasis r/o Sepsis from a biliary source -Surgery consulted- recs appreciated -elevated bilirubin/transaminitis- GI consulted- recs appreciated -continue IV antibiotics- ciprofloxacin, metronidazole -check cultures- blood, urine, lactic acid- negative to date - EGD/ERCP today- f/u report 2) Chronic systolic and diastolic heart failure 3) Atrial fibrillation with rapid ventricular response 4) CAD s/p PTCA/stent 6 months ago -Telemetry monitoring -continue carvedilol, hydralazine, statin -hold apixaban given surgery -Cardiology consulted- recs appreciated- started diltiazem- increased this AM given elevated HR -Continue heparin drip, ASA given recent stent and atrial fibrillation -replete K, Mg PRN 5) MARY- improving near baseline -IVF's; likely hypovolemic; doubt sepsis -avoid nephrotoxins/renally dose meds -will follow closely 6) Pancytopenia -Hematology recs appreciated -monitor for now DVT Prophylaxis: scd's, IV heparin Code status: full Hospital Classification declaration: Based on this initial evaluation, and depending on the patient's clinical course, I anticipate that this patient will require hospitalization for 2-3 days. Disposition: Once the patient is stable to leave the hospital, I anticipate the patient will likely be discharged to the following environment:SNF- comes from [facility] I spent 45 minutes on this patient's case, and 23 minutes was dedicated to counseling and/or care coordination. Time of note may not reflect time of encounter. Subjective Date patient seen: May 25, 2018 Time patient seen: 14:32 ROS Limited/Unobtainable: Yes Constitutional: Reports: no symptoms, weakness HEENT: Reports: no symptoms Cardiovascular: Reports: irregular heart rate, palpitations Respiratory: Reports: no symptoms Gastrointestinal/Abdominal: Reports: no symptoms, nausea Genitourinary: Reports: no symptoms Neurologic/Psychiatric: Reports: no symptoms Endocrine: Reports: no symptoms Hematologic/Lymphatic: Reports: no symptoms Allergies: Coded Allergies: AMPICILLIN (Verified Allergy, Unknown, 04/23/18) Uncoded Allergies: PENICILLIN (Allergy, Unknown, 04/23/18) All Systems: reviewed and negative except above Subjective Events of overnight reviewed Chart reviewed by me Patient with elevated HR this AM Resting s/p ERCP Objective Last 24 Hour Vital Signs Date Time Temp Pulse Resp B/P (MAP) Pulse Ox O2 Delivery O2 Flow Rate FiO2 05/25/18 13:41 207.7 86 20 98 05/25/18 12:00 97.9 79 20 112/61 (78) 95 97.9 05/25/18 09:26 97 87 16 104/76 100 Nasal Cannula 3 97.0 05/25/18 09:20 90 18 114/74 100 Nasal Cannula 3 05/25/18 09:15 207.5 98 22 99 05/25/18 09:10 94 17 95/69 100 Simple Mask 6 05/25/18 09:05 97 16 97/64 100 Simple Mask 6 05/25/18 09:00 Nasal Cannula 2.0 05/25/18 09:00 93 13 99/66 100 Simple Mask 6 05/25/18 09:00 87 104/76 05/25/18 08:58 97 95 14 96/63 100 Simple Mask 6 97.0 05/25/18 07:50 150 112/74 05/25/18 04:00 97.2 94 22 129/65 (86) 95 97.2 05/25/18 04:00 106 05/25/18 02:08 143 121/65 05/25/18 00:00 105 05/25/18 00:00 97.5 109 24 112/58 (76) 96 97.5 05/24/18 21:00 Nasal Cannula 2.0 05/24/18 21:00 96 100/70 05/24/18 20:00 97 05/24/18 20:00 97.9 101 24 100/70 (80) 94 97.9 05/24/18 18:12 95 122/81 05/24/18 16:00 98.1 88 24 122/81 (95) 95 98.1 05/24/18 16:00 95 Intake and Output 05/24/18 05/25/18 19:00 07:00 Intake Total 1499.249 ml Output Total 1000 ml 750 ml Balance 499.249 ml -750 ml Intake Oral 340 ml IV Total 1159.249 ml Output Urine Total 1000 ml 750 ml # Voids 3 Laboratory Tests 05/25/18 04:01: White Blood Count 7.8, Red Blood Count 3.88L, Hemoglobin 10.6L, Hematocrit 32.3L , Mean Corpuscular Volume 83, Mean Corpuscular Hemoglobin 27.3, Mean Corpuscular Hemoglobin Concent 32.7, Red Cell Distribution Width 12.8, Platelet Count 203, Mean Platelet Volume 6.0L, Neutrophils (%) (Auto) 72.7, Lymphocytes ( %) (Auto) 8.5L, Monocytes (%) (Auto) 15.0H, Eosinophils (%) (Auto) 2.8, Basophils (%) (Auto) 1.1, Prothrombin Time 12.7H, Prothromb Time International Ratio 1.2H, Activated Partial Thromboplast Time 31, Sodium Level 141, Potassium Level 4.0, Chloride Level 108H, Carbon Dioxide Level 30, Anion Gap 3L, Blood Urea Nitrogen 3L, Creatinine 0.8, Estimat Glomerular Filtration Rate > 60, Glucose Level 107H, Calcium Level 8.6, Total Bilirubin 0.6, Aspartate Amino Transf (AST/SGOT) 35, Alanine Aminotransferase (ALT/SGPT) 30, Alkaline Phosphatase 138H, Total Protein 5.8L, Albumin 2.3L, Globulin 3.5, Albumin/ Globulin Ratio 0.7L Height (Feet): 5 Height (Inches): 9.00 Weight (Pounds): 150 General Appearance: no apparent distress, lethargic, confused EENT: PERRL/EOMI, normal ENT inspection, TMs normal Neck: non-tender, supple Cardiovascular: normal peripheral pulses, tachycardia, irregularly irregular Respiratory/Chest: chest wall non-tender, decreased breath sounds Abdomen: normal bowel sounds, non tender, soft Pelvis: normal external exam Extremities: normal range of motion, non-tender Edema: trace edema Neurologic: disoriented Skin: normal pigmentation Lymphatic: normal anterior cervical (L), normal anterior cervical (R) Jason Monte MD May 25, 2018 14:30
--- NOTE | 2018-05-25 14:40 | General Surgery Progress Note ---
General Surgery-Progress Note Subjective Additional Comments s/p ercp today. two stones removed. doing well. Objective Last 24 Hour Vital Signs Date Time Temp Pulse Resp B/P (MAP) Pulse Ox O2 Delivery O2 Flow Rate FiO2 05/25/18 13:41 207.7 86 20 98 05/25/18 12:00 97.9 79 20 112/61 (78) 95 97.9 05/25/18 09:26 97 87 16 104/76 100 Nasal Cannula 3 97.0 05/25/18 09:20 90 18 114/74 100 Nasal Cannula 3 05/25/18 09:15 207.5 98 22 99 05/25/18 09:10 94 17 95/69 100 Simple Mask 6 05/25/18 09:05 97 16 97/64 100 Simple Mask 6 05/25/18 09:00 Nasal Cannula 2.0 05/25/18 09:00 93 13 99/66 100 Simple Mask 6 05/25/18 09:00 87 104/76 05/25/18 08:58 97 95 14 96/63 100 Simple Mask 6 97.0 05/25/18 07:50 150 112/74 05/25/18 04:00 97.2 94 22 129/65 (86) 95 97.2 05/25/18 04:00 106 05/25/18 02:08 143 121/65 05/25/18 00:00 105 05/25/18 00:00 97.5 109 24 112/58 (76) 96 97.5 05/24/18 21:00 Nasal Cannula 2.0 05/24/18 21:00 96 100/70 05/24/18 20:00 97 05/24/18 20:00 97.9 101 24 100/70 (80) 94 97.9 05/24/18 18:12 95 122/81 05/24/18 16:00 98.1 88 24 122/81 (95) 95 98.1 05/24/18 16:00 95 I&O Intake and Output 05/24/18 05/25/18 19:00 07:00 Intake Total 1499.249 ml Output Total 1000 ml 750 ml Balance 499.249 ml -750 ml Intake Oral 340 ml IV Total 1159.249 ml Output Urine Total 1000 ml 750 ml # Voids 3 Drains: none Cardiovascular: RSR Respiratory: clear Abdomen: soft, flat, non-tender, present bowel sounds Extremities: no edema, no tenderness, no cyanosis Laboratory Tests Test 05/25/18 04:01 White Blood Count 7.8 K/UL (4.8-10.8) Red Blood Count 3.88 M/UL (4.70-6.10) L Hemoglobin 10.6 G/DL (14.2-18.0) L Hematocrit 32.3 % (42.0-52.0) L Mean Corpuscular Volume 83 FL (80-99) Mean Corpuscular Hemoglobin 27.3 PG (27.0-31.0) Mean Corpuscular Hemoglobin Concent 32.7 G/DL (32.0-36.0) Red Cell Distribution Width 12.8 % (11.6-14.8) Platelet Count 203 K/UL (150-450) Mean Platelet Volume 6.0 FL (6.5-10.1) L Neutrophils (%) (Auto) 72.7 % (45.0-75.0) Lymphocytes (%) (Auto) 8.5 % (20.0-45.0) L Monocytes (%) (Auto) 15.0 % (1.0-10.0) H Eosinophils (%) (Auto) 2.8 % (0.0-3.0) Basophils (%) (Auto) 1.1 % (0.0-2.0) Prothrombin Time 12.7 SEC (9.30-11.50) H Prothromb Time International Ratio 1.2 (0.9-1.1) H Activated Partial Thromboplast Time 31 SEC (23-33) Sodium Level 141 MMOL/L (136-145) Potassium Level 4.0 MMOL/L (3.5-5.1) Chloride Level 108 MMOL/L (98-107) H Carbon Dioxide Level 30 MMOL/L (21-32) Anion Gap 3 mmol/L (5-15) L Blood Urea Nitrogen 3 mg/dL (7-18) L Creatinine 0.8 MG/DL (0.55-1.30) Estimat Glomerular Filtration Rate > 60 mL/min (>60) Glucose Level 107 MG/DL (74-106) H Calcium Level 8.6 MG/DL (8.5-10.1) Total Bilirubin 0.6 MG/DL (0.2-1.0) Aspartate Amino Transf (AST/SGOT) 35 U/L (15-37) Alanine Aminotransferase (ALT/SGPT) 30 U/L (12-78) Alkaline Phosphatase 138 U/L (46-116) H Total Protein 5.8 G/DL (6.4-8.2) L Albumin 2.3 G/DL (3.4-5.0) L Globulin 3.5 g/dL Albumin/Globulin Ratio 0.7 (1.0-2.7) L Plan Problems: (1) Choledocholithiasis Assessment & Plan: labs trending down. GI input appreciated defer to GI for ERCP (2) Abdominal pain (3) Cholecystitis Assessment & Plan: s/p ERCP with stone extraction plan for lap ame tomorrow discussed with patient. consent obtained OR tomorrow at 10AM NPO p mn hold heparin gtt okay for ASA 81mg d/c planning for after surgery will follow with recs. thank you for this consultation. Cristobal Shepherd May 25, 2018 14:40
[2018-05-25] MEDS ORDERED: Morphine Sulfate 4mg/ml Inj (IV USE ONLY) IVP PRN (16:30)
[2018-05-25] MEDS ORDERED: Morphine Sulfate 2mg/ml Inj IVP PRN (16:30)
[2018-05-25] MEDS ORDERED: Zolpidem 5mg tab ORAL PRN (16:30)
[2018-05-25] MEDS ORDERED: Heparin 5000 units/ml inj SUBQ SCH (18:00)
--- NOTE | 2018-05-25 19:10 | Anethesia Preoperative Eval ---
Anesthesia Pre-op PMH/ROS General Date of Evaluation: May 25, 2018 Time of Evaluation: 12:50 Anesthesiologist: Mohamud ASA Score: ASA 3 Mallampati Score Class I : Soft palate, uvula, fauces, pillars visible Class II: Soft palate, uvula, fauces visible Class III: Soft palate, base of uvula visible Class IV: Only hard plate visible Mallampati Classification: Class II Surgeon: Kiya Diagnosis: Symptomatic cholelithiasis Surgical Procedure: Laparoscopic cholecystectomy Anesthesia History: none Social History: smoking - h/o Family History: no anesthesia problems Allergies: Coded Allergies: AMPICILLIN (Verified Allergy, Unknown, 04/23/18) Uncoded Allergies: PENICILLIN (Allergy, Unknown, 04/23/18) Past Medical History Cardiovascular: Reports: HTN, CAD, arrhythmia; Denies: MN, valve dz, other Pulmonary: Reports: COPD; Denies: asthma, RIGOBERTO, other Gastrointestinal/Genitourinary: Reports: GERD; Denies: CRI, ESRD, other Neurologic/Psychiatric: Reports: depression/anxiety; Denies: dementia, CVA, TIA, other Endocrine: Denies: DM, hypothyroidism, steroids, other HEENT: Denies: cataract (L), cataract (R), glaucoma, [place] (L), [place] (R), other Hematology/Immune: Denies: anemia, DVT, bleeding disorder, other Musculoskeletal/Integumentary: Reports: DJD; Denies: OA, RA, DDD, edema, other PMH Narrative: as above PSxH Narrative: ERCP Anesthesia Pre-op Phys. Exam Physician Exam Last Vital Signs Date Time Temp Pulse Resp B/P (MAP) Pulse Ox O2 Delivery O2 Flow Rate FiO2 05/25/18 18:13 97.0 05/25/18 17:09 135 112/61 05/25/18 16:00 20 96 05/25/18 09:26 Nasal Cannula 3 Constitutional: NAD Neurologic: CN 2-12 intact Cardiovascular: RRR, no M/R/G Respiratory: CTA Gastrointestinal: S/NT/ND Airway Exam Mallampati Score: Class II MO: limited Neck: stiff ROM: limited Teeth: missing Dentures: no upper, no lower Anesthesia Pre-op A/P Labs Hematology Test 05/25/18 04:01 White Blood Count 7.8 K/UL (4.8-10.8) Red Blood Count 3.88 M/UL (4.70-6.10) L Hemoglobin 10.6 G/DL (14.2-18.0) L Hematocrit 32.3 % (42.0-52.0) L Mean Corpuscular Volume 83 FL (80-99) Mean Corpuscular Hemoglobin 27.3 PG (27.0-31.0) Mean Corpuscular Hemoglobin Concent 32.7 G/DL (32.0-36.0) Red Cell Distribution Width 12.8 % (11.6-14.8) Platelet Count 203 K/UL (150-450) Mean Platelet Volume 6.0 FL (6.5-10.1) L Neutrophils (%) (Auto) 72.7 % (45.0-75.0) Lymphocytes (%) (Auto) 8.5 % (20.0-45.0) L Monocytes (%) (Auto) 15.0 % (1.0-10.0) H Eosinophils (%) (Auto) 2.8 % (0.0-3.0) Basophils (%) (Auto) 1.1 % (0.0-2.0) Coagulation Test 05/25/18 04:01 Prothrombin Time 12.7 SEC (9.30-11.50) H Prothromb Time International Ratio 1.2 (0.9-1.1) H Activated Partial Thromboplast Time 31 SEC (23-33) Chemistry Test 05/25/18 04:01 Sodium Level 141 MMOL/L (136-145) Potassium Level 4.0 MMOL/L (3.5-5.1) Chloride Level 108 MMOL/L (98-107) H Carbon Dioxide Level 30 MMOL/L (21-32) Anion Gap 3 mmol/L (5-15) L Blood Urea Nitrogen 3 mg/dL (7-18) L Creatinine 0.8 MG/DL (0.55-1.30) Estimat Glomerular Filtration Rate > 60 mL/min (>60) Glucose Level 107 MG/DL (74-106) H Calcium Level 8.6 MG/DL (8.5-10.1) Total Bilirubin 0.6 MG/DL (0.2-1.0) Aspartate Amino Transf (AST/SGOT) 35 U/L (15-37) Alanine Aminotransferase (ALT/SGPT) 30 U/L (12-78) Alkaline Phosphatase 138 U/L (46-116) H Total Protein 5.8 G/DL (6.4-8.2) L Albumin 2.3 G/DL (3.4-5.0) L Globulin 3.5 g/dL Albumin/Globulin Ratio 0.7 (1.0-2.7) L Risk Assessment & Plan Assessment: ASA 3 Plan: GA with ETT Status Change Before Surgery: No Pre-Antibiotics Drug: as scheduled Reagan Mallory MD May 25, 2018 19:10
[2018-05-25] MEDS: Atorvastatin 20mg tab ORAL SCH (21:30)
--- NOTE | 2018-05-25 22:17 | General Progress Note ---
Assessment/Plan Assessment/Plan Assesement - cholecystitis - choledocholithiasis, s/p ERCP and stone extraction - anemia - patient hesitant to accept surgery/lap ame Recommendations - IVF - Abx - follow LFT - Await surgery - colonoscopy at later date, if patient agreeable Subjective Allergies: Coded Allergies: AMPICILLIN (Verified Allergy, Unknown, 04/23/18) Uncoded Allergies: PENICILLIN (Allergy, Unknown, 04/23/18) Subjective Seen this am feels OK anxious about procedures subsequently had ERCP with sphincterotomy and stone extraction Objective Last 24 Hour Vital Signs Date Time Temp Pulse Resp B/P (MAP) Pulse Ox O2 Delivery O2 Flow Rate FiO2 05/25/18 21:32 81 103/64 05/25/18 21:00 81 103/64 05/25/18 18:13 97.0 05/25/18 17:14 97.0 05/25/18 17:09 135 112/61 05/25/18 16:00 100 05/25/18 16:00 97.0 81 20 112/61 (78) 96 97.0 05/25/18 15:12 95 121/68 05/25/18 13:41 207.7 86 20 98 05/25/18 12:00 97.9 79 20 112/61 (78) 95 97.9 05/25/18 12:00 85 05/25/18 09:26 97 87 16 104/76 100 Nasal Cannula 3 97.0 05/25/18 09:20 90 18 114/74 100 Nasal Cannula 3 05/25/18 09:15 207.5 98 22 99 05/25/18 09:10 94 17 95/69 100 Simple Mask 6 05/25/18 09:05 97 16 97/64 100 Simple Mask 6 05/25/18 09:00 Nasal Cannula 2.0 05/25/18 09:00 93 13 99/66 100 Simple Mask 6 05/25/18 09:00 87 104/76 05/25/18 08:58 97 95 14 96/63 100 Simple Mask 6 97.0 05/25/18 08:00 146 05/25/18 07:50 150 112/74 05/25/18 04:00 97.2 94 22 129/65 (86) 95 97.2 05/25/18 04:00 106 05/25/18 02:08 143 121/65 05/25/18 00:00 105 05/25/18 00:00 97.5 109 24 112/58 (76) 96 97.5 Intake and Output 05/24/18 05/25/18 19:00 07:00 Intake Total 1499.249 ml Output Total 1000 ml 750 ml Balance 499.249 ml -750 ml Intake Oral 340 ml IV Total 1159.249 ml Output Urine Total 1000 ml 750 ml # Voids 3 Laboratory Tests 05/25/18 04:01: White Blood Count 7.8, Red Blood Count 3.88L, Hemoglobin 10.6L, Hematocrit 32.3L , Mean Corpuscular Volume 83, Mean Corpuscular Hemoglobin 27.3, Mean Corpuscular Hemoglobin Concent 32.7, Red Cell Distribution Width 12.8, Platelet Count 203, Mean Platelet Volume 6.0L, Neutrophils (%) (Auto) 72.7, Lymphocytes ( %) (Auto) 8.5L, Monocytes (%) (Auto) 15.0H, Eosinophils (%) (Auto) 2.8, Basophils (%) (Auto) 1.1, Prothrombin Time 12.7H, Prothromb Time International Ratio 1.2H, Activated Partial Thromboplast Time 31, Sodium Level 141, Potassium Level 4.0, Chloride Level 108H, Carbon Dioxide Level 30, Anion Gap 3L, Blood Urea Nitrogen 3L, Creatinine 0.8, Estimat Glomerular Filtration Rate > 60, Glucose Level 107H, Calcium Level 8.6, Total Bilirubin 0.6, Aspartate Amino Transf (AST/SGOT) 35, Alanine Aminotransferase (ALT/SGPT) 30, Alkaline Phosphatase 138H, Total Protein 5.8L, Albumin 2.3L, Globulin 3.5, Albumin/ Globulin Ratio 0.7L Height (Feet): 5 Height (Inches): 9.00 Weight (Pounds): 150 Objective WDWN NCAT supple CTA RRR Abd soft NT ND no edema nonfocal Alissa Bueno MD May 25, 2018 22:17
[2018-05-26] VITALS (13 sets, daily range): BP systolic 84–150; BP diastolic 43–89
--- NOTE | 2018-05-26 05:47 | General Progress Note ---
Assessment/Plan Assessment/Plan 1. Pancytopenia, potentially secondary to liver disease, bilirubin elevated on admission. The patient had transaminitis on admission as well. MCV is elevated. --> Hepatitis A and B are negative, Hep-C is positive, HIV negative. --> Ultrasound of the abdomen reviewed. No evidence of cirrhosis or splenomegaly --> We will continue to closely monitor. --> Monitor platelet count closely. --> Counts improved, compared to admission, at this time, doesn't need a bone marrow biopsy 2. Anemia of chronic disease. Anemia panel has been reviewed. Will trend CBC daily. --> Hemoglobin goal is above 7. --> Current Hgb at 10.3, stable --> no evidence of hemolysis 3. Anemia due to underlying congestive heart failure, decompensated state. --> monitor fluid status closely, as per cards 4. Cholecystitis. s/p 05/24 ercp, 2 stones removed --> surg eval prn 5. Possible viral urinary tract infection. 6. Transaminitis, hepatic congestion questionable. 7. Deep venous thrombosis prophylaxis with heparin sq The time the note was entered does not necessarily correspond to the time the patient was seen. Subjective Constitutional: Denies: no symptoms, chills, diaphoresis, fever, malaise, weakness, other HEENT: Denies: no symptoms, eye pain, blurred vision, tearing, double vision, ear pain, ear discharge, nose pain, nose congestion, throat pain, throat swelling, mouth pain, mouth swelling, other Cardiovascular: Denies: no symptoms, chest pain, edema, irregular heart rate, lightheadedness, palpitations, syncope, other Respiratory: Denies: no symptoms, cough, orthopnea, shortness of breath, SOB with excertion, SOB at rest, sputum, stridor, wheezing, other Gastrointestinal/Abdominal: Denies: no symptoms, abdomen distended, abdominal pain, black stools, tarry stools, blood in stool, constipated, diarrhea, difficulty swallowing, nausea, poor appetite, poor fluid intake, rectal bleeding , vomiting, other Genitourinary: Denies: no symptoms, burning, discharge, frequency, flank pain, hematuria, incontinence, pain, urgency, other Neurologic/Psychiatric: Denies: no symptoms, anxiety, depressed, emotional problems, headache, numbness, paresthesia, pre-existing deficit, seizure, tingling, tremors, weakness, other Endocrine: Denies: no symptoms, excessive sweating, flushing, intolerance to cold, intolerance to heat, increased hunger, increased thirst, increased urine, unexplained weight gain, unexplained weight loss, other Hematologic/Lymphatic: Denies: no symptoms, anemia, easy bleeding, easy bruising, other Allergies: Coded Allergies: AMPICILLIN (Verified Allergy, Unknown, 04/23/18) Uncoded Allergies: PENICILLIN (Allergy, Unknown, 04/23/18) Subjective Pt awake and agitated. No acute events. s/p ercp and 2 stones were removed. Objective Last 24 Hour Vital Signs Date Time Temp Pulse Resp B/P (MAP) Pulse Ox O2 Delivery O2 Flow Rate FiO2 05/26/18 04:00 109 05/26/18 04:00 97.5 103 20 150/77 (101) 93 97.5 05/26/18 00:00 97.9 96 20 141/68 (92) 97 97.9 05/26/18 00:00 93 05/25/18 21:32 81 103/64 05/25/18 21:00 81 103/64 05/25/18 21:00 Room Air 05/25/18 20:00 111 05/25/18 20:00 97.5 81 20 103/64 (77) 97 97.5 05/25/18 18:13 97.0 05/25/18 17:14 97.0 05/25/18 17:09 135 112/61 05/25/18 16:00 100 05/25/18 16:00 97.0 81 20 112/61 (78) 96 97.0 05/25/18 15:12 95 121/68 05/25/18 13:41 207.7 86 20 98 05/25/18 12:00 97.9 79 20 112/61 (78) 95 97.9 05/25/18 12:00 85 05/25/18 09:26 97 87 16 104/76 100 Nasal Cannula 3 97.0 05/25/18 09:20 90 18 114/74 100 Nasal Cannula 3 05/25/18 09:15 207.5 98 22 99 05/25/18 09:10 94 17 95/69 100 Simple Mask 6 05/25/18 09:05 97 16 97/64 100 Simple Mask 6 05/25/18 09:00 Nasal Cannula 2.0 05/25/18 09:00 93 13 99/66 100 Simple Mask 6 05/25/18 09:00 87 104/76 05/25/18 08:58 97 95 14 96/63 100 Simple Mask 6 97.0 05/25/18 08:00 146 05/25/18 07:50 150 112/74 Intake and Output 05/25/18 05/26/18 19:00 07:00 Intake Total 790 ml Output Total 0 ml Balance 790 ml Intake Oral 540 ml IV Total 250 ml Estimated Blood Loss 0 ml # Voids 2 Height (Feet): 5 Height (Inches): 9.00 Weight (Pounds): 150 EENT: normal ENT inspection Neck: normal alignment Cardiovascular: normal rate Respiratory/Chest: no respiratory distress Abdomen: no mass Extremities: non-tender Edema: 1+ Leg (L), 1+ Leg (R) Edema: trace edema 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 Maykel Coronel MD May 26, 2018 05:47
[2018-05-26] MEDS: dilTIAZem HCl 30mg tab ORAL SCH ×3 (05:51→17:30)
[2018-05-26 07:49] LABS: BASOPHILS % (AUTO) 0.6 % (0.0-2.0); EOSINOPHILS % (AUTO) 2.3 % (0.0-3.0); HEMATOCRIT 33.3 % (42.0-52.0); HEMOGLOBIN 10.7 G/DL (14.2-18.0); LYMPHOCYTES % (AUTO) 12.5 % (20.0-45.0); MEAN CORPUSCULAR VOLUME 84 FL (80-99); MONOCYTES % (AUTO) 12.2 % (1.0-10.0); NEUTROPHILS % (AUTO) 72.5 % (45.0-75.0); PLATELET COUNT 229 K/UL (150-450); RED BLOOD COUNT 3.96 M/UL (4.70-6.10); RED CELL DISTRIBUTION WIDTH 13.2 % (11.6-14.8); WHITE BLOOD COUNT 8.4 K/UL (4.8-10.8)
[2018-05-26 08:08] LABS: ALANINE AMINOTRANSFERASE 29 U/L (12-78); ALBUMIN 2.5 G/DL (3.4-5.0); ALBUMIN/GLOBULIN RATIO 0.7 (1.0-2.7); ALKALINE PHOSPHATASE 132 U/L (46-116); ANION GAP 6 mmol/L (5-15); ASPARTATE AMINO TRANSFERASE 53 U/L (15-37); BILIRUBIN,TOTAL 0.6 MG/DL (0.2-1.0); BLOOD UREA NITROGEN 4 mg/dL (7-18); CALCIUM 8.4 MG/DL (8.5-10.1); CARBON DIOXIDE 29 MMOL/L (21-32); CHLORIDE 108 MMOL/L (98-107); CREATININE 0.8 MG/DL (0.55-1.30); POTASSIUM 4.1 MMOL/L (3.5-5.1); SODIUM 143 MMOL/L (136-145)
[2018-05-26] MEDS: Carvedilol 12.5mg tab ORAL SCH ×2 (08:42→21:42)
[2018-05-26] MEDS: Aspirin Baby 81mg ORAL SCH (08:42)
[2018-05-26] MEDS: Docusate 100mg cap ORAL SCH ×2 (08:42→17:29)
[2018-05-26] MEDS: dilTIAZem HCl 25mg/5ml Inj IV PRN ×3 (09:16→19:47)
[2018-05-26] MEDS ORDERED: dilTIAZem HCl 30mg tab ORAL SCH (09:18)
[2018-05-26] MEDS ORDERED: Midazolam 2mg/2ml Inj ONE (09:24)
[2018-05-26] MEDS ORDERED: Bupivacaine 0.5% Inj 30 ml vial INJ ONE (09:56)
[2018-05-26] MEDS ORDERED: EPINEPHrine 1mg/1ml Amp ONE (09:56)
[2018-05-26] MEDS ORDERED: Lidocaine 1% 10mg/ml/Epi 0.005mg/ml 30ml vial INJ ONE (09:56)
[2018-05-26] MEDS ORDERED: Glycopyrrolate 0.2mg/ml 1ml Vial ONE (10:00)
[2018-05-26] MEDS ORDERED: NS Irrig 1000ml ONE (10:00)
[2018-05-26] MEDS ORDERED: Sterile Water Irrig 1000ml IRRIG ONE (10:00)
[2018-05-26] MEDS ORDERED: Neostigmine 1mg/ml 10ml Inj ONE (10:00)
[2018-05-26] MEDS ORDERED: Etomidate 40mg/20ml Inj IV ONE (10:01)
[2018-05-26] MEDS ORDERED: Zemuron 50mg/5ml Inj IV ONE (10:01)
--- NOTE | 2018-05-26 10:15 | Pre-Procedure Note/Attestation ---
Pre-Procedure Note/Attestation Complete Prior to Procedure Planned Procedure: not applicable Procedure Narrative: laparoscopic cholecystectomy, possible open Indications for Procedure Pre-Operative Diagnosis: acute cholecystitis, choledocholithiasis Attestation I attest that I discussed the nature of the procedure; its benefits; risks and complications; and alternatives (and the risks and benefits of such alternatives ), prior to the procedure, with the patient (or the patient's legal traveling representative). I attest that, if there was a reasonable possibility of needing a blood transfusion, the patient (or the patient's legal traveling representative) was given the [facility] standardized written summary, pursuant to the [place] Blood Safety Act ([place] Health and Safety Code # 1645, as amended). I attest that I re-evaluated the patient just prior to the surgery and that there has been no change in the patient's H&P, except as documented below: Cristobal Shepherd May 26, 2018 10:15
[2018-05-26] MEDS ORDERED: fentaNYL 100 mcg/2 mL IV ONE (10:59)
[2018-05-26] MEDS ORDERED: Labetalol 5mg/ml 20ml vial IV ONE (11:09)
[2018-05-26] MEDS ORDERED: Lidocaine 1% MPF 10mg/ml 5ml ONE (11:09)
[2018-05-26] MEDS ORDERED: Phenylephrine 10mg/ml Vial ONE (11:09)
[2018-05-26] MEDS ORDERED: Dexamethasone 4mg/ml vial ONE (11:09)
[2018-05-26] MEDS ORDERED: Propofol 200mg/20ml IV ONE (11:09)
[2018-05-26] MEDS ORDERED: Morphine Sulfate 10mg/ml Inj ONE (12:10)
--- NOTE | 2018-05-26 12:29 | Anethesia Preoperative Eval ---
Anesthesia Pre-op PMH/ROS General Date of Evaluation: May 26, 2018 Time of Evaluation: 10:15 Anesthesiologist: Radha Bonilla CRNA ASA Score: ASA 3 Mallampati Score Class I : Soft palate, uvula, fauces, pillars visible Class II: Soft palate, uvula, fauces visible Class III: Soft palate, base of uvula visible Class IV: Only hard plate visible Mallampati Classification: Class II Surgeon: Joao Diagnosis: Cholelisthesis Surgical Procedure: Laparoscopic cholecystectomy Anesthesia History: none - No prior anesthetic complications Social History: smoking, alcohol use Family History: no anesthesia problems Allergies: Coded Allergies: AMPICILLIN (Verified Allergy, Unknown, 04/23/18) Uncoded Allergies: PENICILLIN (Allergy, Unknown, 04/23/18) Past Medical History Cardiovascular: Reports: HTN, CAD - s/p stents, arrhythmia - atrial fibrilation with rapid ventricular response; Denies: RI, valve dz, other Pulmonary: Reports: COPD; Denies: asthma, RIGOBERTO, other Gastrointestinal/Genitourinary: Reports: GERD, other - Acute renal failure; cholelisthesis, cholecystitis, UTI; Denies: CRI, ESRD Neurologic/Psychiatric: Reports: depression/anxiety; Denies: dementia, CVA, TIA, other Endocrine: Denies: DM, hypothyroidism, steroids, other HEENT: Reports: other - (B) macular degeneration; Denies: cataract (L), cataract (R), glaucoma, EEK (L), EEK (R) Hematology/Immune: Reports: anemia; Denies: DVT, bleeding disorder, other Musculoskeletal/Integumentary: Reports: DJD; Denies: OA, RA, DDD, edema, other Other: other - Hepatitis C PMH Narrative: see above PSxH Narrative: s/p coronary stents Anesthesia Pre-op Phys. Exam Physician Exam Last Vital Signs Date Time Temp Pulse Resp B/P (MAP) Pulse Ox O2 Delivery O2 Flow Rate FiO2 05/26/18 09:35 135 136/89 05/26/18 09:00 Room Air 05/26/18 08:00 97.3 20 93 97.3 05/25/18 09:26 3 Constitutional: NAD Neurologic: CN 2-12 intact Cardiovascular: other - Atrial fibrillation Respiratory: CTA Gastrointestinal: other - distended Airway Exam Mallampati Score: Class II MO: full TMD: > 3 FB ROM: full Teeth: missing, broken Dentures: no upper, no lower Anesthesia Pre-op A/P Labs Hematology Test 05/26/18 06:55 White Blood Count 8.4 K/UL (4.8-10.8) Red Blood Count 3.96 M/UL (4.70-6.10) L Hemoglobin 10.7 G/DL (14.2-18.0) L Hematocrit 33.3 % (42.0-52.0) L Mean Corpuscular Volume 84 FL (80-99) Mean Corpuscular Hemoglobin 26.9 PG (27.0-31.0) L Mean Corpuscular Hemoglobin Concent 32.0 G/DL (32.0-36.0) Red Cell Distribution Width 13.2 % (11.6-14.8) Platelet Count 229 K/UL (150-450) Mean Platelet Volume 6.7 FL (6.5-10.1) Neutrophils (%) (Auto) 72.5 % (45.0-75.0) Lymphocytes (%) (Auto) 12.5 % (20.0-45.0) L Monocytes (%) (Auto) 12.2 % (1.0-10.0) H Eosinophils (%) (Auto) 2.3 % (0.0-3.0) Basophils (%) (Auto) 0.6 % (0.0-2.0) Chemistry Test 05/26/18 06:55 Sodium Level 143 MMOL/L (136-145) Potassium Level 4.1 MMOL/L (3.5-5.1) Chloride Level 108 MMOL/L (98-107) H Carbon Dioxide Level 29 MMOL/L (21-32) Anion Gap 6 mmol/L (5-15) Blood Urea Nitrogen 4 mg/dL (7-18) L Creatinine 0.8 MG/DL (0.55-1.30) Estimat Glomerular Filtration Rate > 60 mL/min (>60) Glucose Level 113 MG/DL (74-106) H Calcium Level 8.4 MG/DL (8.5-10.1) L Total Bilirubin 0.6 MG/DL (0.2-1.0) Aspartate Amino Transf (AST/SGOT) 53 U/L (15-37) H Alanine Aminotransferase (ALT/SGPT) 29 U/L (12-78) Alkaline Phosphatase 132 U/L (46-116) H Total Protein 6.1 G/DL (6.4-8.2) L Albumin 2.5 G/DL (3.4-5.0) L Globulin 3.6 g/dL Albumin/Globulin Ratio 0.7 (1.0-2.7) L Studies Pre-op Studies: EKG - see chart Risk Assessment & Plan Assessment: ASA 3, recurrent gallstones despite ERCP, urgent need for lap ame Plan: GETA Status Change Before Surgery: Yes - HR 180s; given cardezem 10 mg IV and 30 mg PO HR down to baseline 100-130s Pre-Antibiotics Given Within 1 Hr of Incision: Yes - Given on floor Time Given: 09:45 Radha Bonilla CRNA May 26, 2018 12:29
[2018-05-26] MEDS ORDERED: Morphine Sulfate 2mg/ml Inj IVP PRN (12:30)
--- NOTE | 2018-05-26 12:32 | General Progress Note ---
Assessment/Plan Status: unchanged Assessment/Plan encephalopathy due to C MDD increase seroquel 50 mg tid the pt lacks capacity to make decision about placement. Subjective Date patient seen: May 25, 2018 Neurologic/Psychiatric: Reports: anxiety Allergies: Coded Allergies: AMPICILLIN (Verified Allergy, Unknown, 04/23/18) Uncoded Allergies: PENICILLIN (Allergy, Unknown, 04/23/18) Subjective the pt has episodes of confusions and agitation Objective Last 24 Hour Vital Signs Date Time Temp Pulse Resp B/P (MAP) Pulse Ox O2 Delivery O2 Flow Rate FiO2 05/26/18 09:35 135 136/89 05/26/18 09:16 152 136/89 05/26/18 09:00 Room Air 05/26/18 08:42 110 136/89 05/26/18 08:00 97.3 135 20 136/89 (105) 93 97.3 05/26/18 08:00 159 05/26/18 05:51 109 150/77 05/26/18 04:00 109 05/26/18 04:00 97.5 103 20 150/77 (101) 93 97.5 05/26/18 00:00 97.9 96 20 141/68 (92) 97 97.9 05/26/18 00:00 93 05/25/18 21:32 81 103/64 05/25/18 21:00 81 103/64 05/25/18 21:00 Room Air 05/25/18 20:00 111 05/25/18 20:00 97.5 81 20 103/64 (77) 97 97.5 05/25/18 18:13 97.0 05/25/18 17:14 97.0 05/25/18 17:09 135 112/61 05/25/18 16:00 100 05/25/18 16:00 97.0 81 20 112/61 (78) 96 97.0 05/25/18 15:12 95 121/68 05/25/18 13:41 207.7 86 20 98 Intake and Output 05/25/18 05/26/18 19:00 07:00 Intake Total 790 ml Output Total 0 ml Balance 790 ml Intake Oral 540 ml IV Total 250 ml Estimated Blood Loss 0 ml # Voids 2 2 Laboratory Tests 05/26/18 06:55: White Blood Count 8.4, Red Blood Count 3.96L, Hemoglobin 10.7L, Hematocrit 33.3L , Mean Corpuscular Volume 84, Mean Corpuscular Hemoglobin 26.9L, Mean Corpuscular Hemoglobin Concent 32.0, Red Cell Distribution Width 13.2, Platelet Count 229, Mean Platelet Volume 6.7, Neutrophils (%) (Auto) 72.5, Lymphocytes (% ) (Auto) 12.5L, Monocytes (%) (Auto) 12.2H, Eosinophils (%) (Auto) 2.3, Basophils (%) (Auto) 0.6, Sodium Level 143, Potassium Level 4.1, Chloride Level 108H, Carbon Dioxide Level 29, Anion Gap 6, Blood Urea Nitrogen 4L, Creatinine 0.8, Estimat Glomerular Filtration Rate > 60, Glucose Level 113H, Calcium Level 8.4L, Total Bilirubin 0.6, Aspartate Amino Transf (AST/SGOT) 53H, Alanine Aminotransferase (ALT/SGPT) 29, Alkaline Phosphatase 132H, Total Protein 6.1L, Albumin 2.5L, Globulin 3.6, Albumin/Globulin Ratio 0.7L Height (Feet): 5 Height (Inches): 9.00 Weight (Pounds): 149 General Appearance: no apparent distress, alert, confused, agitated Payal Streeter MD May 26, 2018 12:32
--- NOTE | 2018-05-26 12:33 | General Progress Note ---
Assessment/Plan Assessment/Plan encephalopathy due to C MDD increase seroquel 50 mg tid the pt lacks capacity to make decision about placement. Subjective Date patient seen: May 26, 2018 Neurologic/Psychiatric: Reports: anxiety, depressed Allergies: Coded Allergies: AMPICILLIN (Verified Allergy, Unknown, 04/23/18) Uncoded Allergies: PENICILLIN (Allergy, Unknown, 04/23/18) Subjective the pt has episodes of confusions and agitation. he is the same Objective Last 24 Hour Vital Signs Date Time Temp Pulse Resp B/P (MAP) Pulse Ox O2 Delivery O2 Flow Rate FiO2 05/26/18 09:35 135 136/89 05/26/18 09:16 152 136/89 05/26/18 09:00 Room Air 05/26/18 08:42 110 136/89 05/26/18 08:00 97.3 135 20 136/89 (105) 93 97.3 05/26/18 08:00 159 05/26/18 05:51 109 150/77 05/26/18 04:00 109 05/26/18 04:00 97.5 103 20 150/77 (101) 93 97.5 05/26/18 00:00 97.9 96 20 141/68 (92) 97 97.9 05/26/18 00:00 93 05/25/18 21:32 81 103/64 05/25/18 21:00 81 103/64 05/25/18 21:00 Room Air 05/25/18 20:00 111 05/25/18 20:00 97.5 81 20 103/64 (77) 97 97.5 05/25/18 18:13 97.0 05/25/18 17:14 97.0 05/25/18 17:09 135 112/61 05/25/18 16:00 100 05/25/18 16:00 97.0 81 20 112/61 (78) 96 97.0 05/25/18 15:12 95 121/68 05/25/18 13:41 207.7 86 20 98 Intake and Output 05/25/18 05/26/18 19:00 07:00 Intake Total 790 ml Output Total 0 ml Balance 790 ml Intake Oral 540 ml IV Total 250 ml Estimated Blood Loss 0 ml # Voids 2 2 Laboratory Tests 05/26/18 06:55: White Blood Count 8.4, Red Blood Count 3.96L, Hemoglobin 10.7L, Hematocrit 33.3L , Mean Corpuscular Volume 84, Mean Corpuscular Hemoglobin 26.9L, Mean Corpuscular Hemoglobin Concent 32.0, Red Cell Distribution Width 13.2, Platelet Count 229, Mean Platelet Volume 6.7, Neutrophils (%) (Auto) 72.5, Lymphocytes (% ) (Auto) 12.5L, Monocytes (%) (Auto) 12.2H, Eosinophils (%) (Auto) 2.3, Basophils (%) (Auto) 0.6, Sodium Level 143, Potassium Level 4.1, Chloride Level 108H, Carbon Dioxide Level 29, Anion Gap 6, Blood Urea Nitrogen 4L, Creatinine 0.8, Estimat Glomerular Filtration Rate > 60, Glucose Level 113H, Calcium Level 8.4L, Total Bilirubin 0.6, Aspartate Amino Transf (AST/SGOT) 53H, Alanine Aminotransferase (ALT/SGPT) 29, Alkaline Phosphatase 132H, Total Protein 6.1L, Albumin 2.5L, Globulin 3.6, Albumin/Globulin Ratio 0.7L Height (Feet): 5 Height (Inches): 9.00 Weight (Pounds): 149 Payal Streeter MD May 26, 2018 12:33
--- NOTE | 2018-05-26 12:34 | Immediate Post-Op Evaluation ---
Immediate Post-Op Evalulation Immediate Post-Op Evalulation Procedure: ERCP Date of Evaluation: May 26, 2018 Time of Evaluation: 12:11 IV Fluids: LR 700 ml Estimated Blood Loss: 50 ml Blood Pressure Systolic: 084 Blood Pressure Diastolic: 64 Pulse Rate: 109 Respiratory Rate: 21 O2 Sat by Pulse Oximetry: 100 Temperature (Fahrenheit): 98.3 Pain Score (1-10): 0 Nausea: No Vomiting: No Complications none noted Patient Status: awake, reacts, patent Hydration Status: adequate Drug: Cirporfloxacin Given Within 1 Hr of Incision: Yes Time Given: 09:45 Radha Bonilla CRNA May 26, 2018 12:34
--- NOTE | 2018-05-26 13:07 | Brief Operative Note ---
Immediate Post Operative Note Operative Note Pre-op Diagnosis: acute cholecystitis, choledocholithiasis Procedure: lap ame Post-op Diagnosis: same as pre-op Surgeon: jonnie Anesthesia: general Specimen: yes Complications: none Condition: stable Fluids: see records Estimated Blood Loss: volume - 50 Drains: none Implant(s) used?: No Cristobal Shepherd May 26, 2018 13:07
[2018-05-26] MEDS ORDERED: DiphenhydrAMINE 50mg/ml Inj IVP PRN (13:15)
[2018-05-26] MEDS ORDERED: Milk of Magnesia 30ml Ud ORAL PRN (13:15)
[2018-05-26] MEDS ORDERED: Hydromorphone 0.5mg/0.5ml inj IVP PRN (13:15)
[2018-05-26] MEDS ORDERED: HYDROmorphone 1mg/ml Carpuject IVP PRN (13:15)
--- NOTE | 2018-05-26 15:35 | General Progress Note ---
Assessment/Plan Status: progressing Assessment/Plan 1) Acute cholecystitis Choledocholithiasis r/o Sepsis from a biliary source -Surgery consulted- recs appreciated -elevated bilirubin/transaminitis- GI consulted- recs appreciated -continue IV antibiotics- ciprofloxacin, metronidazole -check cultures- blood, urine, lactic acid- negative to date - s/p EGD/ERCP 05/25 - 2 stones extracted -s/p laparoscopic cholecystectomy- follow postop 2) Chronic systolic and diastolic heart failure 3) Atrial fibrillation with rapid ventricular response 4) CAD s/p PTCA/stent 6 months ago -Telemetry monitoring -continue carvedilol, hydralazine, statin -hold apixaban given surgery -Cardiology consulted- recs appreciated- started diltiazem -Resume heparin drip postop, ASA given recent stent and atrial fibrillation -replete K, Mg PRN 5) MARY- improving near baseline -IVF's; likely hypovolemic; doubt sepsis -avoid nephrotoxins/renally dose meds -will follow closely 6) Pancytopenia -Hematology recs appreciated -monitor for now 7) Acute encephalopathy/cognitive impairment -Psychiatry recs appreciated -seroquel increased to 50 tid DVT Prophylaxis: scd's, IV heparin Code status: full Hospital Classification declaration: Based on this initial evaluation, and depending on the patient's clinical course, I anticipate that this patient will require hospitalization for 2-3 days. Disposition: Once the patient is stable to leave the hospital, I anticipate the patient will likely be discharged to the following environment:SNF- comes from [facility] I spent 45 minutes on this patient's case, and 23 minutes was dedicated to counseling and/or care coordination. Time of note may not reflect time of encounter. Subjective Date patient seen: May 26, 2018 Time patient seen: 13:01 ROS Limited/Unobtainable: Yes Constitutional: Reports: no symptoms HEENT: Reports: no symptoms Cardiovascular: Reports: irregular heart rate Respiratory: Reports: no symptoms Gastrointestinal/Abdominal: Reports: abdominal pain Genitourinary: Reports: no symptoms Neurologic/Psychiatric: Reports: no symptoms Endocrine: Reports: no symptoms Hematologic/Lymphatic: Reports: no symptoms Allergies: Coded Allergies: AMPICILLIN (Verified Allergy, Unknown, 04/23/18) Uncoded Allergies: PENICILLIN (Allergy, Unknown, 04/23/18) All Systems: reviewed and negative except above Subjective Events of overnight reviewed Chart reviewed by me Patient s/p lap cholecystectomy Resting postoperatively Objective Last 24 Hour Vital Signs Date Time Temp Pulse Resp B/P (MAP) Pulse Ox O2 Delivery O2 Flow Rate FiO2 05/26/18 13:45 92 20 97/55 100 Nasal Cannula 3 05/26/18 13:30 98.0 88 15 98/65 100 Nasal Cannula 3 98.0 05/26/18 13:00 75 96/72 05/26/18 13:00 87 19 96/53 99 Nasal Cannula 3 05/26/18 12:45 88 18 93/48 99 Simple Mask 6 05/26/18 12:34 208.9 109 21 100 05/26/18 12:30 82 22 90/61 99 Simple Mask 6 05/26/18 12:20 83 20 95/65 99 Simple Mask 6 05/26/18 12:15 101 17 87/43 99 Simple Mask 6 05/26/18 12:11 98.3 109 21 84/64 99 Simple Mask 6 98.3 05/26/18 09:35 135 136/89 05/26/18 09:16 152 136/89 05/26/18 09:00 Room Air 05/26/18 08:42 110 136/89 05/26/18 08:00 97.3 135 20 136/89 (105) 93 97.3 05/26/18 08:00 159 05/26/18 05:51 109 150/77 05/26/18 04:00 109 05/26/18 04:00 97.5 103 20 150/77 (101) 93 97.5 05/26/18 00:00 97.9 96 20 141/68 (92) 97 97.9 05/26/18 00:00 93 05/25/18 21:32 81 103/64 05/25/18 21:00 81 103/64 05/25/18 21:00 Room Air 05/25/18 20:00 111 05/25/18 20:00 97.5 81 20 103/64 (77) 97 97.5 05/25/18 18:13 97.0 05/25/18 17:14 97.0 05/25/18 17:09 135 112/61 05/25/18 16:00 100 05/25/18 16:00 97.0 81 20 112/61 (78) 96 97.0 Intake and Output 05/25/18 05/26/18 19:00 07:00 Intake Total 790 ml Output Total 0 ml Balance 790 ml Intake Oral 540 ml IV Total 250 ml Estimated Blood Loss 0 ml # Voids 2 2 Laboratory Tests 05/26/18 06:55: White Blood Count 8.4, Red Blood Count 3.96L, Hemoglobin 10.7L, Hematocrit 33.3L , Mean Corpuscular Volume 84, Mean Corpuscular Hemoglobin 26.9L, Mean Corpuscular Hemoglobin Concent 32.0, Red Cell Distribution Width 13.2, Platelet Count 229, Mean Platelet Volume 6.7, Neutrophils (%) (Auto) 72.5, Lymphocytes (% ) (Auto) 12.5L, Monocytes (%) (Auto) 12.2H, Eosinophils (%) (Auto) 2.3, Basophils (%) (Auto) 0.6, Sodium Level 143, Potassium Level 4.1, Chloride Level 108H, Carbon Dioxide Level 29, Anion Gap 6, Blood Urea Nitrogen 4L, Creatinine 0.8, Estimat Glomerular Filtration Rate > 60, Glucose Level 113H, Calcium Level 8.4L, Total Bilirubin 0.6, Aspartate Amino Transf (AST/SGOT) 53H, Alanine Aminotransferase (ALT/SGPT) 29, Alkaline Phosphatase 132H, Total Protein 6.1L, Albumin 2.5L, Globulin 3.6, Albumin/Globulin Ratio 0.7L Height (Feet): 5 Height (Inches): 9.00 Weight (Pounds): 149 General Appearance: no apparent distress, lethargic, confused EENT: PERRL/EOMI, normal ENT inspection, TMs normal, pharynx normal, pale conjunctivae Neck: non-tender, supple Cardiovascular: normal peripheral pulses, regularly irregular, tachycardia Respiratory/Chest: chest wall non-tender, decreased breath sounds Abdomen: non tender, decreased bowel sounds, distended Pelvis: normal external exam Extremities: normal range of motion, non-tender Edema: no edema noted Arm (L), no edema noted Arm (R) Edema: trace edema Neurologic: other - somnolent but arousable Lymphatic: normal anterior cervical (L), normal anterior cervical (R) Jason Monte MD May 26, 2018 15:35
--- NOTE | 2018-05-26 20:31 | Cardiology Progress Note ---
Assessment/Plan Assessment/Plan perm afib now with rvr acute ame s/p lap ame kam with hs of bifascicular block hs of cm with subsequent resolution copd thrombocytopenia cad s/p pci lad rca cedrs 11/2017 chronic chf MR not confirmed on echo here 04/2018 no chf sx he has noted to have resolution of his cm in 02/2018[facility] confirmed on echo here sara;erithis month at tiem still tachy on bid of coreg and bid of cardizem will increase MR not confirmed on echo here [facility] in april no sx o acs ecotrin resuem heparin when safe will increase dilt to 60 mg tid as poor control specially at time fo agitation Subjective Cardiovascular: Denies: chest pain, lightheadedness, palpitations Respiratory: Denies: shortness of breath Gastrointestinal/Abdominal: Denies: abdominal pain Genitourinary: Denies: burning Objective Last 24 Hour Vital Signs Date Time Temp Pulse Resp B/P (MAP) Pulse Ox O2 Delivery O2 Flow Rate FiO2 05/26/18 19:47 160 105/63 05/26/18 17:30 98 109/70 05/26/18 16:09 148 109/70 05/26/18 16:00 97.6 20 109/70 (83) 100 97.6 05/26/18 16:00 108 05/26/18 13:45 92 20 97/55 100 Nasal Cannula 3 05/26/18 13:30 98.0 88 15 98/65 100 Nasal Cannula 3 98.0 05/26/18 13:00 75 96/72 05/26/18 13:00 87 19 96/53 99 Nasal Cannula 3 05/26/18 12:45 88 18 93/48 99 Simple Mask 6 05/26/18 12:34 208.9 109 21 100 05/26/18 12:30 82 22 90/61 99 Simple Mask 6 05/26/18 12:20 83 20 95/65 99 Simple Mask 6 05/26/18 12:15 101 17 87/43 99 Simple Mask 6 05/26/18 12:11 98.3 109 21 84/64 99 Simple Mask 6 98.3 05/26/18 09:35 135 136/89 05/26/18 09:16 152 136/89 05/26/18 09:00 Room Air 05/26/18 08:42 110 136/89 05/26/18 08:00 97.3 135 20 136/89 (105) 93 97.3 05/26/18 08:00 159 05/26/18 05:51 109 150/77 05/26/18 04:00 109 05/26/18 04:00 97.5 103 20 150/77 (101) 93 97.5 05/26/18 00:00 97.9 96 20 141/68 (92) 97 97.9 05/26/18 00:00 93 05/25/18 21:32 81 103/64 05/25/18 21:00 81 103/64 05/25/18 21:00 Room Air General Appearance: alert Neck: supple Cardiovascular: tachycardia, irregularly irregular Respiratory/Chest: crackles/rales Abdomen: normal bowel sounds, non tender, soft Extremities: no swelling Intake and Output 05/25/18 05/26/18 19:00 07:00 Intake Total 790 ml Output Total 0 ml Balance 790 ml Intake Oral 540 ml IV Total 250 ml Estimated Blood Loss 0 ml # Voids 2 2 Laboratory Tests Test 05/26/18 06:55 White Blood Count 8.4 K/UL (4.8-10.8) Red Blood Count 3.96 M/UL (4.70-6.10) L Hemoglobin 10.7 G/DL (14.2-18.0) L Hematocrit 33.3 % (42.0-52.0) L Mean Corpuscular Volume 84 FL (80-99) Mean Corpuscular Hemoglobin 26.9 PG (27.0-31.0) L Mean Corpuscular Hemoglobin Concent 32.0 G/DL (32.0-36.0) Red Cell Distribution Width 13.2 % (11.6-14.8) Platelet Count 229 K/UL (150-450) Mean Platelet Volume 6.7 FL (6.5-10.1) Neutrophils (%) (Auto) 72.5 % (45.0-75.0) Lymphocytes (%) (Auto) 12.5 % (20.0-45.0) L Monocytes (%) (Auto) 12.2 % (1.0-10.0) H Eosinophils (%) (Auto) 2.3 % (0.0-3.0) Basophils (%) (Auto) 0.6 % (0.0-2.0) Sodium Level 143 MMOL/L (136-145) Potassium Level 4.1 MMOL/L (3.5-5.1) Chloride Level 108 MMOL/L (98-107) H Carbon Dioxide Level 29 MMOL/L (21-32) Anion Gap 6 mmol/L (5-15) Blood Urea Nitrogen 4 mg/dL (7-18) L Creatinine 0.8 MG/DL (0.55-1.30) Estimat Glomerular Filtration Rate > 60 mL/min (>60) Glucose Level 113 MG/DL (74-106) H Calcium Level 8.4 MG/DL (8.5-10.1) L Total Bilirubin 0.6 MG/DL (0.2-1.0) Aspartate Amino Transf (AST/SGOT) 53 U/L (15-37) H Alanine Aminotransferase (ALT/SGPT) 29 U/L (12-78) Alkaline Phosphatase 132 U/L (46-116) H Total Protein 6.1 G/DL (6.4-8.2) L Albumin 2.5 G/DL (3.4-5.0) L Globulin 3.6 g/dL Albumin/Globulin Ratio 0.7 (1.0-2.7) L Luis Alfredo Gonzalez MD May 26, 2018 20:31
[2018-05-26] MEDS: dilTIAZem HCl 60mg tab ORAL SCH (21:41)
[2018-05-26] MEDS: Atorvastatin 20mg tab ORAL SCH (21:43)
[2018-05-26] MEDS: Heparin 5000 units/ml inj SUBQ SCH (21:48)
--- NOTE | 2018-05-26 22:23 | General Progress Note ---
Assessment/Plan Assessment/Plan Assesement - cholecystitis - choledocholithiasis, s/p ERCP and stone extraction - anemia - s/p cholecystectomy Recommendations - IVF - Abx - follow labs - diet per surgery Subjective Allergies: Coded Allergies: AMPICILLIN (Verified Allergy, Unknown, 04/23/18) Uncoded Allergies: PENICILLIN (Allergy, Unknown, 04/23/18) Subjective Seen this am, prior to surgery feels OK anxious about procedures Objective Last 24 Hour Vital Signs Date Time Temp Pulse Resp B/P (MAP) Pulse Ox O2 Delivery O2 Flow Rate FiO2 05/26/18 21:42 109 105/63 05/26/18 21:41 109 105/63 05/26/18 20:00 103 05/26/18 20:00 97.7 109 20 105/63 (77) 95 97.7 05/26/18 19:47 160 105/63 05/26/18 17:30 98 109/70 05/26/18 16:09 148 109/70 05/26/18 16:00 97.6 20 109/70 (83) 100 97.6 05/26/18 16:00 108 05/26/18 13:45 92 20 97/55 100 Nasal Cannula 3 05/26/18 13:30 98.0 88 15 98/65 100 Nasal Cannula 3 98.0 05/26/18 13:00 75 96/72 05/26/18 13:00 87 19 96/53 99 Nasal Cannula 3 05/26/18 12:45 88 18 93/48 99 Simple Mask 6 05/26/18 12:34 208.9 109 21 100 05/26/18 12:30 82 22 90/61 99 Simple Mask 6 05/26/18 12:20 83 20 95/65 99 Simple Mask 6 05/26/18 12:15 101 17 87/43 99 Simple Mask 6 05/26/18 12:11 98.3 109 21 84/64 99 Simple Mask 6 98.3 05/26/18 09:35 135 136/89 05/26/18 09:16 152 136/89 05/26/18 09:00 Room Air 05/26/18 08:42 110 136/89 05/26/18 08:00 97.3 135 20 136/89 (105) 93 97.3 05/26/18 08:00 159 9/5/18 05:51 109 150/77 05/26/18 04:00 109 05/26/18 04:00 97.5 103 20 150/77 (101) 93 97.5 05/26/18 00:00 97.9 96 20 141/68 (92) 97 97.9 05/26/18 00:00 93 Intake and Output 05/25/18 05/26/18 19:00 07:00 Intake Total 790 ml Output Total 0 ml Balance 790 ml Intake Oral 540 ml IV Total 250 ml Estimated Blood Loss 0 ml # Voids 2 2 Laboratory Tests 05/26/18 06:55: White Blood Count 8.4, Red Blood Count 3.96L, Hemoglobin 10.7L, Hematocrit 33.3L , Mean Corpuscular Volume 84, Mean Corpuscular Hemoglobin 26.9L, Mean Corpuscular Hemoglobin Concent 32.0, Red Cell Distribution Width 13.2, Platelet Count 229, Mean Platelet Volume 6.7, Neutrophils (%) (Auto) 72.5, Lymphocytes (% ) (Auto) 12.5L, Monocytes (%) (Auto) 12.2H, Eosinophils (%) (Auto) 2.3, Basophils (%) (Auto) 0.6, Sodium Level 143, Potassium Level 4.1, Chloride Level 108H, Carbon Dioxide Level 29, Anion Gap 6, Blood Urea Nitrogen 4L, Creatinine 0.8, Estimat Glomerular Filtration Rate > 60, Glucose Level 113H, Calcium Level 8.4L, Total Bilirubin 0.6, Aspartate Amino Transf (AST/SGOT) 53H, Alanine Aminotransferase (ALT/SGPT) 29, Alkaline Phosphatase 132H, Total Protein 6.1L, Albumin 2.5L, Globulin 3.6, Albumin/Globulin Ratio 0.7L Height (Feet): 5 Height (Inches): 9.00 Weight (Pounds): 149 Objective WDWN NCAT supple CTA RRR Abd soft NT ND no edema nonfocal Alissa Bueno MD May 26, 2018 22:23
--- NOTE | 2018-05-26 23:00 | Operative Note - Dictated ---
DATE OF OPERATION: 05/26/2018 PREOPERATIVE DIAGNOSES: 1. Acute cholecystitis. 2. Choledocholithiasis. POSTOPERATIVE DIAGNOSES: 1. Acute cholecystitis. 2. Choledocholithiasis. PROCEDURE PERFORMED: Laparoscopic cholecystectomy. ATTENDING SURGEON: Cristobal Shepherd M.D. [employer]IVER: None. ANESTHESIOLOGIST: Radha BRITO ANESTHESIA: General PRESS TENDER INCENDIARY GRENADE. ESTIMATED BLOOD LOSS: 50 mL. IV FLUIDS: Please see anesthesia records. COMPLICATIONS: None. CONDITION: Stable. DRAINS: None. IMPLANTS: None. WOUND CLASSIFICATION: Class III. SPECIMENS: Gallbladder and contained stones sent to pathology for review. COUNTS: Sponge and needle count correct x2. INDICATIONS FOR PROCEDURE: This is a 68-year-old male who is well known to me from prior admission with acute cholecystitis and choledocholithiasis. The patient presented again with worsening acute cholecystitis and choledocholithiasis for second time, which time he was seen by Gastroenterology and performed ERCP with removal of 2 common bile duct stones and sphincterotomy. The patient had significant cholecystitis in the past and given his second episode, cholecystectomy was indicated and given this being the patient's second episode and continuous symptoms and worsening condition, and the surgery was indicated and recommended. Risks, benefits, and alternatives were discussed with the patient who expressed understanding and consented to surgery. OPERATIVE NOTE: The patient was then taken to the operating room and placed on the operative table in supine position with bilateral arms out. All bony prominences well padded. SCDs were placed. No Mosquera catheter was inserted given the patient voided prior to entering the operating room. The patient was scheduled on IV antibiotics for acute active inflammatory process. Preoperative time-out was taken identifying the patient, procedure, operative staff, and surgical staff. General anesthesia was induced and the patient was intubated. The abdomen was then clipped, prepped, and draped in standard surgical fashion. An umbilical incision was made using a #11 scalpel. Incision was carried down. The fascia was elevated and incised and entry into the abdomen was obtained using the open Skye technique. A 12 mm Skye trocar was inserted and abdomen insufflated 12 to 15 mmHg. The laparoscope was inserted and the abdomen was inspected. The patient was placed in the reverse Trendelenburg position with the left side down. Inspecting the abdomen, there was a moderate amount of ascites noted. The liver did have some macronodular changes. The omentum was densely adhesed in the right upper quadrant to the gallbladder with inflammatory reaction. Secondary trocars were placed under direct visualization beginning with a 12 mm epigastric subxiphoid trocar followed by two 5 mm right subcostal trocars. A fair amount of difficulty was required and taken down the omentum from the gallbladder given the amount of inflammation noted. Fortunately, this was done safely with electrocautery and blunt dissection. Following this, the gallbladder dome was identified and grasped using most lateral port and retracted over the liver. The infundibulum was gently teased out until noted and grasped using the midclavicular port and retracted towards the right lower quadrant. With gentle dissection, the cystic duct and artery were both identified and circumferentially dissected out. They were doubly clipped and divided. Following this, gallbladder was taken off the liver bed using electrocautery. Gallbladder was placed in endoscopic retrieval bag and removed from the abdomen using the umbilical port site. There was a fair amount of oozing in the liver bed and from the omental remnant and hemostasis was achieved using electrocautery, Surgicel and FloSeal. Following this, the abdomen was inspected and we began our conclusion of the procedure. Throughout the procedure soon, acetic fluid was evacuated. Good hemostasis was noted end of the procedure. No bleeding or bile leakage was identified. Secondary trocars were removed under direct visualization. The umbilical trocar was then removed and the abdomen allowed to be desufflated. The subxiphoid and umbilical port fascial incisions were closed using [id number] #0 Vicryl sutures. The remaining skin incisions were closed using 4-0 Monocryl subcuticular interrupted sutures. Skin glue and Steri-Strips were applied. The patient tolerated the procedure well, was extubated and taken to postanesthetic care unit in stable condition. Cristobal Shepherd M.D. DR: JHON JOB#: [id number] CC: ADONIS
[2018-05-27] VITALS: BP 104/79
[2018-05-27 04:00] VITALS: BP 112/72
[2018-05-27 07:16] LABS: HEMATOCRIT 33.5 % (42.0-52.0); HEMOGLOBIN 11.1 G/DL (14.2-18.0); MEAN CORPUSCULAR VOLUME 85 FL (80-99); PLATELET COUNT 258 K/UL (150-450); RED BLOOD COUNT 3.96 M/UL (4.70-6.10); WHITE BLOOD COUNT 12.5 K/UL (4.8-10.8)
[2018-05-27 07:35] LABS: ALANINE AMINOTRANSFERASE 36 U/L (12-78); ALBUMIN 2.4 G/DL (3.4-5.0); ALBUMIN/GLOBULIN RATIO 0.6 (1.0-2.7); ALKALINE PHOSPHATASE 117 U/L (46-116); ANION GAP 7 mmol/L (5-15); ASPARTATE AMINO TRANSFERASE 72 U/L (15-37); BILIRUBIN,TOTAL 0.5 MG/DL (0.2-1.0); BLOOD UREA NITROGEN 6 mg/dL (7-18); CALCIUM 8.6 MG/DL (8.5-10.1); CARBON DIOXIDE 28 MMOL/L (21-32); CHLORIDE 106 MMOL/L (98-107); CREATININE 0.8 MG/DL (0.55-1.30); POTASSIUM 4.3 MMOL/L (3.5-5.1); SODIUM 141 MMOL/L (136-145)
[2018-05-27 08:22] VITALS: BP 138/56
[2018-05-27] MEDS: Aspirin Baby 81mg ORAL SCH (08:24)
[2018-05-27] MEDS: dilTIAZem HCl 60mg tab ORAL SCH ×4 (08:24→21:07)
[2018-05-27] MEDS: Carvedilol 12.5mg tab ORAL SCH ×2 (08:24→21:07)
[2018-05-27] MEDS: Docusate 100mg cap ORAL SCH ×2 (08:24→17:40)
[2018-05-27] MEDS: Heparin 5000 units/ml inj SUBQ SCH ×2 (08:27→21:00)
--- NOTE | 2018-05-27 08:49 | 48 Hour Post Anesthesia Eval ---
Post Anesthesia Evaluation Procedure: Lap Vaishnavi Date of Evaluation: May 27, 2018 Time of Evaluation: 08:47 Blood Pressure Systolic: 138 0: 56 Pulse Rate: 93 Respiratory Rate: 21 Temperature (Fahrenheit): 98 O2 Sat by Pulse Oximetry: 98 Airway: patent Nausea: No Vomiting: No Pain Intensity: 3 Hydration Status: adequate Cardiopulmonary Status: VSS, no overnight events Mental Status/LOC: patient returned to baseline Follow-up Care/Observations: returned to floor primary team care Post-Anesthesia Complications: none noted Follow-up care needed: patient intructions given Radha Bonilla CRNA May 27, 2018 08:49
--- NOTE | 2018-05-27 08:59 | 48 Hour Post Anesthesia Eval ---
Post Anesthesia Evaluation Procedure: Lap Vaishnavi Date of Evaluation: May 27, 2018 Time of Evaluation: 08:58 Blood Pressure Systolic: 134 0: 62 Pulse Rate: 96 Respiratory Rate: 22 Temperature (Fahrenheit): 97.8 O2 Sat by Pulse Oximetry: 97 Nausea: No Vomiting: No Pain Intensity: 3 Hydration Status: adequate Cardiopulmonary Status: stable Mental Status/LOC: patient returned to baseline Follow-up Care/Observations: n/a Post-Anesthesia Complications: none Follow-up care needed: N/A Reagan Mallory MD May 27, 2018 08:59
--- NOTE | 2018-05-27 11:08 | General Progress Note ---
Assessment/Plan Assessment/Plan Assesement - cholecystitis - choledocholithiasis, s/p ERCP and stone extraction - anemia - s/p cholecystectomy Recommendations - IVF - Abx - follow labs - diet per surgery - d/c planning Subjective Allergies: Coded Allergies: AMPICILLIN (Verified Allergy, Unknown, 04/23/18) Uncoded Allergies: PENICILLIN (Allergy, Unknown, 04/23/18) Subjective POD #1 s/p cholecystectomy feels OK some wound pain Objective Last 24 Hour Vital Signs Date Time Temp Pulse Resp B/P (MAP) Pulse Ox O2 Delivery O2 Flow Rate FiO2 05/27/18 09:00 Room Air 05/27/18 08:59 208.0 96 22 97 05/27/18 08:49 208.4 93 21 98 05/27/18 08:24 93 138/56 05/27/18 08:24 93 138/56 05/27/18 08:22 98.0 93 17 138/56 (83) 98 98.0 05/27/18 08:00 101 05/27/18 04:00 111 05/27/18 04:00 96.7 59 20 112/72 (85) 93 96.7 05/27/18 00:00 108 05/27/18 00:00 98.0 68 22 104/79 (87) 93 98.0 05/26/18 21:42 109 105/63 05/26/18 21:41 109 105/63 05/26/18 21:00 Room Air 05/26/18 20:00 103 05/26/18 20:00 97.7 109 20 105/63 (77) 95 97.7 05/26/18 19:47 160 105/63 05/26/18 17:30 98 109/70 05/26/18 16:09 148 109/70 05/26/18 16:00 97.6 20 109/70 (83) 100 97.6 05/26/18 16:00 108 05/26/18 13:45 92 20 97/55 100 Nasal Cannula 3 05/26/18 13:30 98.0 88 15 98/65 100 Nasal Cannula 3 98.0 05/26/18 13:00 75 96/72 05/26/18 13:00 87 19 96/53 99 Nasal Cannula 3 05/26/18 12:45 88 18 93/48 99 Simple Mask 6 05/26/18 12:34 208.9 109 21 100 05/26/18 12:30 82 22 90/61 99 Simple Mask 6 05/26/18 12:20 83 20 95/65 99 Simple Mask 6 05/26/18 12:15 101 17 87/43 99 Simple Mask 6 05/26/18 12:11 98.3 109 21 84/64 99 Simple Mask 6 98.3 Intake and Output 05/26/18 05/27/18 19:00 07:00 Intake Total 850 ml 300 ml Output Total 10 ml Balance 840 ml 300 ml Intake Oral 600 ml IV Total 250 ml 300 ml Estimated Blood Loss 10 ml # Voids 1 Laboratory Tests 05/27/18 05:30: White Blood Count 12.5H, Red Blood Count 3.96L, Hemoglobin 11.1L, Hematocrit 33.5L, Mean Corpuscular Volume 85, Mean Corpuscular Hemoglobin 28.1, Mean Corpuscular Hemoglobin Concent 33.1, Red Cell Distribution Width 13.0, Platelet Count 258, Mean Platelet Volume 6.4L, Neutrophils (%) (Auto) , Lymphocytes (%) ( Auto) , Monocytes (%) (Auto) , Eosinophils (%) (Auto) , Basophils (%) (Auto) , Differential Total Cells Counted 100, Neutrophils % (Manual) 83H, Lymphocytes % (Manual) 12L, Monocytes % (Manual) 5, Eosinophils % (Manual) 0, Basophils % ( Manual) 0, Band Neutrophils 0, Platelet Estimate Adequate, Platelet Morphology Normal, Hypochromasia 1+, Sodium Level 141, Potassium Level 4.3, Chloride Level 106, Carbon Dioxide Level 28, Anion Gap 7, Blood Urea Nitrogen 6L, Creatinine 0.8, Estimat Glomerular Filtration Rate > 60, Glucose Level 132H, Calcium Level 8.6, Total Bilirubin 0.5, Aspartate Amino Transf (AST/SGOT) 72H, Alanine Aminotransferase (ALT/SGPT) 36, Alkaline Phosphatase 117H, Total Protein 6.2L, Albumin 2.4L, Globulin 3.8, Albumin/Globulin Ratio 0.6L Height (Feet): 5 Height (Inches): 9.00 Weight (Pounds): 149 Objective WDWN NCAT supple CTA RRR Abd soft NT ND no edema nonfocal Alissa Bueno MD May 27, 2018 11:08
--- NOTE | 2018-05-27 11:17 | General Progress Note ---
Assessment/Plan Status: stable, progressing Assessment/Plan encephalopathy due to [facility] MDD increase seroquel 50 mg tid the pt lacks capacity to make decision about placement. Subjective Date patient seen: May 27, 2018 Neurologic/Psychiatric: Reports: anxiety, depressed, emotional problems Allergies: Coded Allergies: AMPICILLIN (Verified Allergy, Unknown, 04/23/18) Uncoded Allergies: PENICILLIN (Allergy, Unknown, 04/23/18) Subjective the pt has episodes of confusions and agitation. post op. Objective Last 24 Hour Vital Signs Date Time Temp Pulse Resp B/P (MAP) Pulse Ox O2 Delivery O2 Flow Rate FiO2 05/27/18 09:00 Room Air 05/27/18 08:59 208.0 96 22 97 05/27/18 08:49 208.4 93 21 98 05/27/18 08:24 93 138/56 05/27/18 08:24 93 138/56 05/27/18 08:22 98.0 93 17 138/56 (83) 98 98.0 05/27/18 08:00 101 05/27/18 04:00 111 05/27/18 04:00 96.7 59 20 112/72 (85) 93 96.7 05/27/18 00:00 108 05/27/18 00:00 98.0 68 22 104/79 (87) 93 98.0 05/26/18 21:42 109 105/63 05/26/18 21:41 109 105/63 05/26/18 21:00 Room Air 05/26/18 20:00 103 05/26/18 20:00 97.7 109 20 105/63 (77) 95 97.7 05/26/18 19:47 160 105/63 05/26/18 17:30 98 109/70 05/26/18 16:09 148 109/70 05/26/18 16:00 97.6 20 109/70 (83) 100 97.6 05/26/18 16:00 108 05/26/18 13:45 92 20 97/55 100 Nasal Cannula 3 05/26/18 13:30 98.0 88 15 98/65 100 Nasal Cannula 3 98.0 05/26/18 13:00 75 96/72 05/26/18 13:00 87 19 96/53 99 Nasal Cannula 3 05/26/18 12:45 88 18 93/48 99 Simple Mask 6 05/26/18 12:34 208.9 109 21 100 05/26/18 12:30 82 22 90/61 99 Simple Mask 6 05/26/18 12:20 83 20 95/65 99 Simple Mask 6 05/26/18 12:15 101 17 87/43 99 Simple Mask 6 05/26/18 12:11 98.3 109 21 84/64 99 Simple Mask 6 98.3 Intake and Output 05/26/18 05/27/18 19:00 07:00 Intake Total 850 ml 300 ml Output Total 10 ml Balance 840 ml 300 ml Intake Oral 600 ml IV Total 250 ml 300 ml Estimated Blood Loss 10 ml # Voids 1 Laboratory Tests 05/27/18 05:30: White Blood Count 12.5H, Red Blood Count 3.96L, Hemoglobin 11.1L, Hematocrit 33.5L, Mean Corpuscular Volume 85, Mean Corpuscular Hemoglobin 28.1, Mean Corpuscular Hemoglobin Concent 33.1, Red Cell Distribution Width 13.0, Platelet Count 258, Mean Platelet Volume 6.4L, Neutrophils (%) (Auto) , Lymphocytes (%) ( Auto) , Monocytes (%) (Auto) , Eosinophils (%) (Auto) , Basophils (%) (Auto) , Differential Total Cells Counted 100, Neutrophils % (Manual) 83H, Lymphocytes % (Manual) 12L, Monocytes % (Manual) 5, Eosinophils % (Manual) 0, Basophils % ( Manual) 0, Band Neutrophils 0, Platelet Estimate Adequate, Platelet Morphology Normal, Hypochromasia 1+, Sodium Level 141, Potassium Level 4.3, Chloride Level 106, Carbon Dioxide Level 28, Anion Gap 7, Blood Urea Nitrogen 6L, Creatinine 0.8, Estimat Glomerular Filtration Rate > 60, Glucose Level 132H, Calcium Level 8.6, Total Bilirubin 0.5, Aspartate Amino Transf (AST/SGOT) 72H, Alanine Aminotransferase (ALT/SGPT) 36, Alkaline Phosphatase 117H, Total Protein 6.2L, Albumin 2.4L, Globulin 3.8, Albumin/Globulin Ratio 0.6L Height (Feet): 5 Height (Inches): 9.00 Weight (Pounds): 149 General Appearance: no apparent distress, alert Neurologic: oriented x 3, responsive, depressed affect Payal Streeter MD May 27, 2018 11:17
[2018-05-27 12:07] VITALS: BP 146/81
--- NOTE | 2018-05-27 14:19 | General Progress Note ---
Progress Note Progress Note Surgery: looks remarkably well. no n/v/f/c. tolerating diet. ambulatory. pain minimal. wounds c/d/i exam benign. states he feels well. s/p lap ame, recovering d/c planning does not want narcotics. OTC pain meds prn wound instructions given to patient care instructions given to patient f/u with me in 2 weeks. Cristobal Shepherd May 27, 2018 14:19
[2018-05-27 16:13] VITALS: BP 102/71
[2018-05-27 20:00] VITALS: BP 113/66
--- NOTE | 2018-05-27 20:07 | Cardiology Progress Note ---
Assessment/Plan Assessment/Plan perm afib now with rvr acute ame s/p lap ame kam with hs of bifascicular block hs of cm with subsequent resolution copd thrombocytopenia cad s/p pci lad rca cedrs 11/2017 chronic chf MR not confirmed on echo here 04/2018 no chf sx he has noted to have resolution of his cm in 02/2018[facility] confirmed on echo here sara;erithis month at tiem still tachy on bid of coreg and bid of cardizem will increase MR not confirmed on echo here [facility] in april no sx o acs ecotrin resuem eleiquis if adn when safe hr is controlled Subjective Cardiovascular: Denies: chest pain, lightheadedness, palpitations Respiratory: Denies: shortness of breath Gastrointestinal/Abdominal: Denies: abdominal pain Genitourinary: Denies: burning Objective Last 24 Hour Vital Signs Date Time Temp Pulse Resp B/P (MAP) Pulse Ox O2 Delivery O2 Flow Rate FiO2 05/27/18 17:40 85 125/73 05/27/18 16:13 97.5 85 20 102/71 (81) 97 97.5 05/27/18 16:00 55 05/27/18 12:52 95 146/81 05/27/18 12:07 98.2 95 20 146/81 (102) 96 98.2 05/27/18 12:00 77 05/27/18 09:00 Room Air 05/27/18 08:59 208.0 96 22 97 05/27/18 08:49 208.4 93 21 98 05/27/18 08:24 93 138/56 05/27/18 08:24 93 138/56 05/27/18 08:22 98.0 93 17 138/56 (83) 98 98.0 05/27/18 08:00 101 05/27/18 04:00 111 05/27/18 04:00 96.7 59 20 112/72 (85) 93 96.7 05/27/18 00:00 108 05/27/18 00:00 98.0 68 22 104/79 (87) 93 98.0 05/26/18 21:42 109 105/63 05/26/18 21:41 109 105/63 05/26/18 21:00 Room Air General Appearance: no apparent distress, alert Neck: supple Cardiovascular: irregularly irregular Respiratory/Chest: lungs clear, normal breath sounds Abdomen: normal bowel sounds, non tender, soft Extremities: no swelling Intake and Output 05/26/18 05/27/18 19:00 07:00 Intake Total 850 ml 300 ml Output Total 10 ml Balance 840 ml 300 ml Intake Oral 600 ml IV Total 250 ml 300 ml Estimated Blood Loss 10 ml # Voids 1 Laboratory Tests Test 05/27/18 05:30 White Blood Count 12.5 K/UL (4.8-10.8) H Red Blood Count 3.96 M/UL (4.70-6.10) L Hemoglobin 11.1 G/DL (14.2-18.0) L Hematocrit 33.5 % (42.0-52.0) L Mean Corpuscular Volume 85 FL (80-99) Mean Corpuscular Hemoglobin 28.1 PG (27.0-31.0) Mean Corpuscular Hemoglobin Concent 33.1 G/DL (32.0-36.0) Red Cell Distribution Width 13.0 % (11.6-14.8) Platelet Count 258 K/UL (150-450) Mean Platelet Volume 6.4 FL (6.5-10.1) L Neutrophils (%) (Auto) % (45.0-75.0) Lymphocytes (%) (Auto) % (20.0-45.0) Monocytes (%) (Auto) % (1.0-10.0) Eosinophils (%) (Auto) % (0.0-3.0) Basophils (%) (Auto) % (0.0-2.0) Differential Total Cells Counted 100 Neutrophils % (Manual) 83 % (45-75) H Lymphocytes % (Manual) 12 % (20-45) L Monocytes % (Manual) 5 % (1-10) Eosinophils % (Manual) 0 % (0-3) Basophils % (Manual) 0 % (0-2) Band Neutrophils 0 % (0-8) Platelet Estimate Adequate Platelet Morphology Normal Hypochromasia 1+ Sodium Level 141 MMOL/L (136-145) Potassium Level 4.3 MMOL/L (3.5-5.1) Chloride Level 106 MMOL/L (98-107) Carbon Dioxide Level 28 MMOL/L (21-32) Anion Gap 7 mmol/L (5-15) Blood Urea Nitrogen 6 mg/dL (7-18) L Creatinine 0.8 MG/DL (0.55-1.30) Estimat Glomerular Filtration Rate > 60 mL/min (>60) Glucose Level 132 MG/DL (74-106) H Calcium Level 8.6 MG/DL (8.5-10.1) Total Bilirubin 0.5 MG/DL (0.2-1.0) Aspartate Amino Transf (AST/SGOT) 72 U/L (15-37) H Alanine Aminotransferase (ALT/SGPT) 36 U/L (12-78) Alkaline Phosphatase 117 U/L (46-116) H Total Protein 6.2 G/DL (6.4-8.2) L Albumin 2.4 G/DL (3.4-5.0) L Globulin 3.8 g/dL Albumin/Globulin Ratio 0.6 (1.0-2.7) L Luis Alfredo Gonzalez MD May 27, 2018 20:07
--- NOTE | 2018-05-27 20:53 | General Progress Note ---
Assessment/Plan Assessment/Plan 1. Pancytopenia, potentially secondary to liver disease, bilirubin elevated on admission. The patient had transaminitis on admission as well. MCV is elevated. --> Hepatitis A and B are negative, Hep-C is positive, HIV negative. --> Ultrasound of the abdomen reviewed. No evidence of cirrhosis or splenomegaly --> Continue to closely monitor. --> Counts improved, compared to admission, at this time, doesn't need a bone marrow biopsy 2. Anemia of chronic disease. Anemia panel has been reviewed. Will trend CBC daily. --> Hemoglobin goal is above 7. --> Current Hgb at 10.3, stable --> no evidence of hemolysis 3. Anemia due to underlying congestive heart failure, decompensated state. --> monitor fluid status closely, as per cards 4. Cholecystitis. s/p 05/24 ercp, 2 stones removed --> surg eval prn 5. Possible viral urinary tract infection. 6. Transaminitis, hepatic congestion questionable. 7. Deep venous thrombosis prophylaxis with heparin sq The time the note was entered does not necessarily correspond to the time the patient was seen. Subjective Constitutional: Denies: no symptoms, chills, diaphoresis, fever, malaise, weakness, other HEENT: Denies: no symptoms, eye pain, blurred vision, tearing, double vision, ear pain, ear discharge, nose pain, nose congestion, throat pain, throat swelling, mouth pain, mouth swelling, other Cardiovascular: Denies: no symptoms, chest pain, edema, irregular heart rate, lightheadedness, palpitations, syncope, other Respiratory: Denies: no symptoms, cough, orthopnea, shortness of breath, SOB with excertion, SOB at rest, sputum, stridor, wheezing, other Gastrointestinal/Abdominal: Denies: no symptoms, abdomen distended, abdominal pain, black stools, tarry stools, blood in stool, constipated, diarrhea, difficulty swallowing, nausea, poor appetite, poor fluid intake, rectal bleeding , vomiting, other Genitourinary: Denies: no symptoms, burning, discharge, frequency, flank pain, hematuria, incontinence, pain, urgency, other Neurologic/Psychiatric: Denies: no symptoms, anxiety, depressed, emotional problems, headache, numbness, paresthesia, pre-existing deficit, seizure, tingling, tremors, weakness, other Endocrine: Denies: no symptoms, excessive sweating, flushing, intolerance to cold, intolerance to heat, increased hunger, increased thirst, increased urine, unexplained weight gain, unexplained weight loss, other Hematologic/Lymphatic: Denies: no symptoms, anemia, easy bleeding, easy bruising, other Allergies: Coded Allergies: AMPICILLIN (Verified Allergy, Unknown, 04/23/18) Uncoded Allergies: PENICILLIN (Allergy, Unknown, 04/23/18) Subjective Pt awake and agitated. No acute events. s/p ercp and 2 stones were removed. getting pt/ot today Objective Last 24 Hour Vital Signs Date Time Temp Pulse Resp B/P (MAP) Pulse Ox O2 Delivery O2 Flow Rate FiO2 05/27/18 20:00 98.5 83 20 113/66 (82) 95 98.5 05/27/18 17:40 85 125/73 05/27/18 16:13 97.5 85 20 102/71 (81) 97 97.5 05/27/18 16:00 55 05/27/18 12:52 95 146/81 05/27/18 12:07 98.2 95 20 146/81 (102) 96 98.2 05/27/18 12:00 77 05/27/18 09:00 Room Air 05/27/18 08:59 208.0 96 22 97 05/27/18 08:49 208.4 93 21 98 05/27/18 08:24 93 138/56 05/27/18 08:24 93 138/56 05/27/18 08:22 98.0 93 17 138/56 (83) 98 98.0 05/27/18 08:00 101 05/27/18 04:00 111 05/27/18 04:00 96.7 59 20 112/72 (85) 93 96.7 05/27/18 00:00 108 05/27/18 00:00 98.0 68 22 104/79 (87) 93 98.0 05/26/18 21:42 109 105/63 05/26/18 21:41 109 105/63 05/26/18 21:00 Room Air Intake and Output 05/26/18 05/27/18 19:00 07:00 Intake Total 850 ml 300 ml Output Total 10 ml Balance 840 ml 300 ml Intake Oral 600 ml IV Total 250 ml 300 ml Estimated Blood Loss 10 ml # Voids 1 Laboratory Tests 05/27/18 05:30: White Blood Count 12.5H, Red Blood Count 3.96L, Hemoglobin 11.1L, Hematocrit 33.5L, Mean Corpuscular Volume 85, Mean Corpuscular Hemoglobin 28.1, Mean Corpuscular Hemoglobin Concent 33.1, Red Cell Distribution Width 13.0, Platelet Count 258, Mean Platelet Volume 6.4L, Neutrophils (%) (Auto) , Lymphocytes (%) ( Auto) , Monocytes (%) (Auto) , Eosinophils (%) (Auto) , Basophils (%) (Auto) , Differential Total Cells Counted 100, Neutrophils % (Manual) 83H, Lymphocytes % (Manual) 12L, Monocytes % (Manual) 5, Eosinophils % (Manual) 0, Basophils % ( Manual) 0, Band Neutrophils 0, Platelet Estimate Adequate, Platelet Morphology Normal, Hypochromasia 1+, Sodium Level 141, Potassium Level 4.3, Chloride Level 106, Carbon Dioxide Level 28, Anion Gap 7, Blood Urea Nitrogen 6L, Creatinine 0.8, Estimat Glomerular Filtration Rate > 60, Glucose Level 132H, Calcium Level 8.6, Total Bilirubin 0.5, Aspartate Amino Transf (AST/SGOT) 72H, Alanine Aminotransferase (ALT/SGPT) 36, Alkaline Phosphatase 117H, Total Protein 6.2L, Albumin 2.4L, Globulin 3.8, Albumin/Globulin Ratio 0.6L Height (Feet): 5 Height (Inches): 9.00 Weight (Pounds): 149 General Appearance: no apparent distress EENT: TMs normal Neck: supple Cardiovascular: regular rhythm Respiratory/Chest: normal breath sounds Abdomen: no organomegaly Extremities: non-tender Edema: 1+ Leg (L), 1+ Leg (R) Edema: mild edema 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 Maykel Coronel MD May 27, 2018 20:53
[2018-05-27] MEDS: metroNIDAZOLE 500mg tab ORAL SCH (21:07)
[2018-05-27] MEDS: Ciprofloxacin 500mg tab ORAL SCH (21:07)
[2018-05-27] MEDS: Atorvastatin 20mg tab ORAL SCH (21:08)
[2018-05-28] VITALS: BP 85/49
[2018-05-28 04:00] VITALS: BP 93/46
[2018-05-28] MEDS: metroNIDAZOLE 500mg tab ORAL SCH ×2 (06:07→12:44)
[2018-05-28 08:00] VITALS: BP 114/71
[2018-05-28] MEDS: Carvedilol 12.5mg tab ORAL SCH (08:45)
[2018-05-28] MEDS: Ciprofloxacin 500mg tab ORAL SCH (08:46)
[2018-05-28] MEDS: dilTIAZem HCl 60mg tab ORAL SCH ×3 (08:46→17:49)
[2018-05-28] MEDS: Aspirin Baby 81mg ORAL SCH (08:46)
[2018-05-28] MEDS: Docusate 100mg cap ORAL SCH ×2 (08:46→17:49)
[2018-05-28] MEDS: Heparin 5000 units/ml inj SUBQ SCH (08:47)
[2018-05-28 12:00] VITALS: BP 118/76
--- NOTE | 2018-05-28 12:12 | General Progress Note ---
Assessment/Plan Assessment/Plan 1. Pancytopenia, potentially secondary to liver disease, bilirubin elevated on admission. The patient had transaminitis on admission as well. MCV is elevated. --> Hepatitis A and B are negative, Hep-C is positive, HIV negative. --> Ultrasound of the abdomen reviewed. No evidence of cirrhosis or splenomegaly --> Continue to closely monitor. --> Counts improved, compared to admission, at this time, doesn't need a bone marrow biopsy 2. Anemia of chronic disease. Anemia panel has been reviewed. Will trend CBC daily. --> Hemoglobin goal is above 7. --> Current Hgb at 10.3, stable --> no evidence of hemolysis 3. Anemia due to underlying congestive heart failure, decompensated state. --> monitor fluid status closely, as per cards 4. Cholecystitis. s/p 05/24 ercp, 2 stones removed --> surg eval prn 5. Possible viral urinary tract infection. 6. Transaminitis, hepatic congestion questionable. 7. Deep venous thrombosis prophylaxis with heparin sq --> ok to resume eliquis 8. Afib with RVR --> okay per cards for A/C The time the note was entered does not necessarily correspond to the time the patient was seen. Subjective Constitutional: Denies: no symptoms, chills, diaphoresis, fever, malaise, weakness, other HEENT: Denies: no symptoms, eye pain, blurred vision, tearing, double vision, ear pain, ear discharge, nose pain, nose congestion, throat pain, throat swelling, mouth pain, mouth swelling, other Cardiovascular: Denies: no symptoms, chest pain, edema, irregular heart rate, lightheadedness, palpitations, syncope, other Respiratory: Denies: no symptoms, cough, orthopnea, shortness of breath, SOB with excertion, SOB at rest, sputum, stridor, wheezing, other Gastrointestinal/Abdominal: Denies: no symptoms, abdomen distended, abdominal pain, black stools, tarry stools, blood in stool, constipated, diarrhea, difficulty swallowing, nausea, poor appetite, poor fluid intake, rectal bleeding , vomiting, other Genitourinary: Denies: no symptoms, burning, discharge, frequency, flank pain, hematuria, incontinence, pain, urgency, other Neurologic/Psychiatric: Denies: no symptoms, anxiety, depressed, emotional problems, headache, numbness, paresthesia, pre-existing deficit, seizure, tingling, tremors, weakness, other Endocrine: Denies: no symptoms, excessive sweating, flushing, intolerance to cold, intolerance to heat, increased hunger, increased thirst, increased urine, unexplained weight gain, unexplained weight loss, other Hematologic/Lymphatic: Denies: no symptoms, anemia, easy bleeding, easy bruising, other Allergies: Coded Allergies: AMPICILLIN (Verified Allergy, Unknown, 04/23/18) Uncoded Allergies: PENICILLIN (Allergy, Unknown, 04/23/18) Subjective Pt awake and agitated. No acute events. s/p ercp and 2 stones were removed. receiving pt/ot today Objective Last 24 Hour Vital Signs Date Time Temp Pulse Resp B/P (MAP) Pulse Ox O2 Delivery O2 Flow Rate FiO2 05/28/18 09:00 Room Air 05/28/18 08:46 85 114/71 05/28/18 08:45 85 114/71 05/28/18 08:00 98.0 85 18 114/71 (85) 98 98.0 05/28/18 04:00 82 05/28/18 04:00 98.2 59 17 93/46 (62) 95 98.2 05/28/18 00:00 98.7 95 17 85/49 (61) 95 98.7 05/28/18 00:00 69 05/27/18 21:07 88 113/66 05/27/18 21:07 88 113/66 05/27/18 21:00 Room Air 05/27/18 20:00 99 05/27/18 20:00 98.5 83 20 113/66 (82) 95 98.5 05/27/18 17:40 85 125/73 05/27/18 16:13 97.5 85 20 102/71 (81) 97 97.5 05/27/18 16:00 55 05/27/18 12:52 95 146/81 Intake and Output 05/27/18 05/28/18 19:00 07:00 Intake Total 1080 ml Balance 1080 ml Intake Oral 1080 ml # Voids 2 1 Height (Feet): 5 Height (Inches): 9.00 Weight (Pounds): 149 General Appearance: no apparent distress EENT: TMs normal Neck: supple Cardiovascular: normal rate Respiratory/Chest: lungs clear Abdomen: no organomegaly Extremities: non-tender Edema: 1+ Leg (L), 1+ Leg (R) Edema: mild edema Neurologic: oriented x 3 Skin: normal pigmentation Maykel Coronel MD May 28, 2018 12:12
--- NOTE | 2018-05-28 12:42 | General Progress Note ---
Progress Note Progress Note Surgery: no acute events. no n/v/f/c. tolerating diet. ambulatory. pain minimal. wounds c/d/i exam benign. states he feels well. s/p lap ame, recovering d/c planning does not want narcotics. OTC pain meds prn wound instructions given to patient care instructions given to patient f/u with me in 2 weeks. Cristobal Shepherd May 28, 2018 12:42
--- NOTE | 2018-05-28 12:56 | General Progress Note ---
Assessment/Plan Status: stable, progressing Assessment/Plan encephalopathy due to [facility] MDD increase seroquel 50 mg tid the pt lacks capacity to make decision about placement. Subjective Date patient seen: May 28, 2018 Neurologic/Psychiatric: Reports: anxiety Allergies: Coded Allergies: AMPICILLIN (Verified Allergy, Unknown, 04/23/18) Uncoded Allergies: PENICILLIN (Allergy, Unknown, 04/23/18) Subjective the pt has episodes of confusions and agitation Objective Last 24 Hour Vital Signs Date Time Temp Pulse Resp B/P (MAP) Pulse Ox O2 Delivery O2 Flow Rate FiO2 05/28/18 12:45 85 114/71 05/28/18 09:00 Room Air 05/28/18 08:46 85 114/71 05/28/18 08:45 85 114/71 05/28/18 08:00 98.0 85 18 114/71 (85) 98 98.0 05/28/18 04:00 82 05/28/18 04:00 98.2 59 17 93/46 (62) 95 98.2 05/28/18 00:00 98.7 95 17 85/49 (61) 95 98.7 05/28/18 00:00 69 05/27/18 21:07 88 113/66 05/27/18 21:07 88 113/66 05/27/18 21:00 Room Air 05/27/18 20:00 99 05/27/18 20:00 98.5 83 20 113/66 (82) 95 98.5 05/27/18 17:40 85 125/73 05/27/18 16:13 97.5 85 20 102/71 (81) 97 97.5 05/27/18 16:00 55 05/27/18 12:52 95 146/81 Intake and Output 05/27/18 05/28/18 19:00 07:00 Intake Total 1080 ml Balance 1080 ml Intake Oral 1080 ml # Voids 2 1 Height (Feet): 5 Height (Inches): 9.00 Weight (Pounds): 149 General Appearance: alert Neurologic: oriented x 3, responsive, depressed affect Payal Streeter MD May 28, 2018 12:55
--- NOTE | 2018-05-28 14:29 | Discharge Summary ---
Discharge Summary Hospital Course Date of Admission May 19, 2018 at 15:48 Date of Discharge 05/28/2018 Admitting Diagnosis ABDOMINAL PAIN. RAPID ATRIAL FIB Reason for Hospitalization: Acute cholecytitis, atrial fibrillation with rapid ventricular response HPI Casey Lazo is a 68 year old male who was admitted on May 19, 2018 at 15:48 for Abdominal Pain,Rapid Atrial Fibrillation He was found to have acute cholecystitis on labs and and ultrasound and admitted Consultations Gastroenterology Cardiology General Surgery Procedures ERCP Laparoscopic cholecystectomy Hospital Course Patient was in atrial fibrillation with rapid ventricular response when admitted Cardiology was consulted Given acute cholecystitis, IV antibiotics were started and General surgery consulted It was agreed to do an ERCP to clear the ducts prior to surgery Gastroenterology was consulted and an ERCP with stone extraction was performed Thereafter a cholecystectomy was performed by Dr. Shepherd He did well postoperatively with good pain control and controlled atrial fibrillation Given cognitive impairment and episodes of disorientation psychiatry was consulted as well Discharge Condition Upon Discharge: stable Discharge Disposition Patient was discharged to ICF/ECF (04) SNF I spent 40 minutes conducting, performing and coordinating discharge activities on this patient Discharge Diagnoses: (1) Choledocholithiasis (2) Cholecystitis (3) COPD (chronic obstructive pulmonary disease) (4) Episode of generalized weakness Jason Monte MD May 28, 2018 14:29
--- NOTE | 2018-05-28 14:31 | General Progress Note ---
Assessment/Plan Status: progressing Assessment/Plan 1) Acute cholecystitis Choledocholithiasis r/o Sepsis from a biliary source -Surgery consulted- recs appreciated -elevated bilirubin/transaminitis- GI consulted- recs appreciated -continue IV antibiotics- ciprofloxacin, metronidazole -check cultures- blood, urine, lactic acid- negative to date - s/p EGD/ERCP 05/25 - 2 stones extracted -s/p laparoscopic cholecystectomy- follow postop 2) Chronic systolic and diastolic heart failure 3) Atrial fibrillation with rapid ventricular response 4) CAD s/p PTCA/stent 6 months ago -Telemetry monitoring -continue carvedilol, hydralazine, statin -hold apixaban given surgery- resume when able -Cardiology consulted- recs appreciated- started diltiazem -Resume anticoagulation, ASA when able given recent stent and atrial fibrillation -replete K, Mg PRN 5) MARY- improving near baseline -IVF's; likely hypovolemic; doubt sepsis -avoid nephrotoxins/renally dose meds -will follow closely 6) Pancytopenia -Hematology recs appreciated -monitor for now 7) Acute encephalopathy/cognitive impairment -Psychiatry recs appreciated -seroquel increased to 50 tid DVT Prophylaxis: scd's, IV heparin Code status: full Hospital Classification declaration: Based on this initial evaluation, and depending on the patient's clinical course, I anticipate that this patient will require hospitalization for 2-3 days. Disposition: Once the patient is stable to leave the hospital, I anticipate the patient will likely be discharged to the following environment:SNF- comes from [facility] I spent 45 minutes on this patient's case, and 23 minutes was dedicated to counseling and/or care coordination. Time of note may not reflect time of encounter. Subjective Date patient seen: May 27, 2018 Time patient seen: 13:33 ROS Limited/Unobtainable: Yes Constitutional: Reports: no symptoms HEENT: Reports: no symptoms Cardiovascular: Reports: no symptoms Gastrointestinal/Abdominal: Reports: no symptoms Genitourinary: Reports: no symptoms Neurologic/Psychiatric: Reports: no symptoms Endocrine: Reports: no symptoms Hematologic/Lymphatic: Reports: no symptoms Allergies: Coded Allergies: AMPICILLIN (Verified Allergy, Unknown, 04/23/18) Uncoded Allergies: PENICILLIN (Allergy, Unknown, 04/23/18) All Systems: reviewed and negative except above Subjective LATE ENTRY: patient seen 96 Events of overnight reviewed Chart reviewed by me Patient notes mild abdominal pain, well-controlled Resting in bed Objective Last 24 Hour Vital Signs Date Time Temp Pulse Resp B/P (MAP) Pulse Ox O2 Delivery O2 Flow Rate FiO2 05/28/18 12:45 85 114/71 05/28/18 12:00 98.6 74 19 118/76 (90) 98 98.6 05/28/18 09:00 Room Air 05/28/18 08:46 85 114/71 05/28/18 08:45 85 114/71 05/28/18 08:00 98.0 85 18 114/71 (85) 98 98.0 05/28/18 04:00 82 05/28/18 04:00 98.2 59 17 93/46 (62) 95 98.2 05/28/18 00:00 98.7 95 17 85/49 (61) 95 98.7 05/28/18 00:00 69 05/27/18 21:07 88 113/66 05/27/18 21:07 88 113/66 05/27/18 21:00 Room Air 05/27/18 20:00 99 05/27/18 20:00 98.5 83 20 113/66 (82) 95 98.5 05/27/18 17:40 85 125/73 05/27/18 16:13 97.5 85 20 102/71 (81) 97 97.5 05/27/18 16:00 55 Intake and Output 05/27/18 05/28/18 19:00 07:00 Intake Total 1080 ml Balance 1080 ml Intake Oral 1080 ml # Voids 2 1 Height (Feet): 5 Height (Inches): 9.00 Weight (Pounds): 149 General Appearance: no apparent distress, alert EENT: PERRL/EOMI Neck: non-tender, supple Cardiovascular: normal peripheral pulses, normal rate, irregularly irregular Respiratory/Chest: chest wall non-tender, lungs clear Abdomen: normal bowel sounds, non tender, soft Pelvis: normal external exam Extremities: normal range of motion Edema: no edema noted Arm (L), no edema noted Arm (R) 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
--- NOTE | 2018-05-28 15:43 | General Progress Note ---
Assessment/Plan Assessment/Plan Assesement - cholecystitis - choledocholithiasis, s/p ERCP and stone extraction - anemia - s/p cholecystectomy Recommendations - IVF - Abx - follow labs - diet per surgery - d/c planning Subjective Allergies: Coded Allergies: AMPICILLIN (Verified Allergy, Unknown, 04/23/18) Uncoded Allergies: PENICILLIN (Allergy, Unknown, 04/23/18) Subjective POD #2 s/p cholecystectomy feels OK some wound pain tolerating po Objective Last 24 Hour Vital Signs Date Time Temp Pulse Resp B/P (MAP) Pulse Ox O2 Delivery O2 Flow Rate FiO2 05/28/18 12:45 85 114/71 05/28/18 12:00 73 05/28/18 12:00 98.6 74 19 118/76 (90) 98 98.6 05/28/18 09:00 Room Air 05/28/18 08:46 85 114/71 05/28/18 08:45 85 114/71 05/28/18 08:00 98.0 85 18 114/71 (85) 98 98.0 05/28/18 08:00 68 05/28/18 04:00 82 05/28/18 04:00 98.2 59 17 93/46 (62) 95 98.2 05/28/18 00:00 98.7 95 17 85/49 (61) 95 98.7 05/28/18 00:00 69 05/27/18 21:07 88 113/66 05/27/18 21:07 88 113/66 05/27/18 21:00 Room Air 05/27/18 20:00 99 05/27/18 20:00 98.5 83 20 113/66 (82) 95 98.5 05/27/18 17:40 85 125/73 05/27/18 16:13 97.5 85 20 102/71 (81) 97 97.5 05/27/18 16:00 55 Intake and Output 05/27/18 05/28/18 19:00 07:00 Intake Total 1080 ml Balance 1080 ml Intake Oral 1080 ml # Voids 2 1 Height (Feet): 5 Height (Inches): 9.00 Weight (Pounds): 149 Objective WDWN NCAT supple CTA RRR Abd soft NT ND no edema nonfocal Alissa Bueno MD May 28, 2018 15:43
[2018-05-28 16:11] VITALS: BP 114/71
[2018-05-28 17:49] VITALS: BP 114/71
--- NOTE | 2018-05-28 19:48 | Cardiology Progress Note ---
Assessment/Plan Assessment/Plan perm afib now with rvr acute ame s/p lap ame kam with hs of bifascicular block hs of cm with subsequent resolution copd thrombocytopenia cad s/p pci lad rca cedrs 11/2017 chronic chf MR not confirmed on echo here 04/2018 no chf sx he has noted to have resolution of his cm in 02/2018[facility] of coreg and tid cardizwem MR not confirmed on echo here [facility] in april no sx o acs ecotrin resume eliquis if and when safe hr is controlled Subjective Cardiovascular: Denies: chest pain, irregular heart rate, lightheadedness, palpitations Respiratory: Denies: shortness of breath Gastrointestinal/Abdominal: Denies: abdominal pain Genitourinary: Denies: burning Objective Last 24 Hour Vital Signs Date Time Temp Pulse Resp B/P (MAP) Pulse Ox O2 Delivery O2 Flow Rate FiO2 05/28/18 17:49 85 114/71 05/28/18 16:11 98.0 85 18 114/71 (85) 98 98.0 05/28/18 12:45 85 114/71 05/28/18 12:00 73 05/28/18 12:00 98.6 74 19 118/76 (90) 98 98.6 05/28/18 09:00 Room Air 05/28/18 08:46 85 114/71 05/28/18 08:45 85 114/71 05/28/18 08:00 98.0 85 18 114/71 (85) 98 98.0 05/28/18 08:00 68 05/28/18 04:00 82 05/28/18 04:00 98.2 59 17 93/46 (62) 95 98.2 05/28/18 00:00 98.7 95 17 85/49 (61) 95 98.7 05/28/18 00:00 69 05/27/18 21:07 88 113/66 05/27/18 21:07 88 113/66 05/27/18 21:00 Room Air 05/27/18 20:00 99 05/27/18 20:00 98.5 83 20 113/66 (82) 95 98.5 General Appearance: alert Neck: supple Cardiovascular: irregularly irregular Respiratory/Chest: lungs clear Abdomen: normal bowel sounds, non tender, soft Extremities: no swelling Intake and Output 05/27/18 05/28/18 19:00 07:00 Intake Total 1080 ml Balance 1080 ml Intake Oral 1080 ml # Voids 2 1 Luis Alfredo Gonzalez MD May 28, 2018 19:48
== END 2018-05-28 19:51 | DRG 417 ==
LOC: EDBD 13:27 → EMR 14:10 → EDBEDREQ 15:19 → EDBEDREQSVC 15:19 → 2E 15:48 → EDBEDREQ 15:53
PROC: 0FC98ZZ Extirpation of Matter from Common Bile Duct, Via Natural or Artificial Opening Endoscopic (ICD-10-PCS; principal; 2018-05-25 08:32)
PROC: 0FT44ZZ Resection of Gallbladder, Percutaneous Endoscopic Approach (ICD-10-PCS; 2018-05-26)
DX: K80.42 Calculus of bile duct with acute cholecystitis without obstruction (principal); G93.40 Encephalopathy, unspecified; N17.9 Acute kidney failure, unspecified; I50.42 Chronic combined systolic (congestive) and diastolic (congestive) heart failure; D61.818 Other pancytopenia; I48.2 Chronic atrial fibrillation; Z79.01 Long term (current) use of anticoagulants; J44.9 Chronic obstructive pulmonary disease, unspecified; I25.2 Old myocardial infarction; I25.10 Atherosclerotic heart disease of native coronary artery without angina pectoris; Z95.5 Presence of coronary angioplasty implant and graft; Z72.0 Tobacco use; D64.9 Anemia, unspecified; I34.0 Nonrheumatic mitral (valve) insufficiency; B19.20 Unspecified viral hepatitis C without hepatic coma; K76.0 Fatty (change of) liver, not elsewhere classified; R00.1 Bradycardia, unspecified; D69.6 Thrombocytopenia, unspecified; F32.9 Major depressive disorder, single episode, unspecified
CPT/HCPCS: 36415; 71045; 74328; 74330; 76000; 76700; 80048; 80053; 82248; 82550; 82728; 83690; 83735; 84443; 84484; 85007; 85025; 85610; 85730; 86850; 86900; 86901; 87081; 93005; 94003; 94150; 99285; J2250; J2370; J2405; J2710; J8499

== ENCOUNTER 2018-07-30 09:35 | Inpatient (IN) | payer MEDICARE, OTHER ==
[2018-07-30] VITALS (13 sets, daily range): BP systolic 94–166; BP diastolic 43–97
[~2018-07-30] VITALS: Ht 170.2 cm; Wt 51.7 kg
--- NOTE | 2018-07-30 09:59 | Emergency Room Report ---
History of Present Illness General Chief Complaint: Multiple Trauma/Fall Source: Patient Present Illness HPI 68-year-old male with a history of COPD, arrhythmia on eliquis, presents with spitting up blood from his mouth, he reports no pain complaints, but reports that he fell off a ladder yesterday, it was roughly 5 feet high, it tipped over and he fell onto a pile of junk in the closet, he did not hit his head or lose consciousness, and he didn't think much of it until this morning when he started noticing blood in his mouth. He denies neck or back pain, vomiting, does report he's been bleeding from his arms from the fall yesterday but stopped temporarily and starts again so he finally came in for an evaluation. Allergies: Coded Allergies: AMPICILLIN (Verified Allergy, Unknown, 04/23/18) Uncoded Allergies: PENICILLIN (Allergy, Unknown, 04/23/18) Patient History Past Medical History: see triage record Reviewed Nursing Documentation: PMH: Agreed; PSxH: Agreed Nursing Documentation-PMH Past Medical History: No History, Except For Hx Cardiac Problems: Yes - bradycardia, Afib Hx Hypertension: Yes Hx Pacemaker: No Hx Asthma: Yes Hx COPD: Yes Hx Diabetes: No Hx Cancer: No Hx Gastrointestinal Problems: No Hx Dialysis: No History Of Psychiatric Problem: Yes - PTSD Hx Neurological Problems: No Hx Cerebrovascular Accident: No Hx Seizures: No Review of Systems All Other Systems: negative except mentioned in HPI Physical Exam Vital Signs Date Time Temp Pulse Resp B/P (MAP) Pulse Ox O2 Delivery O2 Flow Rate FiO2 07/30/18 09:42 97.9 119 23 154/51 95 Room Air Sp02 EP Interpretation: reviewed, normal General Appearance: alert, non-toxic, mild distress Head: normocephalic Eyes: bilateral eye normal inspection, bilateral eye PERRL, bilateral eye EOMI ENT: normal ENT inspection, hearing grossly normal, normal pharynx, no angioedema, normal voice, moist mucus membranes, other - Multiple missing teeth , dried blood and abrasions on the internal aspect of the upper and lower lip, no loose teeth Neck: normal inspection, full range of motion, supple, supple/symm/no masses Respiratory: chest non-tender, lungs clear, normal breath sounds, no rhonchi, speaking full sentences, wheezing, expiration, chest symmetrical, palpation of chest normal Cardiovascular #1: normal peripheral pulses, regular rate, rhythm, no edema, no gallop, no JVD, no murmur, no rub, tachycardia Cardiovascular #2: 2+ radial (R), 2+ radial (L) Gastrointestinal: normal inspection, non tender, soft, no mass, no guarding, no rebound Rectal: deferred Genitourinary: normal inspection, no CVA tenderness Musculoskeletal: back normal, gait/station normal, normal range of motion, non- tender, no calf tenderness 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, 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, 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, motor strength/tone normal, sensory intact, speech normal Psychiatric: judgement/insight normal, memory normal, mood/affect normal Skin: normal color, no rash, warm/dry, normal turgor, other - A few 1 cm Skin tears on bilateral Arms no lacerations, abrasions Lymphatic: no adenopathy Medical Decision Making Diagnostic Impression: Primary Impression: COPD (chronic obstructive pulmonary disease) Additional Impressions: Fall Skin tear Abrasion Afib ER Course Patient reported spitting up blood, but he has obvious oral abrasions, which are the likely source, he is on Plavix as well as an anticoagulant for his known history of arrhythmia, he is slightly short of breath due to his known COPD and I have treated him with neb treatments as well as steroids, obtain CT head and C-spine as well as abdomen and pelvis to evaluate for any spontaneous bleeds although patient did not have any pain complaints he seems somewhat unreliable historian because he initially can't calmly why he is on blood thinners and then eventually does admit that he has an arrhythmia. patient found to have an elevated troponin, but as he is on an anticoagulated on Plavix and intermittent from his mouth, I will not give him aspirin; he is in slightly rapid A. fib, and he is also having COPD exacerbation,will be admitted to telemetry. EKG Diagnostic Results EKG Time: 10:02 EP Interpretation: afib rate 107, no stemi Rate: tachycardiac Rhythm: other - afib ST Segments: no acute changes ASA given to the pt in ED: No Rhythm Strip Diag. Results Rhythm Strip Time: 09:57 EP Interpretation: yes Rate: 106 Rhythm: no PVC's, no ectopy, other - A. fib Chest X-Ray Diagnostic Results Chest X-Ray Diagnostic Results : Chest X-Ray Ordered: Yes # of Views/Limited/Complete: 1 View Indication: Shortness of Breath EP Interpretation: Yes Interpretation: no consolidation, no effusion, no pneumothorax, no acute cardiopulmonary disease Impression: No acute disease Electronically Signed by: Fady Toussaint MD Last Vital Signs Date Time Temp Pulse Resp B/P (MAP) Pulse Ox O2 Delivery O2 Flow Rate FiO2 07/30/18 09:42 97.9 119 23 154/51 95 Room Air Disposition: ADMITTED INPATIENT Condition: Stable Signed Out To: Dr. Morris for FADY Garrison M.D Jul 30, 2018 09:59
[2018-07-30] MEDS ORDERED: Tetanus/Diptheria/Pertussis Vaccine 0.5ml Syr IM ONE (10:00)
[2018-07-30] MEDS ORDERED: Albuterol ud Inhalation HHN ONE (10:00)
[2018-07-30] MEDS ORDERED: Ipratropium 0.02% Inh Soln 2.5ml UD HHN ONE (10:00)
[2018-07-30 10:13] LABS: BASOPHILS % (AUTO) 0.6 % (0.0-2.0); EOSINOPHILS % (AUTO) 1.5 % (0.0-3.0); HEMOGLOBIN 13.4 G/DL (14.2-18.0); LYMPHOCYTES % (AUTO) 13.5 % (20.0-45.0); MEAN CORPUSCULAR VOLUME 78 FL (80-99); MONOCYTES % (AUTO) 8.3 % (1.0-10.0); NEUTROPHILS % (AUTO) 76.1 % (45.0-75.0); PLATELET COUNT 182 K/UL (150-450); WHITE BLOOD COUNT 7.6 K/UL (4.8-10.8)
[2018-07-30] MEDS ORDERED: Solu-MEDROL 125mg Inj IVP ONE (10:15)
[2018-07-30 10:20] LABS: ANION GAP 8 mmol/L (5-15); BLOOD UREA NITROGEN 17 mg/dL (7-18); CALCIUM 8.8 MG/DL (8.5-10.1); CARBON DIOXIDE 30 MMOL/L (21-32); CHLORIDE 105 MMOL/L (98-107); CREATININE 0.9 MG/DL (0.55-1.30); POTASSIUM 4.7 MMOL/L (3.5-5.1); SODIUM 143 MMOL/L (136-145)
[2018-07-30 10:25] LABS: ALANINE AMINOTRANSFERASE 23 U/L (12-78); ALBUMIN 3.5 G/DL (3.4-5.0); ALBUMIN/GLOBULIN RATIO 0.8 (1.0-2.7); ALKALINE PHOSPHATASE 99 U/L (46-116); ASPARTATE AMINO TRANSFERASE 48 U/L (15-37); BILIRUBIN,TOTAL 0.6 MG/DL (0.2-1.0)
--- NOTE | 2018-07-30 11:02 | Diagnostic Imaging Report ---
Indication: Headache and head trauma Technique: Contiguous 5 mm thick transaxial imaging of the head obtained in a Siemens Sensation [address] scanner. Soft tissue and bone windows generated. Automatic Exposure Control was utilized. Total Dose length Product (DLP): 1319.[address] Dose Index Volume (CTDIvol): 70.38 mGy Comparison: none Findings: There is moderate prominence of the ventricles, basal cisterns, and cerebral sulci consistent with atrophy. Moderate, nonspecific, white matter hypoattenuation is noted throughout the brain consistent with chronic small vessel disease. There is no midline shift, edema, acute hemorrhage, mass effect, or abnormal extra-axial fluid collections. Bones and extra osseous soft tissues are unremarkable. Impression: No acute intracranial bleed, mass effect or edema. Moderate atrophy of the brain. Evidence of chronic small vessel disease involving white matter tracts. The CT scanner at [facility] is accredited by the [employer] and the scans are performed using dose optimization techniques as appropriate to a performed exam including Automatic Exposure control.
--- NOTE | 2018-07-30 11:12 | Diagnostic Imaging Report ---
Indication: Neck pain. Trauma Technique: Continuous helical imaging of the cervical spine was obtained transaxially from the skull base to the upper thoracic spine. 2-D coronal and sagittal reformatted images were obtained. Automatic Exposure Control was utilized. Total Dose length Product (DLP): 332.[address] Dose Index Volume (CTDIvol): 15.3 mGy Comparison: None Findings: There is no acute fracture or malalignment identified. There is no soft tissue swelling identified. Moderate uncovertebral arthritis is demonstrated at multiple levels with resultant foraminal stenosis. Some of the intervertebral discs show narrowing. There are prominent osteophytes especially at C4-5 C5-6 and C6-7. Impression: No acute injury Moderate spondylosis The CT scanner at [facility] is accredited by the [employer] and the scans are performed using dose optimization techniques as appropriate to a performed exam including Automatic Exposure control.
--- NOTE | 2018-07-30 11:24 | Diagnostic Imaging Report ---
Indication: Abdominal pain. Trauma Technique: Continuous helical transaxial imaging of the abdomen and pelvis was obtained from the lung bases to the pubic symphysis. No intravenous contrast was administered. Coronal 2-D reformats were also obtained. Automatic Exposure Control was utilized. Total Dose length Product (DLP): 498.[address] Dose Index Volume (CTDIvol): 10.21 mGy Comparison: none Findings: The lung bases are clear. There is no pneumothorax identified. No pleural effusion identified. Evaluation of solid organs limited without IV contrast material but no obvious trauma identified. There is no free fluid or free air identified. Appendix is normal. There is thickening of the wall the urinary bladder. Some diverticula noted in the colon. No hydronephrosis seen. Rounded hyperdense nodules noted in both kidneys nonspecific though probably hemorrhagic or proteinaceous cysts. A low-density round focus measuring about 1 cm noted in the left kidney. Cholecystectomy noted. Pneumobilia is present. Correlate for previous ERCP and papillotomy. Duodenal diverticulum noted in the second portion of the duodenum. Aortoiliac calcifications are present. Small left inguinal hernia containing fat demonstrated. Bilateral pars interarticularis defects demonstrated at L5. Minimal anterolisthesis of L5 on S1 noted. No obvious fracture identified. IMPRESSION: No acute injury is identified. No free air or free fluid identified within the abdomen or pelvis. Pneumobilia presumably on the basis of previous papillotomy and ERCP. Correlate clinically. Bilateral pars interarticularis defects at L5. Minimal L5 on S1 spondylolisthesis. Multiple additional incidental findings as described above. . The CT scanner at [facility] is accredited by the [employer] and the scans are performed using dose optimization techniques as appropriate to a performed exam including Automatic Exposure control.
--- NOTE | 2018-07-30 13:14 | Cardiac Electrophysiology PN ---
Subjective Subjective [id number] Objective Last 24 Hour Vital Signs Date Time Temp Pulse Resp B/P (MAP) Pulse Ox O2 Delivery O2 Flow Rate FiO2 07/30/18 12:45 97.9 99 20 135/78 100 Nasal Cannula 2.0 28 07/30/18 12:30 97.9 99 20 135/78 100 Nasal Cannula 2.0 28 07/30/18 11:49 97.9 106 20 139/76 100 Nasal Cannula 2.0 28 07/30/18 10:18 100 20 100 Nasal Cannula 2.0 28 07/30/18 10:08 97.9 99 22 154/51 100 Nasal Cannula 2.0 28 07/30/18 10:08 106 22 Nasal Cannula 2.0 28 07/30/18 09:59 101 22 100 Nasal Cannula 2.0 28 07/30/18 09:46 119 23 Room Air 07/30/18 09:42 97.9 119 23 154/51 95 Room Air Laboratory Tests Test 07/30/18 10:05 White Blood Count 7.6 K/UL (4.8-10.8) Red Blood Count 5.40 M/UL (4.70-6.10) Hemoglobin 13.4 G/DL (14.2-18.0) L Hematocrit 42.0 % (42.0-52.0) Mean Corpuscular Volume 78 FL (80-99) L Mean Corpuscular Hemoglobin 24.9 PG (27.0-31.0) L Mean Corpuscular Hemoglobin Concent 32.0 G/DL (32.0-36.0) Red Cell Distribution Width 13.0 % (11.6-14.8) Platelet Count 182 K/UL (150-450) Mean Platelet Volume 8.5 FL (6.5-10.1) Neutrophils (%) (Auto) 76.1 % (45.0-75.0) H Lymphocytes (%) (Auto) 13.5 % (20.0-45.0) L Monocytes (%) (Auto) 8.3 % (1.0-10.0) Eosinophils (%) (Auto) 1.5 % (0.0-3.0) Basophils (%) (Auto) 0.6 % (0.0-2.0) Prothrombin Time 10.8 SEC (9.30-11.50) Prothromb Time International Ratio 1.0 (0.9-1.1) Activated Partial Thromboplast Time 28 SEC (23-33) Sodium Level 143 MMOL/L (136-145) Potassium Level 4.7 MMOL/L (3.5-5.1) Chloride Level 105 MMOL/L (98-107) Carbon Dioxide Level 30 MMOL/L (21-32) Anion Gap 8 mmol/L (5-15) Blood Urea Nitrogen 17 mg/dL (7-18) Creatinine 0.9 MG/DL (0.55-1.30) Estimat Glomerular Filtration Rate > 60 mL/min (>60) Glucose Level 91 MG/DL (74-106) Calcium Level 8.8 MG/DL (8.5-10.1) Total Bilirubin 0.6 MG/DL (0.2-1.0) Aspartate Amino Transf (AST/SGOT) 48 U/L (15-37) H Alanine Aminotransferase (ALT/SGPT) 23 U/L (12-78) Alkaline Phosphatase 99 U/L (46-116) Troponin I 0.204 ng/mL (0.000-0.056) Total Protein 8.0 G/DL (6.4-8.2) Albumin 3.5 G/DL (3.4-5.0) Globulin 4.5 g/dL Albumin/Globulin Ratio 0.8 (1.0-2.7) Lele Aguayo MD Jul 30, 2018 13:14
[2018-07-30] MEDS ORDERED: Aspirin Baby 81mg ORAL SCH (13:15)
[2018-07-30] MEDS ORDERED: Albuterol/Ipratropium 3ml neb HHN PRN (13:15)
[2018-07-30] MEDS ORDERED: dilTIAZem HCl 25mg/5ml Inj IVP SCH (13:30)
[2018-07-30] MEDS ORDERED: Carvedilol 12.5mg tab ORAL SCH (13:45)
--- NOTE | 2018-07-30 13:47 | History and Physical ---
History of Present Illness General Date patient seen: Jul 30, 2018 Time patient seen: 13:00 Reason for Hospitalization: Afib RVR Present Illness HPI 68 yo M PMH of Afib wih RVR on Elaquis, CHF, [place] s/p PCI on 12/06 at [facility], COPD , MDD, admitted s/p 5 foot mechanical fall from a ladder. Upon Evaluation in the ED patient was found to have elevated troponin of 0.25 and Afib RVR with HR 146. Patient states he was getting on a ladder at home to fix something when the ladder slipped and he felt. He denies any inciting chest pain, dizziness, sob, of lightheadedness. Patient was been admitted may time before for [employer] with RVR. Other than his fall he denies any unusual activities including drug use. Patient admits to history of smoking tobacco. Patient is unable to list all his medications but states that he has been taking them. Patient also initially admitted to spitting up blood but says it is resolved. At this time patient continues to deny chest pain, shortness of breath, dizziness, visual changes, weakness. Code Status: Full Code Allergies: Coded Allergies: AMPICILLIN (Verified Allergy, Unknown, 04/23/18) Uncoded Allergies: PENICILLIN (Allergy, Unknown, 04/23/18) Medication History Scheduled Apixaban (Eliquis), 5 MG PO TWICE A DAY, (Reported) Aspirin Ec* (Aspirin Ec*), 81 MG ORAL DAILY, (Reported) Atorvastatin Calcium* (Atorvastatin Calcium*), 40 MG ORAL BEDTIME, (Reported) Carvedilol (Coreg), 12.5 MG ORAL EVERY 12 HOURS, (Reported) Carvedilol (Coreg), 12.5 MG ORAL EVERY 12 HOURS, (Reported) Clopidogrel Bisulfate* (Plavix*), 75 MG ORAL DAILY, (Reported) Docusate Sodium* (Docusate Sodium*), 100 MG ORAL Q12HR, (Reported) Famotidine (Famotidine), 20 MG ORAL TWICE A DAY, (Reported) Furosemide (Furosemide), 40 MG PO DAILY, (Reported) Ipratropium/Albuterol Sulfate (DuoNeb 0.5-3(2.5)mg/3ml), 3 ML HHN Q4HR, ( Reported) Prednisone* (Prednisone*), 30 MG ORAL DAILY, (Reported) Prednisone* (Prednisone*), 30 MG ORAL DAILY, (Reported) Scheduled PRN Acetaminophen* (Acetaminophen 325MG Tablet*), 650 MG ORAL Q4H PRN for Mild Pain/ Temp > 100.5, (Reported) Doxycycline Hyclate* (Vibramycin*), 100 MG ORAL EVERY 12 HOURS PRN for x3 days, (Reported) Polyethylene Glycol 3350* (Miralax*), 17 GM ORAL Q12HR PRN for Constipation, ( Reported) Tramadol Hcl* (Ultram*), 50 MG ORAL Q6H PRN for For Pain Zolpidem Tartrate* (Ambien*), 5 MG ORAL BEDTIME PRN for Insomnia, (Reported) Patient History History Provided By: Patient, Medical Record Healthcare decision maker Resuscitation status Advanced Directive on File Past Medical/Surgical History Past Medical/Surgical History: (1) S/P cholecystectomy (2) Status post left heart catheterization by percutaneous approach (3) COPD (chronic obstructive pulmonary disease) (4) Afib (5) Atrial fibrillation with RVR (6) Acute systolic CHF (congestive heart failure) Social History Social History: (1) Tobacco abuse Review of Systems All Other Systems: negative except mentioned in HPI ROS Narrative aside from HPI all other ROS are negative including more than 12 systems Physical Exam General Appearance: WD/WN, no apparent distress, alert, other Lines, tubes and drains: peripheral HEENT: normocephalic, other - abrasion on forehead, and in mouth, not bleeding Neck: non-tender, normal alignment, supple Respiratory/Chest: chest wall non-tender, lungs clear, other - inspiratory wheezes, patient 02 sat ia 100% on room air Cardiovascular/Chest: normal peripheral pulses, normal rate, no gallop/murmur, no JVD, tachycardia - rate 135-145 Abdomen: normal bowel sounds, non tender, soft, no organomegaly, no mass Extremities: normal range of motion, non-tender, normal inspection, no calf tenderness, normal capillary refill, non-pitting Skin Exam: normal pigmentation, warm/dry 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, no motor/sensory deficits, alert, oriented x 3, normal mood/affect Last 24 Hour Vital Signs Date Time Temp Pulse Resp B/P (MAP) Pulse Ox O2 Delivery O2 Flow Rate FiO2 07/30/18 12:45 97.9 99 20 135/78 100 Nasal Cannula 2.0 28 07/30/18 12:30 97.9 99 20 135/78 100 Nasal Cannula 2.0 28 07/30/18 11:49 97.9 106 20 139/76 100 Nasal Cannula 2.0 28 07/30/18 10:18 100 20 100 Nasal Cannula 2.0 28 07/30/18 10:08 97.9 99 22 154/51 100 Nasal Cannula 2.0 28 07/30/18 10:08 106 22 Nasal Cannula 2.0 28 07/30/18 09:59 101 22 100 Nasal Cannula 2.0 28 07/30/18 09:46 119 23 Room Air 07/30/18 09:42 97.9 119 23 154/51 95 Room Air Laboratory Tests Test 07/30/18 10:05 White Blood Count 7.6 K/UL (4.8-10.8) Red Blood Count 5.40 M/UL (4.70-6.10) Hemoglobin 13.4 G/DL (14.2-18.0) L Hematocrit 42.0 % (42.0-52.0) Mean Corpuscular Volume 78 FL (80-99) L Mean Corpuscular Hemoglobin 24.9 PG (27.0-31.0) L Mean Corpuscular Hemoglobin Concent 32.0 G/DL (32.0-36.0) Red Cell Distribution Width 13.0 % (11.6-14.8) Platelet Count 182 K/UL (150-450) Mean Platelet Volume 8.5 FL (6.5-10.1) Neutrophils (%) (Auto) 76.1 % (45.0-75.0) H Lymphocytes (%) (Auto) 13.5 % (20.0-45.0) L Monocytes (%) (Auto) 8.3 % (1.0-10.0) Eosinophils (%) (Auto) 1.5 % (0.0-3.0) Basophils (%) (Auto) 0.6 % (0.0-2.0) Prothrombin Time 10.8 SEC (9.30-11.50) Prothromb Time International Ratio 1.0 (0.9-1.1) Activated Partial Thromboplast Time 28 SEC (23-33) Sodium Level 143 MMOL/L (136-145) Potassium Level 4.7 MMOL/L (3.5-5.1) Chloride Level 105 MMOL/L (98-107) Carbon Dioxide Level 30 MMOL/L (21-32) Anion Gap 8 mmol/L (5-15) Blood Urea Nitrogen 17 mg/dL (7-18) Creatinine 0.9 MG/DL (0.55-1.30) Estimat Glomerular Filtration Rate > 60 mL/min (>60) Glucose Level 91 MG/DL (74-106) Calcium Level 8.8 MG/DL (8.5-10.1) Total Bilirubin 0.6 MG/DL (0.2-1.0) Aspartate Amino Transf (AST/SGOT) 48 U/L (15-37) H Alanine Aminotransferase (ALT/SGPT) 23 U/L (12-78) Alkaline Phosphatase 99 U/L (46-116) Troponin I 0.204 ng/mL (0.000-0.056) Total Protein 8.0 G/DL (6.4-8.2) Albumin 3.5 G/DL (3.4-5.0) Globulin 4.5 g/dL Albumin/Globulin Ratio 0.8 (1.0-2.7) L Height (Feet): 5 Height (Inches): 9.00 Weight (Pounds): 150 Medications Current Medications Medications (Trade) Dose Ordered Sig/Nova Route PRN Reason Start Time Stop Time Status Last Admin Dose Admin Acetaminophen (Tylenol) 650 mg Q4H PRN ORAL Fever 07/30/18 13:15 08/29/18 13:14 UNV Acetaminophen (Tylenol) 650 mg Q4H PRN ORAL Mild Pain (Pain Scale 1-3) 07/30/18 13:15 08/29/18 13:14 UNV Albuterol/ Ipratropium (Albuterol/ Ipratropium) 3 ml Q4HRT PRN HHN Shortness of Breath 07/30/18 13:15 08/04/18 13:14 UNV Apixaban (Eliquis) 5 mg BID ORAL 07/30/18 13:15 08/29/18 13:14 UNV Aspirin (ASA) 81 mg DAILY ORAL 07/31/18 09:00 08/30/18 08:59 Aspirin (ASA) 81 mg DAILY ORAL 07/30/18 13:15 08/29/18 13:14 UNV Atorvastatin Calcium (Lipitor) 20 mg BEDTIME ORAL 07/30/18 21:00 08/29/18 20:59 Atorvastatin Calcium (Lipitor) 40 mg BEDTIME ORAL 07/30/18 21:00 08/29/18 20:59 UNV Clopidogrel Bisulfate (Plavix) 75 mg DAILY ORAL 07/30/18 13:15 08/29/18 13:14 UNV Dextrose (Dextrose 50%) 25 ml Q30M PRN IV Hypoglycemia 07/30/18 13:15 08/29/18 13:14 UNV Dextrose (Dextrose 50%) 50 ml Q30M PRN IV Hypoglycemia 07/30/18 13:15 08/29/18 13:14 UNV Diltiazem HCl (Cardizem) 10 mg ONCE IVP 07/30/18 13:30 07/30/18 14:30 Diltiazem HCl 125 mg/Dextrose 125 ml @ 0 mls/hr Q24H IV 07/30/18 14:00 07/31/18 13:59 Heparin Sodium (Porcine) (Heparin 5000 units/ml) 5,000 units EVERY 12 HOURS SUBQ 07/30/18 21:00 08/29/18 20:59 UNV Lisinopril (Zestril) 5 mg DAILY ORAL 07/31/18 09:00 08/30/18 08:59 UNV Metoprolol Tartrate (Lopressor) 25 mg EVERY 12 HOURS ORAL 07/30/18 21:00 08/29/18 20:59 Pantoprazole (Protonix) 40 mg DAILY ORAL 07/31/18 09:00 08/30/18 08:59 UNV Zolpidem Tartrate (Ambien) 5 mg HSPRN PRN ORAL Insomnia 07/30/18 13:15 08/06/18 13:14 UNV Assessment/Plan Problem List: (1) Atrial fibrillation with RVR ICD Codes: I48.91 - Unspecified atrial fibrillation SNOMED: 151208706224192 (2) NSTEMI (non-ST elevated myocardial infarction) ICD Codes: I21.4 - Non-ST elevation (NSTEMI) myocardial infarction SNOMED: 608545530 (3) CAD (coronary artery disease) ICD Codes: I25.10 - Atherosclerotic heart disease of [place] coronary artery without angina pectoris SNOMED: 48319875 (4) CHF (congestive heart failure) ICD Codes: I50.9 - Heart failure, unspecified SNOMED: 89931977 (5) COPD (chronic obstructive pulmonary disease) ICD Codes: J44.9 - Chronic obstructive pulmonary disease, unspecified SNOMED: 16323769 (6) Tobacco abuse ICD Codes: Z72.0 - Tobacco use SNOMED: 258230548 (7) Major depression ICD Codes: F32.9 - Major depressive disorder, single episode, unspecified SNOMED: 221920569 Assessment/Plan Afib RVR with NSTEMI and history of PCI s/p stent at [facility] 12/06/ history of CHF - patient uncontrolled and high risk, admitting to ICU for cardizem gtt, discussed with Cardiology Dr. Jiménez - appreciate Cardiology consult by Dr. Jiménez - no hep gtt at this time - cont asa, plavix, eliquis, BB, KIERRA-I, statin, - serial troponins and EKG - echo - monitor BP goal Map >65 , HR < 110, plan will be to wean cardizem gtt and transition to oral medication once controlled COPD and current tobacco abuse - Pulmonology Consult: Dr. Terence burgos - patient unaware if he was on steroids, holding for now will monitor and discuss with pulmonology - nicotine patch - tobacco cessation education Major Depression - Psychiatry Consult: Dr. Streeter Code Status - spoke to patient regarding code status and clarified that patient would like to be FULL CODE. He mentions he was referred to a hospice program? but unsure why and was not explained well about his medical condition DVT - patient on sufficient anticoagulation Dispo - pending I have spent 70 minutes regarding patient care, coordination and counseling. I have spent 30 minutes of critical care time with patient. Quyen Morris DO Jul 30, 2018 13:47
--- NOTE | 2018-07-30 13:48 | Diagnostic Imaging Report ---
Indication: Dyspnea Comparison: 05/19/2018 A single view chest radiograph was obtained. Findings: Cardiomediastinal appearance is within normal limits for age. The lungs are clear. Pulmonary vascularity is appropriate. The diaphragmatic contour is smooth and costophrenic angles are sharp. No pleural effusions are identified. The bones are osteopenic. Impression: No acute findings
[2018-07-30] MEDS ORDERED: LORazepam 1mg tab ORAL PRN (14:15)
[2018-07-30] MEDS: Eliquis 2.5mg tablet ORAL SCH (17:47)
--- NOTE | 2018-07-30 20:40 | Pulmonolgy Critical Care Note ---
Critical Care - Asmt/Plan Assessment/Plan: Patient is a 68-year-old male with a history of COPD/Asthma, HTN, atrial fibrillation on Eliquis, ptsd presents with spitting up blood from his mouth, he reports no pain complaints, but reports that he fell off a ladder yesterday, it was roughly 5 feet high, it tipped over and he fell onto a pile of junk in the closet, he did not hit his head or lose consciousness, and he didn't think much of it until this morning when he started noticing blood in his mouth. He denies neck or back pain, vomiting, does report he's been bleeding from his arms from the fall yesterday but stopped temporarily and starts again so he finally came in for an evaluation. CT Head/neck no evidence fracture, IC pathology Allergies: AMPICILLIN (Verified Allergy, Unknown, 04/23/18) PENICILLIN (Allergy, Unknown, 04/23/18) Reviewed Nursing Documentation: PMH: Agreed; PSxH: Agreed Nursing Documentation-PMH Past Medical History: No History, Except For Hx Cardiac Problems: Yes - bradycardia, Afib Hx Hypertension: Yes Hx Pacemaker: No Hx Asthma: Yes Hx COPD: Yes Hx Diabetes: No Hx Cancer: No Hx Gastrointestinal Problems: No Hx Dialysis: No History Of Psychiatric Problem: Yes - PTSD Hx Neurological Problems: No Hx Cerebrovascular Accident: No Hx Seizures: No Review of Systems All Other Systems: negative except mentioned in HPI Physical Exam Vital Signs noted General Appearance: alert, non-toxic, mild distress Head: normocephalic Eyes: bilateral eye normal inspection, bilateral eye PERRL, bilateral eye EOMI ENT: normal ENT inspection, hearing grossly normal, normal pharynx, no angioedema, normal voice, moist mucus membranes, other - Multiple missing teeth , dried blood and abrasions on the internal aspect of the upper and lower lip, no loose teeth Neck: normal inspection, full range of motion, supple, supple/symm/no masses Respiratory: chest non-tender, lungs clear, normal breath sounds, no rhonchi, speaking full sentences, wheezing, expiration, chest symmetrical, palpation of chest normal Cardiovascular normal peripheral pulses, regular rate, rhythm, no edema, no gallop, no JVD, no murmur, no rub, tachycardia Gastrointestinal: normal inspection, non tender, soft, no mass, no guarding, no rebound Rectal: deferred Genitourinary: normal inspection, no CVA tenderness Musculoskeletal: back normal, gait/station normal, normal range of motion, non- tender, no calf tenderness 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, 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, 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, motor strength/tone normal, sensory intact, speech normal Psychiatric: judgement/insight normal, memory normal, mood/affect normal Skin: normal color, no rash, warm/dry, normal turgor, other - A few 1 cm Skin tears on bilateral Arms no lacerations, abrasions Lymphatic: no adenopathy EKG Time: 10:02 EP Interpretation: afib rate 107, no stemi Rate: tachycardiac Rhythm: other - afib ST Segments: no acute changes ASA given to the pt in ED: No Chest X-Ray: Indication: Shortness of Breath EP Interpretation: Yes Interpretation: no consolidation, no effusion, no pneumothorax, no acute cardiopulmonary disease Impression: No acute disease Impression: COPD (chronic obstructive pulmonary disease) S/p Fall Skin tear, oral abrasions Abrasion Afibrillation H/o HTN For COPD comntinue with nebulized treatments as well as steroids Follow Troponin Admit ICU Serial Labs Critical Care - Objective Last 24 Hour Vital Signs Date Time Temp Pulse Resp B/P (MAP) Pulse Ox O2 Delivery O2 Flow Rate FiO2 07/30/18 19:00 77 27 114/97 (103) 99 07/30/18 18:00 87 26 158/86 (110) 97 07/30/18 17:00 96 15 156/71 (99) 100 07/30/18 16:00 89 07/30/18 16:00 98.2 91 27 115/50 (71) 100 07/30/18 16:00 Nasal Cannula 2.0 07/30/18 15:00 105 24 166/94 (118) 100 07/30/18 14:50 102 143/61 07/30/18 14:00 109 25 141/71 (94) 100 07/30/18 13:37 Nasal Cannula 2.0 07/30/18 12:45 97.9 99 20 135/78 100 Nasal Cannula 2.0 28 07/30/18 12:30 97.9 99 20 135/78 100 Nasal Cannula 2.0 28 07/30/18 11:49 97.9 106 20 139/76 100 Nasal Cannula 2.0 28 07/30/18 10:18 100 20 100 Nasal Cannula 2.0 28 07/30/18 10:08 97.9 99 22 154/51 100 Nasal Cannula 2.0 28 07/30/18 10:08 106 22 Nasal Cannula 2.0 28 07/30/18 09:59 101 22 100 Nasal Cannula 2.0 07/30/18 09:46 119 23 Room Air 07/30/18 09:42 97.9 119 23 154/51 95 Room Air Critical Care - Subjective ROS Limited/Unobtainable: No FI02: 28 Sputum Amount: Scant Estuardo Pratt MD Jul 30, 2018 20:40
[2018-07-30] MEDS ORDERED: Atorvastatin 20mg tab ORAL SCH (21:00)
[2018-07-30] MEDS ORDERED: Zolpidem 5mg tab ORAL PRN (21:00)
[2018-07-30] MEDS ORDERED: Heparin 5000 units/ml inj SUBQ SCH (21:00)
--- NOTE | 2018-07-30 21:31 | Consultation ---
DATE OF CONSULTATION: 07/30/2018 HISTORY OF PRESENT ILLNESS: This is a 68-year-old male with history of multiple medical problems including AFib, [place], CHF, COPD, PTSD, and , who has been admitted to the hospital due to AFib. The patient has severe anxiety and is very irritable. Has poor insight and judgment. He stated that he had a PTSD and has nightmares and flashbacks. I discussed with him in regards to antipsychotics. He is reluctant to take any medications, then he agreed to take as needed medication. PAST PSYCHIATRIC HISTORY: As I mentioned, PTSD, depression, and anxiety. No psychiatric hospitalizations. PAST MEDICAL HISTORY: Includes atrial fibrillation, congestive heart failure, myocardial infarction, and chronic obstructive pulmonary disease. ALLERGIES: Ampicillin and penicillin. SUBSTANCE ABUSE HISTORY: Extensive for smoking. He is still a heavy smoker. MENTAL STATUS EXAMINATION: The patient is alert and oriented times self, place, and situation. Mood is anxious and irritable. Affect is constricted. Congruent with mood. Thought process is concrete. Thought content, no suicidal or homicidal ideation. ASSESSMENT: AXIS I Major depressive disorder and PTSD. AXIS II Deferred. AXIS III As above. AXIS IV [id number]. AXIS V Global assessment of functioning is 50. PLAN: 1. We will start the patient on Ativan p.r.n. 2. Remeron p.r.n. 3. We will continue to follow and readjust the medications. Payal Streeter M.D. DR: ARIANNE JOB#: [id number] CC:
--- NOTE | 2018-07-30 21:46 | Consultation ---
DATE OF CONSULTATION: 07/30/2018 CARDIOLOGY CONSULTATION CONSULTING PHYSICIAN: Lele Jiménez M.D. REFERRING PHYSICIAN: Chico Hewitt M.D. REASON FOR CONSULTATION: Atrial fibrillation with rapid ventricular response. HISTORY OF PRESENT ILLNESS: The patient is a 68-year-old gentleman with a history of hypertension, severe COPD, and history of cardiac arrhythmia on Eliquis, who came to the emergency room with spitting of blood from his mouth. He also fell off a ladder yesterday that was 5 feet high and fell onto a pile of junk in a closet. The patient states he did not lose consciousness, but noticed bleeding from his mouth. The patient came to the emergency room. He was found to be in atrial fibrillation with rapid ventricular response, heart rate of 120 beats per minute. The patient was admitted to telemetry. However, at the time of my evaluation, his heart rate was in the 140s. REVIEW OF SYSTEMS: Review of systems was negative other than what was mentioned in history of present illness. PAST MEDICAL HISTORY: 1. Hypertension. 2. History of cardiac arrhythmia, likely atrial fibrillation as the patient is on Eliquis. 3. COPD. 4. Asthma. 5. Posttraumatic stress disorder. FAMILY HISTORY: Noncontributory. SOCIAL HISTORY: He has 3-pack a day smoking history, but has cut down to 1 pack a day. Continue to drink alcohol. Denies using street drugs. PHYSICAL EXAMINATION: VITAL SIGNS: Blood pressure is 135/78, pulse 140, respirations 18, and he is afebrile. HEAD AND NECK: Shows no JVD. LUNGS: Coarse rhonchi. CARDIOVASCULAR: Irregularly irregular. S1 and S2 with no gallop or murmur. ABDOMEN: Soft. EXTREMITIES: No pitting edema. There is diffuse ecchymoses. LABORATORY AND DIAGNOSTIC DATA: White count of 7.2, hemoglobin 13.4, hematocrit 42, and platelets of 182. Sodium 142, potassium 4.7, BUN of 17, creatinine 0.9. Troponin 0.304. ASSESSMENT AND PLAN: 1. Elevated troponin. The patient has a history of coronary artery disease with prior stent placement three months ago. He said he had it at [facility]. Completely rule out myocardial infarction protocol with repeat EKG and put him on aspirin beta-navjot and statin and try to control the rate of atrial fibrillation. 2. Atrial fibrillation with rapid ventricular response. I will transfer the patient to intensive care unit on Cardizem drip. Since his troponin is also elevated, repeat EKG and get an echocardiogram. Currently he does not have any chest pain, put him on aspirin and resume his Eliquis until further evaluation is completed. 3. Severe COPD and heavy smoking. Thank you very much, Dr. Hewitt, for allowing me participate in the care of this patient. Please do not hesitate to contact me for any questions regarding my evaluation. Sincerely, Lele Jiménez M.D. DR: Anastacia JOB#: [id number] CC:
[2018-07-30] MEDS: Atorvastatin 20mg tab ORAL SCH (22:04)
[2018-07-30] MEDS: Metoprolol 25mg tab ORAL SCH (22:04)
[2018-07-31] VITALS (24 sets, daily range): BP systolic 91–154; BP diastolic 4–78
[2018-07-31 05:37] LABS: HEMATOCRIT 37.5 % (42.0-52.0); HEMOGLOBIN 12.8 G/DL (14.2-18.0); MEAN CORPUSCULAR VOLUME 78 FL (80-99); PLATELET COUNT 165 K/UL (150-450); RED BLOOD COUNT 4.82 M/UL (4.70-6.10); RED CELL DISTRIBUTION WIDTH 13.1 % (11.6-14.8); WHITE BLOOD COUNT 7.8 K/UL (4.8-10.8)
[2018-07-31 05:58] LABS: PHOSPHORUS 3.6 MG/DL (2.5-4.9)
[2018-07-31 06:04] LABS: CHOLESTEROL 120 MG/DL (< 200); HDL CHOLESTEROL 29 MG/DL (40-60); TRIGLYCERIDES 55 MG/DL (30-150)
[2018-07-31] MEDS ORDERED: Lisinopril 2.5mg tab ORAL SCH (09:00)
[2018-07-31] MEDS ORDERED: Aspirin Baby 81mg ORAL SCH (09:00)
[2018-07-31] MEDS: Metoprolol 25mg tab ORAL SCH (09:00)
[2018-07-31] MEDS: Eliquis 2.5mg tablet ORAL SCH ×2 (09:18→18:01)
[2018-07-31 10:18] LABS: ANION GAP 11 mmol/L (5-15); BLOOD UREA NITROGEN 31 mg/dL (7-18); CALCIUM 9.4 MG/DL (8.5-10.1); CARBON DIOXIDE 28 MMOL/L (21-32); CHLORIDE 101 MMOL/L (98-107); CREATININE 1.1 MG/DL (0.55-1.30); POTASSIUM 4.4 MMOL/L (3.5-5.1); SODIUM 140 MMOL/L (136-145)
--- NOTE | 2018-07-31 12:26 | Cardiac Electrophysiology PN ---
Assessment/Plan Assessment/Plan 1. Elevated troponin and history of coronary artery disease with prior stent placement three months ago at [facility]. Continue aspirin and Lipitor 40 . Increase Lopressor to 100 bid . Could be due to atrial fib with RVR. Echo Nl EF 55% Repeat troponin now in am. 2. Atrial fibrillation with rapid ventricular response. DC Cardizem drip. Continue Eliquis. DC Cardizem. Increase Lopressor to 100 bid 3. Severe COPD and heavy smoking. AUDELIA RN Subjective Subjective In ICU. Cardizem drip DCed for bradycardia.No CP despite rising troponin. Objective Last 24 Hour Vital Signs Date Time Temp Pulse Resp B/P (MAP) Pulse Ox O2 Delivery O2 Flow Rate FiO2 07/31/18 11:00 64 20 119/34 (62) 100 07/31/18 10:00 63 20 126/38 (67) 100 07/31/18 09:19 127/45 07/31/18 09:00 75 20 127/45 (72) 94 07/31/18 09:00 55 07/31/18 08:00 98.8 53 18 116/38 (64) 97 07/31/18 08:00 Nasal Cannula 2.0 07/31/18 08:00 50 07/31/18 07:55 55 22 Room Air 21 07/31/18 07:00 60 18 125/51 (75) 99 07/31/18 06:00 49 18 127/77 (94) 99 07/31/18 05:00 50 18 137/54 (81) 99 07/31/18 04:00 49 20 118/55 (76) 99 07/31/18 04:00 Nasal Cannula 2.0 07/31/18 04:00 40 07/31/18 03:00 46 18 115/34 (61) 99 07/31/18 02:00 98.0 50 18 121/55 (77) 99 07/31/18 01:00 47 20 102/45 (64) 100 07/31/18 00:00 48 07/31/18 00:00 Nasal Cannula 2.0 07/31/18 00:00 48 20 105/44 (64) 99 07/30/18 23:00 53 20 114/51 (72) 100 07/30/18 22:04 71 121/52 07/30/18 22:00 57 21 121/52 (75) 100 07/30/18 22:00 99 23 Nasal Cannula 2.0 28 07/30/18 21:00 67 23 127/66 (86) 99 07/30/18 20:00 Nasal Cannula 2.0 07/30/18 20:00 73 07/30/18 20:00 73 24 130/45 (73) 99 07/30/18 19:00 77 27 114/97 (103) 99 07/30/18 18:00 87 26 158/86 (110) 97 07/30/18 17:00 96 15 156/71 (99) 100 07/30/18 16:00 89 07/30/18 16:00 98.2 91 27 115/50 (71) 100 07/30/18 16:00 Nasal Cannula 2.0 07/30/18 15:00 105 24 166/94 (118) 100 07/30/18 14:50 102 143/61 07/30/18 14:00 109 25 141/71 (94) 100 07/30/18 13:37 Nasal Cannula 2.0 07/30/18 12:45 97.9 99 20 135/78 100 Nasal Cannula 2.0 28 07/30/18 12:30 97.9 99 20 135/78 100 Nasal Cannula 2.0 28 Intake and Output 07/30/18 07/31/18 19:00 07:00 Intake Total 490 ml 263.750 ml Output Total 275 ml 300 ml Balance 215 ml -36.250 ml Intake Oral 450 ml 200 ml IV Total 40 ml 63.750 ml Output Urine Total 275 ml 300 ml # Bowel Movements 1 Laboratory Tests Test 07/30/18 13:45 07/30/18 19:08 07/31/18 04:55 D-Dimer 1.19 mg/L FEU (0.00-0.49) H Troponin I 0.425 ng/mL (0.000-0.056) 1.302 ng/mL (0.000-0.056) 2.485 ng/mL (0.000-0.056) White Blood Count 7.8 K/UL (4.8-10.8) Red Blood Count 4.82 M/UL (4.70-6.10) Hemoglobin 12.8 G/DL (14.2-18.0) L Hematocrit 37.5 % (42.0-52.0) L Mean Corpuscular Volume 78 FL (80-99) L Mean Corpuscular Hemoglobin 26.5 PG (27.0-31.0) L Mean Corpuscular Hemoglobin Concent 34.0 G/DL (32.0-36.0) Red Cell Distribution Width 13.1 % (11.6-14.8) Platelet Count 165 K/UL (150-450) Mean Platelet Volume 8.4 FL (6.5-10.1) Neutrophils (%) (Auto) % (45.0-75.0) Lymphocytes (%) (Auto) % (20.0-45.0) Monocytes (%) (Auto) % (1.0-10.0) Eosinophils (%) (Auto) % (0.0-3.0) Basophils (%) (Auto) % (0.0-2.0) Differential Total Cells Counted 100 Neutrophils % (Manual) 85 % (45-75) H Lymphocytes % (Manual) 8 % (20-45) L Monocytes % (Manual) 7 % (1-10) Eosinophils % (Manual) 0 % (0-3) Basophils % (Manual) 0 % (0-2) Band Neutrophils 0 % (0-8) Platelet Estimate Adequate Platelet Morphology Normal Anisocytosis 1+ Microcytosis 1+ Sodium Level 140 MMOL/L (136-145) Potassium Level 4.4 MMOL/L (3.5-5.1) Chloride Level 101 MMOL/L (98-107) Carbon Dioxide Level 28 MMOL/L (21-32) Anion Gap 11 mmol/L (5-15) Blood Urea Nitrogen 31 mg/dL (7-18) H Creatinine 1.1 MG/DL (0.55-1.30) Estimat Glomerular Filtration Rate > 60 mL/min (>60) Glucose Level 176 MG/DL (74-106) H Calcium Level 9.4 MG/DL (8.5-10.1) Phosphorus Level 3.6 MG/DL (2.5-4.9) Magnesium Level 1.9 MG/DL (1.8-2.4) Pro-B-Type Natriuretic Peptide 6951 pg/mL (0-125) H Triglycerides Level 55 MG/DL (30-150) Cholesterol Level 120 MG/DL (< 200) LDL Cholesterol 83 mg/dL (<100) HDL Cholesterol 29 MG/DL (40-60) L Cholesterol/HDL Ratio 4.1 (3.3-4.4) Objective HEAD AND NECK: Shows no JVD. LUNGS: Coarse rhonchi. CARDIOVASCULAR: Irregularly irregular. S1 and S2 with no gallop or murmur. ABDOMEN: Soft. EXTREMITIES: No pitting edema. There is diffuse ecchymoses. Lele Jiménez MD Jul 31, 2018 12:26
--- NOTE | 2018-07-31 12:41 | General Progress Note ---
Assessment/Plan Problem List: (1) Atrial fibrillation with RVR ICD Codes: I48.91 - Unspecified atrial fibrillation SNOMED: 054698704220801 (2) NSTEMI (non-ST elevated myocardial infarction) ICD Codes: I21.4 - Non-ST elevation (NSTEMI) myocardial infarction SNOMED: 532901535 (3) CAD (coronary artery disease) ICD Codes: I25.10 - Atherosclerotic heart disease of [place] coronary artery without angina pectoris SNOMED: 06949715 (4) CHF (congestive heart failure) ICD Codes: I50.9 - Heart failure, unspecified SNOMED: 45258202 (5) COPD (chronic obstructive pulmonary disease) ICD Codes: J44.9 - Chronic obstructive pulmonary disease, unspecified SNOMED: 30330484 (6) Tobacco abuse ICD Codes: Z72.0 - Tobacco use SNOMED: 421787115 (7) Major depression ICD Codes: F32.9 - Major depressive disorder, single episode, unspecified SNOMED: 362590953 Assessment/Plan Afib RVR with NSTEMI and history of PCI s/p stent at [facility] 12/06/ history of CHF , SSS? - appreciate reqs by Cardiology Dr. Jiménez , continue lopressor if HR tolerates - cardizem d/c'd at 3 am - no hep gtt at this time - cont asa, plavix, eliquis, BB, KIERRA-I, statin, - serial troponins and EKG - echo - monitor BP goal Map >65 , HR < 110 COPD and current tobacco abuse - Pulmonology Consult: Dr. Terence burgos - patient unaware if he was on steroids, holding for now will monitor and discuss with pulmonology - nicotine patch - tobacco cessation education Major Depression - Psychiatry Consult: Dr. Streeter Code Status - spoke to patient regarding code status and clarified that patient would like to be FULL CODE. He mentions he was referred to a hospice program? but unsure why and was not explained well about his medical condition DVT - patient on sufficient anticoagulation Dispo - pending I have spent 70 minutes regarding patient care, coordination and counseling. I have spent 30 minutes of critical care time with patient. Subjective Date patient seen: Jul 31, 2018 Time patient seen: 12:00 ROS Limited/Unobtainable: No Allergies: Coded Allergies: AMPICILLIN (Verified Allergy, Unknown, 04/23/18) Uncoded Allergies: PENICILLIN (Allergy, Unknown, 04/23/18) Subjective patient denies chest pain, sob, fevers, chills, cruz, sob. Requests to be discharged with nicotine patch as it is the only medication that does not give him nightmares. Objective Last 24 Hour Vital Signs Date Time Temp Pulse Resp B/P (MAP) Pulse Ox O2 Delivery O2 Flow Rate FiO2 07/31/18 11:00 64 20 119/34 (62) 100 07/31/18 10:00 63 20 126/38 (67) 100 07/31/18 09:19 127/45 07/31/18 09:00 75 20 127/45 (72) 94 07/31/18 09:00 55 07/31/18 08:00 98.8 53 18 116/38 (64) 97 07/31/18 08:00 Nasal Cannula 2.0 07/31/18 08:00 50 07/31/18 07:55 55 22 Room Air 21 07/31/18 07:00 60 18 125/51 (75) 99 07/31/18 06:00 49 18 127/77 (94) 99 07/31/18 05:00 50 18 137/54 (81) 99 07/31/18 04:00 49 20 118/55 (76) 99 07/31/18 04:00 Nasal Cannula 2.0 07/31/18 04:00 40 07/31/18 03:00 46 18 115/34 (61) 99 07/31/18 02:00 98.0 50 18 121/55 (77) 99 07/31/18 01:00 47 20 102/45 (64) 100 07/31/18 00:00 48 07/31/18 00:00 Nasal Cannula 2.0 07/31/18 00:00 48 20 105/44 (64) 99 07/30/18 23:00 53 20 114/51 (72) 100 07/30/18 22:04 71 121/52 07/30/18 22:00 57 21 121/52 (75) 100 07/30/18 22:00 99 23 Nasal Cannula 2.0 28 07/30/18 21:00 67 23 127/66 (86) 99 07/30/18 20:00 Nasal Cannula 2.0 07/30/18 20:00 73 07/30/18 20:00 73 24 130/45 (73) 99 07/30/18 19:00 77 27 114/97 (103) 99 07/30/18 18:00 87 26 158/86 (110) 97 07/30/18 17:00 96 15 156/71 (99) 100 07/30/18 16:00 89 07/30/18 16:00 98.2 91 27 115/50 (71) 100 07/30/18 16:00 Nasal Cannula 2.0 07/30/18 15:00 105 24 166/94 (118) 100 07/30/18 14:50 102 143/61 07/30/18 14:00 109 25 141/71 (94) 100 07/30/18 13:37 Nasal Cannula 2.0 07/30/18 12:45 97.9 99 20 135/78 100 Nasal Cannula 2.0 28 Intake and Output 07/30/18 07/31/18 19:00 07:00 Intake Total 490 ml 263.750 ml Output Total 275 ml 300 ml Balance 215 ml -36.250 ml Intake Oral 450 ml 200 ml IV Total 40 ml 63.750 ml Output Urine Total 275 ml 300 ml # Bowel Movements 1 Laboratory Tests 07/30/18 13:45: D-Dimer 1.19H, Troponin I 0.425H 07/30/18 19:08: Troponin I 1.302H 07/31/18 04:55: Troponin I 2.485H, White Blood Count 7.8, Red Blood Count 4.82, Hemoglobin 12.8L , Hematocrit 37.5L, Mean Corpuscular Volume 78L, Mean Corpuscular Hemoglobin 26.5L, Mean Corpuscular Hemoglobin Concent 34.0, Red Cell Distribution Width 13.1, Platelet Count 165, Mean Platelet Volume 8.4, Neutrophils (%) (Auto) , Lymphocytes (%) (Auto) , Monocytes (%) (Auto) , Eosinophils (%) (Auto) , Basophils (%) (Auto) , Differential Total Cells Counted 100, Neutrophils % ( Manual) 85H, Lymphocytes % (Manual) 8L, Monocytes % (Manual) 7, Eosinophils % ( Manual) 0, Basophils % (Manual) 0, Band Neutrophils 0, Platelet Estimate Adequate, Platelet Morphology Normal, Anisocytosis 1+, Microcytosis 1+, Sodium Level 140, Potassium Level 4.4, Chloride Level 101, Carbon Dioxide Level 28, Anion Gap 11, Blood Urea Nitrogen 31H, Creatinine 1.1, Estimat Glomerular Filtration Rate > 60, Glucose Level 176H, Calcium Level 9.4, Phosphorus Level 3.6, Magnesium Level 1.9, Pro-B-Type Natriuretic Peptide 6951H, Triglycerides Level 55, Cholesterol Level 120, LDL Cholesterol 83, HDL Cholesterol 29L, Cholesterol/HDL Ratio 4.1 Height (Feet): 5 Height (Inches): 7.00 Weight (Pounds): 121 General Appearance: WD/WN, no apparent distress, alert EENT: PERRL/EOMI, normal ENT inspection, other - scratch on nose from fall, no bleeding Neck: non-tender Cardiovascular: normal peripheral pulses, regularly irregular, no gallop/murmur , no JVD Respiratory/Chest: chest wall non-tender, lungs clear, normal breath sounds, no respiratory distress, no accessory muscle use Abdomen: normal bowel sounds, non tender, soft, no organomegaly Extremities: normal range of motion, non-tender Edema: no edema noted Arm (L), no edema noted Arm (R), no edema noted Leg (L), no edema noted Leg (R), no edema noted Pedal (L), no edema noted Pedal (R), no edema noted Generalized Neurologic: marker machine II-XII grossly normal, no motor/sensory deficits, oriented x 3 , normal mood/affect Quyen Morris DO Jul 31, 2018 12:41
[2018-07-31] MEDS ORDERED: dilTIAZem HCl 60mg tab ORAL SCH (14:00)
--- NOTE | 2018-07-31 20:15 | Pulmonolgy Critical Care Note ---
Critical Care - Asmt/Plan Assessment/Plan: Patient is a 68-year-old male with a history of COPD/Asthma, HTN, atrial fibrillation on Eliquis, ptsd presents with spitting up blood from his mouth, he reports no pain complaints, but reports that he fell off a ladder yesterday, it was roughly 5 feet high, it tipped over and he fell onto a pile of junk in the closet, he did not hit his head or lose consciousness, and he didn't think much of it until this morning when he started noticing blood in his mouth. He denies neck or back pain, vomiting, does report he's been bleeding from his arms from the fall yesterday but stopped temporarily and starts again so he finally came in for an evaluation. CT Head/neck no evidence fracture, IC pathology Allergies: AMPICILLIN (Verified Allergy, Unknown, 04/23/18) PENICILLIN (Allergy, Unknown, 04/23/18) Reviewed Nursing Documentation: PMH: Agreed; PSxH: Agreed Nursing Documentation-PMH Past Medical History: No History, Except For Hx Cardiac Problems: Yes - bradycardia, Afib Hx Hypertension: Yes Hx Pacemaker: No Hx Asthma: Yes Hx COPD: Yes Hx Diabetes: No Hx Cancer: No Hx Gastrointestinal Problems: No Hx Dialysis: No History Of Psychiatric Problem: Yes - PTSD Hx Neurological Problems: No Hx Cerebrovascular Accident: No Hx Seizures: No Review of Systems All Other Systems: negative except mentioned in HPI Physical Exam Vital Signs noted General Appearance: alert, non-toxic, mild distress Head: normocephalic Eyes: bilateral eye normal inspection, bilateral eye PERRL, bilateral eye EOMI ENT: normal ENT inspection, hearing grossly normal, normal pharynx, no angioedema, normal voice, moist mucus membranes, other - Multiple missing teeth , dried blood and abrasions on the internal aspect of the upper and lower lip, no loose teeth Neck: normal inspection, full range of motion, supple, supple/symm/no masses Respiratory: chest non-tender, lungs clear, normal breath sounds, no rhonchi, speaking full sentences, wheezing, expiration, chest symmetrical, palpation of chest normal Cardiovascular normal peripheral pulses, regular rate, rhythm, no edema, no gallop, no JVD, no murmur, no rub, tachycardia Gastrointestinal: normal inspection, non tender, soft, no mass, no guarding, no rebound Rectal: deferred Genitourinary: normal inspection, no CVA tenderness Musculoskeletal: back normal, gait/station normal, normal range of motion, non- tender, no calf tenderness 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, responsive, fitness manager III-XII nml as tested, motor strength/tone normal, sensory intact, speech normal Psychiatric: judgement/insight normal, memory normal, mood/affect normal Skin: normal color, no rash, warm/dry, normal turgor, other - A few 1 cm Skin tears on bilateral Arms no lacerations, abrasions Lymphatic: no adenopathy EKG Time: 10:02 EP Interpretation: afib rate 107, no stemi Rate: tachycardiac Rhythm: other - afib ST Segments: no acute changes ASA given to the pt in ED: No Chest X-Ray: Indication: Shortness of Breath EP Interpretation: Yes Interpretation: no consolidation, no effusion, no pneumothorax, no acute cardiopulmonary disease Impression: No acute disease Impression: COPD (chronic obstructive pulmonary disease) S/p Fall Skin tear, oral abrasions Abrasion Afibrillation H/o HTN For COPD comntinue with nebulized treatments as well as steroids Follow Troponin Admit ICU Serial Labs Critical Care - Objective Last 24 Hour Vital Signs Date Time Temp Pulse Resp B/P (MAP) Pulse Ox O2 Delivery O2 Flow Rate FiO2 07/31/18 19:24 92 17 100 Nasal Cannula 2.0 28 07/31/18 19:14 90 20 100 Nasal Cannula 2.0 28 07/31/18 19:14 90 22 Nasal Cannula 2.0 28 07/31/18 19:00 98.0 108 27 154/58 (90) 96 07/31/18 18:00 98.7 97 27 147/65 (92) 97 07/31/18 17:00 105 24 130/66 (87) 97 07/31/18 16:00 86 25 131/49 (76) 97 07/31/18 16:00 112 07/31/18 16:00 Nasal Cannula 2.0 07/31/18 15:00 78 22 109/41 (63) 97 07/31/18 14:00 92 26 134/49 (77) 96 07/31/18 13:00 86 27 /4 96 07/31/18 12:00 70 07/31/18 12:00 Nasal Cannula 2.0 07/31/18 12:00 82 24 121/45 (70) 99 07/31/18 11:00 64 20 119/34 (62) 100 07/31/18 10:00 63 20 126/38 (67) 100 07/31/18 09:19 127/45 07/31/18 09:00 75 20 127/45 (72) 94 07/31/18 09:00 55 07/31/18 08:00 98.8 53 18 116/38 (64) 97 07/31/18 08:00 Nasal Cannula 2.0 07/31/18 08:00 50 07/31/18 07:55 55 22 Room Air 21 07/31/18 07:00 60 18 125/51 (75) 99 07/31/18 06:00 49 18 127/77 (94) 99 07/31/18 05:00 50 18 137/54 (81) 99 07/31/18 04:00 49 20 118/55 (76) 99 07/31/18 04:00 Nasal Cannula 2.0 07/31/18 04:00 40 07/31/18 03:00 46 18 115/34 (61) 99 07/31/18 02:00 98.0 50 18 121/55 (77) 99 07/31/18 01:00 47 20 102/45 (64) 100 07/31/18 00:00 48 07/31/18 00:00 Nasal Cannula 2.0 07/31/18 00:00 48 20 105/44 (64) 99 07/30/18 23:00 53 20 114/51 (72) 100 07/30/18 22:04 71 121/52 07/30/18 22:00 57 21 121/52 (75) 100 07/30/18 22:00 99 23 Nasal Cannula 2.0 28 07/30/18 21:00 67 23 127/66 (86) 99 Critical Care - Subjective ROS Limited/Unobtainable: No FI02: 28 Sputum Amount: Scant I&O: Intake and Output 07/30/18 07/31/18 19:00 07:00 Intake Total 490 ml 263.750 ml Output Total 275 ml 300 ml Balance 215 ml -36.250 ml Intake Oral 450 ml 200 ml IV Total 40 ml 63.750 ml Output Urine Total 275 ml 300 ml # Bowel Movements 1 Estuardo Pratt MD Jul 31, 2018 20:15
[2018-07-31] MEDS: Atorvastatin 20mg tab ORAL SCH (20:41)
[2018-07-31] MEDS ORDERED: Metoprolol 25mg tab ORAL SCH (21:00)
[2018-08-01] VITALS (10 sets, daily range): BP systolic 121–172; BP diastolic 47–93
[2018-08-01 05:41] LABS: ALANINE AMINOTRANSFERASE 27 U/L (12-78); ALBUMIN 3.1 G/DL (3.4-5.0); ALBUMIN/GLOBULIN RATIO 0.8 (1.0-2.7); ALKALINE PHOSPHATASE 78 U/L (46-116); ANION GAP 5 mmol/L (5-15); ASPARTATE AMINO TRANSFERASE 35 U/L (15-37); BILIRUBIN,TOTAL 0.3 MG/DL (0.2-1.0); BLOOD UREA NITROGEN 29 mg/dL (7-18); CARBON DIOXIDE 30 MMOL/L (21-32); CHLORIDE 105 MMOL/L (98-107); POTASSIUM 4.5 MMOL/L (3.5-5.1); SODIUM 140 MMOL/L (136-145)
[2018-08-01] MEDS ORDERED: Albuterol/Ipratropium 3ml neb HHN PRN (07:00)
[2018-08-01] MEDS ORDERED: LORazepam 1mg tab ORAL PRN (08:15)
[2018-08-01] MEDS: Aspirin Baby 81mg ORAL SCH (09:00)
[2018-08-01] MEDS: Eliquis 2.5mg tablet ORAL SCH ×2 (09:32→17:25)
[2018-08-01] MEDS: Metoprolol 25mg tab ORAL SCH ×2 (09:33→20:35)
[2018-08-01] MEDS ORDERED: Isovue-370 150ml vial INJ PRN (11:45)
--- NOTE | 2018-08-01 11:45 | Pulmonolgy Critical Care Note ---
Critical Care - Asmt/Plan Assessment/Plan: Patient is a 68-year-old male with a history of COPD/Asthma, HTN, atrial fibrillation on Eliquis, ptsd presents with spitting up blood from his mouth, he reports no pain complaints, but reports that he fell off a ladder yesterday, it was roughly 5 feet high, it tipped over and he fell onto a pile of junk in the closet, he did not hit his head or lose consciousness, and he didn't think much of it until this morning when he started noticing blood in his mouth. He denies neck or back pain, vomiting, does report he's been bleeding from his arms from the fall yesterday but stopped temporarily and starts again so he finally came in for an evaluation. CT Head/neck no evidence fracture, IC pathology Allergies: AMPICILLIN (Verified Allergy, Unknown, 04/23/18) PENICILLIN (Allergy, Unknown, 04/23/18) Reviewed Nursing Documentation: PMH: Agreed; PSxH: Agreed Nursing Documentation-PMH Past Medical History: No History, Except For Hx Cardiac Problems: Yes - bradycardia, Afib Hx Hypertension: Yes Hx Pacemaker: No Hx Asthma: Yes Hx COPD: Yes Hx Diabetes: No Hx Cancer: No Hx Gastrointestinal Problems: No Hx Dialysis: No History Of Psychiatric Problem: Yes - PTSD Hx Neurological Problems: No Hx Cerebrovascular Accident: No Hx Seizures: No Review of Systems All Other Systems: negative except mentioned in HPI Physical Exam Vital Signs noted General Appearance: alert, non-toxic, mild distress Head: normocephalic Eyes: bilateral eye normal inspection, bilateral eye PERRL, bilateral eye EOMI ENT: normal ENT inspection, hearing grossly normal, normal pharynx, no angioedema, normal voice, moist mucus membranes, other - Multiple missing teeth , dried blood and abrasions on the internal aspect of the upper and lower lip, no loose teeth Neck: normal inspection, full range of motion, supple, supple/symm/no masses Respiratory: chest non-tender, lungs clear, normal breath sounds, no rhonchi, speaking full sentences, wheezing, expiration, chest symmetrical, palpation of chest normal Cardiovascular normal peripheral pulses, regular rate, rhythm, no edema, no gallop, no JVD, no murmur, no rub, tachycardia Gastrointestinal: normal inspection, non tender, soft, no mass, no guarding, no rebound Rectal: deferred Genitourinary: normal inspection, no CVA tenderness Musculoskeletal: back normal, gait/station normal, normal range of motion, non- tender, no calf tenderness 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, responsive, jazz singer III-XII nml as tested, motor strength/tone normal, sensory intact, speech normal Psychiatric: judgement/insight normal, memory normal, mood/affect normal Skin: normal color, no rash, warm/dry, normal turgor, other - A few 1 cm Skin tears on bilateral Arms no lacerations, abrasions Lymphatic: no adenopathy EKG Time: 10:02 EP Interpretation: afib rate 107, no stemi Rate: tachycardiac Rhythm: other - afib ST Segments: no acute changes ASA given to the pt in ED: No Chest X-Ray: Indication: Shortness of Breath EP Interpretation: Yes Interpretation: no consolidation, no effusion, no pneumothorax, no acute cardiopulmonary disease Impression: No acute disease Impression: COPD (chronic obstructive pulmonary disease) S/p Fall Skin tear, oral abrasions Abrasion Afibrillation H/o HTN For COPD comntinue with nebulized treatments as well as steroids Follow Troponin Admit ICU Serial Labs Critical Care - Objective Last 24 Hour Vital Signs Date Time Temp Pulse Resp B/P (MAP) Pulse Ox O2 Delivery O2 Flow Rate FiO2 08/01/18 09:33 63 123/50 08/01/18 08:10 Room Air 08/01/18 07:57 61 08/01/18 06:00 63 20 123/50 (74) 96 08/01/18 05:00 57 22 124/48 (73) 95 08/01/18 04:00 Nasal Cannula 2.0 08/01/18 04:00 98.1 57 17 124/47 (72) 98 08/01/18 04:00 57 08/01/18 03:00 59 17 121/66 (84) 98 08/01/18 02:00 60 24 125/64 (84) 98 08/01/18 01:00 65 26 123/61 (81) 68 08/01/18 00:00 Nasal Cannula 2.0 08/01/18 00:00 68 18 136/69 (91) 99 08/01/18 00:00 71 07/31/18 23:00 74 21 120/77 (91) 97 07/31/18 22:00 77 26 138/78 (98) 99 07/31/18 21:00 70 26 144/71 (95) 97 07/31/18 20:41 90 148/90 07/31/18 20:00 90 07/31/18 20:00 95 29 145/57 (86) 97 07/31/18 20:00 Nasal Cannula 2.0 07/31/18 19:24 92 17 100 Nasal Cannula 2.0 28 07/31/18 19:14 90 20 100 Nasal Cannula 2.0 28 07/31/18 19:14 90 22 Nasal Cannula 2.0 28 07/31/18 19:00 98.0 108 27 154/58 (90) 96 07/31/18 18:00 98.7 97 27 147/65 (92) 97 07/31/18 17:00 105 24 130/66 (87) 97 07/31/18 16:00 86 25 131/49 (76) 97 07/31/18 16:00 112 07/31/18 16:00 Nasal Cannula 2.0 07/31/18 15:00 78 22 109/41 (63) 97 07/31/18 14:00 92 26 134/49 (77) 96 07/31/18 13:00 86 27 /4 96 07/31/18 12:00 70 07/31/18 12:00 Nasal Cannula 2.0 07/31/18 12:00 82 24 121/45 (70) 99 Critical Care - Subjective ROS Limited/Unobtainable: No FI02: 28 Sputum Amount: Scant I&O: Intake and Output 07/31/18 08/01/18 19:00 07:00 Intake Total 30 ml Output Total 1300 ml 600 ml Balance -1300 ml -570 ml Intake Oral 30 ml Output Urine Total 1300 ml 600 ml Estuardo Pratt MD Aug 01, 2018 11:45
--- NOTE | 2018-08-01 12:41 | General Progress Note ---
Assessment/Plan Problem List: (1) Atrial fibrillation with RVR ICD Codes: I48.91 - Unspecified atrial fibrillation SNOMED: 539410610562317 (2) NSTEMI (non-ST elevated myocardial infarction) ICD Codes: I21.4 - Non-ST elevation (NSTEMI) myocardial infarction SNOMED: 628263953 (3) CAD (coronary artery disease) ICD Codes: I25.10 - Atherosclerotic heart disease of [place] coronary artery without angina pectoris SNOMED: 40790852 (4) CHF (congestive heart failure) ICD Codes: I50.9 - Heart failure, unspecified SNOMED: 30003150 (5) COPD (chronic obstructive pulmonary disease) ICD Codes: J44.9 - Chronic obstructive pulmonary disease, unspecified SNOMED: 01904134 (6) Tobacco abuse ICD Codes: Z72.0 - Tobacco use SNOMED: 367300574 (7) Major depression ICD Codes: F32.9 - Major depressive disorder, single episode, unspecified SNOMED: 051983938 Assessment/Plan Afib RVR with NSTEMI and history of PCI s/p stent at [facility] 12/06/ history of CHF , SSS? - appreciate reqs by Cardiology Dr. Jiménez , continue lopressor if HR tolerates - elevated troponins 2/2 troponin leak - cont asa, plavix, eliquis, BB, KIERRA-I, statin, - serial troponins and EKG - echo - monitor BP goal Map >65 , HR < 110 Elevated dimer and tachycardia - CTA to r/o PE - IVF tunde-contrast to avoid TERRI COPD and current tobacco abuse - Pulmonology Consult: Dr. Terence burgos - patient unaware if he was on steroids, holding for now will monitor and discuss with pulmonology - nicotine patch - tobacco cessation education Major Depression - Psychiatry Consult: Dr. Streeter Code Status - spoke to patient regarding code status and clarified that patient would like to be FULL CODE. He mentions he was referred to a hospice program? but unsure why and was not explained well about his medical condition DVT - patient on sufficient anticoagulation Dispo - pending I have spent 70 minutes regarding patient care, coordination and counseling. Subjective Date patient seen: Aug 01, 2018 Time patient seen: 12:00 Allergies: Coded Allergies: AMPICILLIN (Verified Allergy, Unknown, 04/23/18) Uncoded Allergies: PENICILLIN (Allergy, Unknown, 04/23/18) Subjective patient denies chest pain, sob, fevers, chills, cruz, sob. Objective Last 24 Hour Vital Signs Date Time Temp Pulse Resp B/P (MAP) Pulse Ox O2 Delivery O2 Flow Rate FiO2 08/01/18 09:33 63 123/50 08/01/18 08:10 Room Air 08/01/18 07:57 61 08/01/18 06:00 63 20 123/50 (74) 96 08/01/18 05:00 57 22 124/48 (73) 95 08/01/18 04:00 Nasal Cannula 2.0 08/01/18 04:00 98.1 57 17 124/47 (72) 98 08/01/18 04:00 57 08/01/18 03:00 59 17 121/66 (84) 98 08/01/18 02:00 60 24 125/64 (84) 98 08/01/18 01:00 65 26 123/61 (81) 68 08/01/18 00:00 Nasal Cannula 2.0 08/01/18 00:00 68 18 136/69 (91) 99 08/01/18 00:00 71 07/31/18 23:00 74 21 120/77 (91) 97 07/31/18 22:00 77 26 138/78 (98) 99 07/31/18 21:00 70 26 144/71 (95) 97 07/31/18 20:41 90 148/90 07/31/18 20:00 90 07/31/18 20:00 95 29 145/57 (86) 97 07/31/18 20:00 Nasal Cannula 2.0 07/31/18 19:24 92 17 100 Nasal Cannula 2.0 28 07/31/18 19:14 90 20 100 Nasal Cannula 2.0 28 07/31/18 19:14 90 22 Nasal Cannula 2.0 28 07/31/18 19:00 98.0 108 27 154/58 (90) 96 07/31/18 18:00 98.7 97 27 147/65 (92) 97 07/31/18 17:00 105 24 130/66 (87) 97 07/31/18 16:00 86 25 131/49 (76) 97 07/31/18 16:00 112 07/31/18 16:00 Nasal Cannula 2.0 07/31/18 15:00 78 22 109/41 (63) 97 07/31/18 14:00 92 26 134/49 (77) 96 07/31/18 13:00 86 27 /4 96 Intake and Output 07/31/18 08/01/18 19:00 07:00 Intake Total 30 ml Output Total 1300 ml 600 ml Balance -1300 ml -570 ml Intake Oral 30 ml Output Urine Total 1300 ml 600 ml Laboratory Tests 07/31/18 13:16: Troponin I 1.329H 08/01/18 04:48: Troponin I 1.239H, Sodium Level 140, Potassium Level 4.5, Chloride Level 105, Carbon Dioxide Level 30, Anion Gap 5, Blood Urea Nitrogen 29H, Creatinine 1.0, Estimat Glomerular Filtration Rate > 60, Glucose Level 104, Calcium Level 9.0, Total Bilirubin 0.3, Aspartate Amino Transf (AST/SGOT) 35, Alanine Aminotransferase (ALT/SGPT) 27, Alkaline Phosphatase 78, Total Protein 7.0, Albumin 3.1L, Globulin 3.9, Albumin/Globulin Ratio 0.8L Height (Feet): 5 Height (Inches): 7.00 Weight (Pounds): 123 General Appearance: WD/WN, no apparent distress, alert EENT: PERRL/EOMI, normal ENT inspection Neck: non-tender, normal alignment, supple, normal inspection Cardiovascular: normal peripheral pulses, regularly irregular, no gallop/murmur , no JVD Respiratory/Chest: chest wall non-tender, lungs clear, normal breath sounds, no respiratory distress, no accessory muscle use, respiratory distress Abdomen: normal bowel sounds, non tender, soft, no organomegaly, no mass Extremities: normal range of motion, non-tender Edema: no edema noted Arm (L), no edema noted Arm (R), no edema noted Leg (L), no edema noted Leg (R), no edema noted Pedal (L), no edema noted Pedal (R), no edema noted 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
--- NOTE | 2018-08-01 13:44 | Cardiac Electrophysiology PN ---
Assessment/Plan Assessment/Plan 1. Elevated troponin and history of coronary artery disease with prior stent placement three months ago at [facility]. Continue Plavix, Lipitor 40, Lopressor 100 bid . Refuses aspirin Could be due to atrial fib with RVR. Echo Nl EF 55% Levels are flat Schedule Lexiscan Cardiolite in am. 2. Atrial fibrillation with rapid ventricular response. Continue Eliquis, Lopressor to 100 bid 3. Severe COPD and heavy smoking. DW RN Subjective Subjective Transferred out of ICU this am. No CP despite rising troponin. In 60s in fib Objective Last 24 Hour Vital Signs Date Time Temp Pulse Resp B/P (MAP) Pulse Ox O2 Delivery O2 Flow Rate FiO2 08/01/18 09:33 63 123/50 08/01/18 08:10 Room Air 08/01/18 07:57 61 08/01/18 06:00 63 20 123/50 (74) 96 08/01/18 05:00 57 22 124/48 (73) 95 08/01/18 04:00 Nasal Cannula 2.0 08/01/18 04:00 98.1 57 17 124/47 (72) 98 08/01/18 04:00 57 08/01/18 03:00 59 17 121/66 (84) 98 08/01/18 02:00 60 24 125/64 (84) 98 08/01/18 01:00 65 26 123/61 (81) 68 08/01/18 00:00 Nasal Cannula 2.0 08/01/18 00:00 68 18 136/69 (91) 99 08/01/18 00:00 71 07/31/18 23:00 74 21 120/77 (91) 97 07/31/18 22:00 77 26 138/78 (98) 99 07/31/18 21:00 70 26 144/71 (95) 97 07/31/18 20:41 90 148/90 07/31/18 20:00 90 07/31/18 20:00 95 29 145/57 (86) 97 07/31/18 20:00 Nasal Cannula 2.0 07/31/18 19:24 92 17 100 Nasal Cannula 2.0 28 07/31/18 19:14 90 20 100 Nasal Cannula 2.0 28 07/31/18 19:14 90 22 Nasal Cannula 2.0 28 07/31/18 19:00 98.0 108 27 154/58 (90) 96 07/31/18 18:00 98.7 97 27 147/65 (92) 97 07/31/18 17:00 105 24 130/66 (87) 97 07/31/18 16:00 86 25 131/49 (76) 97 07/31/18 16:00 112 07/31/18 16:00 Nasal Cannula 2.0 07/31/18 15:00 78 22 109/41 (63) 97 07/31/18 14:00 92 26 134/49 (77) 96 Intake and Output 07/31/18 08/01/18 19:00 07:00 Intake Total 30 ml Output Total 1300 ml 600 ml Balance -1300 ml -570 ml Intake Oral 30 ml Output Urine Total 1300 ml 600 ml Laboratory Tests Test 08/01/18 04:48 08/01/18 13:07 Sodium Level 140 MMOL/L (136-145) Potassium Level 4.5 MMOL/L (3.5-5.1) Chloride Level 105 MMOL/L (98-107) Carbon Dioxide Level 30 MMOL/L (21-32) Anion Gap 5 mmol/L (5-15) Blood Urea Nitrogen 29 mg/dL (7-18) H Creatinine 1.0 MG/DL (0.55-1.30) Estimat Glomerular Filtration Rate > 60 mL/min (>60) Glucose Level 104 MG/DL (74-106) Calcium Level 9.0 MG/DL (8.5-10.1) Total Bilirubin 0.3 MG/DL (0.2-1.0) Aspartate Amino Transf (AST/SGOT) 35 U/L (15-37) Alanine Aminotransferase (ALT/SGPT) 27 U/L (12-78) Alkaline Phosphatase 78 U/L (46-116) Troponin I 1.239 ng/mL (0.000-0.056) Pending Total Protein 7.0 G/DL (6.4-8.2) Albumin 3.1 G/DL (3.4-5.0) L Globulin 3.9 g/dL Albumin/Globulin Ratio 0.8 (1.0-2.7) L Objective HEAD AND NECK: Shows no JVD. LUNGS: Coarse rhonchi. CARDIOVASCULAR: Irregularly irregular. S1 and S2 with no gallop or murmur. ABDOMEN: Soft. EXTREMITIES: No pitting edema. There is diffuse ecchymoses. Lele Jiménez MD Aug 01, 2018 13:44
--- NOTE | 2018-08-01 17:16 | Diagnostic Imaging Report ---
EXAM: CT Angiography Chest With Intravenous Contrast CLINICAL HISTORY: TACHYP TECHNIQUE: Axial computed tomographic angiography images of the chest with intravenous contrast using pulmonary embolism protocol. CTDI is 15 mGy and DLP is 545 mGy-cm. One or more of the following dose reduction techniques were used: automated exposure control, adjustment of the mA and/or kV according to patient size, use of iterative reconstruction technique. 3D and MIP reconstructed images were created and reviewed. COMPARISON: No relevant prior studies available. FINDINGS: Limitations: Limited due to motion. Pulmonary arteries: No definite PE or aortic dissection. Aorta: Atherosclerosis. No aortic dissection. Great vessels of aortic arch: Stenosis at proximal left subclavian artery. Lungs: Possible minimal pulmonary edema/infiltrates, versus motion artifact. Pleural space: Unremarkable. No significant effusion. No pneumothorax. Heart: Unremarkable. No cardiomegaly. No significant pericardial effusion. Bones/joints: No acute fracture. Soft tissues: Unremarkable. Lymph nodes: Unremarkable. No enlarged lymph nodes. IMPRESSION: 1. Limited due to motion. 2. No definite PE or aortic dissection. 3. Possible minimal pulmonary edema/infiltrates, versus motion artifact.
[2018-08-01] MEDS ORDERED: Metoprolol 5mg/5ml Inj IVP SCH (18:00)
[2018-08-01] MEDS: Atorvastatin 20mg tab ORAL SCH (20:34)
[2018-08-01] MEDS ORDERED: Zolpidem 5mg tab ORAL PRN (21:00)
[2018-08-02] VITALS: BP 120/59
[2018-08-02 04:00] VITALS: BP 149/80
[2018-08-02] MEDS ORDERED: Lexiscan 0.4mg/5ml syringe IV SCH (08:00)
[2018-08-02 08:06] VITALS: BP 154/70
[2018-08-02 08:34] LABS: BASOPHILS % (AUTO) 0.8 % (0.0-2.0); EOSINOPHILS % (AUTO) 1.8 % (0.0-3.0); HEMATOCRIT 39.7 % (42.0-52.0); LYMPHOCYTES % (AUTO) 13.9 % (20.0-45.0); MEAN CORPUSCULAR VOLUME 79 FL (80-99); NEUTROPHILS % (AUTO) 73.6 % (45.0-75.0); PLATELET COUNT 126 K/UL (150-450); RED BLOOD COUNT 5.05 M/UL (4.70-6.10); RED CELL DISTRIBUTION WIDTH 13.7 % (11.6-14.8); WHITE BLOOD COUNT 7.2 K/UL (4.8-10.8)
[2018-08-02] MEDS: Metoprolol 25mg tab ORAL SCH ×2 (08:56→21:00)
[2018-08-02 09:03] LABS: ANION GAP 7 mmol/L (5-15); BLOOD UREA NITROGEN 17 mg/dL (7-18); CALCIUM 8.6 MG/DL (8.5-10.1); CARBON DIOXIDE 28 MMOL/L (21-32); CHLORIDE 106 MMOL/L (98-107); CREATININE 0.8 MG/DL (0.55-1.30); PHOSPHORUS 3.7 MG/DL (2.5-4.9); POTASSIUM 4.7 MMOL/L (3.5-5.1); SODIUM 141 MMOL/L (136-145)
--- NOTE | 2018-08-02 10:02 | General Progress Note ---
Assessment/Plan Problem List: (1) Atrial fibrillation with RVR ICD Codes: I48.91 - Unspecified atrial fibrillation SNOMED: 831896968347000 (2) NSTEMI (non-ST elevated myocardial infarction) ICD Codes: I21.4 - Non-ST elevation (NSTEMI) myocardial infarction SNOMED: 261962300 (3) CAD (coronary artery disease) ICD Codes: I25.10 - Atherosclerotic heart disease of [place] coronary artery without angina pectoris SNOMED: 64493916 (4) CHF (congestive heart failure) ICD Codes: I50.9 - Heart failure, unspecified SNOMED: 08055594 (5) COPD (chronic obstructive pulmonary disease) ICD Codes: J44.9 - Chronic obstructive pulmonary disease, unspecified SNOMED: 84978709 (6) Tobacco abuse ICD Codes: Z72.0 - Tobacco use SNOMED: 556017431 (7) Major depression ICD Codes: F32.9 - Major depressive disorder, single episode, unspecified SNOMED: 146167388 Assessment/Plan Afib RVR with NSTEMI and history of PCI s/p stent at [facility] 12/06/ history of CHF , SSS? - appreciate reqs by Cardiology Dr. Jiménez , continue lopressor if HR tolerates - elevated troponins 2/2 troponin leak-> f/u stress test, part one completed, pending part two - cont asa, plavix, eliquis, BB, KIERRA-I, statin, - serial troponins and EKG - echo-> EF 50-55% RVSP 19 - monitor BP goal Map >65 , HR < 110 Elevated dimer and tachycardia - CTA to r/o PE -> negative - IVF tunde-contrast to avoid TERRI COPD and current tobacco abuse - Pulmonology Consult: Dr. Terence burgos - patient unaware if he was on steroids, holding for now will monitor and discuss with pulmonology - nicotine patch - tobacco cessation education Major Depression - Psychiatry Consult: Dr. Streeter Code Status - spoke to patient regarding code status and clarified that patient would like to be FULL CODE. He mentions he was referred to a hospice program? but unsure why and was not explained well about his medical condition DVT - patient on sufficient anticoagulation Dispo - pending I have spent 70 minutes regarding patient care, coordination and counseling. Subjective Date patient seen: Aug 02, 2018 Time patient seen: 09:00 ROS Limited/Unobtainable: No Allergies: Coded Allergies: AMPICILLIN (Verified Allergy, Unknown, 04/23/18) Uncoded Allergies: PENICILLIN (Allergy, Unknown, 04/23/18) Subjective patient denies chest pain, sob, fevers, chills, cruz, sob. Objective Last 24 Hour Vital Signs Date Time Temp Pulse Resp B/P (MAP) Pulse Ox O2 Delivery O2 Flow Rate FiO2 08/02/18 08:56 72 154/70 08/02/18 08:53 72 20 99 Nasal Cannula 2.0 28 08/02/18 08:06 97.9 67 20 154/70 (98) 95 08/02/18 07:43 77 16 Room Air 08/02/18 04:00 97.7 66 18 149/80 (103) 96 08/02/18 04:00 64 08/02/18 00:00 64 08/02/18 00:00 98.3 63 17 120/59 (79) 94 08/01/18 21:00 Room Air 08/01/18 20:35 66 122/63 08/01/18 20:28 72 18 Room Air 08/01/18 20:00 75 08/01/18 20:00 97.9 66 18 122/63 (82) 94 08/01/18 17:23 156/93 (114) 08/01/18 17:02 172/87 08/01/18 16:00 85 08/01/18 16:00 97.7 74 19 172/87 (115) 100 74 08/01/18 12:00 59 Intake and Output 08/01/18 08/02/18 18:59 06:59 Intake Total 1200 ml 1391 ml Output Total 1000 ml Balance 200 ml 1391 ml Intake Oral 1200 ml IV Total 1391 ml Output Urine Total 1000 ml # Voids 4 3 Laboratory Tests 08/01/18 13:07: Troponin I 1.290H 08/02/18 08:06: White Blood Count 7.2, Red Blood Count 5.05, Hemoglobin 13.0L, Hematocrit 39.7L , Mean Corpuscular Volume 79L, Mean Corpuscular Hemoglobin 25.8L, Mean Corpuscular Hemoglobin Concent 32.8, Red Cell Distribution Width 13.7, Platelet Count 126L, Mean Platelet Volume 9.4, Neutrophils (%) (Auto) 73.6, Lymphocytes ( %) (Auto) 13.9L, Monocytes (%) (Auto) 10.0, Eosinophils (%) (Auto) 1.8, Basophils (%) (Auto) 0.8, Sodium Level 141, Potassium Level 4.7, Chloride Level 106, Carbon Dioxide Level 28, Anion Gap 7, Blood Urea Nitrogen 17, Creatinine 0.8, Estimat Glomerular Filtration Rate > 60, Glucose Level 95, Calcium Level 8.6, Phosphorus Level 3.7, Magnesium Level 1.8 Height (Feet): 5 Height (Inches): 7.00 Weight (Pounds): 122 General Appearance: WD/WN, no apparent distress, alert EENT: PERRL/EOMI, normal ENT inspection Neck: non-tender, normal alignment, supple Cardiovascular: normal peripheral pulses, normal rate, regular rhythm, regularly irregular, no gallop/murmur Respiratory/Chest: chest wall non-tender, lungs clear, normal breath sounds, no respiratory distress, no accessory muscle use Abdomen: normal bowel sounds, non tender, soft, no organomegaly, no mass, abnormal bowel sounds Extremities: normal range of motion, non-tender Edema: no edema noted Arm (L), no edema noted Arm (R), no edema noted Leg (L), no edema noted Leg (R), no edema noted Pedal (L), no edema noted Pedal (R), no edema noted 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
[2018-08-02] MEDS ORDERED: NICODERM CQ1 EAC1 TDERMAL (10:15)
[2018-08-02] MEDS ORDERED: LOPRESSOR25 M1 ORAL (10:15)
--- NOTE | 2018-08-02 10:40 | Cardiology Report ---
APPROVED REPORT EXAM: Two-dimensional and M-mode echocardiogram with Doppler and color Doppler. INDICATION Coronary artery disease M-Mode DIMENSIONS IVSd1.1 (0.7-1.1cm)Left Atrium (MM)4.0 (1.6-4.0cm) LVDd5.0 (3.5-5.6cm)Aortic Root2.3 (2.0-3.7cm) PWd1.1 (0.7-1.1cm)Aortic Cusp Exc.1.5 (1.5-2.0cm) LVDs2.5 (2.5-4.0cm) PWs1.9 cm Normal left ventricular chamber size. Left ventricular apical akinesis. Left ventricular ejection fraction estimated to be 50 %. Borderline left ventricular hypertrophy. Anterior Echo-free space, may be due to pericardial fat or effusion. All other cardiac chamber sizes are within normal limits. Mild focal aortic valve sclerosis with adequate cusp excursion. Mildy thickened mitral valve leaflets with normal excursion. Mild mitral annulus and aortic root calcification. Normal pulmonic valve structure. Normal tricuspid valve structure. IVC is normal in size with physiological collapse. A color flow and spectral Doppler study was performed and revealed: No aortic insufficiency. Mild mitral regurgitation. Left ventricular diastolic function could not be determined due to A-Fib. Trace tricuspid regurgitation. Tricuspid systolic velocities suggests peak right ventricular systolic pressure of 19 mmHg. No pulmonic regurgitation present.
[2018-08-02] MEDS: Eliquis 2.5mg tablet ORAL SCH ×2 (11:15→18:12)
[2018-08-02] MEDS: Aspirin Baby 81mg ORAL SCH (11:15)
[2018-08-02 12:00] VITALS: BP 136/95
--- NOTE | 2018-08-02 13:04 | Cardiac Electrophysiology PN ---
Assessment/Plan Assessment/Plan 1. Elevated troponin and history of CAD and stent placement three months ago at [facility]. On Aspirin, Plavix, Lipitor 40 and Lopressor 100 bid . Refuses aspirin Could be due to atrial fib with RVR. Echo Nl EF 55% Levels are flat Lexiscan Cardiolite today is pending 2. Atrial fibrillation with rapid ventricular response. Continue Eliquis, Lopressor 100 bid 3. Severe COPD and heavy smoking. AUDELIA RN Subjective Subjective No CP or SOB. In 60s in fib. Nuclear stress test today is pending Objective Last 24 Hour Vital Signs Date Time Temp Pulse Resp B/P (MAP) Pulse Ox O2 Delivery O2 Flow Rate FiO2 08/02/18 12:00 97.7 91 20 136/95 (109) 95 08/02/18 08:56 72 154/70 08/02/18 08:53 72 20 99 Nasal Cannula 2.0 28 08/02/18 08:10 69 08/02/18 08:10 Room Air 08/02/18 08:06 97.9 67 20 154/70 (98) 95 08/02/18 07:43 77 16 Room Air 08/02/18 04:00 97.7 66 18 149/80 (103) 96 08/02/18 04:00 64 08/02/18 00:00 64 08/02/18 00:00 98.3 63 17 120/59 (79) 94 08/01/18 21:00 Room Air 08/01/18 20:35 66 122/63 08/01/18 20:28 72 18 Room Air 08/01/18 20:00 75 08/01/18 20:00 97.9 66 18 122/63 (82) 94 08/01/18 17:23 156/93 (114) 08/01/18 17:02 172/87 08/01/18 16:00 85 08/01/18 16:00 97.7 74 19 172/87 (115) 100 74 Intake and Output 08/01/18 08/02/18 18:59 06:59 Intake Total 1200 ml 1391 ml Output Total 1000 ml Balance 200 ml 1391 ml Intake Oral 1200 ml IV Total 1391 ml Output Urine Total 1000 ml # Voids 4 3 Laboratory Tests Test 08/01/18 13:07 08/02/18 08:06 Troponin I 1.290 ng/mL (0.000-0.056) White Blood Count 7.2 K/UL (4.8-10.8) Red Blood Count 5.05 M/UL (4.70-6.10) Hemoglobin 13.0 G/DL (14.2-18.0) L Hematocrit 39.7 % (42.0-52.0) L Mean Corpuscular Volume 79 FL (80-99) L Mean Corpuscular Hemoglobin 25.8 PG (27.0-31.0) L Mean Corpuscular Hemoglobin Concent 32.8 G/DL (32.0-36.0) Red Cell Distribution Width 13.7 % (11.6-14.8) Platelet Count 126 K/UL (150-450) L Mean Platelet Volume 9.4 FL (6.5-10.1) Neutrophils (%) (Auto) 73.6 % (45.0-75.0) Lymphocytes (%) (Auto) 13.9 % (20.0-45.0) L Monocytes (%) (Auto) 10.0 % (1.0-10.0) Eosinophils (%) (Auto) 1.8 % (0.0-3.0) Basophils (%) (Auto) 0.8 % (0.0-2.0) Sodium Level 141 MMOL/L (136-145) Potassium Level 4.7 MMOL/L (3.5-5.1) Chloride Level 106 MMOL/L (98-107) Carbon Dioxide Level 28 MMOL/L (21-32) Anion Gap 7 mmol/L (5-15) Blood Urea Nitrogen 17 mg/dL (7-18) Creatinine 0.8 MG/DL (0.55-1.30) Estimat Glomerular Filtration Rate > 60 mL/min (>60) Glucose Level 95 MG/DL (74-106) Calcium Level 8.6 MG/DL (8.5-10.1) Phosphorus Level 3.7 MG/DL (2.5-4.9) Magnesium Level 1.8 MG/DL (1.8-2.4) Objective HEAD AND NECK: Shows no JVD. LUNGS: Coarse rhonchi. CARDIOVASCULAR: Irregularly irregular. S1 and S2 with no gallop or murmur. ABDOMEN: Soft. EXTREMITIES: No pitting edema. There is diffuse ecchymoses. Lele Jiménez MD Aug 02, 2018 13:03
--- NOTE | 2018-08-02 15:01 | Pulmonolgy Critical Care Note ---
Critical Care - Asmt/Plan Assessment/Plan: Patient is a 68-year-old male with a history of COPD/Asthma, HTN, atrial fibrillation on Eliquis, ptsd presents with spitting up blood from his mouth, he reports no pain complaints, but reports that he fell off a ladder yesterday, it was roughly 5 feet high, it tipped over and he fell onto a pile of junk in the closet, he did not hit his head or lose consciousness, and he didn't think much of it until this morning when he started noticing blood in his mouth. He denies neck or back pain, vomiting, does report he's been bleeding from his arms from the fall yesterday but stopped temporarily and starts again so he finally came in for an evaluation. CT Head/neck no evidence fracture, IC pathology CT Chest: 1. Limited due to motion. 2. No definite PE or aortic dissection. 3. Possible minimal pulmonary edema/infiltrates, versus motion artifact. Allergies: AMPICILLIN (Verified Allergy, Unknown, 04/23/18) PENICILLIN (Allergy, Unknown, 04/23/18) Reviewed Nursing Documentation: PMH: Agreed; PSxH: Agreed Nursing Documentation-PMH Past Medical History: No History, Except For Hx Cardiac Problems: Yes - bradycardia, Afib Hx Hypertension: Yes Hx Pacemaker: No Hx Asthma: Yes Hx COPD: Yes Hx Diabetes: No Hx Cancer: No Hx Gastrointestinal Problems: No Hx Dialysis: No History Of Psychiatric Problem: Yes - PTSD Hx Neurological Problems: No Hx Cerebrovascular Accident: No Hx Seizures: No Review of Systems All Other Systems: negative except mentioned in HPI Physical Exam Vital Signs noted General Appearance: alert, non-toxic, mild distress Head: normocephalic Eyes: bilateral eye normal inspection, bilateral eye PERRL, bilateral eye EOMI ENT: normal ENT inspection, hearing grossly normal, normal pharynx, no angioedema, normal voice, moist mucus membranes, other - Multiple missing teeth , dried blood and abrasions on the internal aspect of the upper and lower lip, no loose teeth Neck: normal inspection, full range of motion, supple, supple/symm/no masses Respiratory: chest non-tender, lungs clear, normal breath sounds, no rhonchi, speaking full sentences, wheezing, expiration, chest symmetrical, palpation of chest normal Cardiovascular normal peripheral pulses, regular rate, rhythm, no edema, no gallop, no JVD, no murmur, no rub, tachycardia Gastrointestinal: normal inspection, non tender, soft, no mass, no guarding, no rebound Rectal: deferred Genitourinary: normal inspection, no CVA tenderness Musculoskeletal: back normal, gait/station normal, normal range of motion, non- tender, no calf tenderness 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, responsive, sparmaker III-XII nml as tested, motor strength/tone normal, sensory intact, speech normal Psychiatric: judgement/insight normal, memory normal, mood/affect normal Skin: normal color, no rash, warm/dry, normal turgor, other - A few 1 cm Skin tears on bilateral Arms no lacerations, abrasions Lymphatic: no adenopathy EKG Time: 10:02 EP Interpretation: afib rate 107, no stemi Rate: tachycardiac Rhythm: other - afib ST Segments: no acute changes ASA given to the pt in ED: No Chest X-Ray: Indication: Shortness of Breath EP Interpretation: Yes Interpretation: no consolidation, no effusion, no pneumothorax, no acute cardiopulmonary disease Impression: No acute disease CT Chest: 1. Limited due to motion. 2. No definite PE or aortic dissection. 3. Possible minimal pulmonary edema/infiltrates, versus motion artifact. Impression: COPD (chronic obstructive pulmonary disease) S/p Fall Skin tear, oral abrasions Abrasion Afibrillation H/o HTN For COPD comntinue with nebulized treatments as well as steroids Follow Troponin Admit ICU Serial Labs Critical Care - Objective Last 24 Hour Vital Signs Date Time Temp Pulse Resp B/P (MAP) Pulse Ox O2 Delivery O2 Flow Rate FiO2 08/02/18 12:00 97.7 91 20 136/95 (109) 95 08/02/18 08:56 72 154/70 08/02/18 08:53 72 20 99 Nasal Cannula 2.0 28 08/02/18 08:10 69 08/02/18 08:10 Room Air 08/02/18 08:06 97.9 67 20 154/70 (98) 95 08/02/18 07:43 77 16 Room Air 08/02/18 04:00 97.7 66 18 149/80 (103) 96 08/02/18 04:00 64 08/02/18 00:00 64 08/02/18 00:00 98.3 63 17 120/59 (79) 94 08/01/18 21:00 Room Air 08/01/18 20:35 66 122/63 08/01/18 20:28 72 18 Room Air 08/01/18 20:00 75 08/01/18 20:00 97.9 66 18 122/63 (82) 94 08/01/18 17:23 156/93 (114) 08/01/18 17:02 172/87 08/01/18 16:00 85 08/01/18 16:00 97.7 74 19 172/87 (115) 100 74 Critical Care - Subjective ROS Limited/Unobtainable: No FI02: 28 Sputum Amount: None I&O: Intake and Output 08/01/18 08/02/18 19:00 07:00 Intake Total 1760 ml 931 ml Output Total 1000 ml Balance 760 ml 931 ml Intake Oral 1200 ml IV Total 560 ml 931 ml Output Urine Total 1000 ml # Voids 4 3 Estuardo Pratt MD Aug 02, 2018 15:00
--- NOTE | 2018-08-02 15:38 | Diagnostic Imaging Report ---
Indications: Chest pain, coronary artery disease Technique: Single day single isotope protocol utilized. Initially, resting images obtained using IV administration 9.5 millicuries 99M technetium Myoview. Subsequently, patient underwent lexiscan stress testing. See cardiology report for details. During Lexiscan infusion, IV administration 30.8 mCi 99 M technetium Myoview. SPECT and planar images obtained. SPECT images gated to 8 phases of the cardiac cycle were also obtained, and reformatted into cine images for evaluation of ejection fraction. Comparison: none Findings: Presence or absence of symptoms during infusion is not described on the cardiology report. Per cardiology report, resting EKG demonstrates atrial fibrillation. Presence or absence of ST changes is not described on the cardiology report. Imaging demonstrates large perfusion defect involving the apex, extending well into the anterior and inferior dickson. There is also subtle decreased septal perfusion. There may be slight likely increased perfusion in the septum and anterior wall near the base on the resting images, but this is very questionable. There is diffuse dilatation of the left ventricular chamber.. Calculated post stress ejection fraction 44% Impression: Nonischemic clinical response to pharmacologic stress, per cardiology report Nonischemic electrocardiographic response to pharmacologic stress, per cardiology report Large apical, anterior, inferior, and possibly septal infarct. Very equivocal small area of tunde-infarct ischemia in the anterior wall near the base and the septum Calculated post stress ejection fraction 44%
[2018-08-02 16:05] VITALS: BP 150/76
[2018-08-02 20:00] VITALS: BP 142/53
[2018-08-02] MEDS: Atorvastatin 20mg tab ORAL SCH (21:00)
[2018-08-03] VITALS: BP 155/81
--- NOTE | 2018-08-03 00:37 | General Progress Note ---
Assessment/Plan Assessment/Plan AXIS I Major depressive disorder and PTSD. AXIS II Deferred. AXIS III As above. AXIS IV [id number]. AXIS V Global assessment of functioning is 50. PLAN: 1. We will start the patient on Ativan p.r.n. 2. Remeron p.r.n. 3. We will continue to follow and readjust the medications. 4. prozac 20mg qam Subjective Date patient seen: Aug 02, 2018 Neurologic/Psychiatric: Reports: anxiety, depressed, emotional problems Allergies: Coded Allergies: AMPICILLIN (Verified Allergy, Unknown, 04/23/18) Uncoded Allergies: PENICILLIN (Allergy, Unknown, 04/23/18) Objective Last 24 Hour Vital Signs Date Time Temp Pulse Resp B/P (MAP) Pulse Ox O2 Delivery O2 Flow Rate FiO2 08/02/18 21:00 73 142/53 08/02/18 21:00 Room Air 08/02/18 20:09 74 16 Room Air 08/02/18 20:09 Room Air 21 08/02/18 20:00 97 08/02/18 20:00 97.9 73 22 142/53 (82) 96 08/02/18 16:05 97.9 69 20 150/76 (100) 95 08/02/18 16:00 88 08/02/18 12:00 97.7 91 20 136/95 (109) 95 08/02/18 11:56 84 08/02/18 08:56 72 154/70 08/02/18 08:53 72 20 99 Nasal Cannula 2.0 28 08/02/18 08:10 69 08/02/18 08:10 Room Air 08/02/18 08:06 97.9 67 20 154/70 (98) 95 08/02/18 07:43 77 16 Room Air 08/02/18 04:00 97.7 66 18 149/80 (103) 96 08/02/18 04:00 64 Intake and Output 08/02/18 08/03/18 19:00 07:00 Intake Total 600 ml Output Total 1300 ml Balance -700 ml Intake Oral 600 ml Output Urine Total 1300 ml Laboratory Tests 08/02/18 08:06: White Blood Count 7.2, Red Blood Count 5.05, Hemoglobin 13.0L, Hematocrit 39.7L , Mean Corpuscular Volume 79L, Mean Corpuscular Hemoglobin 25.8L, Mean Corpuscular Hemoglobin Concent 32.8, Red Cell Distribution Width 13.7, Platelet Count 126L, Mean Platelet Volume 9.4, Neutrophils (%) (Auto) 73.6, Lymphocytes ( %) (Auto) 13.9L, Monocytes (%) (Auto) 10.0, Eosinophils (%) (Auto) 1.8, Basophils (%) (Auto) 0.8, Sodium Level 141, Potassium Level 4.7, Chloride Level 106, Carbon Dioxide Level 28, Anion Gap 7, Blood Urea Nitrogen 17, Creatinine 0.8, Estimat Glomerular Filtration Rate > 60, Glucose Level 95, Calcium Level 8.6, Phosphorus Level 3.7, Magnesium Level 1.8 Height (Feet): 5 Height (Inches): 7.00 Weight (Pounds): 122 General Appearance: alert, moderate distress, agitated Neurologic: oriented x 3, responsive, depressed affect Payal Streeter MD Aug 03, 2018 00:37
[2018-08-03 04:00] VITALS: BP 156/75
[2018-08-03 07:00] LABS: BASOPHILS % (AUTO) 0.9 % (0.0-2.0); EOSINOPHILS % (AUTO) 4.3 % (0.0-3.0); HEMATOCRIT 38.2 % (42.0-52.0); HEMOGLOBIN 12.4 G/DL (14.2-18.0); LYMPHOCYTES % (AUTO) 16.6 % (20.0-45.0); MEAN CORPUSCULAR VOLUME 78 FL (80-99); MONOCYTES % (AUTO) 10.1 % (1.0-10.0); NEUTROPHILS % (AUTO) 68.2 % (45.0-75.0); PLATELET COUNT 139 K/UL (150-450); RED BLOOD COUNT 4.89 M/UL (4.70-6.10); RED CELL DISTRIBUTION WIDTH 13.5 % (11.6-14.8)
[2018-08-03 07:25] LABS: BLOOD UREA NITROGEN 19 mg/dL (7-18); CALCIUM 9.3 MG/DL (8.5-10.1); CARBON DIOXIDE 32 MMOL/L (21-32); CHLORIDE 104 MMOL/L (98-107); CREATININE 0.9 MG/DL (0.55-1.30); POTASSIUM 4.3 MMOL/L (3.5-5.1); SODIUM 141 MMOL/L (136-145)
[2018-08-03 08:00] VITALS: BP 152/82
[2018-08-03] MEDS: Aspirin Baby 81mg ORAL SCH (08:15)
[2018-08-03] MEDS: Metoprolol 25mg tab ORAL SCH (08:16)
[2018-08-03] MEDS: Eliquis 2.5mg tablet ORAL SCH ×2 (08:16→17:40)
[2018-08-03] MEDS ORDERED: PROZAC20 MG ORAL (09:32)
--- NOTE | 2018-08-03 10:29 | General Progress Note ---
Assessment/Plan Problem List: (1) Atrial fibrillation with RVR ICD Codes: I48.91 - Unspecified atrial fibrillation SNOMED: 836362234293625 (2) NSTEMI (non-ST elevated myocardial infarction) ICD Codes: I21.4 - Non-ST elevation (NSTEMI) myocardial infarction SNOMED: 243080571 (3) CAD (coronary artery disease) ICD Codes: I25.10 - Atherosclerotic heart disease of [place] coronary artery without angina pectoris SNOMED: 15564511 (4) CHF (congestive heart failure) ICD Codes: I50.9 - Heart failure, unspecified SNOMED: 78136904 (5) COPD (chronic obstructive pulmonary disease) ICD Codes: J44.9 - Chronic obstructive pulmonary disease, unspecified SNOMED: 06061041 (6) Tobacco abuse ICD Codes: Z72.0 - Tobacco use SNOMED: 649678748 (7) Major depression ICD Codes: F32.9 - Major depressive disorder, single episode, unspecified SNOMED: 380861359 Assessment/Plan Afib RVR with NSTEMI and history of PCI s/p stent at [facility] 12/06/ history of CHF , SSS? - stress tet reviewed, pending cardiology recommendation Findings: Presence or absence of symptoms during infusion is not described on the cardiology report. Per cardiology report, resting EKG demonstrates atrial fibrillation. Presence or absence of ST changes is not described on the cardiology report. Imaging demonstrates large perfusion defect involving the apex, extending well into the anterior and inferior dickson. There is also subtle decreased septal perfusion. There may be slight likely increased perfusion in the septum and anterior wall near the base on the resting images, but this is very questionable. There is diffuse dilatation of the left ventricular chamber.. Calculated post stress ejection fraction 44% Impression: Nonischemic clinical response to pharmacologic stress, per cardiology report Nonischemic electrocardiographic response to pharmacologic stress, per cardiology report Large apical, anterior, inferior, and possibly septal infarct. Very equivocal small area of tunde-infarct ischemia in the anterior wall near the base and the septum Calculated post stress ejection fraction 44% - appreciate reqs by Cardiology Dr. Jiménez , continue lopressor if HR tolerates - cont asa, plavix, eliquis, BB, KIERRA-I, statin, - serial troponins and EKG - echo-> EF 50-55% RVSP 19 - monitor BP goal Map >65 , HR < 110 Elevated dimer and tachycardia - CTA to r/o PE -> negative COPD and current tobacco abuse - Pulmonology Consult: Dr. Terence burgos - patient unaware if he was on steroids, holding for now will monitor and discuss with pulmonology - nicotine patch - tobacco cessation education Major Depression - Psychiatry Consult: Dr. Streeter Code Status - spoke to patient regarding code status and clarified that patient would like to be FULL CODE. He mentions he was referred to a hospice program? but unsure why and was not explained well about his medical condition DVT - patient on sufficient anticoagulation Dispo - pending I have spent 70 minutes regarding patient care, coordination and counseling. Subjective Date patient seen: Aug 03, 2018 Time patient seen: 09:30 Allergies: Coded Allergies: AMPICILLIN (Verified Allergy, Unknown, 04/23/18) Uncoded Allergies: PENICILLIN (Allergy, Unknown, 04/23/18) Subjective patient denies chest pain, sob, fevers, chills, cruz, sob. Patient complains of itching behind his neck that is traveling to his head. Objective Last 24 Hour Vital Signs Date Time Temp Pulse Resp B/P (MAP) Pulse Ox O2 Delivery O2 Flow Rate FiO2 08/03/18 09:00 Room Air 08/03/18 08:19 78 16 Room Air 08/03/18 08:16 82 152/82 08/03/18 08:00 56 08/03/18 08:00 98.3 82 18 152/82 (105) 95 08/03/18 04:00 97.5 73 20 156/75 (102) 95 08/03/18 04:00 61 08/03/18 00:00 69 08/03/18 00:00 97.9 63 18 155/81 (105) 96 08/02/18 21:00 73 142/53 08/02/18 21:00 Room Air 08/02/18 20:09 74 16 Room Air 08/02/18 20:09 Room Air 21 08/02/18 20:00 97 08/02/18 20:00 97.9 73 22 142/53 (82) 96 08/02/18 16:05 97.9 69 20 150/76 (100) 95 08/02/18 16:00 88 08/02/18 12:00 97.7 91 20 136/95 (109) 95 08/02/18 11:56 84 Intake and Output 08/02/18 08/03/18 19:00 07:00 Intake Total 600 ml Output Total 1300 ml Balance -700 ml Intake Oral 600 ml Output Urine Total 1300 ml # Voids 2 # Bowel Movements 1 Laboratory Tests 08/03/18 05:50: White Blood Count 7.0, Red Blood Count 4.89, Hemoglobin 12.4L, Hematocrit 38.2L , Mean Corpuscular Volume 78L, Mean Corpuscular Hemoglobin 25.4L, Mean Corpuscular Hemoglobin Concent 32.5, Red Cell Distribution Width 13.5, Platelet Count 139L, Mean Platelet Volume 8.4, Neutrophils (%) (Auto) 68.2, Lymphocytes ( %) (Auto) 16.6L, Monocytes (%) (Auto) 10.1H, Eosinophils (%) (Auto) 4.3H, Basophils (%) (Auto) 0.9, Sodium Level 141, Potassium Level 4.3, Chloride Level 104, Carbon Dioxide Level 32, Blood Urea Nitrogen 19H, Creatinine 0.9, Estimat Glomerular Filtration Rate > 60, Glucose Level 113H, Calcium Level 9.3, Magnesium Level 1.7L Height (Feet): 5 Height (Inches): 7.00 Weight (Pounds): 114 General Appearance: WD/WN, no apparent distress, alert EENT: PERRL/EOMI, normal ENT inspection Neck: non-tender, normal alignment, supple, other - dry skin on back of neck, no erythema or excoriations present, no vesicles Cardiovascular: normal peripheral pulses, normal rate, regularly irregular, no gallop/murmur, no JVD Respiratory/Chest: chest wall non-tender, lungs clear, normal breath sounds, no respiratory distress, no accessory muscle use Abdomen: normal bowel sounds, non tender, soft, no organomegaly, no mass Extremities: normal range of motion, non-tender, normal inspection Edema: no edema noted Arm (L), no edema noted Arm (R), no edema noted Leg (L), no edema noted Leg (R), no edema noted Pedal (L), no edema noted Pedal (R), no edema noted 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
[2018-08-03] MEDS ORDERED: Calamine Lotion 4oz TOPIC PRN (11:00)
[2018-08-03 12:00] VITALS: BP 146/82
--- NOTE | 2018-08-03 14:19 | Pulmonolgy Critical Care Note ---
Critical Care - Asmt/Plan Assessment/Plan: Patient is a 68-year-old male with a history of COPD/Asthma, HTN, atrial fibrillation on Eliquis, ptsd presents with spitting up blood from his mouth, he reports no pain complaints, but reports that he fell off a ladder yesterday, it was roughly 5 feet high, it tipped over and he fell onto a pile of junk in the closet, he did not hit his head or lose consciousness, and he didn't think much of it until this morning when he started noticing blood in his mouth. He denies neck or back pain, vomiting, does report he's been bleeding from his arms from the fall yesterday but stopped temporarily and starts again so he finally came in for an evaluation. CT Head/neck no evidence fracture, IC pathology No new complaints CT Chest: 1. Limited due to motion. 2. No definite PE or aortic dissection. 3. Possible minimal pulmonary edema/infiltrates, versus motion artifact. Allergies: AMPICILLIN (Verified Allergy, Unknown, 04/23/18) PENICILLIN (Allergy, Unknown, 04/23/18) Reviewed Nursing Documentation: PMH: Agreed; PSxH: Agreed Nursing Documentation-PMH Past Medical History: No History, Except For Hx Cardiac Problems: Yes - bradycardia, Afib Hx Hypertension: Yes Hx Pacemaker: No Hx Asthma: Yes Hx COPD: Yes Hx Diabetes: No Hx Cancer: No Hx Gastrointestinal Problems: No Hx Dialysis: No History Of Psychiatric Problem: Yes - PTSD Hx Neurological Problems: No Hx Cerebrovascular Accident: No Hx Seizures: No Review of Systems All Other Systems: negative except mentioned in HPI Physical Exam Vital Signs noted General Appearance: alert, non-toxic, mild distress Head: normocephalic Eyes: bilateral eye normal inspection, bilateral eye PERRL, bilateral eye EOMI ENT: normal ENT inspection, hearing grossly normal, normal pharynx, no angioedema, normal voice, moist mucus membranes, other - Multiple missing teeth , dried blood and abrasions on the internal aspect of the upper and lower lip, no loose teeth Neck: normal inspection, full range of motion, supple, supple/symm/no masses Respiratory: chest non-tender, lungs clear, normal breath sounds, no rhonchi, speaking full sentences, wheezing, expiration, chest symmetrical, palpation of chest normal Cardiovascular normal peripheral pulses, regular rate, rhythm, no edema, no gallop, no JVD, no murmur, no rub, tachycardia Gastrointestinal: normal inspection, non tender, soft, no mass, no guarding, no rebound Rectal: deferred Genitourinary: normal inspection, no CVA tenderness Musculoskeletal: back normal, gait/station normal, normal range of motion, non- tender, no calf tenderness 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, 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, 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, motor strength/tone normal, sensory intact, speech normal Psychiatric: judgement/insight normal, memory normal, mood/affect normal Skin: normal color, no rash, warm/dry, normal turgor, other - A few 1 cm Skin tears on bilateral Arms no lacerations, abrasions Lymphatic: no adenopathy EKG Time: 10:02 EP Interpretation: afib rate 107, no stemi Rate: tachycardiac Rhythm: other - afib ST Segments: no acute changes ASA given to the pt in ED: No Chest X-Ray: Indication: Shortness of Breath EP Interpretation: Yes Interpretation: no consolidation, no effusion, no pneumothorax, no acute cardiopulmonary disease Impression: No acute disease CT Chest: 1. Limited due to motion. 2. No definite PE or aortic dissection. 3. Possible minimal pulmonary edema/infiltrates, versus motion artifact. Impression: COPD (chronic obstructive pulmonary disease) S/p Fall Skin tear, oral abrasions Abrasion Afibrillation H/o HTN For COPD comntinue with nebulized treatments as well as steroids Follow Troponin Admit ICU Serial Labs Critical Care - Objective Last 24 Hour Vital Signs Date Time Temp Pulse Resp B/P (MAP) Pulse Ox O2 Delivery O2 Flow Rate FiO2 08/03/18 12:00 71 08/03/18 12:00 97.3 55 18 146/82 (103) 98 08/03/18 09:00 Room Air 08/03/18 08:19 78 16 Room Air 08/03/18 08:16 82 152/82 08/03/18 08:00 56 08/03/18 08:00 98.3 82 18 152/82 (105) 95 08/03/18 04:00 97.5 73 20 156/75 (102) 95 08/03/18 04:00 61 08/03/18 00:00 69 08/03/18 00:00 97.9 63 18 155/81 (105) 96 08/02/18 21:00 73 142/53 08/02/18 21:00 Room Air 08/02/18 20:09 74 16 Room Air 08/02/18 20:09 Room Air 21 08/02/18 20:00 97 08/02/18 20:00 97.9 73 22 142/53 (82) 96 08/02/18 16:05 97.9 69 20 150/76 (100) 95 08/02/18 16:00 88 Critical Care - Subjective ROS Limited/Unobtainable: No FI02: 21 Sputum Amount: None I&O: Intake and Output 08/02/18 08/03/18 18:59 06:59 Intake Total 700 ml Output Total 1300 ml Balance -600 ml Intake Oral 600 ml IV Total 100 ml Output Urine Total 1300 ml # Voids 2 # Bowel Movements 1 Estuardo Pratt MD Aug 03, 2018 14:19
--- NOTE | 2018-08-03 15:27 | Cardiac Electrophysiology PN ---
Assessment/Plan Assessment/Plan 1. Elevated troponin and history of CAD and stent placement three months ago at [facility]. On Aspirin, Plavix, Lipitor 40 and Lopressor 100 bid . Could be due to atrial fib with RVR. Echo Nl EF 55% Levels are flat Lexiscan Cardiolite showed Large apical, anterior, inferior, and possibly septal infarct. Very equivocal small area of tunde-infarct ischemia in the anterior wall near the base and the septum Continue medical therapy.No Cardiac cath needed at this point. No CP 2. Atrial fibrillation with rapid ventricular response. Continue Eliquis, Lopressor 100 bid 3. Severe COPD and heavy smoking. 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 In 60s in fib. Nuclear stress test was suggestive of ischemia Objective Last 24 Hour Vital Signs Date Time Temp Pulse Resp B/P (MAP) Pulse Ox O2 Delivery O2 Flow Rate FiO2 08/03/18 12:00 71 08/03/18 12:00 97.3 55 18 146/82 (103) 98 08/03/18 09:00 Room Air 08/03/18 08:19 78 16 Room Air 08/03/18 08:16 82 152/82 08/03/18 08:00 56 08/03/18 08:00 98.3 82 18 152/82 (105) 95 08/03/18 04:00 97.5 73 20 156/75 (102) 95 08/03/18 04:00 61 08/03/18 00:00 69 08/03/18 00:00 97.9 63 18 155/81 (105) 96 08/02/18 21:00 73 142/53 08/02/18 21:00 Room Air 08/02/18 20:09 74 16 Room Air 08/02/18 20:09 Room Air 21 08/02/18 20:00 97 08/02/18 20:00 97.9 73 22 142/53 (82) 96 08/02/18 16:05 97.9 69 20 150/76 (100) 95 08/02/18 16:00 88 Intake and Output 08/02/18 08/03/18 18:59 06:59 Intake Total 700 ml Output Total 1300 ml Balance -600 ml Intake Oral 600 ml IV Total 100 ml Output Urine Total 1300 ml # Voids 2 # Bowel Movements 1 Laboratory Tests Test 08/03/18 05:50 White Blood Count 7.0 K/UL (4.8-10.8) Red Blood Count 4.89 M/UL (4.70-6.10) Hemoglobin 12.4 G/DL (14.2-18.0) L Hematocrit 38.2 % (42.0-52.0) L Mean Corpuscular Volume 78 FL (80-99) L Mean Corpuscular Hemoglobin 25.4 PG (27.0-31.0) L Mean Corpuscular Hemoglobin Concent 32.5 G/DL (32.0-36.0) Red Cell Distribution Width 13.5 % (11.6-14.8) Platelet Count 139 K/UL (150-450) L Mean Platelet Volume 8.4 FL (6.5-10.1) Neutrophils (%) (Auto) 68.2 % (45.0-75.0) Lymphocytes (%) (Auto) 16.6 % (20.0-45.0) L Monocytes (%) (Auto) 10.1 % (1.0-10.0) H Eosinophils (%) (Auto) 4.3 % (0.0-3.0) H Basophils (%) (Auto) 0.9 % (0.0-2.0) Sodium Level 141 MMOL/L (136-145) Potassium Level 4.3 MMOL/L (3.5-5.1) Chloride Level 104 MMOL/L (98-107) Carbon Dioxide Level 32 MMOL/L (21-32) Blood Urea Nitrogen 19 mg/dL (7-18) H Creatinine 0.9 MG/DL (0.55-1.30) Estimat Glomerular Filtration Rate > 60 mL/min (>60) Glucose Level 113 MG/DL (74-106) H Calcium Level 9.3 MG/DL (8.5-10.1) Magnesium Level 1.7 MG/DL (1.8-2.4) L Objective HEAD AND NECK: Shows no JVD. LUNGS: Coarse rhonchi. CARDIOVASCULAR: Irregularly irregular. S1 and S2 with no gallop or murmur. ABDOMEN: Soft. EXTREMITIES: No pitting edema. There is diffuse ecchymoses. Lele Jiménez MD Aug 03, 2018 15:27
[2018-08-03 16:00] VITALS: BP 123/70
--- NOTE | 2018-08-03 19:16 | Progress Note ---
DATE: 08/03/2018 SUBJECTIVE: The patient continues to be anxious. More manageable today. Continues to present with depressed mood. Continues to complain of flashbacks and nightmares. Poor insight and judgment into his current medical condition. Tolerating medications. MENTAL STATUS EXAMINATION: The patient is alert and oriented times self, place, and situation. Mood is dysphoric. Affect is constricted, congruent with mood. Thought process is concrete. Thought content, no suicidal or homicidal ideations. ASSESSMENT: Anxiety disorder and depression. PLAN: We will continue current medication. Provide the patient with supportive therapy and reality orientation. Payal Streeter M.D. DR: Jair JOB#: [id number] CC:
--- NOTE | 2018-08-04 10:26 | Discharge Summary ---
Discharge Summary Hospital Course Date of Admission Jul 30, 2018 at 10:40 Date of Discharge Aug 03, 2018 at 18:14 Admitting Diagnosis copd, afib Reason for Hospitalization: A fib w RVR HPI Casey Lazo is a 68 year old male who was admitted on Jul 30, 2018 at 10: 40 for Chronic Obstructive Pulmonary Disease,Atrial Consultations Psychiatry: Dr. Streeter Cardiology: Dr. Jiménez Pulmonology: Dr. Pratt Hospital Course 68 yo M PMH of Afib wih RVR on Elaquis, CHF, [place] s/p PCI on 12/06 at [facility], COPD , MDD, admitted s/p 5 foot mechanical fall from a ladder. Upon Evaluation in the ED patient was found to have elevated troponin of 0.25 and Afib RVR with HR 146. CT head was negative. Patient was admitted to ICU for cardizem drip and transitioned to PO Lopressor. Echo showed EF of 50-55%. Patient was evaluated by nuclear stress test which was negative for reversible defect. Patient was also started on Prozac after evaluation by psychiatry. Patient was also found to have elevated dimer of 1.8 and CTA was completed with no pulmonary embolism. On day of discharge patient was in stable condition with HR controlled on PO medications. Imaging: Procedure: CT C Spine no Contrast Indication: Neck pain. Trauma Technique: Continuous helical imaging of the cervical spine was obtained transaxially from the skull base to the upper thoracic spine. 2-D coronal and sagittal reformatted images were obtained. Automatic Exposure Control was utilized. Total Dose length Product (DLP): 332.[address] Dose Index Volume (CTDIvol): 15.3 mGy Comparison: None Findings: There is no acute fracture or malalignment identified. There is no soft tissue swelling identified. Moderate uncovertebral arthritis is demonstrated at multiple levels with resultant foraminal stenosis. Some of the intervertebral discs show narrowing. There are prominent osteophytes especially at C4-5 C5-6 and C6-7. Impression: No acute injury Moderate spondylosis Procedure: CT Head no Contrast Indication: Headache and head trauma Technique: Contiguous 5 mm thick transaxial imaging of the head obtained in a Siemens Sensation [address] scanner. Soft tissue and bone windows generated. Automatic Exposure Control was utilized. Total Dose length Product (DLP): 1319.[address] Dose Index Volume (CTDIvol): 70.38 mGy Comparison: none Findings: There is moderate prominence of the ventricles, basal cisterns, and cerebral sulci consistent with atrophy. Moderate, nonspecific, white matter hypoattenuation is noted throughout the brain consistent with chronic small vessel disease. There is no midline shift, edema, acute hemorrhage, mass effect, or abnormal extra-axial fluid collections. Bones and extra osseous soft tissues are unremarkable. Impression: No acute intracranial bleed, mass effect or edema. Moderate atrophy of the brain. Evidence of chronic small vessel disease involving white matter tracts. The CT scanner at [facility] is accredited by the [employer] and the scans are performed using dose optimization techniques as appropriate to a performed exam including Automatic Exposure control. Procedure: NM Myocard Perf w/ Eject Frac Indications: Chest pain, coronary artery disease Technique: Single day single isotope protocol utilized. Initially, resting images obtained using IV administration 9.5 millicuries 99M technetium Myoview. Subsequently, patient underwent lexiscan stress testing. See cardiology report for details. During Lexiscan infusion, IV administration 30.8 mCi 99 M technetium Myoview. SPECT and planar images obtained. SPECT images gated to 8 phases of the cardiac cycle were also obtained, and reformatted into cine images for evaluation of ejection fraction. Comparison: none Findings: Presence or absence of symptoms during infusion is not described on the cardiology report. Per cardiology report, resting EKG demonstrates atrial fibrillation. Presence or absence of ST changes is not described on the cardiology report. Imaging demonstrates large perfusion defect involving the apex, extending well into the anterior and inferior dickson. There is also subtle decreased septal perfusion. There may be slight likely increased perfusion in the septum and anterior wall near the base on the resting images, but this is very questionable. There is diffuse dilatation of the left ventricular chamber.. Calculated post stress ejection fraction 44% Impression: Nonischemic clinical response to pharmacologic stress, per cardiology report Nonischemic electrocardiographic response to pharmacologic stress, per cardiology report Large apical, anterior, inferior, and possibly septal infarct. Very equivocal small area of tunde-infarct ischemia in the anterior wall near the base and the septum Calculated post stress ejection fraction 44% EXAM: Two-dimensional and M-mode echocardiogram with Doppler and color Doppler. INDICATION Coronary artery disease M-Mode DIMENSIONS IVSd 1.1 (0.7-1.1cm) Left Atrium (MM) 4.0 (1.6-4.0cm) LVDd 5.0 (3.5-5.6cm) Aortic Root 2.3 (2.0-3.7cm) PWd 1.1 (0.7-1.1cm) Aortic Cusp Exc. 1.5 (1.5-2.0cm) LVDs 2.5 (2.5-4.0cm) PWs 1.9 cm Normal left ventricular chamber size. Left ventricular apical akinesis. Left ventricular ejection fraction estimated to be 50 %. Borderline left ventricular hypertrophy. Anterior Echo-free space, may be due to pericardial fat or effusion. All other cardiac chamber sizes are within normal limits. Mild focal aortic valve sclerosis with adequate cusp excursion. Mildy thickened mitral valve leaflets with normal excursion. Mild mitral annulus and aortic root calcification. Normal pulmonic valve structure. Normal tricuspid valve structure. IVC is normal in size with physiological collapse. A color flow and spectral Doppler study was performed and revealed: No aortic insufficiency. Mild mitral regurgitation. Left ventricular diastolic function could not be determined due to A-Fib. Trace tricuspid regurgitation. Tricuspid systolic velocities suggests peak right ventricular systolic pressure of 19 mmHg. No pulmonic regurgitation present. Procedure: CTA Chest w Contrast EXAM: CT Angiography Chest With Intravenous Contrast CLINICAL HISTORY: TACHYP TECHNIQUE: Axial computed tomographic angiography images of the chest with intravenous contrast using pulmonary embolism protocol. CTDI is 15 mGy and DLP is 545 mGy-cm. One or more of the following dose reduction techniques were used: automated exposure control, adjustment of the mA and/or kV according to patient size, use of iterative reconstruction technique. 3D and MIP reconstructed images were created and reviewed. COMPARISON: No relevant prior studies available. FINDINGS: Limitations: Limited due to motion. Pulmonary arteries: No definite PE or aortic dissection. Aorta: Atherosclerosis. No aortic dissection. Great vessels of aortic arch: Stenosis at proximal left subclavian artery. Lungs: Possible minimal pulmonary edema/infiltrates, versus motion artifact. Pleural space: Unremarkable. No significant effusion. No pneumothorax. Heart: Unremarkable. No cardiomegaly. No significant pericardial effusion. Bones/joints: No acute fracture. Soft tissues: Unremarkable. Lymph nodes: Unremarkable. No enlarged lymph nodes. IMPRESSION: 1. Limited due to motion. 2. No definite PE or aortic dissection. 3. Possible minimal pulmonary edema/infiltrates, versus motion artifact. Discharge Medications New Medications: Fluoxetine Hcl* (Prozac*) 20 Mg Capsule 20 MG ORAL DAILY, #30 CAP 0 Refills Metoprolol Tartrate (Metoprolol Tartrate) 25 Mg Tablet 100 MG ORAL EVERY 12 HOURS for 30 Days, #60 TAB 0 Refills Nicotine 14MG Patch* (Nicoderm Cq 14MG*) 1 Each Patch.td24 1 PATCH TDERMAL Q24H for 30 Days, #30 PATCH 0 Refills Continued Medications: Apixaban (Eliquis) 5 Mg Tablet 5 MG PO TWICE A DAY, TAB (This prescription has been renewed) Aspirin Ec* (Aspirin Ec*) 81 Mg Tablet.dr 81 MG ORAL DAILY, TAB (This prescription has been renewed) Atorvastatin Calcium* (Atorvastatin Calcium*) 40 Mg Tablet 40 MG ORAL BEDTIME, TAB Clopidogrel Bisulfate* (Plavix*) 75 Mg Tablet 75 MG ORAL DAILY, TAB (This prescription has been renewed) Famotidine (Famotidine) 20 Mg Tablet 20 MG ORAL TWICE A DAY, #60 TAB 0 Refills (This prescription has been renewed) Ipratropium/Albuterol Sulfate (DuoNeb 0.5-3(2.5)mg/3ml) 3 Ml Ampul.neb 3 ML HHN Q4HR, EA (This prescription has been renewed) Discontinued Medications: Acetaminophen* (Acetaminophen 325MG Tablet*) 325 Mg Tablet 650 MG ORAL Q4H PRN for Mild Pain/Temp > 100.5, TAB Carvedilol (Coreg) 3.125 Mg Tablet 12.5 MG ORAL EVERY 12 HOURS, TAB Carvedilol (Coreg) 12.5 Mg Tablet 12.5 MG ORAL EVERY 12 HOURS, TAB Docusate Sodium* (Docusate Sodium*) 100 Mg Capsule 100 MG ORAL Q12HR, CAP Doxycycline Hyclate* (Vibramycin*) 100 Mg Capsule 100 MG ORAL EVERY 12 HOURS PRN for x3 days for 3 Days, #3 CAP 0 Refills Furosemide (Furosemide) 10 Mg/1 Ml Solution 40 MG PO DAILY Polyethylene Glycol 3350* (Miralax*) 17 Gm Powd.pack 17 GM ORAL Q12HR PRN for Constipation, PACKET Prednisone* (Prednisone*) 10 Mg Tablet 30 MG ORAL DAILY, #10 TAB 0 Refills Prednisone* (Prednisone*) 10 Mg Tablet 30 MG ORAL DAILY for x1 day for 1 Day, TAB 0 Refills Tramadol Hcl* (Ultram*) 50 Mg Tablet 50 MG ORAL Q6H PRN for For Pain, #14 TAB 0 Refills Zolpidem Tartrate* (Ambien*) 5 Mg Tablet 5 MG ORAL BEDTIME PRN for Insomnia, TAB Discharge Condition Upon Discharge: stable Discharge Disposition Patient was discharged to Home (01) Quyen Morris DO Aug 04, 2018 10:26
== END 2018-08-03 18:14 | disposition home or self-care (01) | DRG 282 ==
LOC: EMR 10:00 → 2E 10:40 → EDBEDREQ 11:02 → ICU 13:24 → 2E 08-01 06:11
DX: I48.91 Unspecified atrial fibrillation (principal); I21.4 Non-ST elevation (NSTEMI) myocardial infarction; I25.2 Old myocardial infarction; J44.9 Chronic obstructive pulmonary disease, unspecified; Z79.01 Long term (current) use of anticoagulants; Z88.1 Allergy status to other antibiotic agents; Z88.0 Allergy status to penicillin; I25.10 Atherosclerotic heart disease of native coronary artery without angina pectoris; Z95.5 Presence of coronary angioplasty implant and graft; F17.200 Nicotine dependence, unspecified, uncomplicated; F32.9 Major depressive disorder, single episode, unspecified; F43.10 Post-traumatic stress disorder, unspecified; S00.512A Abrasion of oral cavity, initial encounter; W11.XXXA Fall on and from ladder, initial encounter; Y92.008 Other place in unspecified non-institutional (private) residence as the place of occurrence of the external cause; F41.9 Anxiety disorder, unspecified; Z90.49 Acquired absence of other specified parts of digestive tract; I50.9 Heart failure, unspecified; M47.892 Other spondylosis, cervical region; I34.0 Nonrheumatic mitral (valve) insufficiency
CPT/HCPCS: 36415; 70450; 71045; 71275; 72125; 74176; 78452; 80048; 80053; 80061; 83735; 83880; 84100; 84484; 85007; 85025; 85379; 85610; 85730; 90471; 90715; 93005; 93017; 93306; 94640; 94664; 96374; 99285; J2785; J7620